=== PATIENT | female | born 1980 | race Caucasian/White ===

== ENCOUNTER 2017-11-05 21:01 | Emergency (ER) | payer OTHER, MEDICAID, SELFPAY ==
[2017-11-05 21:03] VITALS: BP 129/89; PULSE 103; RESP 17; TEMP 37.1; O2SAT 100; BMI 17.9
--- NOTE | 2017-11-05 21:05 | RAD_ITS ---
STUDY: X-RAY - RIGHT HAND REASON FOR EXAM: Female, 36 years old. Pain in fourth finger. TECHNIQUE: 3 view(s) of the hand. COMPARISON: None. FINDINGS: There is no evidence of fracture or dislocation. There are no significant degenerative changes. There are no radiodense foreign bodies. RAD/Hand Min 3 Views IMPRESSION: No fracture or dislocation. Electronically Signed: Jama Swan, at 21:33 EDT Tel , Service support ,
--- NOTE | 2017-11-05 22:16 | ED.VISSUMM ---
- ER Visit Summary Date of Service: 11/05/17 Chief Complaint: [Injury to right hand] History of Present Illness: The patient is a 36 F [presents to the emergency department with complaint of injury to her right hand. Patient states that she was punching a heavy bag with gloves on. Patient is right-hand dominant. Patient use ice to the area but noticed some discoloration and is concerned about fracturing her hand.] Physical Examination: [Right hand-patient has some faint ecchymosis and bruising over the dorsum of the fourth MCP joint. Patient has pain with range of motion of the fourth MCP joint but no obvious deformity noted. Patient neurovascularly intact distally.] Test Results: [X-ray of the right hand obtained was read by radiology is normal I also evaluated the x-rays do not see any obvious fractures.] Emergency Department Course and Treatment: [Patient will be given an Jung wrap.] Treatment Plan: Patient requested 800 mg ibuprofen as she tries to avoid narcotics given the patient is in pain management for chronic neck pain.] Disposition: [Discharged to home in stable condition. Patient advised to follow-up with her primary care physician in 5-7 days.] Impression: [Contusion right hand] This note was generated with [employer] dictation software. It may contain incorrect words, spelling, and punctuation that were not noted in review of the chart prior to signing ED Disposition - Plan for ED Patient: Chief Complaint: Upper Extremity Injury Referrals: Abby Sears DO [Primary Care Provider] -
--- NOTE | 2017-11-05 22:18 | ED.DEP ---
ED Disposition - Plan for ED Patient: Chief Complaint: Upper Extremity Injury Instructions: ED Contusion Hand Prescriptions: Ibuprofen [Motrin] 800 mg PO TID PRN PRN #20 tab PRN Reason: Pain Referrals: Abby Sears DO [Primary Care Provider] - 5-7 Days
[2017-11-05] MEDS: Ibuprofen 400 MG Tablet 800 MG PO (22:24)
[2017-11-05 22:29] VITALS: BP 120/78; PULSE 98; RESP 16; O2SAT 98
== END 2017-11-05 22:29 | disposition home or self-care (01) ==
PROVIDERS: Emergency Provider Emergency Medicine; Family Provider Family Medicine; PCP Family Medicine
DX: S60.221A Contusion of right hand, initial encounter (principal); W22.8XXA Striking against or struck by other objects, initial encounter; Y93.9 Activity, unspecified; Y92.89 Other specified places as the place of occurrence of the external cause; Y99.9 Unspecified external cause status; Z72.0 Tobacco use
CPT/HCPCS: 73130; 99283

== ENCOUNTER 2017-11-18 20:32 | Emergency (ER) | payer OTHER, MEDICAID, SELFPAY ==
[2017-11-18 20:33] VITALS: BP 134/88; PULSE 96; RESP 18; TEMP 36.6; O2SAT 98; BMI 17.6
--- NOTE | 2017-11-18 20:45 | ED.DCSUM_ITS ---
- ER Visit Summary Date of Service: 11/18/17 Chief Complaint: Headache History of Present Illness: The patient is a 36 F presenting with migraine headache. She states this started this afternoon. It started after she was working in the yard. She states that she feels her migraine may be triggered by dehydration. She was not drinking water, she was drinking Mountain Dew. She tried Imitrex at home with no relief. This is similar to her previous migraines. She has photophobia and phonophobia. Denies fever or other complaints. Physical Examination: Vitals are stable. Patient is afebrile. Alert no acute distress. HEENT exam is unremarkable. Neck is supple. No meningismus Lungs are clear and equal bilaterally. Heart is regular rate and rhythm. Abdomen is soft nontender nondistended. Extremities are unremarkable. Skin is warm and dry. No focal neurologic deficit. Remainder of exam is unremarkable. Emergency Department Course and Treatment: Patient was given Compazine, Benadryl , IV fluids with improvement. On repeat evaluation, she is resting comfortably. She is advised to follow-up with her primary care physician. Advised return to ED if worsening complaints. Disposition: Discharge home Impression: Headache This note was generated with [employer] dictation software. It may contain incorrect words, spelling, and punctuation that were not noted in review of the chart prior to signing ED Disposition - Plan for ED Patient: Chief Complaint: Headache Referrals: Abby Sears DO [Primary Care Provider] -
[2017-11-18] MEDS: DiphenhydrAMINE 50 MG/ML Syringe 25 MG IV (20:51)
[2017-11-18] MEDS: proCHLORPERazine 10 MG/2 ML Vial IV (20:51)
[2017-11-18] MEDS: 0.9% Normal Saline 1,000 ML 999 ML IV ×2 (20:51)
--- NOTE | 2017-11-18 22:03 | ED.DEP ---
ED Disposition - Plan for ED Patient: Chief Complaint: Headache Instructions: ED Headache Migraine Referrals: Abby Sears DO [Primary Care Provider] -
[2017-11-18 22:10] VITALS: BP 114/67; PULSE 80; RESP 20; O2SAT 96
== END 2017-11-18 22:12 | disposition home or self-care (01) ==
LOC: ED 21:00
PROVIDERS: Emergency Provider Emergency Medicine; Family Provider Family Medicine; PCP Family Medicine
DX: R51 Headache (principal); H53.149 Visual discomfort, unspecified; J45.909 Unspecified asthma, uncomplicated; Z72.0 Tobacco use
CPT/HCPCS: 96361; 96374; 96375; 99284; J7030; A4216

== ENCOUNTER 2017-12-17 18:41 | Emergency (ER) | payer OTHER, MEDICAID, SELFPAY ==
[2017-12-17 18:43] VITALS: BP 127/92; PULSE 92; RESP 20; TEMP 36.7; O2SAT 99; BMI 18.2
[2017-12-17] MEDS: Dicyclomine 20 MG/2 ML Vial IM (19:20)
[2017-12-17] MEDS: 0.9% Normal Saline 1,000 ML 1000 ML IV (19:20)
[2017-12-17] MEDS: Ondansetron 4 MG/2 ML Vial IV (19:20)
[2017-12-17 19:24] LABS: Color, Urine Yellow (Yellow); Glucose, Dipstick Normal (Normal); Ketone-Dipstick 5 mg/dl (Negative); Leukocyte Esterase-Dipstick 25 /ul (Negative); Nitrite-Dipstick Negative (Negative); Occult Blood-Urine 150 /ul (Negative); Protein-Dipstick 15 mg/dl (Negative); Urine Bilirubin Dipstick 1 mg/dL (Negative); Urine Clarity Sl. Cloudy (Clear); Urine Urobilinogen 1 mg/dl (Normal)
[2017-12-17 19:30] LABS: Absolute Lymphocyte Count 2.06 X10^3/ul (0.83-4.51); Basophil# 0.02 X10^3/uL; Basophil% 0.2 % (0-1); Eosinophil# 0.06 X10^3/uL; Eosinophils% 0.7 % (0-5); Hematocrit 44.3 % (37-47); Hemoglobin 15.1 g/dl (12.0-15.0); Lymphocyte # 2.06 X10^3/ul (4.0); Lymphocyte % 23.8 % (19-41); Mean Corp Hgb Conc 34.1 g/gl (32-36); Mean Corpuscular Hgb 31.8 pg (27.0-32.0); Mean Corpuscular Volume 93.3 fL (81-99); Mean Platelet Vol. 9.2 fl (6.2-12.0); Monocyte# 0.53 X10^3/uL; Monocyte% 6.1 % (0-10); Neutrophil # 5.98 X10^3/uL (2.7-7.7); Neutrophil % 69.1 % (47-70); Platelet Count 302 K/mm3 (150-450); RBC Distribution Width CV 12.9 % (11.6-14.6); Red Blood Count 4.75 M/mm3 (4.2-5.4); White Blood Count 8.7 K/mm3 (4.4-11.0)
[2017-12-17 19:33] LABS: Bacteria RARE /hpf (None Seen); Mucous, Urine 1+ /hpf (<or=2+); Squamous Epithelial Cells - UA 0-5 SEEN /hpf (5-10); White Blood Cells 0-5 SEEN /hpf (0-5)
[2017-12-17 19:35] LABS: Calcium Oxalate Crystals Ur 1+ /hpf (<or=2+); Red Blood Cells-Urine 0-5 SEEN /hpf (0-5)
[2017-12-17 19:37] LABS: POSITIVE COUNT NO; POSITIVE DIFFERENTIAL NO; POSITIVE MORPHOLOGY NO
[2017-12-17 19:40] LABS: ALB/GLOB Ratio 1.2 RATIO (0.9-2.4); AST(SGOT) 11 U/L (15-37); Alanine Aminotransfer ALT/SGPT 15 U/L (13-56); Albumin, Serum 4.4 g/dL (3.2-5.0); Alkaline Phosphatase 75 U/L (45-117); Anion Gap 7 (5-15); BUN 9 mg/dL (7-18); BUN/Creat Ratio 10.8 RATIO (10-20); Calcium,Total 9.1 mg/dL (8.5-10.1); Chloride 106 mmol/L (98-107); Creatinine, Serum 0.83 mg/dL (0.55-1.02); EST Glomerular Filtration Rate 83 mL/min (>60); Est Glom Filt Rate - Afr Amer 100 mL/min (>60); Estimated Creatinine Clearance 73.52 ml/min; Globulin 3.6 g/dL (2.2-4.2); Glucose 111 mg/dL (74-106); Lipase 76 U/L (73-393); Potassium 3.6 mmol/L (3.5-5.1); Sodium Level 138 mmol/L (136-145)
[2017-12-17 20:54] VITALS: BP 132/78; PULSE 84; RESP 17; O2SAT 96
--- NOTE | 2017-12-17 20:58 | ED.DCSUM_ITS ---
- ER Visit Summary Date of Service: 12/17/17 Chief Complaint: [Vomiting] History of Present Illness: The patient is a 37 F [presents the emergency department complaint of vomiting ?4 days. Patient states that she has been vomiting at least 20 times a day. Patient states she can keep anything down. Patient's had hot flashes and chills and temperature up to 100.2. Patient describes some diffuse abdominal discomfort. Patient states that she had a test done yesterday because she has injections in her neck and they always do a test before they do her injections. Patient denies any sick contacts. Patient denies urinary symptoms. Physical Examination: HEENT-PERRLA, EOMI. Cranial nerves II through XII grossly intact. TMs clear. Mucous membranes moist. No adenopathy. Cardiovascular-regular rate and rhythm without murmur or ectopy Lungs-clear to auscultation, chest wall stable without crepitus or subcu emphysema Abdomen-normoactive bowel sounds, soft. Patient has some diffuse tenderness to the midepigastric region. There is no rebound, rigidity, or perineal signs. Patient has a negative Elliott sign. Patient has no tenderness over McBurney's. Extremities-intact ?4, normal range of motion, normal pulses, atraumatic[] Test Results: [CBC with differential obtained showed a white blood cell count of 8.7, chemistries were normal, LFTs were normal lipase was normal at 76. Urinalysis was unremarkable.] Emergency Department Course and Treatment: [Patient received Zofran and a liter normal same fluid bolus as well as Bentyl. Patient was also given a GI cocktail. Patient was feeling improved. At this point I do not feel any imaging is indicated. Patient did have a CAT scan of her abdomen and pelvis about 7 months ago that was unremarkable.] Treatment Plan: [Discharged home with prescription for Zofran and Bentyl] Disposition: [Discharge Impression: [Abdominal pain Vomiting] This note was generated with [employer] dictation software. It may contain incorrect words, spelling, and punctuation that were not noted in review of the chart prior to signing ED Disposition - Plan for ED Patient: Chief Complaint: Nausea/Vomiting Referrals: Abby Sears DO [Primary Care Provider] -
--- NOTE | 2017-12-17 20:58 | ED.DEP ---
ED Disposition - Plan for ED Patient: Chief Complaint: Nausea/Vomiting Instructions: ED Abdominal Pain Unkn Cause, ED Nausea Vomiting Prescriptions: Ondansetron [Zofran Odt] 4 mg PO Q8H PRN PRN #10 tab PRN Reason: Nausea Dicyclomine HCl [Bentyl] 20 mg PO TIDAC #20 cap Referrals: Abby Sears DO [Primary Care Provider] - 3-5 Days
== END 2017-12-17 21:01 | disposition home or self-care (01) ==
PROVIDERS: Emergency Provider Emergency Medicine; Family Provider Family Medicine; PCP Family Medicine
DX: R10.13 Epigastric pain (principal); K52.9 Noninfective gastroenteritis and colitis, unspecified; R11.10 Vomiting, unspecified; Z72.0 Tobacco use
CPT/HCPCS: 80053; 81001; 83690; 85025; 96361; 96372; 96374; 99284; J7030; J2405

== ENCOUNTER 2017-12-19 19:49 | Emergency (ER) | payer OTHER, MEDICAID, SELFPAY ==
[2017-12-19 19:51] VITALS: BP 108/77; PULSE 88; RESP 16; TEMP 36.7; O2SAT 100; BMI 18.9
--- NOTE | 2017-12-19 20:54 | CT_ITS ---
STUDY: CT ABDOMEN AND PELVIS WITH CONTRAST REASON FOR EXAM: Female, 37 years old. Nausea and vomiting for 2 days RADIATION DOSAGE (If Supplied By Facility): CTDIvol = ( 11.26 ) mGy, DLP = ( 288.91 ) mGycm TECHNIQUE: Transaxial images were obtained from the dome of the diaphragm to the symphysis pubis with oral contrast. 100 ml of Isovue 300 contrast was administered. Sagittal and coronal images were reconstructed. Individualized dose optimization techniques were used for this CT. COMPARISON: CT abdomen and pelvis 06/29/2017 FINDINGS: Body wall soft tissues: No acute process. Osseous structures: No acute process. Inferior chest: No acute process. Hepatobiliary: Normal. Pancreas: No acute process. Spleen: Normal. Adrenal glands: Normal. Urogenital: Normal kidneys, symmetric nephrograms. Normal collecting systems, ureters, urinary bladder. Normal anteverted uterus. No adnexal mass or suspicious cyst and no cul-de-sac free fluid. Prominent uterine and adnexal veins discussed below. Pelvic floor and sidewalls and retroperitoneum: No mass or adenopathy. Vasculature: Unremarkable aorta, major aortic branch vessels, portal venous and mesenteric venous arborization, iliac veins and IVC. Acute takeoff of the superior mesenteric artery from the ureter. 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 This is a normal variant venous pathway rarely presenting with symptoms of pelvic venous congestion, flank pain, or painless hematuria. There are also features of SMA syndrome, prominent compression of the 3rd portion of the duodenum between the aorta and the SMA, contributing to mild ectasia of the 2nd portion of the duodenum and potentially contributing to symptoms of partial gastric outlet obstruction or delay in gastric emptying. This requires clinical correlation. Stomach: There is circumferential abnormal thickening of the wall the gastric pylorus edematous features. Wall thickness up to 8.5 mm. Thickening over a length of approximately 4.3 cm. Pyloric hypertrophy may be a reflection of SMA syndrome. Small bowel and mesentery: The jejunum and ileum are normal. Large bowel: Normal appendix. There is circumferential thickening of the wall of the cecum and ascending colon, and transverse colon normalizing through the splenic flexure. The distal large bowel is unremarkable. There is evidence of pneumatosis within the wall of the hepatic flexure and transverse colon. There is no evidence of gas within the mesenteric veins and there is no portal venous gas. Free fluid or free air: None. CT/Abdomen/Pelvis WITH Contrast IMPRESSION: 1. Mild circumferential thickening of wall the ascending colon and transverse colon associated with mild pneumatosis within the wall without mesenteric or portal venous pneumatosis. Most consistent with acute colitis. 2. There are features of SMA syndrome which may be contributing to hypertrophic pylorus. Correlate clinically for symptoms of delayed gastric emptying. 3. 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 Electronically Signed: Chris Anthony, at 23:52 EDT Tel , Service support ,
[2017-12-19] MEDS: 0.9% Normal Saline 1,000 ML 1000 ML IV (20:59)
[2017-12-19] MEDS: Morphine 4 MG/ML Syringe IV (20:59)
[2017-12-19] MEDS: Ondansetron 4 MG/2 ML Vial IV (20:59)
[2017-12-19 21:15] LABS: Absolute Lymphocyte Count 2.54 X10^3/ul (0.83-4.51); Absolute Neutrophil Count 5.6 X10^3/uL (2.0-7.7); Basophil# 0.03 X10^3/uL; Basophil% 0.3 % (0-1); Eosinophil# 0.11 X10^3/uL; Eosinophils% 1.3 % (0-5); Hematocrit 41.3 % (37-47); Hemoglobin 13.9 g/dl (12.0-15.0); Lymphocyte # 2.54 X10^3/ul (4.0); Lymphocyte % 29.2 % (19-41); Mean Corp Hgb Conc 33.7 g/gl (32-36); Mean Corpuscular Hgb 31.4 pg (27.0-32.0); Mean Corpuscular Volume 93.4 fL (81-99); Mean Platelet Vol. 9.3 fl (6.2-12.0); Monocyte# 0.46 X10^3/uL; Monocyte% 5.3 % (0-10); Neutrophil # 5.56 X10^3/uL (2.7-7.7); Neutrophil % 63.9 % (47-70); POSITIVE COUNT NO; POSITIVE DIFFERENTIAL NO; POSITIVE MORPHOLOGY NO; Platelet Count 286 K/mm3 (150-450); RBC Distribution Width CV 12.5 % (11.6-14.6); RBC Distribution Width SD 42.7 fl (35.1-43.9); Red Blood Count 4.42 M/mm3 (4.2-5.4); White Blood Count 8.7 K/mm3 (4.4-11.0)
[2017-12-19 21:27] LABS: Color, Urine Yellow (Yellow); Glucose, Dipstick Normal (Normal); Ketone-Dipstick 50 mg/dl (Negative); Leukocyte Esterase-Dipstick 100 /ul (Negative); Nitrite-Dipstick Positive (Negative); Occult Blood-Urine 150 /ul (Negative); Protein-Dipstick 100 mg/dl (Negative); Urine Clarity Sl. Cloudy (Clear); Urine Urobilinogen 4 mg/dl (Normal); Urine pH 6.5 (5.0 - 8.0)
[2017-12-19 21:29] LABS: Urine Bilirubin Dipstick 3 mg/dL (Negative)
[2017-12-19 21:30] LABS: ALB/GLOB Ratio 1.2 RATIO (0.9-2.4); AST(SGOT) 10 U/L (15-37); Alanine Aminotransfer ALT/SGPT 15 U/L (13-56); Albumin, Serum 4.3 g/dL (3.2-5.0); Alkaline Phosphatase 71 U/L (45-117); Anion Gap 9 (5-15); BUN 8 mg/dL (7-18); BUN/Creat Ratio 11.5 RATIO (10-20); Calcium,Total 8.9 mg/dL (8.5-10.1); Chloride 102 mmol/L (98-107); EST Glomerular Filtration Rate 101 mL/min (>60); Est Glom Filt Rate - Afr Amer 123 mL/min (>60); Estimated Creatinine Clearance 87.87 ml/min; Globulin 3.5 g/dL (2.2-4.2); Glucose 102 mg/dL (74-106); Lipase 555 U/L (73-393); Potassium 3.4 mmol/L (3.5-5.1); Protein, Total 7.8 g/dL (6.4-8.2); Sodium Level 139 mmol/L (136-145)
[2017-12-19 21:33] LABS: Bacteria 3+ /hpf (None Seen); Mucous, Urine 2+ /hpf (<or=2+); Red Blood Cells-Urine 5-10 SEEN /hpf (0-5); Squamous Epithelial Cells - UA 5-10 SEEN /hpf (5-10); White Blood Cells 5-10 SEEN /hpf (0-5)
[2017-12-19 21:34] LABS: Calcium Oxalate Crystals Ur RARE /hpf (<or=2+)
[2017-12-19 21:35] LABS: Pregnancy, Serum, hCG Quali. NEGATIVE Negative (0-9 Nonpreg)
--- NOTE | 2017-12-19 22:47 | RAD_ITS ---
STUDY: X-RAY CHEST REASON FOR EXAM: Female, 37 years old. Cough TECHNIQUE: Frontal and lateral views of the chest were obtained. COMPARISON: July 22, 2015 FINDINGS: The lungs are adequately aerated. There are no focal airspace opacities. There is no demonstrated pleural abnormality. Nipple shadows are present bilaterally. The cardiac silhouette is normal in size. The mediastinum and hilar regions are unremarkable. Normal visualized pulmonary arteries. Normal visualized aortic arch and descending thoracic aorta. The thoracic spine is unremarkable. The visualized ribs, clavicles, and shoulders are unremarkable. There is no demonstrated abnormality of the visualized upper abdomen. RAD/Chest PA and Lateral IMPRESSION: There is no evidence of focal consolidation or pleural effusion. Electronically Signed: Francy Lr MD at 0:14 EDT Tel Direct: [phone], Service support ,
[2017-12-19 23:18] VITALS: BP 118/80; PULSE 58; RESP 16; O2SAT 99
--- NOTE | 2017-12-20 00:16 | ED.DCSUM_ITS ---
- ER Visit Summary Date of Service: 12/20/17 Chief Complaint: Abdominal pain, nausea and vomiting History of Present Illness: The patient is a 37 F who presents with abdominal pain nausea and vomiting. She reports intractable nausea and vomiting for the past 5 days. She was recently seen in the ER for similar symptoms. She had normal labs at that time. She was discharged. She does have Zofran at home. She states that despite this she continues to vomit. She thought that maybe some of this may have been due to constipation so she did take a laxative and has had some loose stools since yesterday. She reports temperature of 100.2. She also reports burning epigastric abdominal pain which radiates up through the chest. She states she has had some cough and feel short of breath but believes this all may be related to her persistent vomiting. Physical Examination: Afebrile vitals are within normal limits Moist mucous membranes Heart regular rate and rhythm Lungs are clear Abdomen soft nondistended she has mild diffuse abdominal tenderness no guarding no rebound Alert Test Results: Laboratory studies are notable for lipase of 555. Urinalysis shows 100 leukocyte esterase, positive nitrates, 5-10 WBCs and 3+ bacteria however is contaminated with 5-10 epithelial cells. is negative. Chest x-ray shows no acute process on my review. CT of the abdomen and pelvis shows mild circumferential thickening of the wall of the ascending and transverse colon with mild pneumatosis consistent with colitis. The patient also has features of SMA syndrome and nutcracker syndrome. Emergency Department Course and Treatment: Patient was initially treated with IV fluids morphine and Zofran. She requested a GI cocktail. She took this with relief of symptoms although continue to complain of burning epigastric abdominal pain. She was given Protonix with further improvement although still does have some pain on reevaluation. She was given Rocephin although she is contaminated there are nitrites 3+ bacteria so we will treat for UTI and also obtain urine culture. Given the patient's persistent vomiting with features of SMA syndrome I do feel she will need further workup which would be more appropriate at a tertiary care facility with additional consult was available including gastroenterology. 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 It may contain incorrect words, spelling, and punctuation that were not noted in review of the chart prior to signing ED Disposition - Plan for ED Patient: Chief Complaint: Nausea/Vomiting Referrals: Abby Sears DO [Primary Care Provider] -
[2017-12-20] MEDS: Ceftriaxone 1 GM/50 ML BAG IV (00:38)
[2017-12-20 01:33] VITALS: BP 132/76; PULSE 79; RESP 18; O2SAT 100
[2017-12-20 02:31] VITALS: BP 132/76; PULSE 79; RESP 18; O2SAT 98
== END 2017-12-20 01:48 | disposition short-term general hospital (02) ==
PROVIDERS: Emergency Provider Emergency Medicine; Family Provider Family Medicine; PCP Family Medicine
DX: R11.10 Vomiting, unspecified (principal); R74.8 Abnormal levels of other serum enzymes; I77.1 Stricture of artery; N39.0 Urinary tract infection, site not specified; K63.89 Other specified diseases of intestine; J45.909 Unspecified asthma, uncomplicated; F41.9 Anxiety disorder, unspecified; Z79.899 Other long term (current) drug therapy; Z72.0 Tobacco use
CPT/HCPCS: 71046; 74177; 80053; 81001; 83690; 84703; 85025; 87086; 96361; 96365; 96367; 96374; 96375; 99284; J7030; J7050; Q9967; A4216; J2405

== ENCOUNTER → 2018-01-22 13:45 | Outpatient (CLI) | payer OTHER, MEDICAID, SELFPAY ==
--- NOTE | 2018-01-22 14:15 | RAD_ITS ---
STUDY: X-RAY - ABDOMEN/PELVIS REASON FOR EXAM: Female, 37 years old. Abdominal pain x3 days, history of colitis and ovarian cysts. TECHNIQUE: Two AP supine views of the abdomen and pelvis. COMPARISON: None. FINDINGS: The lung bases are not in the field of view of the study. There is an unremarkable bowel gas pattern. There is no demonstrated free abdominal air. The visualized liver, spleen and kidneys are grossly normal in size and morphology. There is a small calcification in the lower right pelvis most likely representing a phlebolith. Normal visualized osseous structures. RAD/Abdomen Single View IMPRESSION: Small calcification of the lower right pelvis most likely representing a phlebolith. There is no evidence of ileus, obstruction, or free intraperitoneal air. Electronically Signed: Efren Ames MD at 23:53 EDT , Service support ,
[2018-01-22 14:40] LABS: Absolute Lymphocyte Count 2.21 X10^3/ul (0.83-4.51); Absolute Neutrophil Count 2.9 X10^3/uL (2.0-7.7); Basophil# 0.03 X10^3/uL; Basophil% 0.5 % (0-1); Eosinophils% 1.8 % (0-5); Hematocrit 42.4 % (37-47); Hemoglobin 14.4 g/dl (12.0-15.0); Lymphocyte # 2.21 X10^3/ul (4.0); Lymphocyte % 38.8 % (19-41); Mean Corpuscular Hgb 32.3 pg (27.0-32.0); Mean Corpuscular Volume 95.1 fL (81-99); Monocyte# 0.46 X10^3/uL; Monocyte% 8.1 % (0-10); Neutrophil % 50.8 % (47-70); Platelet Count 230 K/mm3 (150-450); RBC Distribution Width CV 11.8 % (11.6-14.6); RBC Distribution Width SD 40.4 fl (35.1-43.9); Red Blood Count 4.46 M/mm3 (4.2-5.4); White Blood Count 5.7 K/mm3 (4.4-11.0)
[2018-01-22 14:49] LABS: POSITIVE COUNT NO; POSITIVE DIFFERENTIAL NO; POSITIVE MORPHOLOGY NO
[2018-01-22 14:54] LABS: Erythrocyte Sedimentation Rate 4 mm/hr (0-20)
[2018-01-22 15:08] LABS: ALB/GLOB Ratio 1.1 RATIO (0.9-2.4); AST(SGOT) 10 U/L (15-37); Alanine Aminotransfer ALT/SGPT 15 U/L (13-56); Albumin, Serum 3.9 g/dL (3.2-5.0); Alkaline Phosphatase 58 U/L (45-117); Anion Gap 6 (5-15); BUN 6 mg/dL (7-18); BUN/Creat Ratio 9.3 RATIO (10-20); CRP < 2.90 mg/L (0.0-3.0); Calcium,Total 8.4 mg/dL (8.5-10.1); Chloride 107 mmol/L (98-107); Creatinine, Serum 0.64 mg/dL (0.55-1.02); EST Glomerular Filtration Rate 111 mL/min (>60); Est Glom Filt Rate - Afr Amer 134 mL/min (>60); Globulin 3.4 g/dL (2.2-4.2); Glucose 76 mg/dL (74-106); Potassium 3.5 mmol/L (3.5-5.1); Protein, Total 7.3 g/dL (6.4-8.2); Sodium Level 142 mmol/L (136-145)
[2018-01-25 16:10] LABS: Endomysial Antibody IgA Negative (Negative)
[2018-01-26 08:37] LABS: Immunoglobulin A 292 mg/dL (87-352); t-Transglutaminase IgA <2 U/mL (0-3)
== END ==
PROVIDERS: Family Provider Family Medicine; PCP Family Medicine; Visit Provider Family Medicine
DX: K52.9 Noninfective gastroenteritis and colitis, unspecified (principal); R10.9 Unspecified abdominal pain; R10.32 Left lower quadrant pain
CPT/HCPCS: 36415; 74018; 80053; 82784; 83516; 85025; 85652; 86140; 86255

== ENCOUNTER 2018-03-04 09:20 | Day surgery (SDC) | payer OTHER, MEDICAID, SELFPAY ==
[2018-03-04] VITALS (7 sets, daily range): BP systolic 97–131; BP diastolic 73–102; PULSE 58–108; RESP 12–16; TEMP 36.4–37; O2SAT 98–100; BMI 17.9
[2018-03-04 09:56] LABS: Hemoglobin 14.9 g/dl (12.0-15.0); Mean Corp Hgb Conc 34.7 g/gl (32-36); Mean Corpuscular Hgb 32.2 pg (27.0-32.0); Mean Corpuscular Volume 92.9 fL (81-99); Mean Platelet Vol. 9.7 fl (6.2-12.0); Platelet Count 275 K/mm3 (150-450); RBC Distribution Width CV 11.6 % (11.6-14.6); RBC Distribution Width SD 39.2 fl (35.1-43.9); Red Blood Count 4.63 M/mm3 (4.2-5.4); White Blood Count 6.4 K/mm3 (4.4-11.0)
[2018-03-04 09:58] LABS: Scan Indicated on CBC? Y/N NO
[2018-03-04 09:59] LABS: Internal QC Validated? YES +Cl - CLEAR BKGD; Pregnancy, Urine Negative Negative
--- NOTE | 2018-03-04 10:55 | FALS_PTH ---
PATIENT: EJ MONTEZ [place] [facility] [id number] AGE/SX: 37/F ROOM: RE03/04/[address]: Dr. Adriane Roman, MDDOB: 1980 BED: DIS: 03/04/2018 SPEC #: [id number] RECD: 03/04/18 14:51 STATUS: KEELEY TRAVIS #: [id number] CONOR: 03/04/18 10:[address]: Ardiane Roman DEPT: SURGICAL PATHOLOGY RECD BY: Gabby Fay ENTERED: 03/05/18 09:02 SP TYPE: FALL TUBES OTHR DR: Dr. Abby Sears, DO Tissues: Fallopian tube Procedures: Surgery Specimen Level II HEADER OPERATION: Laparoscopic left salpingectomy PRE-OP DIAGNOSIS: Desired sterilization TISSUE SUBMITTED: Left fallopian tube MICROSCOPIC DIAGNOSIS Left fallopian tube, salpingectomy: Fallopian tube including fimbrial end, no pathologic diagnosis. Paratubal cyst. SJ:javi 03/08/18 MICROSCOPIC DESCRIPTION Slides are reviewed. GROSS DESCRIPTION Received in fixative is one container labeled with the patient's name and designated left fallopian tube. The specimen consists of a fallopian tube received in two fragments measuring in aggregate 5 cm in length and 0.6 cm in average diameter. No mass lesions are identified. Present free in the container is a smooth, glistening cystic structure measuring 1 cm in greatest dimension. The cyst contains a small amount of clear fluid. The cyst is inked in black ink and submitted along with the fallopian tube in one cassette. The specimen is serially sectioned and totally submitted in one cassette. / AM:javi 03/05/18 TC:5 CPT: 73939
--- NOTE | 2018-03-04 11:39 | PCM.DC.TUB ---
Discharge Diet: No Restrictions, - - Increase fluid intake for 48 hours. Discharge Activity: Return to Normal Activity, May Drive - when you are no longer taking narcotic pain medications., May Shower, May Take a Tub Bath - in 7 days., - - Ambulate often the next week after surgery. May resume sexual activity in: 2 weeks Additional Activity Instructions:: Nothing in the vagina for the next 5 days. Call your doctor if your incision/area has: Continuous Slow Oozing, Sudden Increased Bleeding, Increased Pain/ Swelling, Increased Redness, Foul Smelling Discharge, Swelling at the incision site Call your doctor if you observe: Fever of 101 or Higher Cleanse incision/area with: - - you have skin glue on incision sites- may let soap and water run over them and dab dry. Allergies/Adverse Reactions: Allergies lanolin Allergy (Verified 02/25/18 09:04) Hives naproxen [From Naprosyn] Allergy (Verified 02/25/18 09:04) Hives tramadol Allergy (Verified 02/25/18 09:04) Other blisters to mouth gabapentin Adverse Reaction (Verified 02/25/18 09:05) Other BEE STINGS Adverse Reaction (Uncoded 02/25/18 09:04) Swelling LIQUID SMOKE/BBQ SAUCE Adverse Reaction (Uncoded 02/25/18 09:04) Nausea Medications to take at Discharge Albuterol Inhaler [Ventolin Hfa] 2 puff INHALATION Q4H PRN PRN 10/07/16 Potassium Chloride [Klor-Con] 20 meq PO BID 03/27/17 Clonazepam [Klonopin] 0.5 mg PO BID PRN PRN 11/05/17 Dextroamphetamine/Amphetamine [Adderall 15 mg Tablet] 15 mg PO DAILY 11/05/17 Ibuprofen [Motrin] 800 mg PO TID PRN PRN #20 tab 11/05/17 Sumatriptan [Imitrex] 6 mg SC .X1 PRN PRN 11/18/17 Dicyclomine HCl [Bentyl] 20 mg PO TIDAC #20 cap 12/17/17 Ondansetron [Zofran Odt] 4 mg PO Q8H PRN PRN #10 tab 12/17/17 Acetaminophen [Tylenol] 500 - 1,000 mg PO Q6H PRN PRN 02/25/18 Ascorbic Acid [Vitamin C] 500 mg PO DAILY 02/25/18 Cholecalciferol (Vitamin D3) [Vitamin D3] 400 unit PO DAILY 02/25/18 Cyanocobalamin (Vitamin B-12) [Vitamin B-12] 1,000 mcg PO DAILY 02/25/18 Dextroamphetamine/Amphetamine [Adderall Xr 15 mg Capsule] 15 mg PO DAILY 02/25/18 Diphenoxylate/Atrop [Lomotil] 1 tablet PO TID PRN PRN 02/25/18 Ginseng 500 mg PO DAILY 02/25/18 Ibuprofen 400 mg PO PRN PRN 02/25/18 Loratadine 20 mg PO DAILY 02/25/18 Omeprazole 40 mg PO DAILY 02/25/18 Primary Care Physician: Abby Sears DO [Primary Care Provider] - Test Results: Test results from this visit will be discussed in further detail at your follow-up appointment, if applicable.
[2018-03-04] MEDS: Bupivacaine 0.25% 30 ML Vial (12:10)
--- NOTE | 2018-03-04 12:15 | PCM.OP.BLANK ---
Operative Report Date of Procedure: 03/04/18 Surgeon: Dr. Adriane Roman Telesales Advisor: none Preoperative diagnosis: Sterilization request Procedure performed: Laparoscopic bilateral salpingectomy Postoperative diagnosis: Sterilization request complications: None Estimated blood loss: 5 cc Drains: none Specimens collected: left fallopian tube Findings: Normal ovaries, right tube surgically absent. small left paratubal cyst anesthesia: General Operative note: After informed consent was obtained patient was taken to the operating room she was placed in supine position she was given anesthesia. She was then placed in the [facility] stirru and she was prepped and draped in normal sterile fashion. Bladder was drained prior to the start of procedure approximately 150 cc of clear yellow urine was expelled. At this time attention was turned to the vaginal portion where weighted speculum placed at posterior fornix vagina single-tooth tenaculum was used to gently grasp the internal the cervix. uterus was gently sounded to approximately 7cm. Uterine manipulator was placed without difficulty. Legs then placed in parallel with the abdomen the tenaculum and the weighted speculum were removed. 2 towel clamps were placed superior to umbilicus. After Marcaine was injected superior to umbilicus a small incision was made and a 5 mm trocar was placed under direct visualization. CO2 gas was used to insufflate the intra-abdominal cavity. Upon inspection right tube surgically absent, left tube with small paratubal cyst, both ovaries normal and large pelvic vessels appreciated. At this time then the RLQ and LLQ ports were placed again Marcaine was injected small incision was made a knife and the 5 mm trocar was placed. At this time then left tube was traced back to the fimbriated ends. Ligasure was used to coagulate and ligate along mesosalpynx until tube removed completely. Paratubal cyst ruptured clear fluid at time of removal. Good hemostasis was appreciated. At this time procedure was deemed complete successful. The gas was desufflated on from the intra-abdominal cavity. The trochars were removed. Skin was closed using 4-0 Monocryl in a subcutaneous fashion. Dermabond glue was placed. Instrument lap and needle counts were correct ?2. The uterine manipulator was removed. Vaginal sweep was performed it was negative. There were no complications anticipated normal postoperative course for this patient.
[2018-03-04] MEDS: HYDROcodone Bitartrate/Apap 5/325 Tablet PO (13:58)
== END 2018-03-04 14:18 | disposition home or self-care (01) ==
LOC: SDC 09:21 → AC 09:23
PROVIDERS: Family Provider Family Medicine; PCP Family Medicine; Visit Provider Obstetrics & Gynecology
PROC: (CPT 58661; principal; 2018-03-04 10:40)
DX: Z30.2 Encounter for sterilization (principal); N83.8 Other noninflammatory disorders of ovary, fallopian tube and broad ligament; F17.200 Nicotine dependence, unspecified, uncomplicated; J45.909 Unspecified asthma, uncomplicated; G43.909 Migraine, unspecified, not intractable, without status migrainosus; F98.8 Other specified behavioral and emotional disorders with onset usually occurring in childhood and adolescence
CPT/HCPCS: 58661; 36415; 81025; 85027; 88302; 93005; 99283; J7120; J2405

== ENCOUNTER 2018-03-04 21:03 | Emergency (ER) | payer OTHER, MEDICAID, SELFPAY ==
[2018-03-04 21:05] VITALS: BP 108/69; PULSE 66; RESP 18; TEMP 36.8; O2SAT 100; BMI 18.3
--- NOTE | 2018-03-04 21:34 | ED.VISSUMM ---
- ER Visit Summary Date of Service: 03/04/18 Chief Complaint: [Abdominal pain] History of Present Illness: The patient is a 37 F [presents the emergency department complaint of abdominal pain that started about 3 hours ago. Patient states that she had a tubal ligation earlier this morning that was done by Dr. Mathews. Patient states that initially she felt okay but then started having increased discomfort. She denies urinary symptoms. She denies fever. She denies feeling lightheaded or dizzy. Patient apparently was sent home with ibuprofen for her pain which is not helping.] Physical Examination: [HEENT-PERRLA, EOMI. Cranial nerves II through XII grossly intact. TMs clear. Mucous membranes moist. No adenopathy. Cardiovascular-regular rate and rhythm without murmur or ectopy Lungs-clear to auscultation, chest wall stable without crepitus or subcu emphysema Abdomen-normoactive bowel sounds, soft. Patient has some mild lower abdomen discomfort on palpation. There is no rebound, rigidity, or perineal signs. The incision sites for the ports look normal without drainage and no evidence of infection. Patient has no rebound, rigidity, or perineal signs. Extremities-intact ?4, normal range of motion, normal pulses, atraumatic] Test Results: [None indicated] Emergency Department Course and Treatment: [I discussed case with Dr. Lisa Macedo who was covering for Dr. Mathews. At this point I do not feel any type of imaging is indicated. Patient also in agreement she states that she just wanted better pain control so she could sleep tonight. Patient was given a dose of morphine 4 mg IM as well as 4 mill grams Zofran.] Treatment Plan: [Patient will be given a prescription for [place] for pain] Disposition: [Discharged home in stable condition] Impression: [Abdominal pain status post tubal ligation] This note was generated with [employer] dictation software. It may contain incorrect words, spelling, and punctuation that were not noted in review of the chart prior to signing ED Disposition - Plan for ED Patient: Chief Complaint: General Illness Referrals: Abby Sears DO [Primary Care Provider] -
--- NOTE | 2018-03-04 21:36 | ED.DEP ---
ED Disposition - Plan for ED Patient: Chief Complaint: General Illness Instructions: ED Post Op Pain Prescriptions: Hydrocodone/Acetaminophen [[place] 5-325 Tablet] 1 - 2 ea PO 4X/DAY PRN PRN 3 Days #12 tab PRN Reason: Pain Referrals: Abby Sears DO [Primary Care Provider] - Adriane Roman MD [STAFF PHYSICIAN] - 1 Day for another exam
[2018-03-04] MEDS: Morphine 4 MG/ML Syringe IM (21:45)
[2018-03-04] MEDS: Ondansetron 4 MG/2 ML Vial IM (21:45)
[2018-03-04] MEDS: HYDROcodone Bitartrate/Apap 5/325 Tablet PO (22:18)
[2018-03-04 22:20] VITALS: BP 111/68; PULSE 58; RESP 16; O2SAT 98
== END 2018-03-04 22:21 | disposition home or self-care (01) ==
LOC: ED 21:44
PROVIDERS: Emergency Provider Emergency Medicine; Family Provider Family Medicine; PCP Family Medicine
DX: R10.9 Unspecified abdominal pain (principal); Z98.51 Tubal ligation status; Z72.0 Tobacco use
CPT/HCPCS: J2405

== ENCOUNTER 2018-06-09 16:05 | Emergency (ER) | payer OTHER, MEDICAID, SELFPAY ==
[2018-06-09 16:06] VITALS: BP 122/84; PULSE 83; RESP 16; TEMP 36.4; O2SAT 100; BMI 17.9
--- NOTE | 2018-06-09 16:22 | RAD_ITS ---
STUDY: X-RAY - RIGHT HAND REASON FOR EXAM: Female, 37 years old. Hit a wall, pain across metacarpals into the wrist. TECHNIQUE: 3 view(s) of the hand. COMPARISON: None. FINDINGS: Normal radiocarpal articulation. Normal distal radioulnar joint. Normal visualized carpal bones. Normal carpal articulations Normal carpometacarpal articulation of the thumb. Normal second through fifth carpometacarpal joints. Normal metacarpi. Normal metacarpophalangeal joint of the thumb. Normal interphalangeal joint of the thumb. Normal proximal and distal phalanges of the thumb. Normal metacarpophalangeal joints of the second through fifth fingers. Normal proximal and distal interphalangeal joints of the second through fifth fingers. Normal phalanges of the second through fifth fingers. The soft tissue structures are unremarkable. No demonstrated acute fracture. RAD/Hand Min 3 Views IMPRESSION: Normal x-ray examination of the right hand. Electronically Signed: Matt Laughlin MD at 16:52 EST , Service support ,
--- NOTE | 2018-06-09 16:29 | ED.VISSUMM ---
- ER Visit Summary Date of Service: 06/09/18 Chief Complaint: Right hand trauma History of Present Illness: The patient is a 37 F [id number] who punched a wall 2 hours ago at home when she was angry with a family member. She denies any other injuries. She has pain over the fourth and fifth metacarpals and tingling in her fingertips but no other symptoms. Physical Examination: Mild tenderness on palpation midshaft fourth and fifth metacarpals. Skin is intact. No objective sensory changes distally. Normal cap refill distally. Skin normal color and temperature. Distal neurovascular examination is normal. No wrist tenderness. No scaphoid tenderness. Test Results: Right hand plain films interpreted independently by me is negative for acute fracture. Formal radiology interpretation is still pending. She already has a brace in an Jung bandage that she applied at home. She will continue to wear this and follow-up with orthopedics if not improving. Emergency Department Course and Treatment: Treatment Plan: Follow-up with orthopedics if not improving Disposition: Home stable Impression: Initial encounter acute right hand contusion This note was generated with [employer] dictation software. It may contain incorrect words, spelling, and punctuation that were not noted in review of the chart prior to signing ED Disposition - Plan for ED Patient: Chief Complaint: Upper Extremity Injury Instructions: ED Contusion Upper Ext Referrals: Fredy Mendoza MD [STAFF PHYSICIAN] -
--- NOTE | 2018-06-09 16:33 | ED.DCSUM_ITS ---
- ER Visit Summary Date of Service: 06/09/18 Chief Complaint: Right hand trauma History of Present Illness: The patient is a 37 F [id number] who punched a wall 2 hours ago at home when she was angry with a family member. She denies any other injuries. She has pain over the fourth and fifth metacarpals and tingling in her fingertips but no other symptoms. Physical Examination: Mild tenderness on palpation midshaft fourth and fifth metacarpals. Skin is intact. No objective sensory changes distally. Normal cap refill distally. Skin normal color and temperature. Distal neurovascular examination is normal. No wrist tenderness. No scaphoid tenderness. Test Results: Right hand plain films interpreted independently by me is negative for acute fracture. Formal radiology interpretation is still pending. She already has a brace in an Jung bandage that she applied at home. She will continue to wear this and follow-up with orthopedics if not improving. Emergency Department Course and Treatment: Treatment Plan: Follow-up with orthopedics if not improving Disposition: Home stable Impression: Initial encounter acute right hand contusion This note was generated with [employer] dictation software. It may contain incorrect words, spelling, and punctuation that were not noted in review of the chart prior to signing ED Disposition - Plan for ED Patient: Chief Complaint: Upper Extremity Injury Instructions: ED Contusion Upper Ext Referrals: Fredy Mendoza MD [STAFF PHYSICIAN] -
== END 2018-06-09 16:54 | disposition home or self-care (01) ==
LOC: ED 16:38
PROVIDERS: Emergency Provider Emergency Medicine; Family Provider Family Medicine; PCP Family Medicine
DX: S60.221A Contusion of right hand, initial encounter (principal); W22.01XA Walked into wall, initial encounter
CPT/HCPCS: 73130; 99283

== ENCOUNTER 2018-07-01 16:36 | Emergency (ER) | payer OTHER, MEDICAID, SELFPAY ==
[2018-07-01 16:37] VITALS: BP 120/76; PULSE 77; RESP 16; TEMP 36.6; O2SAT 100; BMI 17.1
--- NOTE | 2018-07-01 16:51 | ED.VISSUMM ---
- ER Visit Summary Date of Service: 07/01/18 Chief Complaint: [Cough and congestion] History of Present Illness: The patient is a 37 F [presents to the emergency department with complaint of not feeling well for the last 4-5 days. Patient states that she initially started with abdominal pain and cramping that lasted a few days and then resolved. Yesterday patient started with diarrhea. Patient states that she also has a cough and nasal congestion. She denies any fever. Cough is mostly nonproductive. She denies any sick contacts. Patient does complain of a mild sore throat and some achy ears. Patient states that she missed her appointment with her primary care physician today because her ride canceled on her. Patient did not go to urgent care because she felt like she needed a GI cocktail for the burning in her upper abdomen which she believes is heartburn which she deals with on a frequent basis and she takes omeprazole for. Patient denies any abdominal pain currently. Patient has taken Imodium at home which seems to control her diarrhea.] Physical Examination: [HEENT-PERRLA, EOMI. Cranial nerves II through XII grossly intact. TMs clear. Mucous membranes moist. No adenopathy. Cardiovascular-regular rate and rhythm without murmur or ectopy Lungs-clear to auscultation, chest wall stable without crepitus or subcu emphysema Abdomen-normoactive bowel sounds, soft, nontender, no rebound or rigidity, no peritoneal signs. Extremities-intact ?4, normal range of motion, normal pulses, atraumatic] Test Results: [None indicated] Emergency Department Course and Treatment: [Patient was given a GI cocktail as well as 1 dose of Zofran.] Treatment Plan: [I suspect patient likely has a viral syndrome and will treat symptomatically with a prescription for Zofran as well as prescription for Tessalon Perles. Patient has a nebulizer at home and she can use that as needed for wheezing. Patient advised to return if increasing shortness of breath or condition should worsen anyway. Patient to follow-up with primary care physician within next 3-5 days.] Disposition: [Discharged home in stable condition] Impression: [Viral syndrome] This note was generated with [employer] software. It may contain incorrect words, spelling, and punctuation that were not noted in review of the chart prior to signing ED Disposition - Plan for ED Patient: Chief Complaint: General Illness Referrals: Abby Sears DO [Primary Care Provider] -
--- NOTE | 2018-07-01 16:53 | ED.DEP ---
ED Disposition - Plan for ED Patient: Chief Complaint: General Illness Instructions: ED Viral Syndrome Prescriptions: Ondansetron [Zofran Odt] 4 mg PO Q8H PRN PRN #10 tab PRN Reason: Nausea Benzonatate [Tessalon Perle] 200 mg PO TID PRN PRN #20 cap PRN Reason: Cough Referrals: Abby Sears DO [Primary Care Provider] - 3-5 Days
[2018-07-01] MEDS: Ondansetron ODT 4 MG Tablet PO (16:55)
[2018-07-01] MEDS: Mag Hydrox/Al Hydrox/Simeth 30 ML UDC PO (16:55)
--- OUTSIDE RECORDS SUMMARY | 2018-08-17 14:25 | XMS RPT_ITS ---
:1980 Author Organization OHIP Support Name Relationship Address Phone DORMANBATOOL CHENYEIMIE Unavailable [address] + [place] [address] UE Unavailable Unavailable Unavailable DORMAN, JERIMIE Unavailable [address] + [place] [address] UE Unavailable Unavailable Unavailable DORMAN, JERIMIE Unavailable [address] + [place] [address] UE Unavailable Unavailable Unavailable DORMAN, JERIMIE Unavailable [address] + [place] [address] UE Unavailable Unavailable Unavailable DORMAN, JERIMIE Unavailable [address] + [place] [address] UE Unavailable Unavailable Unavailable DORMAN, JERIMIE Unavailable [address] + [place] [address] UE Unavailable Unavailable Unavailable DORMAN, JERIMIE Unavailable [address] + [place] [address] UE Unavailable Unavailable Unavailable DORMAN, JERIMIE Unavailable [address] + [place] [address] UE Unavailable Unavailable Unavailable DORMAN, JERIMIE Unavailable [address] + [place] [address] UE Unavailable Unavailable Unavailable DORMAN, JERIMIE Unavailable [address] + [place] [address] UE Unavailable Unavailable Unavailable DORMAN, JERIMIE Unavailable [address] + [place] [address] UE Unavailable Unavailable Unavailable Care Team Providers Name Role Phone Abby Sears Primary Care Unavailable Ungur, Remus Attending Unavailable Malys, Abby Primary Care Unavailable Hawa Lacy Attending Unavailable Malys, Abby Primary Care Unavailable Ungur, Remus Attending Unavailable Malys, Abby Primary Care Unavailable Sanya Javier Attending Unavailable KennAlexandre Attending Unavailable Malys, Abby Primary Care Unavailable Ungur, Remus Attending Unavailable Malys, Abby Attending Unavailable Malys, Abby Primary Care Unavailable Neyhirent-Villatoro, Adriane Attending Unavailable Neyhart-Villatoro, Adriane Referring Unavailable Malys, Abby Primary Care Unavailable Kenn, Alexandre Attending Unavailable Kenn, Alexandre Referring Unavailable Malys, Abby Primary Care Unavailable Malys, Abby Primary Care Unavailable Ungur, Remus Attending Unavailable Malys, Abby Primary Care Unavailable Georges Shine Attending Unavailable OLIVER MATIAS (CNM) Attending Unavailable OLIVER MATIAS (CNM) Attending Unavailable NEYHIRENT VILLATORO, ADRIANE Attending Unavailable NEEDILMA VILLATORO, ADRIANE Attending Unavailable NEALLENT IRVING, ADRIANE Attending Unavailable OLIVER MATIAS (CNM) Referring Unavailable JEREMIAH ALEMAN Admitting Unavailable SESAR, GOPAL NABI Consulting Unavailable GLORIA ALCAZAR Attending Unavailable Olya ALEMAN Admitting Unavailable IMCA Primary Care Unavailable GLORIA CHICAS Attending Unavailable SESAR, GOPAL N Consulting Unavailable PROBLEMS PROBLEMS DATE TYPE CONDITION / CODE ATTENDING STATUS SOURCE 03/04/2018 Unknown G89.18 - Other acute Ungur, Remus Active [place] [facility]cedural [facility] / G89.18(ICD-10) Hospital Repository 01/22/2018 Unknown R10.32 - Left lower Kenn, Alexandre Active [place] quadrant pain / Community R10.32(ICD-10) Hospital Repository 01/22/2018 Unknown K52.9 - Noninfective Kenn, Alexandre Active [place] gastroenteritis and Community colitis, unspecified Hospital / K52.9(ICD-10) Repository 01/22/2018 Unknown K58.9 - Irritable Kenn, Alexandre Active [place] bowel syndrome Community without diarrhea / Hospital K58.9(ICD-10) Repository 01/12/2018 Unknown A09 - Infectious Kenn, Alexandre Active [place] gastro[facility] and [facility] colitis, unspecified Hospital / A09(ICD-10) Repository 12/21/2017 Active Noninfective JUAN FRANCISCO-QUICHO, Active [place] [facility] Other colitis, unspecified [place] / K52.9(ICD-10) Repository 12/20/2017 Active Epigastric pain / JUAN FRANCISCO-QUICHO, Active [place] R10.13(ICD-10) [facility] Other [place] Repository 12/21/2017 Admitting Unknown / JUAN FRANCISCO [facility] Active [facility] diagnosis UNK(Unknown) [facility] Repository 12/02/2017 Active Unknown / POLLY OLIVER Active [place] UNK(Unknown) (CNM) Clinic Main [place] Repository PROCEDURES PROCEDURES No Procedure Records FoundRESULTS RESULTS DISCHARGE INSTRUCTION Observed: 07/01/2018 Status: F Source: [place] 4:54 PM [facility] REPOSITORY [facility] Medical Records Department [address] [place] [address] Discharge Instruction 07/01/181652 MR#: [id number] Acct: [id number] Name: FRANCY DORMAN Rep #: [id number] : 1980 37 From: Lorie Howell DO PCP: Abby Sears DO Status: PRE ER ED Disposition - Plan for ED Patient: Chief Complaint: General Illness Instructions: ED Viral Syndrome Prescriptions: Ondansetron [Zofran Odt] 4 mg PO Q8H PRN PRN #10 tab PRN Reason: Nausea Benzonatate [Tessalon Perle] 200 mg PO TID PRN PRN #20 cap PRN Reason: Cough Referrals: Abby Sears DO [Primary Care Provider] - 3-5 Days What to do if you have Problems For any increased pain, shortness of breath, bleeding, nausea or vomiting, chest pain, or any unexpected problems, contact your Primary Care Provider. Call [facility] ([phone]) or report to the closest Emergency Room. Call 911 if necessary. 07/01/18 0452 <Electronically signed by Lorie Howell DO> Date Lorie Howell DO Cosigner Signature (If Indicated): Date CC: Abby Sears DO EMERGENCY DEPARTMENT Observed: 07/01/2018 Status: F Source: [place] SUMMARY 4:53 PM [facility] REPOSITORY [facility] Medical Records Department [address] [place] [address] Emergency Department Summary 07/01/18 1651 MR#: [id number] Acct: [id number] Name: FRANCY DORMAN Rep #: [id number] : 1980 37 From: Lorie Howell DO PCP: Abby Sears DO Status: PRE ER - ER Visit Summary Date of Service: 07/01/18 Chief Complaint: [Cough and congestion] History of Present Illness: The patient is a 37 F [presents to the emergency department with complaint of not feeling well for the last 4-5 days. Patient states that she initially started with abdominal pain and cramping that lasted a few days and then resolved. Yesterday patient started with diarrhea. Patient states that she also has a cough and nasal congestion. She denies any fever. Cough is mostly nonproductive. She denies any sick contacts. Patient does complain of a mild sore throat and some achy ears. Patient states that she missed her appointment with her primary care physician today because her ride canceled on her. Patient did not go to urgent care because she felt like she needed a GI cocktail for the burning in her upper abdomen which she believes is heartburn which she deals with on a frequent basis and she takes omeprazole for. Patient denies any abdominal pain currently. Patient has taken Imodium at home which seems to control her diarrhea.] Physical Examination: [HEENT-PERRLA, EOMI. Cranial nerves II through XII grossly intact. TMs clear. Mucous membranes moist. No adenopathy. Cardiovascular-regular rate and rhythm without murmur or ectopy Lungs-clear to auscultation, chest wall stable without crepitus or subcu emphysema Abdomen-normoactive bowel sounds, soft, nontender, no rebound or rigidity, no peritoneal signs. Extremities-intact 4, normal range of motion, normal pulses, atraumatic] Test Results: [None indicated] Emergency Department Course and Treatment: [Patient was given a GI cocktail as well as 1 dose of Zofran.] Treatment Plan: [I suspect patient likely has a viral syndrome and will treat symptomatically with a prescription for Zofran as well as prescription for Tessalon Perles. Patient has a nebulizer at home and she can use that as needed for wheezing. Patient advised to return if increasing shortness of breath or condition should worsen anyway. Patient to follow-up with primary care physician within next 3-5 days.] Disposition: [Discharged home in stable condition] Impression: [Viral syndrome] This note was generated with [employer] dictation software. It may contain incorrect words, spelling, and punctuation that were not noted in review of the chart prior to signing ED Disposition - Plan for ED Patient: Chief Complaint: General Illness Referrals: Abby Sears, [Primary Care Provider] - What to do if you have Problems For any increased pain, shortness of breath, bleeding, nausea or vomiting, chest pain, or any unexpected problems, contact your Primary Care Provider. Call [facility] ([phone]) or report to the closest Emergency Room. Call 911 if necessary. 07/01/18 1653 <Electronically signed by Lorie Howell DO> Date Lorie Howell DO Cosigner Signature (If Indicated): Date CC: Abby Sears DO PROGRESS Observed: 06/23/2018 Status: COMPLETED Source: [place] 2:02 PM [facility] REPOSITORY O ID: [id number] Author: Adriane Villatoro Service: (none) Author Type: Physician Type: Progress Notes Filed: 06/23/2018 2:19 PM Note Text: Francy Dorman is a 37 year old female who presents for Nexplanon removal for abnormal bleeding. UNIVERSAL PROTOCOL / SAFETY CHECKLIST Procedure to be performed: Nexplanon removal Sign in Communication: Completed Time Out: Team Confirms the Correct Patient, Correct Procedure, Correct Site and Site Marking, Correct Position (if applicable), Prep and Dry Time (if applicable). Time: 2:10 Affirmation of Time Out: YES Sign Out Discussion: Completed Aide Diane Ma TECHNIQUE: Patient placed in supine position with left arm bent at the elbow and placed over the head. Skin cleansed with betadine. 2mL of 1% lidocaine with epi injected subQ along insertion site. Scalpel used to made a 5mm stab incision superficially at distal end of Nexplanon. Device removed under sterile technique with a small hemostat. Sterile pressure dressing applied. AANDP: 37 year old female here for implanon removal Nexplanon removed intact without difficulty. The patient was instructed to remove the dressing after 24 hours. Contraceptive plans - had salpingectomy Adriane Roman MD CNOV Observed: 06/23/2018 Status: COMPLETED Source: [place] 2:00 PM [facility] REPOSITORY Office Visit (WOOB) FRANCY DORMAN ([id number]) 1980 F Date Time Provider Department 06/23/18 2:00 PM ADRIANE LORENZANA WONAZ During your visit today, we recorded the following information about you: Blood pressure Weight 110/64 46.7 kg Adriane Roman MD 06/23/2018 2:19 PM Signed Francy Dorman is a 37 year old female who presents for Nexplanon removal for abnormal bleeding. UNIVERSAL PROTOCOL / SAFETY CHECKLIST Procedure to be performed: Nexplanon removal Sign in Communication: Completed Time Out: Team Confirms the Correct Patient, Correct Procedure, Correct Site and Site Marking, Correct Position (if applicable), Prep and Dry Time (if applicable). Time: 2:10 Affirmation of Time Out: YES Sign Out Discussion: Completed Aide Diane Ma TECHNIQUE: Patient placed in supine position with left arm bent at the elbow and placed over the head. Skin cleansed with betadine. 2mL of 1% lidocaine with epi injected subQ along insertion site. Scalpel used to made a 5mm stab incision superficially at distal end of Nexplanon. Device removed under sterile technique with a small hemostat. Sterile pressure dressing applied. AANDP: 37 year old female here for implanon removal Nexplanon removed intact without difficulty. The patient was instructed to remove the dressing after 24 hours. Contraceptive plans - had salpingectomy Adriane Roman MD Referring Provider: OLIVER MATIAS ([facility]) [[id number]] Allergies As of Date: 06/23/2018 Noted Allergy Reaction BEE STING 09/17/2010 7 - Swelling CATS 09/17/2010 7 - Swelling FOOD EXTRACTS 09/17/2010 8 - GI Upset Comments: ALLERGIC TO LIQUID SMOKE LANOLIN 09/17/2010 4 - Hives NAPROXEN 12/28/2014 2 - Rash PINE TREES (TREES) 11/24/2017 14 - Other: See Comments Comments: sinus congestion TRAMADOL 09/28/2012 4 - Hives Date Reviewed: 06/23/2018 Reviewed by: Aide Diane Ma - Fully Assessed Reason for Visit: nexplanon removal [Other] Primary Visit Diagnosis:Nexplanon removal [Z30.46] Prescriptions as of 06/23/2018 Sig: SIMETHICONE 80 MG CHEWABLE TA* Take 1 tablet by mouth every * IBUPROFEN 600 MG TABLET Take 1 tablet by mouth every * ONDANSETRON HCL 4 MG TABLET Take 4 mg by mouth. LORAZEPAM 0.5 MG TABLET 3 TIMES DAILY NEEDED PRN F* IBUPROFEN 800 MG TABLET Take 800 mg by mouth three ti* DIAZEPAM 2 MG TABLET Take 2 mg by mouth three time* DEXTROAMPHETAMINE-AMPHETAMINE* daily as needed CYCLOBENZAPRINE 10 MG TABLET take 1 tablet by mouth once d* CLONAZEPAM 0.5 MG TABLET Bid for anxiety ADDERALL XR 10 MG CAPSULE,EXT* 15 mg as needed. TOPIRAMATE 100 MG TABLET Take 100 mg by mouth twice da* PRILOSEC ORAL Take 1 capsule by mouth once * DICYCLOMINE 10 MG CAPSULE Take 10 mg by mouth as needed* CHANTIX ORAL Take 1 tablet by mouth once d* POTASSIUM CHLORIDE ER 20 MEQ * Take 20 mEq by mouth twice da* ALBUTEROL SULFATE HFA 90 MCG/* Inhale 2 Puffs as instructed * GINSENG ORAL Take by mouth. VITAMIN C ORAL Take by mouth. MULTI-RAHEEM ORAL Take by mouth. VITAMIN B COMP WITH VIT C NO.* Take 1 tablet by mouth once d* Problem List As Of Date 06/23/2018 Noted Resolved 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 Mild dysplasia of cervix (ALEXEY I) [N87.0] INVALID FOR* First trimester bleeding [O20.9] INVALID FOR*05/27/2013 More... Nausea and vomiting in [O21.9] INVALID FOR*05/27/2013 More... History of loss in prior , c*INVALID FOR*11/08/2014 More... Prior complicated by IUGR, antepartum*INVALID FOR*05/27/2013 More... Hx of preeclampsia, prior , currently *INVALID FOR*05/27/2013 More... History of hemorrhage, currently pre*INVALID FOR*05/27/2013 More... History of gestational diabetes in prior pregna*INVALID FOR*05/27/2013 More... History of asthma [Z87.09] INVALID FOR*11/08/2014 More... Smoking trying to quit [Z72.0] INVALID FOR*11/08/2014 More... Vasovagal syncope [R55] INVALID FOR*11/08/2014 More... Family history of mental retardation [Z81.0] INVALID FOR*11/08/2014 More... Patient requested diagnostic testing [Z01.89] INVALID FOR*11/08/2014 More... Neck pain [M54.2] INVALID FOR* Colitis [K52.9] INVALID FOR*12/21/2017 UTI (urinary tract infection) [N39.0] INVALID FOR*12/21/2017 Hypokalemia [E87.6] INVALID FOR* Encounter Status:Closed by ADRIANE VILLATORO MD on 06/23/18 EMERGENCY DEPARTMENT Observed: 06/09/2018 Status: F Source: [place] SUMMARY 4:36 PM [facility] REPOSITORY [facility] Medical Records Department [address] [place] [address] Emergency Department Summary 06/09/18 1629 MR#: [id number] Acct: [id number] Name: FRANCY DORMAN Rep #: [id number] : 1980 37 From: Rafal Shine MD PCP: Abby Sears DO Status: PRE ER - ER Visit Summary Date of Service: 06/09/18 Chief Complaint: Right hand trauma History of Present Illness: The patient is a 37 F qwhsu-meum-axgrzlsv who punched a wall 2 hours ago at home when she was angry with a family member. She denies any other injuries. She has pain over the fourth and fifth metacarpals and tingling in her fingertips but no other symptoms. Physical Examination: Mild tenderness on palpation midshaft fourth and fifth metacarpals. Skin is intact. No objective sensory changes distally. Normal cap refill distally. Skin normal color and temperature. Distal neurovascular examination is normal. No wrist tenderness. No scaphoid tenderness. Test Results: Right hand plain films interpreted independently by me is negative for acute fracture. Formal radiology interpretation is still pending. She already has a brace in an Jung bandage that she applied at home. She will continue to wear this and follow-up with orthopedics if not improving. Emergency Department Course and Treatment: Treatment Plan: Follow-up with orthopedics if not improving Disposition: Home stable Impression: Initial encounter acute right hand contusion This note was generated with [employer] dictation software. It may contain incorrect words, spelling, and punctuation that were not noted in review of the chart prior to signing ED Disposition - Plan for ED Patient: Chief Complaint: Upper Extremity Injury Instructions: ED Contusion Upper Ext Referrals: Fredy Will MD [STAFF PHYSICIAN] - What to do if you have Problems For any increased pain, shortness of breath, bleeding, nausea or vomiting, chest pain, or any unexpected problems, contact your Primary Care Provider. Call [facility] [facility] ([phone]) or report to the closest Emergency Room. Call 911 if necessary. 06/09/18 1636 <Electronically signed by Rafal Shine MD> Date Rafal Shine MD Cosigner Signature (If Indicated): Date CC: Abby Sears DO HAND MIN 3 VIEWS Observed: 06/09/2018 Status: F Source: [place] 4:14 PM [facility] REPOSITORY [facility] Imaging Services [address] [place] [address] Hand Min 3 Views MR#: [id number] Acct: [id number] Name: FRANCY DORMAN Preethi Rep #: [id number] : 1980 F 37 From: Faisal Laughlin MD PCP: Abby Sears DO Status: REG ER Study: Hand Min 3 Views Date of Exam: 06/09/18 Exam# [id number] Ordering Dr: Rafal Shine MD STUDY: X-RAY - RIGHT HAND REASON FOR EXAM: Female, 37 years old. Hit a wall, pain across metacarpals into the wrist. TECHNIQUE: 3 view(s) of the hand. COMPARISON: None. FINDINGS: Normal radiocarpal articulation. Normal distal radioulnar joint. Normal visualized carpal bones. Normal carpal articulations Normal carpometacarpal articulation of the thumb. Normal second through fifth carpometacarpal joints. Normal metacarpi. Normal metacarpophalangeal joint of the thumb. Normal interphalangeal joint of the thumb. Normal proximal and distal phalanges of the thumb. Normal metacarpophalangeal joints of the second through fifth fingers. Normal proximal and distal interphalangeal joints of the second through fifth fingers. Normal phalanges of the second through fifth fingers. The soft tissue structures are unremarkable. No demonstrated acute fracture. RAD/Hand Min 3 Views IMPRESSION: Normal x-ray examination of the right hand. Electronically Signed: Matt Laughlin MD at 16:52 EST , Service support , CC: Georges Shine MD; Abby Sears DO Calciner Feeder: Signed CNOV Observed: 03/18/2018 Status: COMPLETED Source: [place] 2:10 PM [facility] REPOSITORY Office Visit (WOOB) FRANCY DORMAN ([id number]) 1980 F Date Time Provider Department 03/18/18 2:10 PM ADRIANE LORENZANA WONAZ During your visit today, we recorded the following information about you: Blood pressure Weight 108/60 49.9 kg Adriane Roman MD 03/18/2018 2:39 PM Signed SUBJECTIVE: 37 year old female presents for 2 week post-op exam. Doing well. OBJECTIVE: Incision: Healed Abdomen: Soft, Non-tender and No palpable masses PLAN: RTO for annual exams and PRN I have reviewed and updated past medical and surgical history, medications and allergies. Adriane Roman MD Referring Provider: SELF [[id number]] Allergies As of Date: 03/18/2018 Noted Allergy Reaction BEE STING 09/17/2010 7 - Swelling CATS 09/17/2010 7 - Swelling FOOD EXTRACTS 09/17/2010 8 - GI Upset Comments: ALLERGIC TO LIQUID SMOKE LANOLIN 09/17/2010 4 - Hives NAPROXEN 12/28/2014 2 - Rash PINE TREES (TREES) 11/24/2017 14 - Other: See Comments Comments: sinus congestion TRAMADOL 09/28/2012 4 - Hives Date Reviewed: 03/18/2018 Reviewed by: Aide Diane Ma - Fully Assessed Reason for Visit: Post-Op Visit [1236] Primary Visit Diagnosis:History of bilateral salpingectomy [Z90.79] Other Visit Diagnosis:Post-operative state [Z98.890] Prescriptions as of 03/18/2018 Sig: IBUPROFEN 600 MG TABLET Take 1 tablet by mouth every * IBUPROFEN 800 MG TABLET Take 800 mg by mouth three ti* DEXTROAMPHETAMINE-AMPHETAMINE* daily as needed CLONAZEPAM 0.5 MG TABLET Bid for anxiety ADDERALL XR 10 MG CAPSULE,EXT* 15 mg as needed. PRILOSEC ORAL Take 1 capsule by mouth once * POTASSIUM CHLORIDE ER 20 MEQ * Take 20 mEq by mouth twice da* ALBUTEROL SULFATE HFA 90 MCG/* Inhale 2 Puffs as instructed * SIMETHICONE 80 MG CHEWABLE TA* Take 1 tablet by mouth every * ONDANSETRON HCL 4 MG TABLET Take 4 mg by mouth. LORAZEPAM 0.5 MG TABLET 3 TIMES DAILY NEEDED PRN F* DIAZEPAM 2 MG TABLET Take 2 mg by mouth three time* CYCLOBENZAPRINE 10 MG TABLET take 1 tablet by mouth once d* TOPIRAMATE 100 MG TABLET Take 100 mg by mouth twice da* DICYCLOMINE 10 MG CAPSULE Take 10 mg by mouth as needed* CHANTIX ORAL Take 1 tablet by mouth once d* GINSENG ORAL Take by mouth. VITAMIN C ORAL Take by mouth. MULTI-RAHEEM ORAL Take by mouth. VITAMIN B COMP WITH VIT C NO.* Take 1 tablet by mouth once d* Problem List As Of Date 03/18/2018 Noted Resolved 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 Mild dysplasia of cervix (ALEXEY I) [N87.0] INVALID FOR* First trimester bleeding [O20.9] INVALID FOR*05/27/2013 More... Nausea and vomiting in [O21.9] INVALID FOR*05/27/2013 More... History of loss in prior , c*INVALID FOR*11/08/2014 More... Prior complicated by IUGR, antepartum*INVALID FOR*05/27/2013 More... Hx of preeclampsia, prior , currently *INVALID FOR*05/27/2013 More... History of hemorrhage, currently pre*INVALID FOR*05/27/2013 More... History of gestational diabetes in prior pregna*INVALID FOR*05/27/2013 More... History of asthma [Z87.09] INVALID FOR*11/08/2014 More... Smoking trying to quit [Z72.0] INVALID FOR*11/08/2014 More... Vasovagal syncope [R55] INVALID FOR*11/08/2014 More... Family history of mental retardation [Z81.0] INVALID FOR*11/08/2014 More... Patient requested diagnostic testing [Z01.89] INVALID FOR*11/08/2014 More... Neck pain [M54.2] INVALID FOR* Colitis [K52.9] INVALID FOR*12/21/2017 UTI (urinary tract infection) [N39.0] INVALID FOR*12/21/2017 Hypokalemia [E87.6] INVALID FOR* Encounter Status:Closed by ADRIANE VILLATORO MD on 03/18/18 PROGRESS Observed: 03/18/2018 Status: COMPLETED Source: [place] 2:01 PM [facility] REPOSITORY O ID: [id number] Author: Adriane Villatoro Service: (none) Author Type: Physician Type: Progress Notes Filed: 03/18/2018 2:39 PM Note Text: SUBJECTIVE: 37 year old female presents for 2 week post-op exam. Doing well. OBJECTIVE: Incision: Healed Abdomen: Soft, Non-tender and No palpable masses PLAN: RTO for annual exams and PRN I have reviewed and updated past medical and surgical history, medications and allergies. Adriane Roman MD 12 LEAD ELECTROCARDIOGRAM Observed: 03/11/2018 Status: F Source: [place] 1:54 PM [facility] REPOSITORY [facility] Cardiovascular Services [address] [place] [address] 12 Lead EKG 03/04/18 0951 MR#: [id number] Acct: [id number] Name: FRANCY DORMAN Rep #: [id number] : 1980 37 From: José Miguel Garza MD Attending Dr: Adriane Roman MD [facility] Ordering Dr: Adriane Roman MD Date: 03/04/18 Location: [facility] Sex: F C Admitted: Test Reason : PREOP Blood Pressure : / mmHG Vent. Rate : 098 BPM Atrial Rate : 098 BPM P-R Int : 124 ms QRS Dur : 088 ms QT Int : 358 ms P-R-T Axes : 072 078 033 degrees QTc Int : 457 ms Normal sinus rhythm Normal ECG Confirmed by KAYLA ORO, JOSÉ MIGUEL ([id number]), publications editor CORRY WILL ([id number]) on 03/11/2018 1:54:05 PM Referred By: Adriane Roman Confirmed By:JOSÉ MIGUEL GARZA MD 03/11/18 1354 Date José Miguel Garza MD CC: Adriane Roman MD; Abby Sears DO Signed DISCHARGE INSTRUCTION Observed: 03/04/2018 Status: F Source: [place] 9:38 PM [facility] REPOSITORY [facility] Medical Records Department [address] [facility] [place] [address] Discharge Instruction 03/04/18 2136 MR#: [id number] Acct: [id number] Name: FRANCY DORMAN Rep #: [id number] : 1980 37 From: Lorie Howell DO PCP: Abby Sears DO Status: PRE ER ED Disposition - Plan for ED Patient: Chief Complaint: General Illness Instructions: ED Post Op Pain Prescriptions: Hydrocodone/Acetaminophen [Fletcher 5-325 Tablet] 1 - 2 ea PO 4X/DAY PRN PRN 3 Days #12 tab PRN Reason: Pain Referrals: Abby Sears DO [Primary Care Provider] - Adriane Roman MD [STAFF PHYSICIAN] - 1 Day for another exam What to do if you have Problems For any increased pain, shortness of breath, bleeding, nausea or vomiting, chest pain, or any unexpected problems, contact your Primary Care Provider. Call [facility] ([phone]) or report to the closest Emergency Room. Call 911 if necessary. 03/04/182137 <Electronically signed by Lorie Howell DO> Date Lorie Howell DO Cosigner Signature (If Indicated): Date CC: Abby Sears DO EMERGENCY DEPARTMENT Observed: 03/04/2018 Status: F Source: [place] SUMMARY 9:36 PM [facility] REPOSITORY [facility] Medical Records Department [address] [place] [address] Emergency Department Summary 03/04/182133 MR#: [id number] Acct: [id number] Name: FRANCY DORMAN Rep #: [id number] : 1980 37 From: Lorie Howell DO PCP: Abby Sears DO Status: PRE ER - ER Visit Summary Date of Service: 03/04/18 Chief Complaint: [Abdominal pain] History of Present Illness: The patient is a 37 F [presents the emergency department complaint of abdominal pain that started about 3 hours ago. Patient states that she had a tubal ligation earlier this morning that was done by Dr. Villatoro. Patient states that initially she felt okay but then started having increased discomfort. She denies urinary symptoms. She denies fever. She denies feeling lightheaded or dizzy. Patient apparently was sent home with ibuprofen for her pain which is not helping.] Physical Examination: [HEENT-PERRLA, EOMI. Cranial nerves II through XII grossly intact. TMs clear. Mucous membranes moist. No adenopathy. Cardiovascular-regular rate and rhythm without murmur or ectopy Lungs-clear to auscultation, chest wall stable without crepitus or subcu emphysema Abdomen-normoactive bowel sounds, soft. Patient has some mild lower abdomen discomfort on palpation. There is no rebound, rigidity, or perineal signs. The incision sites for the ports look normal without drainage and no evidence of infection. Patient has no rebound, rigidity, or perineal signs. Extremities-intact 4, normal range of motion, normal pulses, atraumatic] Test Results: [None indicated] Emergency Department Course and Treatment: [I discussed case with Dr. Lisa Macedo who was covering for Dr. Villatoro. At this point I do not feel any type of imaging is indicated. Patient also in agreement she states that she just wanted better pain control so she could sleep tonight. Patient was given a dose of morphine 4 mg IM as well as 4 mill grams Zofran.] Treatment Plan: [Patient will be given a prescription for Fletcher for pain] Disposition: [Discharged home in stable condition] Impression: [Abdominal pain status post tubal ligation] This note was generated with [employer] dictation software. It may contain incorrect words, spelling, and punctuation that were not noted in review of the chart prior to signing ED Disposition - Plan for ED Patient: Chief Complaint: General Illness Referrals: Abby Sears, [Primary Care Provider] - What to do if you have Problems For any increased pain, shortness of breath, bleeding, nausea or vomiting, chest pain, or any unexpected problems, contact your Primary Care Provider. Call [facility] ([phone]) or report to the closest Emergency Room. Call 911 if necessary. 03/04/18 5780 <Electronically signed by Lorie Howell DO> Date Lorie Howell DO Cosigner Signature (If Indicated): Date CC: Abby Sears DO OPERATIVE REPORT Observed: 03/04/2018 Status: F Source: [place] 12:19 PM [facility] REPOSITORY [facility] Medical Records Department [address] [place] [address] Operative Report 03/04/18 1215 MR#: [id number] Acct: [id number] Name: FRANCY DORMAN Rep #: [id number] : 1980 37 From: Adriane Villatoro MD PCP: Abby Sears DO Status: REG [facility] Y Location: [place] [address] Operative Report Date of Procedure: 03/04/18 Surgeon: Dr. Adriane Roman Vulcanizer Operator: none Preoperative diagnosis: Sterilization request Procedure performed: Laparoscopic bilateral salpingectomy Postoperative diagnosis: Sterilization request complications: None Estimated blood loss: 5 cc Drains: none Specimens collected: left fallopian tube Findings: Normal ovaries, right tube surgically absent. small left paratubal cyst anesthesia: General Operative note: After informed consent was obtained patient was taken to the operating room she was placed in supine position she was given anesthesia. She was then [facility] and she was prepped and draped in normal sterile fashion. Bladder was drained prior to the start of procedure approximately 150 cc of clear yellow urine was expelled. At this time attention was turned to the vaginal portion where weighted speculum placed at posterior fornix vagina single-tooth tenaculum was used to gently grasp the internal the cervix. uterus was gently sounded to approximately 7cm. Uterine manipulator was placed without difficulty. Legs then placed in parallel with the abdomen the tenaculum and the weighted speculum were removed. 2 towel clamps were placed superior to umbilicus. After Marcaine was injected superior to umbilicus a small incision was made and a 5 mm trocar was placed under direct visualization. CO2 gas was used to insufflate the intra-abdominal cavity. Upon inspection right tube surgically absent, left tube with small paratubal cyst, both ovaries normal and large pelvic vessels appreciated. At this time then the RLQ and LLQ ports were placed again Marcaine was injected small incision was made a knife and the 5 mm trocar was placed. At this time then left tube was traced back to the fimbriated ends. Ligasure was used to coagulate and ligate along mesosalpynx until tube removed completely. Paratubal cyst ruptured clear fluid at time of removal. Good hemostasis was appreciated. At this time procedure was deemed complete successful. The gas was desufflated on from the intra-abdominal cavity. The trochars were removed. Skin was closed using 4-0 Monocryl in a subcutaneous fashion. Dermabond glue was placed. Instrument lap and needle counts were correct 2. The uterine manipulator was removed. Vaginal sweep was performed it was negative. There were no complications anticipated normal postoperative course for this patient. 03/04/18 1219 <Electronically signed by Adriane Villatoro MD> Date Adriane Roman MD CC: Adriane Roman MD; Abby Sears DO Signed DISCHARGE INSTRUCTION Observed: 03/04/2018 Status: F Source: [place] 11:40 AM [facility] REPOSITORY [facility] Medical Records Department [address] [place] [address] Instructions for Home/Discharge Instructions 03/04/18 1139 MR#: [id number] Acct: [id number] Name: FRANCY DORMAN Rep #: [id number] : 1980 37 From: Adriane Villatoro MD PCP: Abby Sears DO Status: REG INC Discharge Diet: No Restrictions, - - Increase fluid intake for 48 hours. Discharge Activity: Return to Normal Activity, May Drive - when you are no longer taking narcotic pain medications., May Shower, May Take a Tub Bath - in 7 days., - - Ambulate often the next week after surgery. May resume sexual activity in: 2 weeks Additional Activity Instructions:: Nothing in the vagina for the next 5 days. Call your doctor if your incision/area has: Continuous Slow Oozing, Sudden Increased Bleeding, Increased Pain/ Swelling, Increased Redness, Foul Smelling Discharge, Swelling at the incision site Call your doctor if you observe: Fever of 101 or Higher Cleanse incision/area with: - - you have skin glue on incision sites- may let soap and water run over them and dab dry. Allergies/Adverse Reactions: Allergies lanolin Allergy (Verified 02/25/18 09:04) Hives naproxen [From Naprosyn] Allergy (Verified 02/25/18 09:04) Hives tramadol Allergy (Verified 02/25/18 09:04) Other blisters to mouth gabapentin Adverse Reaction (Verified 02/25/18 09:05) Other BEE STINGS Adverse Reaction (Uncoded 02/25/18 09:04) Swelling LIQUID SMOKE/BBQ SAUCE Adverse Reaction (Uncoded 02/25/18 09:04) Nausea Medications to take at Discharge Albuterol Inhaler [Ventolin Hfa] 2 puff INHALATION Q4H PRN PRN 10/07/16 Potassium Chloride [Klor-Con] 20 meq PO BID 03/27/17 Clonazepam [Klonopin] 0.5 mg PO BID PRN PRN 11/05/17 Dextroamphetamine/Amphetamine [Adderall 15 mg Tablet] 15 mg PO DAILY 11/05/17 Ibuprofen [Motrin] 800 mg PO TID PRN PRN #20 tab 11/05/17 Sumatriptan [Imitrex] 6 mg SC .X1 PRN PRN 11/18/17 Dicyclomine HCl [Bentyl] 20 mg PO TIDAC #20 cap 12/17/17 Ondansetron [Zofran Odt] 4 mg PO Q8H PRN PRN #10 tab 12/17/17 Acetaminophen [Tylenol] 500 - 1,000 mg PO Q6H PRN PRN 02/25/18 Ascorbic Acid [Vitamin C] 500 mg PO DAILY 02/25/18 Cholecalciferol (Vitamin D3) [Vitamin D3] 400 unit PO DAILY 02/25/18 Cyanocobalamin (Vitamin B-12) [Vitamin B-12] 1,000 mcg PO DAILY 02/25/18 Dextroamphetamine/Amphetamine [Adderall Xr 15 mg Capsule] 15 mg PO DAILY 02/25/18 Diphenoxylate/Atrop [Lomotil] 1 tablet PO TID PRN PRN 02/25/18 Ginseng 500 mg PO DAILY 02/25/18 Ibuprofen 400 mg PO PRN PRN 02/25/18 Loratadine 20 mg PO DAILY 02/25/18 Omeprazole 40 mg PO DAILY 02/25/18 Primary Care Physician: Abby Sears DO [Primary Care Provider] - Test Results: Test results from this visit will be discussed in further detail at your follow-up appointment, if applicable. 03/04/18 1140 <Electronically signed by Adriane Villatoro MD> Date Adriane Roman MD CC: Abby Sears DO FALLOPIAN TUBES/STERILIZATION Observed: 03/04/2018 Status: F Source: [place] 10:55 AM [facility] REPOSITORY Patient: FRANCY DORMAN : 1980 (37/F) Acct Num: [id number] Phys: Abel ORO,Adriane Unit Num: [id number] Loc: [facility] Specimen: [id number] Received: 03/04/18 - 1451 Spec Type: FALL TUBES TISSUES TISSUES: Fallopian tube GROSS DESCRIPTION Received in fixative is one container labeled with the patient's name and designated left fallopian tube. The specimen consists of a fallopian tube received in two fragments measuring in aggregate 5 cm in length and 0.6 cm in average diameter. No mass lesions are identified. Present free in the container is a smooth, glistening cystic structure measuring 1 cm in greatest dimension. The cyst contains a small amount of clear fluid. The cyst is inked in black ink and submitted along with the fallopian tube in one cassette. The specimen is serially sectioned and totally submitted in one cassette. / AM:javi 03/05/18 TC:5 CPT: 81831 HEADER OPERATION: Laparoscopic left salpingectomy PRE-OP DIAGNOSIS: Desired sterilization TISSUE SUBMITTED: Left fallopian tube MICROSCOPIC DESCRIPTION Slides are reviewed. MICROSCOPIC DIAGNOSIS Left fallopian tube, salpingectomy: Fallopian tube including fimbrial end, no pathologic diagnosis. Paratubal cyst. SJ:javi 03/08/18 Signed Adonis Christy 03/08/18 <signature on file> Performed By: #### PFALS #### [facility] [address] [place], [place], [address] CBC-COMPLETE BLOOD CNT Collected: 03/04/2018 Status: F Source: [place] NO DIFF 9:37 AM [facility] REPOSITORY TYPE CODE TESTS RESULT OUT OF RANGE REFERENCE UNITS LAB L100.1000 4.4-11.0 K/mm3 Normal WBC 6.4 LAB L100.1200 4.2-5.4 M/mm3 Normal RBC 4.63 LAB L100.1300 12.0-15.0 g/dl Normal HGB 14.9 LAB L100.1400 37-47 % Normal HCT 43.0 LAB L100.1500 81-99 fL Normal MCV 92.9 LAB L100.1600 27.0-32.0 pg High MCH 32.2 LAB L100.1700 32-36 g/gl Normal MCHC 34.7 LAB L100.1810 11.6-14.6 % Normal RDW CV 11.6 LAB L100.1820 35.1-43.9 fl Normal RDW SD 39.2 LAB L100.1900 150-450 K/mm3 Normal PLT 275 LAB L100.2000 6.2-12.0 fl Normal MPV 9.7 Performed By: #### L100.0500 #### [facility] [address] [place], [place], [address] ,URINE Collected: 03/04/2018 Status: F Source: [place] 9:30 AM [facility] REPOSITORY TYPE CODE TESTS RESULT OUT OF REFERENCE UNITS RANGE LAB L400.8000 Negative Normal HCGUQUAL Negative Result Comment: Very dilute urine specimens, as indicated by a low specific gravity, may not contain livestock sales representative levels of hCG. If is still suspected, a first morning urine specimen should be collected 48 hours later and tested. Performed By: #### L400.7600 #### [facility] [address] [place], [place], [address] HISTORY PHYSICAL Observed: 02/17/2018 Status: COMPLETED Source: [place] 4:37 PM [facility] [place] REPOSITORY HNO ID: [id number] Author: Adriane Villatoro Service: (none) Author Type: Physician Type: HANDP Filed: 02/17/2018 4:39 PM Note Text: Pre-Op History and Physical HPI: The patient is a 37 year old female presenting for pre-operative visit. She is scheduled for laparoscopic left salpingectomy, for desires sterilization on 03/04/18. Procedure discussed along with risks, benefits and complications. Other alternatives discussed for management. Consent form signed? Yes. PAST MEDICAL HISTORY Diagnosis Date - Abnormal Pap smear 2003 mild dysplasia - ADD (attention deficit disorder with hyperactivity) - ADD (attention deficit disorder) - Anemia WITH - Anxiety - Asthma - Chlamydia 2011 - Complication of anesthesia NAUSEA WITH ANESTHESIA - Depression DEPRESSION AND ANXIETY - Diabetes, gestational - History of pre-eclampsia in prior , currently - Migraine, unspecified, with intractable migraine, so stated, without mention of status migrainosus Migraine - Mild dysplasia of cervix (ALEXEY I) 11/27/2011 - depression - hemorrhage - Ulcer STOMACH ULCERS - Vasovagal syncope PAST SURGICAL HISTORY Procedure Laterality Date - COLPOSCOPY W BX CERVIX - TREAT ECTOPIC PREG,RMV TUBE/OVARY 11/08/14 right salpingecctomy for ectopic Current Outpatient Prescriptions: LORazepam (ATIVAN) 0.5 mg tab 3 TIMES DAILY NEEDED PRN For Anxiety Disp: Rfl: ibuprofen (MOTRIN) 800 mg tablet Take 800 mg by mouth three times daily as needed. Disp: Rfl: 0 Amphetamine-Dextroamphetamine 15 mg tablet daily as needed Disp: Rfl: clonazePAM (KLONOPIN) 0.5 mg tablet Bid for anxiety Disp: Rfl: ADDERALL XR 10 mg 24 hr capsule 15 mg as needed. Disp: Rfl: 0 OMEPRAZOLE (PRILOSEC ORAL) Take 1 capsule by mouth once daily. Disp: Rfl: potassium chloride ER (K-DUR, KLOR-CON) 20 mEq tablet Take 20 mEq by mouth twice daily. Disp: Rfl: albuterol HFA (PROAIR HFA) 90 mcg/actuation inhaler Inhale 2 Puffs as instructed every 4 hours as needed. Disp: 1 Inhaler Rfl: 0 GINSENG ORAL Take by mouth. Disp: Rfl: ASCORBIC ACID (VITAMIN C ORAL) Take by mouth. Disp: Rfl: VITAMIN B COMP AND VIT C NO.6 (VITAMIN B COMP WITH VIT C NO.6 ORAL) Take 1 tablet by mouth once daily. Disp: Rfl: simethicone, chewable (MYLICON) 80 mg chewable tablet Take 1 tablet by mouth every 6 hours as needed. Disp: 30 tablet Rfl: 0 ibuprofen (MOTRIN) 600 mg tablet Take 1 tablet by mouth every 6 hours as needed for Pain. FOR PAIN. Disp: 30 tablet Rfl: 0 ondansetron (ZOFRAN) 4 mg tablet Take 4 mg by mouth. Disp: Rfl: diazePAM (VALIUM) 2 mg tablet Take 2 mg by mouth three times daily. Disp: Rfl: 0 cyclobenzaprine (FLEXERIL) 10 mg tablet take 1 tablet by mouth once daily at bedtime if needed for SPASMS Disp: Rfl: 0 topiramate (TOPAMAX) 100 mg tablet Take 100 mg by mouth twice daily. Disp: Rfl: dicyclomine (BENTYL) 10 mg capsule Take 10 mg by mouth as needed. Disp: Rfl: VARENICLINE TARTRATE (CHANTIX ORAL) Take 1 tablet by mouth once daily. Disp: Rfl: MULTIVITAMIN/IRON/FOLIC ACID (MULTI-RAHEEM ORAL) Take by mouth. Disp: Rfl: No current facility-administered medications for this visit. ALLERGIES: Bee Sting; Cats; Food Extracts; Lanolin; Naproxen; [place] Trees [Trees]; Tramadol PERSONAL HISTORY: Social History Marital status: Spouse name: Urvashi Years of education: 9 Number of children: 2 Occupational History Occupation Employer Comment homemaker Social History Main Topics Smoking status: Current Every Day Smoker Packs/day: 1.00 Years: 20.00 Types: Cigarettes Smokeless tobacco: Never Used Alcohol use: Yes Comment: occasional Drug use: No Sexual activity: Yes Partners with: Male control/protection: None FAMILY HISTORY: FAMILY HISTORY Problem Relation Age of Onset - Alcohol/Drug Mother - Asthma Mother - Alcohol/Drug Father - Emphysema Father - No Known Problems Sister - No Known Problems Sister - No Known Problems Brother - Asthma Maternal Grandfather - Cancer Maternal Grandfather - Cancer Paternal Grandmother Lung Cancer - Asthma Paternal Grandmother - Emphysema Paternal Grandfather - Heart Paternal Uncle - Alcohol/Drug Paternal Uncle REVIEW OF SYMPTOMS: negative except as noted above PHYSICAL EXAMINATION: VITALS: Blood pressure 92/64, pulse 90, resp. rate 20, height 5' 4.17 (1.63 m), weight 113 lb (51.3 kg). GENERAL: The patient is well nourished, well hydrated in no acute distress. , The patient is oriented to time, place, and person. NECK: Supple. No lynphadenopathy, normal thyroid, no thyromegaly. Neuro: alert and oriented IMPRESSION: 37yo desires permanent sterilization PLAN: Laparoscopic left salpingectomy- right previously removed for ectopic Motrin (pt reports she can take this medication without allergic reaction) for pain and mylicon for post op gas pain. Reviewed will not give narcotic medication for post op pain Pt has been counseled on risks/benefits and alternatives of surgery including but not limited to anesthesia, bleeding, infection, injury to pelvic structures including bowel, bladder, ureters and vessels. Pt wishes to proceed with surgery at this time. I have reviewed and updated past medical and surgical history, medications and allergies Adriane Villatoro MD CNOV Observed: 02/17/2018 Status: COMPLETED Source: [place] 3:40 PM [facility] REPOSITORY Office Visit (WOOB) FRANCY DORMAN ([id number]) 1980 F Date Time Provider Department 02/17/18 3:40 PM ADRIANE LORENZANA WONAZ During your visit today, we recorded the following information about you: Pulse Respiration Blood pressure Weight 90/minute 20/minute 92/64 51.3 kg Height 1.63 m Adriane Roman MD 02/17/2018 4:39 PM Signed Pre-Op History and Physical HPI: The patient is a 37 year old female presenting for pre- operative visit. She is scheduled for laparoscopic left salpingectomy, for desires sterilization on 03/04/18. Procedure discussed along with risks, benefits and complications. Other alternatives discussed for management. Consent form signed? Yes. PAST MEDICAL HISTORY Diagnosis Date - Abnormal Pap smear 2003 mild dysplasia - ADD (attention deficit disorder with hyperactivity) - ADD (attention deficit disorder) - Anemia WITH - Anxiety - Asthma - Chlamydia 2011 - Complication of anesthesia NAUSEA WITH ANESTHESIA - Depression DEPRESSION AND ANXIETY - Diabetes, gestational - History of pre-eclampsia in prior , currently - Migraine, unspecified, with intractable migraine, so stated, without mention of status migrainosus Migraine - Mild dysplasia of cervix (ALEXEY I) 11/27/2011 - depression - hemorrhage - Ulcer STOMACH ULCERS - Vasovagal syncope PAST SURGICAL HISTORY Procedure Laterality Date - COLPOSCOPY W BX CERVIX - TREAT ECTOPIC PREG,RMV TUBE/OVARY 11/08/14 right salpingecctomy for ectopic Current Outpatient Prescriptions: LORazepam (ATIVAN) 0.5 mg tab 3 TIMES DAILY NEEDED PRN For Anxiety Disp: Rfl: ibuprofen (MOTRIN) 800 mg tablet Take 800 mg by mouth three times daily as needed. Disp: Rfl: 0 Amphetamine-Dextroamphetamine 15 mg tablet daily as needed Disp: Rfl: clonazePAM (KLONOPIN) 0.5 mg tablet Bid for anxiety Disp: Rfl: ADDERALL XR 10 mg 24 hr capsule 15 mg as needed. Disp: Rfl: 0 OMEPRAZOLE (PRILOSEC ORAL) Take 1 capsule by mouth once daily. Disp: Rfl: potassium chloride ER (K-DUR, KLOR-CON) 20 mEq tablet Take 20 mEq by mouth twice daily. Disp: Rfl: albuterol HFA (PROAIR HFA) 90 mcg/actuation inhaler Inhale 2 Puffs as instructed every 4 hours as needed. Disp: 1 Inhaler Rfl: 0 GINSENG ORAL Take by mouth. Disp: Rfl: ASCORBIC ACID (VITAMIN C ORAL) Take by mouth. Disp: Rfl: VITAMIN B COMP AND VIT C NO.6 (VITAMIN B COMP WITH VIT C NO.6 ORAL) Take 1 tablet by mouth once daily. Disp: Rfl: simethicone, chewable (MYLICON) 80 mg chewable tablet Take 1 tablet by mouth every 6 hours as needed. Disp: 30 tablet Rfl: 0 ibuprofen (MOTRIN) 600 mg tablet Take 1 tablet by mouth every 6 hours as needed for Pain. FOR PAIN. Disp: 30 tablet Rfl: 0 ondansetron (ZOFRAN) 4 mg tablet Take 4 mg by mouth. Disp: Rfl: diazePAM (VALIUM) 2 mg tablet Take 2 mg by mouth three times daily. Disp: Rfl: 0 cyclobenzaprine (FLEXERIL) 10 mg tablet take 1 tablet by mouth once daily at bedtime if needed for SPASMS Disp: Rfl: 0 topiramate (TOPAMAX) 100 mg tablet Take 100 mg by mouth twice daily. Disp: Rfl: dicyclomine (BENTYL) 10 mg capsule Take 10 mg by mouth as needed. Disp: Rfl: VARENICLINE TARTRATE (CHANTIX ORAL) Take 1 tablet by mouth once daily. Disp: Rfl: MULTIVITAMIN/IRON/FOLIC ACID (MULTI-RAHEEM ORAL) Take by mouth. Disp: Rfl: No current facility-administered medications for this visit. ALLERGIES: Bee Sting; Cats; Food Extracts; Lanolin; Naproxen; [place] Trees [Trees]; Tramadol PERSONAL HISTORY: Social History Marital status: Spouse name: Urvashi Years of education: 9 Number of children: 2 Occupational History Occupation Employer Comment homemaker Social History Main Topics Smoking status: Current Every Day Smoker Packs/day: 1.00 Years: 20.00 Types: Cigarettes Smokeless tobacco: Never Used Alcohol use: Yes Comment: occasional Drug use: No Sexual activity: Yes Partners with: Male control/protection: None FAMILY HISTORY: FAMILY HISTORY Problem Relation Age of Onset - Alcohol/Drug Mother - Asthma Mother - Alcohol/Drug Father - Emphysema Father - No Known Problems Sister - No Known Problems Sister - No Known Problems Brother - Asthma Maternal Grandfather - Cancer Maternal Grandfather - Cancer Paternal Grandmother Lung Cancer - Asthma Paternal Grandmother - Emphysema Paternal Grandfather - Heart Paternal Uncle - Alcohol/Drug Paternal Uncle REVIEW OF SYMPTOMS: negative except as noted above PHYSICAL EXAMINATION: VITALS: Blood pressure 92/64, pulse 90, resp. rate 20, height 5' 4.17 (1.63 m), weight 113 lb (51.3 kg). GENERAL: The patient is well nourished, well hydrated in no acute distress. , The patient is oriented to time, place, and person. NECK: Supple. No lynphadenopathy, normal thyroid, no thyromegaly. Neuro: alert and oriented IMPRESSION: 37yo desires permanent sterilization PLAN: Laparoscopic left salpingectomy- right previously removed for ectopic Motrin (pt reports she can take this medication without allergic reaction) for pain and mylicon for post op gas pain. Reviewed will not give narcotic medication for post op pain Pt has been counseled on risks/benefits and alternatives of surgery including but not limited to anesthesia, bleeding, infection, injury to pelvic structures including bowel, bladder, ureters and vessels. Pt wishes to proceed with surgery at this time. I have reviewed and updated past medical and surgical history, medications and allergies Adriane Villatoro MD Referring Provider: SELF [200] Allergies As of Date: 02/17/2018 Noted Allergy Reaction BEE STING 09/17/2010 7 - Swelling CATS 09/17/2010 7 - Swelling FOOD EXTRACTS 09/17/2010 8 - GI Upset Comments: ALLERGIC TO LIQUID SMOKE LANOLIN 09/17/2010 4 - Hives NAPROXEN 12/28/2014 2 - Rash PINE TREES (TREES) 11/24/2017 14 - Other: See Comments Comments: sinus congestion TRAMADOL 09/28/2012 4 - Hives Date Reviewed: 02/17/2018 Reviewed by: Sumi Paige Ma - Fully Assessed Reason for Visit: Pre-Op Exam [87] Primary Visit Diagnosis:Pre-op exam [Z01.818] Other Visit Diagnosis:Post-op pain [G89.18] Order(s):simethicone, chewable (MYLICON) 80 mg chewable tabletTake 1 tablet by mouth every 6 hours as needed.Disp: 30 tabletRfl: 0 ibuprofen (MOTRIN) 600 mg tabletTake 1 tablet by mouth every 6 hours as needed for Pain. FOR PAIN.Disp: 30 tabletRfl: 0 Prescriptions as of 02/17/2018 Sig: LORAZEPAM 0.5 MG TABLET 3 TIMES DAILY NEEDED PRN F* IBUPROFEN 800 MG TABLET Take 800 mg by mouth three ti* DEXTROAMPHETAMINE-AMPHETAMINE* daily as needed CLONAZEPAM 0.5 MG TABLET Bid for anxiety ADDERALL XR 10 MG CAPSULE,EXT* 15 mg as needed. PRILOSEC ORAL Take 1 capsule by mouth once * POTASSIUM CHLORIDE ER 20 MEQ * Take 20 mEq by mouth twice da* ALBUTEROL SULFATE HFA 90 MCG/* Inhale 2 Puffs as instructed * GINSENG ORAL Take by mouth. VITAMIN C ORAL Take by mouth. VITAMIN B COMP WITH VIT C NO.* Take 1 tablet by mouth once d* SIMETHICONE 80 MG CHEWABLE TA* Take 1 tablet by mouth every * IBUPROFEN 600 MG TABLET Take 1 tablet by mouth every * ONDANSETRON HCL 4 MG TABLET Take 4 mg by mouth. DIAZEPAM 2 MG TABLET Take 2 mg by mouth three time* CYCLOBENZAPRINE 10 MG TABLET take 1 tablet by mouth once d* TOPIRAMATE 100 MG TABLET Take 100 mg by mouth twice da* DICYCLOMINE 10 MG CAPSULE Take 10 mg by mouth as needed* CHANTIX ORAL Take 1 tablet by mouth once d* MULTI-RAHEEM ORAL Take by mouth. Problem List As Of Date 02/17/2018 Noted Resolved 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 Mild dysplasia of cervix (ALEXEY I) [N87.0] INVALID FOR* First trimester bleeding [O20.9] INVALID FOR*05/27/2013 More... Nausea and vomiting in [O21.9] INVALID FOR*05/27/2013 More... History of loss in prior , c*INVALID FOR*11/08/2014 More... Prior complicated by IUGR, antepartum*INVALID FOR*05/27/2013 More... Hx of preeclampsia, prior , currently *INVALID FOR*05/27/2013 More... History of hemorrhage, currently pre*INVALID FOR*05/27/2013 More... History of gestational diabetes in prior pregna*INVALID FOR*05/27/2013 More... History of asthma [Z87.09] INVALID FOR*11/08/2014 More... Smoking trying to quit [Z72.0] INVALID FOR*11/08/2014 More... Vasovagal syncope [R55] INVALID FOR*11/08/2014 More... Family history of mental retardation [Z81.0] INVALID FOR*11/08/2014 More... Patient requested diagnostic testing [Z01.89] INVALID FOR*11/08/2014 More... Neck pain [M54.2] INVALID FOR* Colitis [K52.9] INVALID FOR*12/21/2017 UTI (urinary tract infection) [N39.0] INVALID FOR*12/21/2017 Hypokalemia [E87.6] INVALID FOR* Prescriptions ordered this encounter Disp Refills Start End SIMETHICONE 80 MG CHEWABLE TABLET 30 t* 0 02/17/2018 Route: ORAL Sig: Take 1 tablet by mouth every 6 hours as needed. IBUPROFEN 600 MG TABLET 30 t* 0 02/17/2018 Route: ORAL Sig: Take 1 tablet by mouth every 6 hours as needed for Pain. FOR PAIN. Medications Discontinued During This Encounter meloxicam (MOBIC) 15 mg tablet 02/17/2018 Class: Historical Med Route: ORAL Sig: Take 15 mg by mouth once daily. Disc: Reason for discontinue is not on file. oxyCODONE-acetaminophen (PERCOCET) 5* 11/18/2017 02/17/2018 Class: Historical Med Sig: AT BEDTIME Disc: Reason for discontinue is not on file. oxyCODONE-acetaminophen (PERCOCET) 5* 02/17/2018 Class: Historical Med Route: ORAL Sig: Take 1 tablet by mouth as needed. Disc: Reason for discontinue is not on file. Encounter Status:Closed by ADRIANE VILLATORO MD on 02/17/18 CNCO Observed: 02/04/2018 Status: COMPLETED Source: [place] 12:00 AM [facility] REPOSITORY Letter Text Adriane Villatoro MD [facility] [address] [place], [place] [address] 02/04/2018 Francy Dorman [address] [place] [address] [facility]#: [id number] Dear Francy, This letter is to confirm with you the dates and times of your upcoming surgery. You should have received a telephone call notifying you of this information. Surgery 03/04/18 at [facility]. Pre-operative appointment at Dr. Adriane Villatoro's office is scheduled on 02/16/18 @ 1:50 p.m. [facility] will contact you by phone for pre-admission testing on 02/25/18 @ 9:00 a.m. 2 week post-operative appointment at Dr. Adriane Villatoro's office is scheduled on 03/17/18 @ 1:50 p.m. In addition, we will do a precertification approximately 1 week prior to your surgery. This means we will give your insurance company the medical information they need to make a predetermination. This is not a guarantee of payment and you will need to call your insurance company to verify benefits and coverage. We will only call you if there is a problem. If you have any questions, please feel free to call us at the phone number above. We appreciate your confidence in choosing the [facility] for your medical care and we look forward to seeing you at your next appointment. Thank you, [facility] ABDOMEN SINGLE VIEW Observed: 01/22/2018 Status: F Source: [place] 2:00 PM [facility] REPOSITORY [facility] Imaging Services [address] [place] [address] Abdomen Single View MR#: [id number] Acct: [id number] Name: FRANCY DORMAN Rep #: [id number] : 1980 F 37 From: Efren Ames MD PCP: Abby Sears DO Status: REG CLI Study: Abdomen Single View Date of Exam: 01/22/18 Exam# [id number] Ordering Dr: Alexandre Hawk DO STUDY: X-RAY - ABDOMEN/PELVIS REASON FOR EXAM: Female, 37 years old. Abdominal pain x3 days, history of colitis and ovarian cysts. TECHNIQUE: Two AP supine views of the abdomen and pelvis. COMPARISON: None. FINDINGS: The lung bases are not in the field of view of the study. There is an unremarkable bowel gas pattern. There is no demonstrated free abdominal air. The visualized liver, spleen and kidneys are grossly normal in size and morphology. There is a small calcification in the lower right pelvis most likely representing a phlebolith. Normal visualized osseous structures. RAD/Abdomen Single View IMPRESSION: Small calcification of the lower right pelvis most likely representing a phlebolith. There is no evidence of ileus, obstruction, or free intraperitoneal air. Electronically Signed: Efren Ames MD at 23:53 EDT , Service support , CC: Abby Sears DO; Alexandre Hawk DO Calciner Feeder: Signed CBC W/DIFF, AUTOMATED Collected: 01/22/2018 Status: F Source: [place] 1:49 PM [facility] REPOSITORY TYPE CODE TESTS RESULT OUT OF RANGE REFERENCE UNITS LAB L100.1000 4.4-11.0 K/mm3 Normal WBC 5.7 LAB L100.1200 4.2-5.4 M/mm3 Normal RBC 4.46 LAB L100.1300 12.0-15.0 g/dl Normal HGB 14.4 LAB L100.1400 37-47 % Normal HCT 42.4 LAB L100.1500 81-99 fL Normal MCV 95.1 LAB L100.1600 27.0-32.0 pg High MCH 32.3 LAB L100.1700 32-36 g/gl Normal MCHC 34.0 LAB L100.1810 11.6-14.6 % Normal RDW CV 11.8 LAB L100.1820 35.1-43.9 fl Normal RDW SD 40.4 LAB L100.1900 150-450 K/mm3 Normal PLT 230 LAB L100.2000 6.2-12.0 fl Normal MPV 10.0 LAB L100.2100 47-70 % Normal NEUT% 50.8 LAB L100.2200 19-41 % Normal LY% 38.8 LAB L100.2300 0-10 % Normal MONO% 8.1 LAB L100.2400 0-5 % Normal EO% 1.8 LAB L100.2500 0-1 % Normal BASO% 0.5 LAB L100.2550 0.0-0.9 % Normal IM GRAN % 0.000 Result Comment: IG% - Immature Granulocytes (promyelocytes, myelocytes and metamyelocytes) > 1% indicates that a LEFT SHIFT is Present. LAB L100.2620 2.0-7.7 X10 3/uL Normal Absolute Neut 2.9 LAB L100.2720 0.83-4.51 X10 3/ul Normal Absolute Lymph 2.21 Performed By: #### L100.0100, L101.9900 #### [facility] Laboratory [address] [place], [address] ERYTHROCYTE SED RATE Collected: 01/22/2018 Status: F Source: [place] 1:49 PM [facility] REPOSITORY TYPE CODE TESTS RESULT OUT OF RANGE REFERENCE UNITS LAB L102.0000 0-20 mm/hr Normal SED RATE 4 Performed By: #### L100.0100, L101.9900 #### [facility] Laboratory [address] [place], [address] COMPREHENSIVE METABOLIC Collected: 01/22/2018 Status: F Source: [place]IL 1:49 PM [facility] REPOSITORY TYPE CODE TESTS RESULT OUT OF RANGE REFERENCE UNITS LAB L501.0100 74-106 mg/dL Normal GLU 76 Result Comment: Please note revised GLUCOSE reference range effective 2017. LAB L501.1000 7-18 mg/dL Low BUN 6 LAB L501.1100 0.55-1.02 mg/dL Normal CREAT,SERUM 0.64 Result Comment: The validity of the calculated GFR AND GFRAA in patients over 70 years has not been determined. Clinical correlation is essential. LAB L501.1110 >60 mL/min Normal EST GFR 111 Result Comment: Non- GFR Calc LAB L501.1115 >60 mL/min Normal EST GFR - AA 134 Result Comment: GFR Calc LAB L501.1300 10-20 RATIO Low BUN/CRE 9.3 LAB L501.1500 6.4-8.2 g/dL Normal T PROT 7.3 LAB L501.1800 3.2-5.0 g/dL Normal ALB 3.9 LAB L501.1950 2.2-4.2 g/dL Normal GLOB 3.4 LAB L501.2000 0.9-2.4 RATIO Normal A/G 1.1 LAB L501.2200 8.5-10.1 mg/dL Low CA 8.4 LAB L501.4100 15-37 U/L Low AST 10 LAB L501.4305 45-117 U/L Normal ALK P 58 LAB L501.4405 13-56 U/L Normal ALT 15 LAB L501.4600 0.20-1.00 mg/dL Normal T BILI 0.50 LAB L501.5300 136-145 mmol/L Normal NA 142 LAB L501.5600 3.5-5.1 mmol/L Normal K 3.5 LAB L501.5900 98-107 mmol/L Normal CL 107 LAB L501.6100 21.0-32.0 mmol/L Normal CO2 29.0 LAB L501.6200 5-15 Normal GAP 6 Performed By: #### L500.4050, L501.6710 #### [facility] Laboratory [address] [facility] [place], [place], [address] CRP Collected: 01/22/2018 Status: F Source: [place] 1:49 PM [facility] REPOSITORY TYPE CODE TESTS RESULT OUT OF RANGE REFERENCE UNITS LAB L501.6710 0.0-3.0 mg/L Normal < 2.90 C-REACTIVE PROT Result Comment: C-Reactive Protein (CRP) provides useful information for the diagnosis, therapy and monitoring of inflammatory processes and associated diseases. For the evaluation of Relative Risk for Cardiovascular Disease, a High Sensitivity CRP (HSCRP) should be ordered. Performed By: #### L500.4050, L501.6710 #### [facility] Laboratory [address] [place], [place], [address] CELIAC DISEASE Collected: 01/22/2018 Status: F Source: [place] PROFILE 1:49 PM [facility] REPOSITORY TYPE CODE TESTS RESULT OUT OF RANGE REFERENCE UNITS LAB L3200.1400 87-352 mg/dL Normal IMMUNO A 292 Result Comment: Performed at: [facility] [id number] Sanding Machine Tender: Sheldon Whiting PhD, Phone: [phone] LAB L3799.6113 0-3 U/mL Normal tTG IGA <2 Result Comment: Negative 0 - 3 Weak Positive 4 - 10 Positive >10 Tissue Transglutaminase (tTG) has been identified as the endomysial antigen. Studies have demonstr- ated that endomysial IgA antibodies have over 99% specificity for gluten sensitive enteropathy. LAB L3410.2882 Negative Normal ENDOMYSIAL IGA Negative Performed By: #### L3410.2400 #### [facility] (refer to report for specific site) refer to report for address and phone number CNDS Observed: 12/21/2017 Status: COMPLETED Source: [place] 11:43 AM CLINIC OTHER CAMPUS REPOSITORY HNO ID: [id number] Author: Gloria Ortega Service: Hospital Medicine Author Type: Physician Type: Discharge Summaries Filed: 12/21/2017 11:47 AM Note Text: DISCHARGE SUMMARY PATIENT NAME: Franyc Dorman Admission Information Admission Information ADMIT DATE: 12/20/2017 DISCHARGE DATE: 12/21/17 MY DOCTORS AND MEDICAL TEAM: My Main Hospital Doctor: Gloria Ortega Primary Care Provider: Abby Sears DO My Medical Team Members: Treatment Team: Attending Provider: Gloria Ortega Primary Service: Niko Orozco Consulting: Gopal Rush MY CONDITION AT DISCHARGE: Stable REASON I WAS IN THE HOSPITAL: Colitis and UTI SUMMARY OF WHAT HAPPENED WHILE I WAS IN THE HOSPITAL: Pt is a 37 yo CF who came with abdominal pain and nausea and vomiting. She was found to have colitis and a UTI. Her WBC improved and she was able to tolerate a regular diet. SHe was seen by GI and had a barium swallow done, which was normal. OTHER PROBLEMS/DIAGNOSIS: Active Problems: Hypokalemia Resolved Problems: Colitis UTI (urinary tract infection) OPERATIONS PERFORMED WHILE IN THE HOSPITAL: None IMPORTANT TEST/PROCEDURES: No procedures performed TEST RESULTS NOT AVAILABLE AT THIS TIME: No pending results Discharge Disposition Discharge Disposition: Home With Self Care Additional Provider to Provider Information: FOLLOW-UP APPOINTMENTS ALREADY SCHEDULED WITH A [facility] PROVIDER: Future Appointments Date Time Provider Department Center 01/25/2018 1:20 PM Adriane Villatoro [facility] 02/19/2018 10:10 AM [facility]: Current Discharge Medication List START taking these medications metroNIDAZOLE (FLAGYL) 500 mg Take 500 mg by mouth three times daily. Qty: 18 tablet Refills: 0 ciprofloxacin HCl (CIPRO) 500 mg Take 500 mg by mouth twice daily. Qty: 28 tablet Refills: 0 CONTINUE these medications which have NOT CHANGED ondansetron (ZOFRAN) 4 mg Take 4 mg by mouth. clonazePAM (KLONOPIN) 0.5 mg tablet Bid for anxiety dicyclomine (BENTYL) 10 mg Take 10 mg by mouth as needed. !! oxyCODONE-acetaminophen (PERCOCET) 1 tablet Take 1 tablet by mouth as needed. albuterol HFA (PROVENTIL HFA, VENTOLIN HFA) 2 Puffs Inhale 2 Puffs as instructed every 4 hours as needed. Qty: 1 Inhaler Refills: 0 Associated Diagnoses:Viral URI with cough !! oxyCODONE-acetaminophen (PERCOCET) 5-325 mg tablet AT BEDTIME LORazepam (ATIVAN) 0.5 mg tab 3 TIMES DAILY NEEDED PRN For Anxiety ibuprofen (MOTRIN) 800 mg Take 800 mg by mouth three times daily as needed. Refills: 0 diazePAM (VALIUM) 2 mg Take 2 mg by mouth three times daily. Refills: 0 Amphetamine-Dextroamphetamine 15 mg tablet daily as needed cyclobenzaprine (FLEXERIL) 10 mg tablet take 1 tablet by mouth once daily at bedtime if needed for SPASMS Refills: 0 ADDERALL XR 15 mg 15 mg as needed. Earliest Fill Date: 08/17/17 Refills: 0 topiramate (TOPAMAX) 100 mg Take 100 mg by mouth twice daily. meloxicam (MOBIC) 15 mg Take 15 mg by mouth once daily. OMEPRAZOLE (PRILOSEC ORAL) 1 capsule Take 1 capsule by mouth once daily. VARENICLINE TARTRATE (CHANTIX ORAL) 1 tablet Take 1 tablet by mouth once daily. potassium chloride ER (K-DUR, KLOR-CON) 20 mEq Take 20 mEq by mouth twice daily. GINSENG ORAL Take by mouth. ASCORBIC ACID (VITAMIN C ORAL) Take by mouth. MULTIVITAMIN/IRON/FOLIC ACID (MULTI-RAHEEM ORAL) Take by mouth. VITAMIN B COMP AND VIT C NO.6 (VITAMIN B COMP WITH VIT C NO.6 ORAL) 1 tablet Take 1 tablet by mouth once daily. !! - Potential duplicate medications found. Please discuss with provider. STOP taking these medications predniSONE (DELTASONE) 20 mg Comments: Reason for Stopping: Discharge Physical Exam: VITAL SIGNS: BP 121/70 Pulse (!) 52 Temp 37.1 ?C (98.8 ?F) (Oral) Resp 18 Ht 162.6 cm (5' 4) Wt 50.6 kg (111 lb 8 oz) SpO2 97% BMI 19.14 kg/m? GENERAL: Alert, no distress, cooperative LUNGS: Lungs clear to auscultation, Good diaphragmatic excursion CARDIAC: Normal S1 and S2; no rubs, murmurs, or gallops NEURO: Gait normal. Reflexes normal and symmetric. Sensation grossly intact, Cranial nerves II-XII intact PULSES: 2+ radial, 2+ carotid TIME OF CARE: Discharge Management: I personally spent greater than 30 minutes involved in the discharge management of this patient. SIGNATURE: Gloria Alcazar MD PAGER/CONTACT #: DATE: December 21, 2017 TIME: 11:43 AM PROGRESS Observed: 12/21/2017 Status: COMPLETED Source: [place] 10:37 AM CLINIC OTHER CAMPUS REPOSITORY HNO ID: [id number] Author: Chacho Grady Service: Gastroenterology Author Type: Physician Type: Progress Notes Filed: 12/21/2017 10:40 AM Note Text: CONSULT: GASTROENTEROLOGY SERVICE SERVICE DATE: 04/25/2017 SERVICE TIME: 10:37 AM SUBJECTIVE Chief complaint: 1.abdominal pain 2. Nausea, vomiting 3. TUOLUMNE: Abdominal pain is better. Had breakfast; no nausea or emesis Current Facility-Administered Medications: ondansetron (PF) 4 mg injection (ZOFRAN) 4 mg INTRAVENOUS q 6 H PRN Jeremiah Mapara 4 mg at 12/20/17 2202 morphine 2 mg injection 2 mg INTRAVENOUS q 4 H PRN Jeremiah Mapara 2 mg at 12/20/17 2149 clonazePAM 0.5 mg tab(s) (KlonoPIN) 0.5 mg ORAL BID Amanda Tetyuk 0.5 mg at 12/21/17 1016 albuterol HFA 90 mcg/actuation 2 Puff (PROVENTIL HFA, VENTOLIN HFA) 2 Puff INHALATION q 4 H PRN Amanda Tetyuk ondansetron 4 mg tab(s) (ZOFRAN) 4 mg ORAL q 6 H PRN Amanda Tetyuk Or ondansetron (PF) 4 mg injection (ZOFRAN) 4 mg INTRAVENOUS q 6 H PRN Amanda Tetyuk 4 mg at 12/21/17 0750 acetaminophen 650 mg tab(s) (TYLENOL) 650 mg ORAL q 6 H PRN Amanda Tetyuk heparin 5,000 Units injection 5,000 Units SUBCUTANEOUS q 12 H Amanda Tetyuk 5,000 Units at 12/21/17 1015 NaCl 0.9% iv infusion 75 mL/hr INTRAVENOUS CONTINUOUS Amanda Tetyuk Last Rate: 75 mL/hr at 12/21/17 0434 75 mL/hr at 12/21/17 0434 ciprofloxacin 400 mg in D5W 200 mL (CIPRO) 400 mg INTRAVENOUS q 12 H Amanda Tetyuk Last Rate: 200 mL/hr at 12/21/17 1015 400 mg at 12/21/17 1015 metroNIDAZOLE 500 mg PREMIX piggyback (FLAGYL) 500 mg INTRAVENOUS q 8 H Amanda Tetyuk Last Rate: 200 mL/hr at 12/21/17 0600 500 mg at 12/21/17 0600 morphine 2 mg injection 2 mg INTRAVENOUS q 4 H PRN Amanda Tetyuk 2 mg at 12/21/17 0750 pantoprazole 40 mg injection (PROTONIX) 40 mg INTRAVENOUS DAILY (6 AM) Lester Jordan MD 40 mg at 12/21/17 0614 ALLERGIES Allergen Reactions - Bee Sting Swelling - Cats Swelling - Food Extracts GI Upset ALLERGIC TO LIQUID SMOKE - Lanolin Hives - Naproxen Rash - [place] Trees [Trees] Other: See Comments sinus congestion - Tramadol Hives Fully Assessed 12/21/17 COMPLETE REVIEW OF SYSTEMS: PAIN ASSESSMENT: Negative for pain GENERAL: No weight loss, malaise or fevers HEAD AND NECK: No headache, swollen glands PULMONARY: No cough, wheezing, dyspnea on exertion, or shortness of breath CARDIOVASCULAR: No chest pain, palpitations ABDOMINAL: Per HPI NEUROLOGIC: No dizziness, lightheadedness, or weakness OPHTHALMOLOGIC: No visual abnormalities MUSCULOSKELETAL: No pain, weakness, or leg swelling SKIN: No rash OBJECTIVE PHYSICAL EXAM: 12/20/17 0700 12/20/17 1900 12/21/17 0300 12/21/17 0700 BP: 103/70 106/62 119/69 121/70 Pulse: (!) 54 67 (!) 55 (!) 52 Resp: Temp: 36.6 ?C (97.9 ?F) 37.1 ?C (98.8 ?F) 36.8 ?C (98.2 ?F) 37.1 ?C (98.8 ?F) TempSrc: Oral Temporal Artery Oral Oral SpO2: 100% 100% 100% 97% Weight: Height: Estimated body mass index is 19.14 kg/m? as calculated from the following: Height as of this encounter: 162.6 cm (5' 4). Weight as of this encounter: 50.6 kg (111 lb 8 oz). GENERAL: Alert, no distress, cooperative HEENT: PERRLA, normocephalic, no thyromegaly, no lymphadenopathy, trachea centrally located CHEST: Clear to auscultation and percussion bilaterally CVS: RRR, no murmur/gallop ABDOMEN: Soft, no definite tenderness, no mass, normal BS DATA: Diagnostic tests reviewed for today's visit: CBC: Recent Labs 12/21/17 0445 WBC 5.53 RBC 3.66* HB 11.8 HCT 34.9 PLT 231 MCV 95.4* MCH 32.2 MPV 10.0 RDW 12.5 Coags: No results for input(s): INR, APTT in the last 24 hours. Invalid input(s): PT BMP: Recent Labs 12/21/17 0445 NA 143 K 3.5 CHLOR 110* CO2 27 BUN 4* CREAT 0.60 GLUC 101* CMP: Recent Labs 12/21/17 0445 NA 143 K 3.5 CHLOR 110* CO2 27 BUN 4* CREAT 0.60 GLUC 101* CA 8.4* ANION 10 Liver Function, Amylase, Lipase: No results for input(s): TPROT, ALB, ALT, AST, ALKPHOS, TBILI, AMYLASE, LIPASE, LACTATE in the last 24 hours. IMPRESSION 1. Nonspecific abdominal pain; improved 2. Normal UGI 3. RECOMMENDATION/PLAN 1. Regular diet 2. Okay for discharge 3. Follow up office 6-8 weeks Gi signing off SIGNATURE: Chacho Grady MD PATIENT NAME: Francy Dorman DATE: 12/21/17 TIME: 10:37 AM MOBILE: [phone] HEMOGRAM Collected: 12/21/2017 Status: F Source: [facility] 4:45 AM HEALTH SYSTEM REPOSITORY TYPE CODE TESTS RESULT OUT OF REFERENCE UNITS RANGE LAB WBC(LOINC) 3.98-10.04 thou/cmm WBC 5.53 LAB RBC(LOINC) 3.93-5.22 mil/cmm Low RBC 3.66 LAB HGB(LOINC) 11.2-15.7 g/dL Hgb 11.8 LAB HCT(LOINC) 34.1-44.9 % Hct 34.9 LAB MCV(LOINC) 79.4-94.8 fl High MCV 95.4 LAB MCH(LOINC) 25.6-32.2 pg MCH 32.2 LAB MCHC(LOINC) 31.6-34.8 % MCHC 33.8 LAB RDW(LOINC) 11.7-14.4 % RDW 12.5 LAB RDWSD(LOINC 36.4-46.3 fl ) RDW SD 43.9 LAB PLT(LOINC) 182-369 thou/cmm Platelet 231 LAB MPV(LOINC) 9.4-12.3 fl MPV 10.0 Performed By: #### CBC1 #### [facility] [address] [place] [address] BASIC PANEL Collected: 12/21/2017 Status: F Source: [facility] 4:45 AM HEALTH SYSTEM REPOSITORY TYPE CODE TESTS RESULT OUT OF REFERENCE UNITS RANGE LAB NA(LOINC) 136-145 mEq/L Sodium Blood 143 LAB K(LOINC) 3.5-5.1 mEq/L Potassium Blood 3.5 LAB CL(LOINC) 98-107 mEq/L Chloride High Blood 110 LAB CO2(LOINC) 21-32 mEq/L CO2 Blood 27 LAB GLU(LOINC) 70-99 mg/dL Glucose High Blood 101 LAB BUN(LOINC) 7-18 mg/dL Low BUN Blood 4 LAB CREA(LOINC 0.51-0.95 mg/dL ) Creatinine Blood 0.60 LAB CA(LOINC) 8.5-10.1 mg/dL Low Calcium Blood 8.4 LAB ANGAP(LOIN 8-16 C) Anion Gap 10 Performed By: #### P8 #### [place] [address] MDRD GFR Collected: 12/21/2017 Status: F Source: [facility] 4:45 AM HEALTH SYSTEM REPOSITORY TYPE CODE TESTS RESULT OUT OF RANGE REFERENCE UNITS LAB GFRFN(LOINC >60mL/min/1.73m ) 2 eGFR >60 Result Comment: If the patient is , multiply the result by 1.210. Performed By: #### GFR #### [place] [address] CNCO Observed: 12/21/2017 Status: COMPLETED Source: [place] 12:00 AM CLINIC MAIN CAMPUS REPOSITORY Letter Text Adriane Villatoro, MD [facility] [address] [place], [place] [address] 12/21/2017 Francy Preethi Dorman [facility] [address] [address] [facility]#: [id number] Dear Francy, This letter is to confirm with you the dates and times of your upcoming surgery. You should have received a telephone call notifying you of this information. Surgery is scheduled at [facility] on 02/04/18. You will receive a call from the hospital the day prior to your surgery with your arrival time. Pre-operative appointment at Dr. Adriane Villatoro's office is scheduled on 01/25/18 at 1:20 p.m. [facility] will contact you by phone on 01/28/18 @ 2:00 p.m. for pre-admission testing. Your surgery follow-up appointment is scheduled at Dr. Adriane Villatoro's office on 02/19/18 @ 10:10 a.m. In addition, we will do a precertification approximately 1 week prior to your surgery. This means we will give your insurance company the medical information they need to make a predetermination. This is not a guarantee of payment and you will need to call your insurance company to verify benefits and coverage. We will only call you if there is a problem. If you have any questions, please feel free to call us at the phone number above. We appreciate your confidence in choosing the [facility] for your medical care and we look forward to seeing you at your next appointment. Thank you, [facility] UGI W/O KUB INCL Observed: 12/20/2017 Status: F Source: [facility] 2:47 PM HEALTH SYSTEM REPOSITORY Performed at [facility] APPROVED BY: Howard Gonzalez MD EXAMINATION: UPPER GI SERIES EXAM DATE: 12/20/2017 14:22 HISTORY: Mid abdominal pain, nausea and vomiting. Outside CT scan suggesting SMA syndrome. TECHNIQUE: A single phase upper GI series was performed. Multiple spot images of the esophagus and upper abdomen were obtained during the ingestion of 10 ounces EZ opaque barium contrast. Total fluoroscopy time 4.3 minutes. COMPARISON: None available. FINDINGS: After the oral ingestion of barium, there is no obstruction to the flow of barium from the esophagus into the stomach. The mucosal pattern of the visualized esophagus is unremarkable, without esophageal mass, stricture, or ulcer. No hiatal hernia is identified. No gastroesophageal reflux is identified. No gastric or proximal duodenal ulcer, mass, or stricture is seen. The duodenal sweep is unremarkable. Contrast easily passes through the duodenum. The stomach and duodenum are nondistended. The lig ament of Treitz is in a normal position. IMPRESSION: Unremarkable upper GI series. No findings to suggest duodenal obstruction/SMA syndrome. CONSULT Observed: 12/20/2017 Status: COMPLETED Source: [place] 8:23 AM CLINIC OTHER CAMPUS REPOSITORY [facility] ID: [id number] Author: Lester Jordan MD Service: Gastroenterology Author Type: Physician Type: Consults Filed: 12/20/2017 9:48 AM Note Text: CONSULT: GASTROENTEROLOGY SERVICE SERVICE DATE: 12/20/17 SERVICE TIME: 8:23 AM REASON FOR CONSULT: SMA syndrome/colitis REQUESTING PHYSICIAN: Zeyad Oro Lakia is a 37 yo F who presented to [place] [facility] c/o epigastric abd pain and n/v. Her symptoms started about a week ago and progressively worsened especially the n/v almost became intractable. Pt denies f/c, cp, sob, d/c. 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 Urinalysis positive for UTI. PAST MEDICAL HISTORY Diagnosis Date - Abnormal Pap smear 2003 mild dysplasia - ADD (attention deficit disorder with hyperactivity) - ADD (attention deficit disorder) - Anemia WITH - Anxiety - Asthma - Chlamydia 2011 - Complication of anesthesia NAUSEA WITH ANESTHESIA - Depression DEPRESSION AND ANXIETY - Diabetes, gestational - History of pre-eclampsia in prior , currently - Migraine, unspecified, with intractable migraine, so stated, without mention of status migrainosus Migraine - Mild dysplasia of cervix (ALEXEY I) 11/27/2011 - depression - hemorrhage - Ulcer STOMACH ULCERS - Vasovagal syncope PAST SURGICAL HISTORY Procedure Laterality Date - COLPOSCOPY W BX CERVIX - TREAT ECTOPIC PREG,RMV TUBE/OVARY 11/08/14 right salpingecctomy for ectopic FAMILY HISTORY Problem Relation Age of Onset - Alcohol/Drug Mother - Asthma Mother - Alcohol/Drug Father - Emphysema Father - No Known Problems Sister - No Known Problems Sister - No Known Problems Brother - Asthma Maternal Grandfather - Cancer Maternal Grandfather - Cancer Paternal Grandmother Lung Cancer - Asthma Paternal Grandmother - Emphysema Paternal Grandfather - Heart Paternal Uncle - Alcohol/Drug Paternal Uncle Current Facility-Administered Medications: ondansetron (PF) 4 mg injection (ZOFRAN) 4 mg INTRAVENOUS q 6 H PRN Jeremiah Mapara 4 mg at 12/20/17 0415 morphine 2 mg injection 2 mg INTRAVENOUS q 4 H PRN Jeremiah Mapara 2 mg at 12/20/17 0414 clonazePAM 0.5 mg tab(s) (KlonoPIN) 0.5 mg ORAL BID Amanda Tetyuk 0.5 mg at 12/20/17 0813 albuterol HFA 90 mcg/actuation 2 Puff (PROVENTIL HFA, VENTOLIN HFA) 2 Puff INHALATION q 4 H PRN Amanda Tetyuk ondansetron 4 mg tab(s) (ZOFRAN) 4 mg ORAL q 6 H PRN Amanda Tetyuk Or ondansetron (PF) 4 mg injection (ZOFRAN) 4 mg INTRAVENOUS q 6 H PRN Amanda Tetyuk acetaminophen 650 mg tab(s) (TYLENOL) 650 mg ORAL q 6 H PRN Amanda Tetyuk heparin 5,000 Units injection 5,000 Units SUBCUTANEOUS q 12 H Amanda Tetyuk 5,000 Units at 12/20/17 0818 NaCl 0.9% iv infusion 75 mL/hr INTRAVENOUS CONTINUOUS Amanda Tetyuk Last Rate: 75 mL/hr at 12/20/17 0610 75 mL/hr at 12/20/17 0610 ciprofloxacin 400 mg in D5W 200 mL (CIPRO) 400 mg INTRAVENOUS q 12 H Amanda Tetyuk Last Rate: 200 mL/hr at 12/20/17 0740 400 mg at 12/20/17 0740 metroNIDAZOLE 500 mg PREMIX piggyback (FLAGYL) 500 mg INTRAVENOUS q 8 H Amanda Tetyuk 500 mg at 12/20/17 0610 morphine 2 mg injection 2 mg INTRAVENOUS q 4 H PRN Amanda Tetyuk ALLERGIES Allergen Reactions - Bee Sting Swelling - Cats Swelling - Food Extracts GI Upset ALLERGIC TO LIQUID SMOKE - Lanolin Hives - Naproxen Rash - [place] Trees [Trees] Other: See Comments sinus congestion - Tramadol Hives Fully Assessed 12/20/17 COMPLETE REVIEW OF SYSTEMS: PAIN ASSESSMENT: Negative for pain GENERAL: No weight loss, malaise or fevers HEAD AND NECK: No headache, swollen glands PULMONARY: No cough, wheezing, dyspnea on exertion, or shortness of breath CARDIOVASCULAR: No chest pain, palpitations ABDOMINAL: Per HPI NEUROLOGIC: No dizziness, lightheadedness, or weakness OPHTHALMOLOGIC: No visual abnormalities MUSCULOSKELETAL: No pain, weakness, or leg swelling SKIN: No rash OBJECTIVE PHYSICAL EXAM: 12/20/17 0300 12/20/17 0316 BP: 121/71 Pulse: 60 Resp: 18 Temp: 36.8 ?C (98.2 ?F) SpO2: 99% Weight: 50.6 kg (111 lb 8 oz) Height: 162.6 cm (5' 4) GENERAL: Alert, no distress, cooperative HEENT: PERRLA, normocephalic, no thyromegaly, no lymphadenopathy, trachea centrally located CHEST: Clear to auscultation and percussion bilaterally CVS: RRR, no murmur/gallop ABD: soft, TTP periumbilical, ND, BS+ NEURO: Cranial nerves grossly intact, no lateralizing neurologic signs MSK: No wasting, no weakness EXT: No edema, no deformity SKIN: No jaundice, no rash DATA: Diagnostic tests reviewed for today's visit: Most recent labs and imaging results. CBC, Coags, BMP, Mg, Phos Recent Labs 12/20/17 0538 WBC 8.49 HB 12.7 HCT 37.6 PLT 273 NA 139 K 3.5 CHLOR 105 CO2 26 BUN 5* CREAT 0.58 GLUC 94 CA 8.7 Liver Function, Amylase, AND Lipase No results found for: INR IMPRESSION/RECOMMENDATION 1. UTI - per primary service 2. 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 - supportive therapies per primary service - empiric abx - stool work up if diarrhea occurs - SMA is difficult diagnosis to make. Her CT scan is suggestive. Will order barium UGI series with run off - may need to get vascular surgery involved SIGNATURE: Lester Jordan MD PATIENT NAME: Francy Dorman DATE: 12/20/17 TIME: 8:23 AM HEMOGRAM/DIFF Collected: 12/20/2017 Status: F Source: [facility] 5:38 AM HEALTH SYSTEM REPOSITORY TYPE CODE TESTS RESULT OUT OF REFERENCE UNITS RANGE LAB WBC(LOINC) 3.98-10.04 thou/cmm WBC 8.49 LAB RBC(LOINC) 3.93-5.22 mil/cmm RBC 4.02 LAB HGB(LOINC) 11.2-15.7 g/dL Hgb 12.7 LAB HCT(LOINC) 34.1-44.9 % Hct 37.6 LAB MCV(LOINC) 79.4-94.8 fl MCV 93.5 LAB MCH(LOINC) 25.6-32.2 pg MCH 31.6 LAB MCHC(LOINC 31.6-34.8 % ) MCHC 33.8 LAB RDW(LOINC) 11.7-14.4 % RDW 12.5 LAB RDWSD(LOIN 36.4-46.3 fl C) RDW SD 42.9 LAB PLT(LOINC) 182-369 thou/cmm Platelet 273 LAB MPV(LOINC) 9.4-12.3 fl MPV 10.2 LAB SEG(LOINC) % Seg Neutrophil 58.9 LAB IGRE(LOINC % ) Immature Grans 0.40 LAB LYMPH(LOIN % C) Lymphocyte 30.5 LAB MNO(LOINC) % Monocyte 8.6 LAB EOSIN(LOIN % C) Eosinophil 1.1 LAB BASO(LOINC % ) Basophil 0.5 LAB SEGN(LOINC 1.56-6.13 thou/cmm ) Abs. Neut (ANC) 5.00 LAB IGAB(LOINC 0.00-0.05 thou/cmm ) Abs Immature Grans 0.03 LAB LYMN(LOINC 1.18-3.74 thou/cmm ) Abs. Lymph 2.59 LAB MONON(LOIN 0.27-0.70 thou/cmm C) Abs. High [place] 0.73 LAB EOSN(LOINC 0.00-0.31 thou/cmm ) Abs. Eosin 0.09 LAB BASON(LOIN 0.01-0.08 thou/cmm C) Abs. Baso 0.04 Performed By: #### [id number] #### [place] [address] BASIC PANEL Collected: 12/20/2017 Status: F Source: [facility] 5:38 AM HEALTH SYSTEM REPOSITORY TYPE CODE TESTS RESULT OUT OF REFERENCE UNITS RANGE LAB NA(LOINC) 136-145 mEq/L Sodium Blood 139 LAB K(LOINC) 3.5-5.1 mEq/L Potassium Blood 3.5 Result Comment: SPECIMEN SLIGHTLY HEMOLYZED LAB CL(LOINC) 98-107 mEq/L Chloride Blood 105 LAB CO2(LOINC) 21-32 mEq/L CO2 Blood 26 LAB GLU(LOINC) 70-99 mg/dL Glucose Blood 94 LAB BUN(LOINC) 7-18 mg/dL BUN Blood Low 5 LAB CREA(LOINC) 0.51-0.95 mg/dL Creatinine Blood 0.58 LAB CA(LOINC) 8.5-10.1 mg/dL Calcium Blood 8.7 LAB ANGAP(LOINC) 8-16 Anion Gap 12 Performed By: #### P8 #### [place] [address] MDRD GFR Collected: 12/20/2017 Status: F Source: [facility] 5:38 AM HEALTH SYSTEM REPOSITORY TYPE CODE TESTS RESULT OUT OF RANGE REFERENCE UNITS LAB GFRFN(LOINC >60mL/min/1.73m ) 2 eGFR >60 Result Comment: If the patient is , multiply the result by 1.210. Performed By: #### GFR #### [place] [address] HISTORY PHYSICAL Observed: 12/20/2017 Status: COMPLETED Source: [facility] 5:15 AM CLINIC OTHER CAMPUS REPOSITORY HNO ID: [id number] Author: Amanda Jeffers Service: Hospital Medicine Author Type: Physician Type: HANDP Filed: 12/20/2017 5:23 AM Note Text: DEPARTMENT OF HOSPITAL MEDICINE HISTORY AND PHYSICAL EXAM SERVICE DATE: 12/20/2017 SERVICE TIME: 5:15 AM Primary Care Physician: Abby Sears, DO NIGHT AND WEEKEND COVERAGE: After 7pm, please call cross cover pager #[phone] Subjective CHIEF COMPLAINT: Nausea/vomiting/abdominal pain. HPI: This is a 37 year old female who was sent from [facility] with above complaints. Patient had intractable nausea and vomiting for one week, some abdominal pain. No diarrhea, fever or chills. 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 Urinalysis positive for UTI, potassium 3.4, wbc 8.7, hgb 13.9, cr 0.7 PAST MEDICAL HISTORY Diagnosis Date - Abnormal Pap smear 2003 mild dysplasia - ADD (attention deficit disorder with hyperactivity) - ADD (attention deficit disorder) - Anemia WITH - Anxiety - Asthma - Chlamydia 2011 - Complication of anesthesia NAUSEA WITH ANESTHESIA - Depression DEPRESSION AND ANXIETY - Diabetes, gestational - History of pre-eclampsia in prior , currently - Migraine, unspecified, with intractable migraine, so stated, without mention of status migrainosus Migraine - Mild dysplasia of cervix (ALEXEY I) 11/27/2011 - depression - hemorrhage - Ulcer STOMACH ULCERS - Vasovagal syncope PAST SURGICAL HISTORY Procedure Laterality Date - COLPOSCOPY W BX CERVIX - TREAT ECTOPIC PREG,RMV TUBE/OVARY 11/08/14 right salpingecctomy for ectopic FAMILY HISTORY Problem Relation Age of Onset - Alcohol/Drug Mother - Asthma Mother - Alcohol/Drug Father - Emphysema Father - No Known Problems Sister - No Known Problems Sister - No Known Problems Brother - Asthma Maternal Grandfather - Cancer Maternal Grandfather - Cancer Paternal Grandmother Lung Cancer - Asthma Paternal Grandmother - Emphysema Paternal Grandfather - Heart Paternal Uncle - Alcohol/Drug Paternal Uncle Social History Substance Use Topics - Smoking status: Current Every Day Smoker Packs/day: 1.00 Years: 20.00 Types: Cigarettes - Smokeless tobacco: Never Used - Alcohol use Yes Comment: occasional MEDICATIONS: Reviewed ALLERGIES Allergen Reactions - Bee Sting Swelling - Cats Swelling - Food Extracts GI Upset ALLERGIC TO LIQUID SMOKE - Lanolin Hives - Naproxen Rash - [place] Trees [Trees] Other: See Comments sinus congestion - Tramadol Hives REVIEW OF SYSTEM: GENERAL: No weight loss, malaise or fevers HEENT: Negative for frequent or significant headaches, No changes in hearing or vision, no nose bleeds or other nasal problems NECK: Negative for lumps, goiter, pain and significant neck swelling RESPIRATORY: Negative for cough, hemoptysis, wheezing, COPD, dyspnea or shortness of breath CARDIOVASCULAR: Negative for chest pain, leg swelling, hypertension, CHF or palpitations GI: +nausea, +vomiting, no diarrhea : No history of dysuria, frequency or incontinence MUSCULOSKELETAL: Negative for joint pain or swelling, back pain or muscle pain SKIN: Negative for lesions, rash, and itching PSYCH: Negative for sleep disturbance, mood disorder and recent psychosocial stressors HEMATOLOGY/LYMPHOLOGY: Negative for prolonged bleeding, bruising easily or swollen nodes ENDOCRINE: Negative for cold or heat intolerance, polyuria, polydipsia and goiter NEURO: No history of headaches, syncope, paralysis, seizures or tremors Objective PHYSICAL EXAM: BP 121/71 Pulse 60 Temp 98.2 Resp 18 Ht 5' 4 (1.63m) Wt 111 lb 8 oz (50.6kg) SpO2 99% BMI 19.13 kg/(m2). GENERAL: Alert, no distress, cooperative SKIN: Skin color, texture, turgor normal. No rashes or lesions. HEENT: normocephalic, atraumatic, EOMI, OZZY, sclerae anicteric NECK: No jugulovenous distention, No carotid bruits, Supple, no thyromegaly or lymphadenopathy. Trachea midline. LUNGS: Lungs clear to auscultation b/l, no wheezes, rhonchi or crackles. Good respiratory effort. CARDIAC: Normal S1 and S2; no rubs, murmurs, or gallops ABDOMEN: Abdomen soft, non-tender, BS normal, No masses or organomegaly EXTREMITIES: Extremities normal, no deformities, edema, clubbing or skin discoloration. Good capillary refill., No ulcers DATA: Diagnostic tests reviewed for today's visit: Most recent labs and imaging results. Assessment/Plan Active Problems: Colitis POA: Yes Assessment AND Plan: with possible SMA syndrome on CT and suspected delayed gastric emptying -clear liquid diet, IVF, antiemetics -consult GI -empiric a/b for colitis UTI (urinary tract infection) POA: Yes Assessment AND Plan: -UCx -continue a/b Hypokalemia POA: Yes Assessment AND Plan: -replace and monitor VTE Prophylaxis: Heparin 5000 units Sub Q BID Disposition: Home Plan of care discussed with: Patient SIGNATURE: Amanda Jeffers MD PATIENT NAME: Francy Dorman DATE: December 20, 2017 TIME: 5:15 AM PAGER/CONTACT #: NURSING PROG Observed: 12/20/2017 Status: COMPLETED Source: [facility] 3:39 AM CLINIC OTHER CAMPUS REPOSITORY HNO ID: [id number] Author: Maude (Rn) BENITO Simon Service: Nursing Author Type: Registered Nurse Type: Nursing Progress Note Filed: 12/20/2017 3:40 AM Note Text: [id number] Sound paged for admitting orders. Observed: 12/20/2017 Status: F Source: [facility] CULTURE, URINE 1:15 AM [facility] REPOSITORY Order Date: 12/20/17 RESULT(S) PREVIOUSLY REPORTED ON MANUAL REQUISITION DURING DOWNTIME. Urine Culture Culture exhibits no growth. Performed By: #### M100.0650 #### [facility] [address] [place], [address] EMERGENCY DEPARTMENT Observed: 12/20/2017 Status: F Source: [facility] SUMMARY 12:46 AM [facility] REPOSITORY [facility] Medical Records Department [address] [place] [address] Emergency Department Summary 12/20/17 0013 MR#: [id number] Acct: [id number] Name: FRANCY DORMAN Rep #: [id number] : 1980 37 From: Sanya Javier MD PCP: Abby Sears DO Status: REG ER - ER Visit Summary Date of Service: 12/20/17 Chief Complaint: Abdominal pain, nausea and vomiting History of Present Illness: The patient is a 37 F who presents with abdominal pain nausea and vomiting. She reports intractable nausea and vomiting for the past 5 days. She was recently seen in the ER for similar symptoms. She had normal labs at that time. She was discharged. She does have Zofran at home. She states that despite this she continues to vomit. She thought that maybe some of this may have been due to constipation so she did take a laxative and has had some loose stools since yesterday. She reports temperature of 100.2. She also reports burning epigastric abdominal pain which radiates up through the chest. She states she has had some cough and feel short of breath but believes this all may be related to her persistent vomiting. Physical Examination: Afebrile vitals are within normal limits Moist mucous membranes Heart regular rate and rhythm Lungs are clear Abdomen soft nondistended she has mild diffuse abdominal tenderness no guarding no rebound Alert Test Results: Laboratory studies are notable for lipase of 555. Urinalysis shows 100 leukocyte esterase, positive nitrates, 5-10 WBCs and 3+ bacteria however is contaminated with 5-10 epithelial cells. is negative. Chest x-ray shows no acute process on my review. CT of the abdomen and pelvis shows mild circumferential thickening of the wall of the ascending and transverse colon with mild pneumatosis consistent with colitis. The patient also has features of SMA syndrome and nutcracker syndrome. Emergency Department Course and Treatment: Patient was initially treated with IV fluids morphine and Zofran. She requested a GI cocktail. She took this with relief of symptoms although continue to complain of burning epigastric abdominal pain. She was given Protonix with further improvement although still does have some pain on reevaluation. She was given Rocephin although she is contaminated there are nitrites 3+ bacteria so we will treat for UTI and also obtain urine culture. Given the patient's persistent vomiting with features of SMA syndrome I do feel she will need further workup which would be more appropriate at a tertiary care facility with additional consult was available including gastroenterology. Treatment Plan: [] Disposition: Transfer Impression: Vomiting Elevated lipase Possible SMA syndrome Nutcracker syndrome UTI This note was generated with [employer] dictation software. It may contain incorrect words, spelling, and punctuation that were not noted in review of the chart prior to signing ED Disposition - Plan for ED Patient: Chief Complaint: Nausea/Vomiting Referrals: Abby Sears, DO [Primary Care Provider] - What to do if you have Problems For any increased pain, shortness of breath, bleeding, nausea or vomiting, chest pain, or any unexpected problems, contact your Primary Care Provider. Call [facility] ([phone]) or report to the closest Emergency Room. Call 911 if necessary. 12/20/17 0046 <Electronically signed by Sanya Javier MD> Date Sanya Javier MD Cosigner Signature (If Indicated): Date CC: Abby Sears DO CBC W/DIFF, AUTOMATED Collected: 12/19/2017 Status: F Source: [facility] 9:00 PM [facility] REPOSITORY TYPE CODE TESTS RESULT OUT OF RANGE REFERENCE UNITS LAB L100.1000 4.4-11.0 K/mm3 Normal WBC 8.7 LAB L100.1200 4.2-5.4 M/mm3 Normal RBC 4.42 LAB L100.1300 12.0-15.0 g/dl Normal HGB 13.9 LAB L100.1400 37-47 % Normal HCT 41.3 LAB L100.1500 81-99 fL Normal MCV 93.4 LAB L100.1600 27.0-32.0 pg Normal MCH 31.4 LAB L100.1700 32-36 g/gl Normal MCHC 33.7 LAB L100.1810 11.6-14.6 % Normal RDW CV 12.5 LAB L100.1820 35.1-43.9 fl Normal RDW SD 42.7 LAB L100.1900 150-450 K/mm3 Normal PLT 286 LAB L100.2000 6.2-12.0 fl Normal MPV 9.3 LAB L100.2100 47-70 % Normal NEUT% 63.9 LAB L100.2200 19-41 % Normal LY% 29.2 LAB L100.2300 0-10 % Normal MONO% 5.3 LAB L100.2400 0-5 % Normal EO% 1.3 LAB L100.2500 0-1 % Normal BASO% 0.3 LAB L100.2550 0.0-0.9 % Normal IM GRAN % 0.000 Result Comment: IG% - Immature Granulocytes (promyelocytes, myelocytes and metamyelocytes) > 1% indicates that a LEFT SHIFT is Present. LAB L100.2620 2.0-7.7 X10 3/uL Normal Absolute Neut 5.6 LAB L100.2720 0.83-4.51 X10 3/ul Normal Absolute Lymph 2.54 Performed By: #### L100.0100 #### [facility] [address] [place], [address] URINALYSIS, COMPLETE Collected: 12/19/2017 Status: F Source: [facility] 9:00 PM [facility] REPOSITORY Order Comment: Order Date: 12/19/17 How was Urine Obtained? CLEAN CATCH TYPE CODE TESTS RESULT OUT OF RANGE REFERENCE UNITS LAB L400.3000 Yellow COLOR Normal Yellow LAB L400.3050 Clear Normal CLARITY Sl. Cloudy LAB L400.3200 Normal mg/dl Normal GLUCOSE, UR Normal LAB L400.3300 Negative mg/dL High BILIRUBIN URINE 3 Result Comment: COLOR OF URINE MAY AFFECT DIPSTICK RESULTS. LAB L400.3400 Negative mg/dl High KETONE UR 50 LAB L400.3465 1.002-1.030 Normal SP.GR. DIPSTX 1.020 LAB L400.3550 5.0 - 8.0 pH Normal UR 6.5 LAB L400.3600 Negative mg/dl High PROT DIPSTX 100 LAB L400.3700 Normal mg/dl High UROBILI 4 LAB L400.3750 Negative High NITRITE UR Positive LAB L400.3780 Negative /ul High OCCULT 150 BLOOD-UR LAB L400.3800 Negative /ul High LEUK ESTERASE 100 LAB L400.4050 0-5 /hpf Normal WBC 5-10 SEEN LAB L400.4100 0-5 /hpf Normal RBC-UA 5-10 SEEN LAB L400.4150 5-10 /hpf Normal SQUAM EPI 5-10 SEEN LAB L400.4300 None Seen /hpf Normal BACTERIA 3+ LAB L400.4350 <or=2+ /hpf Normal MUCUS, URINE 2+ LAB L400.4700 <or=2+ /hpf CA Normal OX CRYSTAL RARE Performed By: #### L400.0001 #### [facility] [address] [place], [address] COMPREHENSIVE METABOLIC Collected: 12/19/2017 Status: F Source: [facility] 9:00 PM [facility] REPOSITORY TYPE CODE TESTS RESULT OUT OF RANGE REFERENCE UNITS LAB L501.0100 74-106 mg/dL Normal GLU 102 Result Comment: Fasting Glucose result from 100 to 125 mg/dL suggests IMPAIRED HOMEOSTASIS per A.D.A. criteria. Please note revised GLUCOSE reference range effective 2017. LAB L501.1000 7-18 mg/dL Normal BUN 8 LAB L501.1100 0.55-1.02 mg/dL Normal CREAT,SERUM 0.70 Result Comment: The validity of the calculated GFR AND GFRAA in patients over 70 years has not been determined. Clinical correlation is essential. LAB L501.1110 >60 mL/min Normal EST GFR 101 Result Comment: Non- GFR Calc LAB L501.1115 >60 mL/min Normal EST GFR - AA 123 Result Comment: GFR Calc LAB L501.1255 ml/min Normal Estimated CRCL 87.87 LAB L501.1300 10-20 RATIO Normal BUN/CRE 11.5 LAB L501.1500 6.4-8. g/dL Normal 2 T PROT 7.8 LAB L501.1800 3.2-5. g/dL Normal 0 ALB 4.3 LAB L501.1950 2.2-4. g/dL Normal 2 GLOB 3.5 LAB L501.2000 0.9-2. RATIO Normal 4 A/G 1.2 LAB L501.2200 8.5-10 mg/dL Normal .1 CA 8.9 LAB L501.4100 15-37 U/L Low AST 10 LAB L501.4305 45-117 U/L Normal ALK P 71 LAB L501.4405 13-56 U/L Normal ALT 15 LAB L501.4600 0.20-1 mg/dL Normal .00 T BILI 0.30 LAB L501.5300 136-14 mmol/L Normal 5 NA 139 LAB L501.5600 3.5-5. mmol/L Low 1 K 3.4 LAB L501.5900 98-107 mmol/L Normal CL 102 LAB L501.6100 21.0-3 mmol/L Normal 2.0 CO2 28.0 LAB L501.6200 5-15 Normal GAP 9 Performed By: #### L500.4050, L501.2450 #### [facility] [address] [place], [place], [id number] LIPASE Collected: 12/19/2017 Status: F Source: [facility] 9:00 PM [facility] REPOSITORY TYPE CODE TESTS RESULT OUT OF REFERENCE UNITS RANGE LAB L501.2450 73-393 U/L High LIPASE 555 Performed By: #### L500.4050, L501.2450 #### [facility] [address] [place], [address] ,SERUM,HCG QUALI. Collected: Status: F Source: [facility] 12/19/2017 9:00 PM [facility] REPOSITORY TYPE CODE TESTS RESULT OUT OF REFERENCE UNITS RANGE LAB L700.7000 0-9 Nonpreg Negative Normal HCGSQUAL NEGATIVE LAB L700.6700 =>Qualitative mIU/mL Normal HCG Qual < 1 triggr Performed By: #### L700.6800 #### [facility] [address] [place], [address] ABDOMEN/PELVIS WITH Observed: 12/19/2017 Status: F Source: [facility] CONTRAST 8:55 PM [facility] REPOSITORY [facility] Imaging Services [address] [place] [address] Abdomen/Pelvis WITH Contrast MR#: [id number] Acct: [id number] Name: FRANCY DORMAN Rep #: [id number] : 1980 F 37 From: Chris Anthony MD PCP: Abby Sears DO Status: REG ER Study: Abdomen/Pelvis WITH Contrast Date of Exam: 12/19/17 Exam# [id number] Ordering Dr: Sanya Javier MD STUDY: CT ABDOMEN AND PELVIS WITH CONTRAST REASON FOR EXAM: Female, 37 years old. Nausea and vomiting for 2 days RADIATION DOSAGE (If Supplied By Facility): CTDIvol = ( 11.26 ) mGy, DLP = ( 288.91 ) mGycm TECHNIQUE: Transaxial images were obtained from the dome of the diaphragm to the symphysis pubis with oral contrast. 100 ml of Isovue 300 contrast was administered. Sagittal and coronal images were reconstructed. Individualized dose optimization techniques were used for this CT. COMPARISON: CT abdomen and pelvis 06/29/2017 FINDINGS: Body wall soft tissues: No acute process. Osseous structures: No acute process. Inferior chest: No acute process. Hepatobiliary: Normal. Pancreas: No acute process. Spleen: Normal. Adrenal glands: Normal. Urogenital: Normal kidneys, symmetric nephrograms. Normal collecting systems, ureters, urinary bladder. Normal anteverted uterus. No adnexal mass or suspicious cyst and no cul-de-sac free fluid. Prominent uterine and adnexal veins discussed below. Pelvic floor and sidewalls and retroperitoneum: No mass or adenopathy. Vasculature: Unremarkable aorta, major aortic branch vessels, portal venous and mesenteric venous arborization, iliac veins and IVC. Acute takeoff of the superior mesenteric artery from the ureter. 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 This is a normal variant venous pathway rarely presenting with symptoms of pelvic venous congestion, flank pain, or painless hematuria. There are also features of SMA syndrome, prominent compression of the 3rd portion of the duodenum between the aorta and the SMA, contributing to mild ectasia of the 2nd portion of the duodenum and potentially contributing to symptoms of partial gastric outlet obstruction or delay in gastric emptying. This requires clinical correlation. Stomach: There is circumferential abnormal thickening of the wall the gastric pylorus edematous features. Wall thickness up to 8.5 mm. Thickening over a length of approximately 4.3 cm. Pyloric hypertrophy may be a reflection of SMA syndrome. Small bowel and mesentery: The jejunum and ileum are normal. Large bowel: Normal appendix. There is circumferential thickening of the wall of the cecum and ascending colon, and transverse colon normalizing through the splenic flexure. The distal large bowel is unremarkable. There is evidence of pneumatosis within the wall of the hepatic flexure and transverse colon. There is no evidence of gas within the mesenteric veins and there is no portal venous gas. Free fluid or free air: None. CT/Abdomen/Pelvis WITH Contrast IMPRESSION: 1. Mild circumferential thickening of wall the ascending colon and transverse colon associated with mild pneumatosis within the wall without mesenteric or portal venous pneumatosis. Most consistent with acute colitis. 2. There are features of SMA syndrome which may be contributing to hypertrophic pylorus. Correlate clinically for symptoms of delayed gastric emptying. 3. 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 Electronically Signed: Chris Anthony, at 23:52 EDT Tel , Service support , CC: Sanya Javier MD; Abby Sears DO Calciner Feeder: Signed CHEST PA AND LATERAL Observed: 12/19/2017 Status: F Source: [place] 8:55 PM [facility] REPOSITORY [facility] Imaging Services [address] [place] [address] Chest PA and Lateral MR#: [id number] Acct: [id number] Name: FRANCY DORMAN Rep #: [id number] : 1980 F 37 From: Francy Lr MD PCP: Abby Sears DO Status: REG ER Study: Chest PA and Lateral Date of Exam: 12/19/17 Exam# [id number] Ordering Dr: Sanya Javier MD STUDY: X-RAY CHEST REASON FOR EXAM: Female, 37 years old. Cough TECHNIQUE: Frontal and lateral views of the chest were obtained. COMPARISON: July 22, 2015 FINDINGS: The lungs are adequately aerated. There are no focal airspace opacities. There is no demonstrated pleural abnormality. Nipple shadows are present bilaterally. The cardiac silhouette is normal in size. The mediastinum and hilar regions are unremarkable. Normal visualized pulmonary arteries. Normal visualized aortic arch and descending thoracic aorta. The thoracic spine is unremarkable. The visualized ribs, clavicles, and shoulders are unremarkable. There is no demonstrated abnormality of the visualized upper abdomen. RAD/Chest PA and Lateral IMPRESSION: There is no evidence of focal consolidation or pleural effusion. Electronically Signed: Francy Lr MD at 0:14 EDT Tel Direct: [phone], Service support , CC: Sanya Javier MD; Abby Sears DO Calciner Feeder: Signed DISCHARGE INSTRUCTION Observed: 12/17/2017 Status: F Source: [place] 8:59 PM [facility] REPOSITORY [facility] Medical Records Department [address] [place] [address] Discharge Instruction 12/17/172057 MR#: [id number] Acct: [id number] Name: FRANCY DORMAN Rep #: [id number] : 1980 37 From: Lorie Howell DO PCP: Abby Sears DO Status: REG ER ED Disposition - Plan for ED Patient: Chief Complaint: Nausea/Vomiting Instructions: ED Abdominal Pain Unkn Cause, ED Nausea Vomiting Prescriptions: Ondansetron [Zofran Odt] 4 mg PO Q8H PRN PRN #10 tab PRN Reason: Nausea Dicyclomine HCl [Bentyl] 20 mg PO TIDAC #20 cap Referrals: Abby Sears DO [Primary Care Provider] - 3-5 Days What to do if you have Problems For any increased pain, shortness of breath, bleeding, nausea or vomiting, chest pain, or any unexpected problems, contact your Primary Care Provider. Call [facility] ([phone]) or report to the closest Emergency Room. Call 911 if necessary. 12/17/172058 <Electronically signed by Lorie Howell DO> Date Lorie Howell DO Cosigner Signature (If Indicated): Date CC: Abby Sears DO EMERGENCY DEPARTMENT Observed: 12/17/2017 Status: F Source: [place] SUMMARY 8:58 PM [facility] REPOSITORY [facility] Medical Records Department [address] [place] [address] Emergency Department Summary 12/17/172054 MR#: [id number] Acct: [id number] Name: FRANCY DORMAN Rep #: [id number] : 1980 37 From: Lorie Howell DO PCP: Abby Sears DO Status: REG ER - ER Visit Summary Date of Service: 12/17/17 Chief Complaint: [Vomiting] History of Present Illness: The patient is a 37 F [presents the emergency department complaint of vomiting 4 days. Patient states that she has been vomiting at least 20 times a day. Patient states she can keep anything down. Patient's had hot flashes and chills and temperature up to 100.2. Patient describes some diffuse abdominal discomfort. Patient states that she had a test done yesterday because she has injections in her neck and they always do a test before they do her injections. Patient denies any sick contacts. Patient denies urinary symptoms. Physical Examination: HEENT-PERRLA, EOMI. Cranial nerves II through XII grossly intact. TMs clear. Mucous membranes moist. No adenopathy. Cardiovascular-regular rate and rhythm without murmur or ectopy Lungs-clear to auscultation, chest wall stable without crepitus or subcu emphysema Abdomen-normoactive bowel sounds, soft. Patient has some diffuse tenderness to the midepigastric region. There is no rebound, rigidity, or perineal signs. Patient has a negative Elliott sign. Patient has no tenderness over McBurney's. Extremities-intact 4, normal range of motion, normal pulses, atraumatic[] Test Results: [CBC with differential obtained showed a white blood cell count of 8.7, chemistries were normal, LFTs were normal lipase was normal at 76. Urinalysis was unremarkable.] Emergency Department Course and Treatment: [Patient received Zofran and a liter normal same fluid bolus as well as Bentyl. Patient was also given a GI cocktail. Patient was feeling improved. At this point I do not feel any imaging is indicated. Patient did have a CAT scan of her abdomen and pelvis about 7 months ago that was unremarkable.] Treatment Plan: [Discharged home with prescription for Zofran and Bentyl] Disposition: [Discharge Impression: [Abdominal pain Vomiting] This note was generated with [employer] dictation software. It may contain incorrect words, spelling, and punctuation that were not noted in review of the chart prior to signing ED Disposition - Plan for ED Patient: Chief Complaint: Nausea/Vomiting Referrals: Malys,Abby, DO [Primary Care Provider] - What to do if you have Problems For any increased pain, shortness of breath, bleeding, nausea or vomiting, chest pain, or any unexpected problems, contact your Primary Care Provider. Call [facility] ([phone]) or report to the closest Emergency Room. Call 911 if necessary. 12/17/172057 <Electronically signed by Lorie Howell DO> Date Rosalinda Dante DO Cosigner Signature (If Indicated): Date CC: Abby Sears DO URINALYSIS, COMPLETE Collected: 12/17/2017 Status: F Source: [place] 7:15 PM [facility] REPOSITORY Order Comment: How was Urine Obtained? CLEAN CATCH TYPE CODE TESTS RESULT OUT OF RANGE REFERENCE UNITS LAB L400.3000 Yellow COLOR Normal Yellow LAB L400.3050 Clear Normal CLARITY Sl. Cloudy LAB L400.3200 Normal mg/dl Normal GLUCOSE, UR Normal LAB L400.3300 Negative mg/dL High BILIRUBIN URINE 1 Result Comment: COLOR OF URINE MAY AFFECT DIPSTICK RESULTS. LAB L400.3400 Negative mg/dl High KETONE UR 5 LAB L400.3465 1.002-1.030 Normal SP.GR. DIPSTX 1.020 LAB L400.3550 5.0 - 8.0 pH Normal UR 6.0 LAB L400.3600 Negative mg/dl High PROT DIPSTX 15 LAB L400.3700 Normal mg/dl High UROBILI 1 LAB L400.3750 Negative Normal NITRITE UR Negative LAB L400.3780 Negative /ul High OCCULT 150 BLOOD-UR LAB L400.3800 Negative /ul High LEUK ESTERASE 25 LAB L400.4050 0-5 /hpf Normal WBC 0-5 SEEN LAB L400.4100 0-5 /hpf Normal RBC-UA 0-5 SEEN LAB L400.4150 5-10 /hpf Normal SQUAM EPI 0-5 SEEN LAB L400.4300 None Seen /hpf Normal BACTERIA RARE LAB L400.4350 <or=2+ /hpf Normal MUCUS, URINE 1+ LAB L400.4700 <or=2+ /hpf CA Normal OX CRYSTAL 1+ Performed By: #### L400.0001 #### [facility] Laboratory [address] [place], [address] CBC W/DIFF, AUTOMATED Collected: 12/17/2017 Status: F Source: [place] 7:15 PM [facility] REPOSITORY TYPE CODE TESTS RESULT OUT OF RANGE REFERENCE UNITS LAB L100.1000 4.4-11.0 K/mm3 Normal WBC 8.7 LAB L100.1200 4.2-5.4 M/mm3 Normal RBC 4.75 LAB L100.1300 12.0-15.0 g/dl High HGB 15.1 LAB L100.1400 37-47 % Normal HCT 44.3 LAB L100.1500 81-99 fL Normal MCV 93.3 LAB L100.1600 27.0-32.0 pg Normal MCH 31.8 LAB L100.1700 32-36 g/gl Normal MCHC 34.1 LAB L100.1810 11.6-14.6 % Normal RDW CV 12.9 LAB L100.1820 35.1-43.9 fl High RDW SD 44.0 LAB L100.1900 150-450 K/mm3 Normal PLT 302 LAB L100.2000 6.2-12.0 fl Normal MPV 9.2 LAB L100.2100 47-70 % Normal NEUT% 69.1 LAB L100.2200 19-41 % Normal LY% 23.8 LAB L100.2300 0-10 % Normal MONO% 6.1 LAB L100.2400 0-5 % Normal EO% 0.7 LAB L100.2500 0-1 % Normal BASO% 0.2 LAB L100.2550 0.0-0.9 % Normal IM GRAN % 0.100 Result Comment: IG% - Immature Granulocytes (promyelocytes, myelocytes and metamyelocytes) > 1% indicates that a LEFT SHIFT is Present. LAB L100.2620 2.0-7.7 X10 3/uL Normal Absolute Neut 6.0 LAB L100.2720 0.83-4.51 X10 3/ul Normal Absolute Lymph 2.06 Performed By: #### L100.0100 #### [facility] [address] [place], [address] COMPREHENSIVE METABOLIC Collected: 12/17/2017 Status: F Source: [place] 7:15 PM [facility] REPOSITORY TYPE CODE TESTS RESULT OUT OF RANGE REFERENCE UNITS LAB L501.0100 74-106 mg/dL High GLU 111 Result Comment: Fasting Glucose result from 100 to 125 mg/dL suggests IMPAIRED HOMEOSTASIS per A.D.A. criteria. Please note revised GLUCOSE reference range effective 2017. LAB L501.1000 7-18 mg/dL Normal BUN 9 LAB L501.1100 0.55-1.02 mg/dL Normal CREAT,SERUM 0.83 Result Comment: The validity of the calculated GFR AND GFRAA in patients over 70 years has not been determined. Clinical correlation is essential. LAB L501.1110 >60 mL/min Normal EST GFR 83 Result Comment: Non- GFR Calc LAB L501.1115 >60 mL/min Normal EST GFR - AA 100 Result Comment: GFR Calc LAB L501.1255 ml/min Normal Estimated CRCL 73.52 LAB L501.1300 10-20 RATIO Normal BUN/CRE 10.8 LAB L501.1500 6.4-8. g/dL Normal 2 T PROT 8.0 LAB L501.1800 3.2-5. g/dL Normal 0 ALB 4.4 LAB L501.1950 2.2-4. g/dL Normal 2 GLOB 3.6 LAB L501.2000 0.9-2. RATIO Normal 4 A/G 1.2 LAB L501.2200 8.5-10 mg/dL Normal .1 CA 9.1 LAB L501.4100 15-37 U/L Low AST 11 LAB L501.4305 45-117 U/L Normal ALK P 75 LAB L501.4405 13-56 U/L Normal ALT 15 LAB L501.4600 0.20-1 mg/dL Normal .00 T BILI 0.60 LAB L501.5300 136-14 mmol/L Normal 5 NA 138 LAB L501.5600 3.5-5. mmol/L Normal 1 K 3.6 LAB L501.5900 98-107 mmol/L Normal CL 106 LAB L501.6100 21.0-3 mmol/L Normal 2.0 CO2 25.0 LAB L501.6200 5-15 Normal GAP 7 Performed By: #### L500.4050, L501.2450 #### [facility] [address] [place], [address] LIPASE Collected: 12/17/2017 Status: F Source: [place] 7:15 PM [facility] REPOSITORY TYPE CODE TESTS RESULT OUT OF RANGE REFERENCE UNITS LAB L501.2450 73-393 U/L Normal LIPASE 76 Performed By: #### L500.4050, L501.2450 #### [facility] Laboratory [address] [place], [address] CNOV Observed: 12/02/2017 Status: COMPLETED Source: [place] 2:00 PM [facility] REPOSITORY Office Visit (WOOB) FRANCY DORAMN ([id number]) 1980 F Date Time Provider Department 12/02/17 2:00 PM OLIVER MATIAS (DINESH) WONAZ During your visit today, we recorded the following information about you: Blood pressure Weight 102/68 50.3 kg Oliver Matias APRN.CNM 12/02/2017 4:02 PM Signed Francy Dorman is a 36 year old female who presents for problem visit reporting pain at site of Nexplanon for 1 week(s). HPI: Patient had Nexplanon removal and reinsertion last week. Procedure occurred without any difficulty. Today patient reports burning pain in the area where the Nexplanon device is sitting. Patient notes most intense burning sensation is at the site of incision. Patient and her are worried that she may have an infection from the Nexplanon. Patient denies any redness, warmth or tenderness to palpation of Nexplanon. Patient denies any purulent discharge or bleeding from site of insertion. Patient reports a hx of neck issues - notes a large gap between C3 and C4 vertebrae that she receives steroid shots for. Patient reports she was unable to give herself her most recent injections d/t the burning pain in her arm. Patient notes full ROM, denies muscle wasting or changes to muscle strength. Separately, patient desires discussion today again about scheduling tubal ligation surgery. Patient has talked with her and consents to patient having tubal ligation. Patient already has had partial Rt. Salpingectomy for an ectopic in 2014. Patient desires Lt. Salpingectomy as soon as possible. Title 19 paperwork to be filled out and signed today. PAST MEDICAL HISTORY Diagnosis Date - Abnormal Pap smear 2003 mild dysplasia - ADD (attention deficit disorder with hyperactivity) - ADD (attention deficit disorder) - Anemia WITH - Anxiety - Asthma - Chlamydia 2011 - Complication of anesthesia NAUSEA WITH ANESTHESIA - Depression DEPRESSION AND ANXIETY - Diabetes, gestational - History of pre-eclampsia in prior , currently - Migraine, unspecified, with intractable migraine, so stated, without mention of status migrainosus Migraine - Mild dysplasia of cervix (ALEXEY I) 11/27/2011 - depression - hemorrhage - Ulcer STOMACH ULCERS - Vasovagal syncope PAST SURGICAL HISTORY Procedure Laterality Date - COLPOSCOPY W BX CERVIX - TREAT ECTOPIC PREG,RMV TUBE/OVARY 11/08/14 right salpingecctomy for ectopic FAMILY HISTORY Problem Relation Age of Onset - Alcohol/Drug Mother - Asthma Mother - Alcohol/Drug Father - Emphysema Father - No Known Problems Sister - No Known Problems Sister - No Known Problems Brother - Asthma Maternal Grandfather - Cancer Maternal Grandfather - Cancer Paternal Grandmother Lung Cancer - Asthma Paternal Grandmother - Emphysema Paternal Grandfather - Heart Paternal Uncle - Alcohol/Drug Paternal Uncle Social History Marital status: Spouse name: Urvashi Years of education: 9 Number of children: 2 Occupational History Occupation Employer Comment homemaker Social History Main Topics Smoking status: Current Every Day Smoker Packs/day: 1.00 Years: 20.00 Types: Cigarettes Smokeless tobacco: Never Used Alcohol use: Yes Comment: occasional Drug use: No Sexual activity: Yes Partners with: Male control/protection: None Current Outpatient Prescriptions: oxyCODONE-acetaminophen (PERCOCET) 5-325 mg tablet AT BEDTIME LORazepam (ATIVAN) 0.5 mg tab 3 TIMES DAILY NEEDED PRN For Anxiety ibuprofen (MOTRIN) 800 mg tablet Take 800 mg by mouth three times daily as needed. diazePAM (VALIUM) 2 mg tablet Take 2 mg by mouth three times daily. Amphetamine-Dextroamphetamine 15 mg tablet DAILY cyclobenzaprine (FLEXERIL) 10 mg tablet take 1 tablet by mouth once daily at bedtime if needed for SPASMS clonazePAM (KLONOPIN) 0.5 mg tablet EVERY 8 HOURS NEEDED PRN For Anxiety ADDERALL XR 10 mg 24 hr capsule topiramate (TOPAMAX) 100 mg tablet Take 100 mg by mouth twice daily. meloxicam (MOBIC) 15 mg tablet Take 15 mg by mouth once daily. OMEPRAZOLE (PRILOSEC ORAL) Take 1 capsule by mouth once daily. dicyclomine (BENTYL) 10 mg capsule Take 10 mg by mouth once daily. VARENICLINE TARTRATE (CHANTIX ORAL) Take 1 tablet by mouth once daily. potassium chloride ER (K-DUR, KLOR-CON) 20 mEq tablet Take 20 mEq by mouth twice daily. oxyCODONE-acetaminophen (PERCOCET) 5-325 mg tablet Take 1 tablet by mouth as needed. albuterol HFA (PROAIR HFA) 90 mcg/actuation inhaler Inhale 2 Puffs as instructed every 4 hours as needed. predniSONE (DELTASONE) 20 mg tablet Take 1 tablet by mouth once daily. Take daily with food. GINSENG ORAL Take by mouth. ASCORBIC ACID (VITAMIN C ORAL) Take by mouth. MULTIVITAMIN/IRON/FOLIC ACID (MULTI-RAHEEM ORAL) Take by mouth. VITAMIN B COMP AND VIT C NO.6 (VITAMIN B COMP WITH VIT C NO.6 ORAL) Take 1 tablet by mouth once daily. No current facility-administered medications for this visit. Allergies As of Date: 12/02/2017 Allergen Noted Reaction BEE STING 09/17/2010 Swelling CATS 09/17/2010 Swelling FOOD EXTRACTS 09/17/2010 GI Upset LANOLIN 09/17/2010 Hives NAPROXEN 12/28/2014 Rash PINE TREES [TREES] 11/24/2017 Other: See Comments TRAMADOL 09/28/2012 Hives Fully Assessed 05/10/2017 REVIEW OF SYSTEMS Abdomen: No bloating, early satiety, indigestion, or increased flatulence. No abdominal pain, nausea, vomiting, diarrhea, or constipation. Bladder: No dysuria, gross hematuria, urinary frequency, urinary urgency, or incontinence. Breast: No breast lumps, nipple d/c, overlying skin changes, redness or skin retraction. Expanded ROS: PAIN ASSESSMENT: CURRENTLY HAVING PAIN; AGGRAVATING FACTORS: no change in pain symptoms with position or activity ALLEVIATING FACTORS: application of cold HISTORY OF CHRONIC PAIN OR CURRENTLY BEING TREATED FOR A CHRONIC PAIN CONDITION: Yes, CONDITION: Neck Pain, gap in C3 and C4 vertebrae TREATMENT INCLUDES(D) CONTROLLED SUBSTANCES/SCHEDULED MEDICATIONS: Yes, Drug; Flexeril, Oxycodone, Ibuprofen, Dose; see MAR Schedule; see MAR Duration; see MAR PAIN PANEL/TOXICOLOGY AVAILABLE: No OARRS: Yes, reviewed, no discrepancies GENERAL: No weight loss, malaise or fevers MUSCULOSKELETAL: Negative for joint pain or swelling and back pain SKIN: Negative for lesions, rash, and itching Allergies and current medication updated:Yes EXAM: BP 102/68 Wt 111 lb (50.3kg) LMP 11/19/2017 GENERAL: pleasant, female in no apparent distress HEENT: Normocephalic, atraumatic, mucus membranes moist and no lesions NECK: Supple, full range of motion, no adenopathy and thyroid normal DERMATOLOGY: Normal, without lesions, non-icteric and non-hirsute BREAST: deferred CHEST: Normal inspiratory effort ABDOMEN: soft, non-tender and no masses PELVIC: deferred BIMANUAL: deferred NEURO: alert and oriented x3,exam grossly non-focal EXTREMITIES: Normal, Lt. bicipital groove and inside upper arm without erythema, tenderness. No exudate or redness around insertion point. Pain likely nerve pain. ASSESSMENT AND PLAN: Encounter Diagnosis ICD-10-CM 1. Encounter for surveillance of Nexplanon subdermal contraceptive Z30.46 1) No signs of infection noted externally on skin - patient requests short course of antibiotic to make sure no internal infection of capsule is noted. 2) Rx Keflex 500mg PO q 6 hours x 3 days - encourage increasing PO water hydration and decreasing processed sugars in diet while on antibiotic. 3) Patient interested in tubal ligation - Title 19 paperwork signed 4) RTC PRN for pre-op visit with physician provider - will consider Nexplanon removal once/if patient goes through with tubal ligation. Oliver Polly, 2 YEAR [employer]DS [employer] Matias APRN.CNM 12/02/2017 2:38 PM Signed NEXPLANON PATIENT EDUCATION You may remove dressing in 24 hours. Expect some bruising around insertion site. You may take over the counter pain medication (i.e. Tylenol, motrin, advil, etc) if you have discomfort. Call your provider with excessive bruising or pain. Continue to use condoms for STD prevention. You should use backup contraception for 7 days to prevent . Referring Provider: SELF [200] Allergies As of Date: 12/02/2017 Noted Allergy Reaction BEE STING 09/17/2010 7 - Swelling CATS 09/17/2010 7 - Swelling FOOD EXTRACTS 09/17/2010 8 - GI Upset Comments: ALLERGIC TO LIQUID SMOKE LANOLIN 09/17/2010 4 - Hives NAPROXEN 12/28/2014 2 - Rash PINE TREES (TREES) 11/24/2017 14 - Other: See Comments Comments: sinus congestion TRAMADOL 09/28/2012 4 - Hives Date Reviewed: 12/02/2017 Reviewed by: Oliver Matias - Fully Assessed Primary Visit Diagnosis:Encounter for surveillance of Nexplanon subdermal contraceptive [Z30.46] Order(s):cephALEXin (KEFLEX) 500 mg capsuleTake 1 capsule by mouth four times daily for 3 days.Disp: 12 capsuleRfl: 0 Prescriptions as of 12/02/2017 Sig: CEPHALEXIN 500 MG CAPSULE Take 1 capsule by mouth four * OXYCODONE-ACETAMINOPHEN 5 MG-* AT BEDTIME LORAZEPAM 0.5 MG TABLET 3 TIMES DAILY NEEDED PRN F* IBUPROFEN 800 MG TABLET Take 800 mg by mouth three ti* DIAZEPAM 2 MG TABLET Take 2 mg by mouth three time* DEXTROAMPHETAMINE-AMPHETAMINE* DAILY CYCLOBENZAPRINE 10 MG TABLET take 1 tablet by mouth once d* CLONAZEPAM 0.5 MG TABLET EVERY 8 HOURS NEEDED PRN F* ADDERALL XR 10 MG CAPSULE,EXT* TOPIRAMATE 100 MG TABLET Take 100 mg by mouth twice da* MELOXICAM 15 MG TABLET Take 15 mg by mouth once denita* PRILOSEC ORAL Take 1 capsule by mouth once * DICYCLOMINE 10 MG CAPSULE Take 10 mg by mouth once denita* CHANTIX ORAL Take 1 tablet by mouth once d* POTASSIUM CHLORIDE ER 20 MEQ * Take 20 mEq by mouth twice da* OXYCODONE-ACETAMINOPHEN 5 MG-* Take 1 tablet by mouth as nee* ALBUTEROL SULFATE HFA 90 MCG/* Inhale 2 Puffs as instructed * PREDNISONE 20 MG TABLET Take 1 tablet by mouth once d* GINSENG ORAL Take by mouth. VITAMIN C ORAL Take by mouth. MULTI-RAHEEM ORAL Take by mouth. VITAMIN B COMP WITH VIT C NO.* Take 1 tablet by mouth once d* Problem List As Of Date 12/02/2017 Noted Resolved 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 Mild dysplasia of cervix (ALEXEY I) [N87.0] INVALID FOR* First trimester bleeding [O20.9] INVALID FOR*05/27/2013 More... Nausea and vomiting in [O21.9] INVALID FOR*05/27/2013 More... History of loss in prior , c*INVALID FOR*11/08/2014 More... Prior complicated by IUGR, antepartum*INVALID FOR*05/27/2013 More... Hx of preeclampsia, prior , currently *INVALID FOR*05/27/2013 More... History of hemorrhage, currently pre*INVALID FOR*05/27/2013 More... History of gestational diabetes in prior pregna*INVALID FOR*05/27/2013 More... History of asthma [Z87.09] INVALID FOR*11/08/2014 More... Smoking trying to quit [Z72.0] INVALID FOR*11/08/2014 More... Vasovagal syncope [R55] INVALID FOR*11/08/2014 More... Family history of mental retardation [Z81.0] INVALID FOR*11/08/2014 More... Patient requested diagnostic testing [Z01.89] INVALID FOR*11/08/2014 More... Neck pain [M54.2] INVALID FOR* Other instructions from your clinician: NEXPLANON PATIENT EDUCATION You may remove dressing in 24 hours. Expect some bruising around insertion site. You may take over the counter pain medication (i.e. Tylenol, motrin, advil, etc) if you have discomfort. Call your provider with excessive bruising or pain. Continue to use condoms for STD prevention. You should use backup contraception for 7 days to prevent . Prescriptions ordered this encounter Disp Refills Start End CEPHALEXIN 500 MG CAPSULE 12 c* 0 12/02/2017 12/05/2017 Route: ORAL Sig: Take 1 capsule by mouth four times daily for 3 days. Disposition: Return if symptoms worsen or fail to improve. Follow-up and Disposition History Recorded Encounter Status:Closed by OLIVER MATIAS CNM on 12/02/17 PROGRESS Observed: 12/02/2017 Status: COMPLETED Source: [place] 1:55 PM [facility] REPOSITORY O ID: [id number] Author: Oliver Casillas) Polly Service: (none) Author Type: Product Development Specialist Type: Progress Notes Filed: 12/02/2017 4:02 PM Note Text: Francy Dorman is a 36 year old female who presents for problem visit reporting pain at site of Nexplanon for 1 week(s). HPI: Patient had Nexplanon removal and reinsertion last week. Procedure occurred without any difficulty. Today patient reports burning pain in the area where the Nexplanon device is sitting. Patient notes most intense burning sensation is at the site of incision. Patient and her are worried that she may have an infection from the Nexplanon. Patient denies any redness, warmth or tenderness to palpation of Nexplanon. Patient denies any purulent discharge or bleeding from site of insertion. Patient reports a hx of neck issues - notes a large gap between C3 and C4 vertebrae that she receives steroid shots for. Patient reports she was unable to give herself her most recent injections d/t the burning pain in her arm. Patient notes full ROM, denies muscle wasting or changes to muscle strength. Separately, patient desires discussion today again about scheduling tubal ligation surgery. Patient has talked with her and consents to patient having tubal ligation. Patient already has had partial Rt. Salpingectomy for an ectopic in 2014. Patient desires Lt. Salpingectomy as soon as possible. Title 19 paperwork to be filled out and signed today. PAST MEDICAL HISTORY Diagnosis Date - Abnormal Pap smear 2003 mild dysplasia - ADD (attention deficit disorder with hyperactivity) - ADD (attention deficit disorder) - Anemia WITH - Anxiety - Asthma - Chlamydia 2011 - Complication of anesthesia NAUSEA WITH ANESTHESIA - Depression DEPRESSION AND ANXIETY - Diabetes, gestational - History of pre-eclampsia in prior , currently - Migraine, unspecified, with intractable migraine, so stated, without mention of status migrainosus Migraine - Mild dysplasia of cervix (ALEXEY I) 11/27/2011 - depression - hemorrhage - Ulcer STOMACH ULCERS - Vasovagal syncope PAST SURGICAL HISTORY Procedure Laterality Date - COLPOSCOPY W BX CERVIX - TREAT ECTOPIC PREG,RMV TUBE/OVARY 11/08/14 right salpingecctomy for ectopic FAMILY HISTORY Problem Relation Age of Onset - Alcohol/Drug Mother - Asthma Mother - Alcohol/Drug Father - Emphysema Father - No Known Problems Sister - No Known Problems Sister - No Known Problems Brother - Asthma Maternal Grandfather - Cancer Maternal Grandfather - Cancer Paternal Grandmother Lung Cancer - Asthma Paternal Grandmother - Emphysema Paternal Grandfather - Heart Paternal Uncle - Alcohol/Drug Paternal Uncle Social History Marital status: Spouse name: Urvashi Years of education: 9 Number of children: 2 Occupational History Occupation Employer Comment homemaker Social History Main Topics Smoking status: Current Every Day Smoker Packs/day: 1.00 Years: 20.00 Types: Cigarettes Smokeless tobacco: Never Used Alcohol use: Yes Comment: occasional Drug use: No Sexual activity: Yes Partners with: Male control/protection: None Current Outpatient Prescriptions: oxyCODONE-acetaminophen (PERCOCET) 5-325 mg tablet AT BEDTIME LORazepam (ATIVAN) 0.5 mg tab 3 TIMES DAILY NEEDED PRN For Anxiety ibuprofen (MOTRIN) 800 mg tablet Take 800 mg by mouth three times daily as needed. diazePAM (VALIUM) 2 mg tablet Take 2 mg by mouth three times daily. Amphetamine-Dextroamphetamine 15 mg tablet DAILY cyclobenzaprine (FLEXERIL) 10 mg tablet take 1 tablet by mouth once daily at bedtime if needed for SPASMS clonazePAM (KLONOPIN) 0.5 mg tablet EVERY 8 HOURS NEEDED PRN For Anxiety ADDERALL XR 10 mg 24 hr capsule topiramate (TOPAMAX) 100 mg tablet Take 100 mg by mouth twice daily. meloxicam (MOBIC) 15 mg tablet Take 15 mg by mouth once daily. OMEPRAZOLE (PRILOSEC ORAL) Take 1 capsule by mouth once daily. dicyclomine (BENTYL) 10 mg capsule Take 10 mg by mouth once daily. VARENICLINE TARTRATE (CHANTIX ORAL) Take 1 tablet by mouth once daily. potassium chloride ER (K-DUR, KLOR-CON) 20 mEq tablet Take 20 mEq by mouth twice daily. oxyCODONE-acetaminophen (PERCOCET) 5-325 mg tablet Take 1 tablet by mouth as needed. albuterol HFA (PROAIR HFA) 90 mcg/actuation inhaler Inhale 2 Puffs as instructed every 4 hours as needed. predniSONE (DELTASONE) 20 mg tablet Take 1 tablet by mouth once daily. Take daily with food. GINSENG ORAL Take by mouth. ASCORBIC ACID (VITAMIN C ORAL) Take by mouth. MULTIVITAMIN/IRON/FOLIC ACID (MULTI-RAHEEM ORAL) Take by mouth. VITAMIN B COMP AND VIT C NO.6 (VITAMIN B COMP WITH VIT C NO.6 ORAL) Take 1 tablet by mouth once daily. No current facility-administered medications for this visit. Allergies As of Date: 12/02/2017 Allergen Noted Reaction BEE STING 09/17/2010 Swelling CATS 09/17/2010 Swelling FOOD EXTRACTS 09/17/2010 GI Upset LANOLIN 09/17/2010 Hives NAPROXEN 12/28/2014 Rash PINE TREES [TREES] 11/24/2017 Other: See Comments TRAMADOL 09/28/2012 Hives Fully Assessed 05/10/2017 REVIEW OF SYSTEMS Abdomen: No bloating, early satiety, indigestion, or increased flatulence. No abdominal pain, nausea, vomiting, diarrhea, or constipation. Bladder: No dysuria, gross hematuria, urinary frequency, urinary urgency, or incontinence. Breast: No breast lumps, nipple d/c, overlying skin changes, redness or skin retraction. Expanded ROS: PAIN ASSESSMENT: CURRENTLY HAVING PAIN; AGGRAVATING FACTORS: no change in pain symptoms with position or activity ALLEVIATING FACTORS: application of cold HISTORY OF CHRONIC PAIN OR CURRENTLY BEING TREATED FOR A CHRONIC PAIN CONDITION: Yes, CONDITION: Neck Pain, gap in C3 and C4 vertebrae TREATMENT INCLUDES(D) CONTROLLED SUBSTANCES/SCHEDULED MEDICATIONS: Yes, Drug; Flexeril, Oxycodone, Ibuprofen, Dose; see MAR Schedule; see MAR Duration; see MAR PAIN PANEL/TOXICOLOGY AVAILABLE: No OARRS: Yes, reviewed, no discrepancies GENERAL: No weight loss, malaise or fevers MUSCULOSKELETAL: Negative for joint pain or swelling and back pain SKIN: Negative for lesions, rash, and itching Allergies and current medication updated:Yes EXAM: BP 102/68 Wt 111 lb (50.3kg) LMP 11/19/2017 GENERAL: pleasant, female in no apparent distress HEENT: Normocephalic, atraumatic, mucus membranes moist and no lesions NECK: Supple, full range of motion, no adenopathy and thyroid normal DERMATOLOGY: Normal, without lesions, non-icteric and non-hirsute BREAST: deferred CHEST: Normal inspiratory effort ABDOMEN: soft, non-tender and no masses PELVIC: deferred BIMANUAL: deferred NEURO: alert and oriented x3,exam grossly non-focal EXTREMITIES: Normal, Lt. bicipital groove and inside upper arm without erythema, tenderness. No exudate or redness around insertion point. Pain likely nerve pain. ASSESSMENT AND PLAN: Encounter Diagnosis ICD-10-CM 1. Encounter for surveillance of Nexplanon subdermal contraceptive Z30.46 1) No signs of infection noted externally on skin - patient requests short course of antibiotic to make sure no internal infection of capsule is noted. 2) Rx Keflex 500mg PO q 6 hours x 3 days - encourage increasing PO water hydration and decreasing processed sugars in diet while on antibiotic. 3) Patient interested in tubal ligation - Title 19 paperwork signed 4) RTC PRN for pre-op visit with physician provider - will consider Nexplanon removal once/if patient goes through with tubal ligation. Oliver Matias APRN.CNM PROGRESS Observed: 11/24/2017 Status: COMPLETED Source: [place] 12:15 PM [facility] REPOSITORY O ID: [id number] Author: Oliver Matias (Ariela) Service: (none) Author Type: Product Development Specialist Type: Progress Notes Filed: 11/24/2017 12:34 PM Note Text: Francy Dorman is a 36 year old female who presents for Nexplanon insertion. Patient's last menstrual period was 11/19/2017 (exact date). VITALS: BP 140/70 Wt 110 lb 6.4 oz (50.1kg) LMP 11/19/2017 test: Patient declined test Regional Office Coordinator offered: Patient accepts, visit chaperoned by Chelsea Vázquez RN. Nexplanon lot #: [id number] Exp date: 05/2020 UNIVERSAL PROTOCOL / SAFETY CHECKLIST Francy Dorman is a 36 year old female who presents for Nexplanon removal for scheduled 3 year removal. UNIVERSAL PROTOCOL / SAFETY CHECKLIST Procedure to be performed: Nexplanon Insertion and Removal Sign in Communication: Completed Time Out: Team Confirms the Correct Patient, Correct Procedure, Correct Site and Site Marking, Correct Position (if applicable), Prep and Dry Time (if applicable). Time: 11:52 Affirmation of Time Out: YES Sign Out Discussion: Completed Chelsea Vázquez RN TECHNIQUE: Patient placed in supine position with left arm bent at the elbow and placed over the head. Skin cleansed with betadine. 3mL of 1% lidocaine injected subQ along insertion site. Scalpel used to made a 5mm stab incision superficially at distal end of Nexplanon. Device removed under sterile technique with a small hemostat. New Nexplanon device inserted using sterile technique through existing incision. Steristrips applied and then sterile pressure dressing applied. AANDP: 36 year old female here for implanon removal and reinsertion Nexplanon removed intact without difficulty. New Nexplanon inserted in existing incision without difficulty. The patient was instructed to remove the dressing after 24 hours. Contraceptive plans - Nexplanon for up to 3 years, patient also interested in talking with physician staff re: having Tubal Ligation in future. Patient to schedule pre-op visit with MD provider. Oliver Matias APRN.CNM PROGRESS Observed: 11/24/2017 Status: COMPLETED Source: [place] 11:37 AM [facility] REPOSITORY [facility] ID: [id number] Author: Oliver Matias (Ariela) Service: (none) Author Type: Product Development Specialist Type: Progress Notes Filed: 11/24/2017 12:34 PM Note Text: Francy Dorman is a 36 year old female who presents for Nexplanon removal for scheduled 3 year removal. UNIVERSAL PROTOCOL / SAFETY CHECKLIST Procedure to be performed: Nexplanon Insertion and Removal Sign in Communication: Completed Time Out: Team Confirms the Correct Patient, Correct Procedure, Correct Site and Site Marking, Correct Position (if applicable), Prep and Dry Time (if applicable). Time: 11:52 Affirmation of Time Out: YES Sign Out Discussion: Completed Chelsea Vázquez RN TECHNIQUE: Patient placed in supine position with left arm bent at the elbow and placed over the head. Skin cleansed with betadine. 3mL of 1% lidocaine injected subQ along insertion site. Scalpel used to made a 5mm stab incision superficially at distal end of Nexplanon. Device removed under sterile technique with a small hemostat. New Nexplanon device inserted using sterile technique through existing incision. Steristrips applied and then sterile pressure dressing applied. AANDP: 36 year old female here for implanon removal and reinsertion Nexplanon removed intact without difficulty. New Nexplanon inserted in existing incision without difficulty. The patient was instructed to remove the dressing after 24 hours. Contraceptive plans - Nexplanon for up to 3 years, patient also interested in talking with physician staff re: having Tubal Ligation in future. Patient to schedule pre-op visit with MD provider. Oliver Matias APRN.ARIELA MONTIELOV Observed: 11/24/2017 Status: COMPLETED Source: [place] 11:15 AM [facility] REPOSITORY Office Visit (WOOB) FRANCY DORMAN ([id number]) 1980 F Date Time Provider Department 11/24/17 11:15 AM OLIVER MATIAS (ARIELA) [facility] During your visit today, we recorded the following information about you: Blood pressure Weight Last Period 140/70 50.1 kg 11/19/17 Oliver Matias (Ariela) 11/24/2017 12:34 PM Signed Francy Dallasler is a 36 year old female who presents for Nexplanon removal for scheduled 3 year removal. UNIVERSAL PROTOCOL / SAFETY CHECKLIST Procedure to be performed: Nexplanon Insertion and Removal Sign in Communication: Completed Time Out: Team Confirms the Correct Patient, Correct Procedure, Correct Site and Site Marking, Correct Position (if applicable), Prep and Dry Time (if applicable). Time: 11:52 Affirmation of Time Out: YES Sign Out Discussion: Completed Chelsea Vázquez RN TECHNIQUE: Patient placed in supine position with left arm bent at the elbow and placed over the head. Skin cleansed with betadine. 3mL of 1% lidocaine injected subQ along insertion site. Scalpel used to made a 5mm stab incision superficially at distal end of Nexplanon. Device removed under sterile technique with a small hemostat. New Nexplanon device inserted using sterile technique through existing incision. Steristrips applied and then sterile pressure dressing applied. AANDP: 36 year old female here for implanon removal and reinsertion Nexplanon removed intact without difficulty. New Nexplanon inserted in existing incision without difficulty. The patient was instructed to remove the dressing after 24 hours. Contraceptive plans - Nexplanon for up to 3 years, patient also interested in talking with physician staff re: having Tubal Ligation in future. Patient to schedule pre-op visit with MD provider. Oliver Matias APRN.[facility] Oliver Matias ([facility]) 11/24/2017 12:34 PM Signed Francy Dorman is a 36 year old female who presents for Nexplanon insertion. Patient's last menstrual period was 11/19/2017 (exact date). VITALS: BP 140/70 Wt 110 lb 6.4 oz (50.1kg) LMP 11/19/2017 test: Patient declined test Regional Office Coordinator offered: Patient accepts, visit chaperoned by Chelsea Vázquez RN. Nexplanon lot #: [id number] Exp date: 05/2020 UNIVERSAL PROTOCOL / SAFETY CHECKLIST Francy Dorman is a 36 year old female who presents for Nexplanon removal for scheduled 3 year removal. UNIVERSAL PROTOCOL / SAFETY CHECKLIST Procedure to be performed: Nexplanon Insertion and Removal Sign in Communication: Completed Time Out: Team Confirms the Correct Patient, Correct Procedure, Correct Site and Site Marking, Correct Position (if applicable), Prep and Dry Time (if applicable). Time: 11:52 Affirmation of Time Out: YES Sign Out Discussion: Completed Chelsea Vázquez RN TECHNIQUE: Patient placed in supine position with left arm bent at the elbow and placed over the head. Skin cleansed with betadine. 3mL of 1% lidocaine injected subQ along insertion site. Scalpel used to made a 5mm stab incision superficially at distal end of Nexplanon. Device removed under sterile technique with a small hemostat. New Nexplanon device inserted using sterile technique through existing incision. Steristrips applied and then sterile pressure dressing applied. AANDP: 36 year old female here for implanon removal and reinsertion Nexplanon removed intact without difficulty. New Nexplanon inserted in existing incision without difficulty. The patient was instructed to remove the dressing after 24 hours. Contraceptive plans - Nexplanon for up to 3 years, patient also interested in talking with physician staff re: having Tubal Ligation in future. Patient to schedule pre-op visit with MD provider. Oliver Matias APRN.Chelsea Morrow RN 11/24/2017 12:15 PM Signed NEXPLANON PATIENT EDUCATION You may remove dressing in 24 hours. Expect some bruising around insertion site. You may take over the counter pain medication (i.e. Tylenol, motrin, advil, etc) if you have discomfort. Call your provider with excessive bruising or pain. Continue to use condoms for STD prevention. You should use backup contraception for 7 days to prevent . Referring Provider: SELF [[id number]] Allergies As of Date: 11/24/2017 Noted Allergy Reaction BEE STING 09/17/2010 7 - Swelling CATS 09/17/2010 7 - Swelling FOOD EXTRACTS 09/17/2010 8 - GI Upset Comments: ALLERGIC TO LIQUID SMOKE LANOLIN 09/17/2010 4 - Hives NAPROXEN 12/28/2014 2 - Rash PINE TREES (TREES) 11/24/2017 14 - Other: See Comments Comments: sinus congestion TRAMADOL 09/28/2012 4 - Hives Date Reviewed: 05/10/2017 Reviewed by: Chante Montemayor LPN - Fully Assessed Reason for Visit: nexplanon removal [Other] Primary Visit Diagnosis:Insertion of implantable subdermal contraceptive [Z30.017] Other Visit Diagnosis:Neck pain [M54.2] Order(s):NEXPLANON INSERTION [0135468] Order #: [id number] [] etonogestrel subdermal implant 68 mg (NEXPLANON)Disp: Rfl: Prescriptions as of 11/24/2017 Sig: OXYCODONE-ACETAMINOPHEN 5 MG-* AT BEDTIME LORAZEPAM 0.5 MG TABLET 3 TIMES DAILY NEEDED PRN F* DEXTROAMPHETAMINE-AMPHETAMINE* DAILY CLONAZEPAM 0.5 MG TABLET EVERY 8 HOURS NEEDED PRN F* POTASSIUM CHLORIDE ER 20 MEQ * Take 20 mEq by mouth twice da* OXYCODONE-ACETAMINOPHEN 5 MG-* Take 1 tablet by mouth as nee* ALBUTEROL SULFATE HFA 90 MCG/* Inhale 2 Puffs as instructed * VITAMIN C ORAL Take by mouth. MULTI-RAHEEM ORAL Take by mouth. VITAMIN B COMP WITH VIT C NO.* Take 1 tablet by mouth once d* IBUPROFEN 800 MG TABLET Take 800 mg by mouth three ti* DIAZEPAM 2 MG TABLET Take 2 mg by mouth three time* CYCLOBENZAPRINE 10 MG TABLET take 1 tablet by mouth once d* ADDERALL XR 10 MG CAPSULE,EXT* TOPIRAMATE 100 MG TABLET Take 100 mg by mouth twice da* MELOXICAM 15 MG TABLET Take 15 mg by mouth once denita* PRILOSEC ORAL Take 1 capsule by mouth once * DICYCLOMINE 10 MG CAPSULE Take 10 mg by mouth once denita* CHANTIX ORAL Take 1 tablet by mouth once d* PREDNISONE 20 MG TABLET Take 1 tablet by mouth once d* GINSENG ORAL Take by mouth. Medication notes this encounter VITAMIN C ORAL >> Chelsea Vázquez RN 11/24/2017 11:31 AM >> CHELSEA VÁZQUEZ RN ThuNovember 24, 2017 11:31 AM MULTI-RAHEEM ORAL >> Chelsea Vázquez RN 11/24/2017 11:32 AM >> CHELSEA VÁZQUEZ RN ThuNovember 24, 2017 11:32 AM VITAMIN B COMP WITH VIT C NO.6 ORAL >> Chelsea Vázquez RN 11/24/2017 11:33 AM >> CHELSEA VÁZQUEZ RN ThuNovember 24, 2017 11:33 AM DICYCLOMINE 10 MG CAPSULE >> Chelsea Vázquez RN 11/24/2017 11:32 AM >> CHELSEA VÁZQUEZ RN ThuNovember 24, 2017 11:32 AM Pt no longer taking >> Chelsea Vázquez RN 11/24/2017 11:32 AM >> CHELSEA VÁZQUEZ RN ThuNovember 24, 2017 11:32 AM GINSENG ORAL >> Chelsea Vázquez RN 11/24/2017 11:32 AM >> CHELSEA VÁZQUEZ RN ThuNovember 24, 2017 11:32 AM Problem List As Of Date 11/24/2017 Noted Resolved 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 Mild dysplasia of cervix (ALEXEY I) [N87.0] INVALID FOR* First trimester bleeding [O20.9] INVALID FOR*05/27/2013 More... Nausea and vomiting in [O21.9] INVALID FOR*05/27/2013 More... History of loss in prior , c*INVALID FOR*11/08/2014 More... Prior complicated by IUGR, antepartum*INVALID FOR*05/27/2013 More... Hx of preeclampsia, prior , currently *INVALID FOR*05/27/2013 More... History of hemorrhage, currently pre*INVALID FOR*05/27/2013 More... History of gestational diabetes in prior pregna*INVALID FOR*05/27/2013 More... History of asthma [Z87.09] INVALID FOR*11/08/2014 More... Smoking trying to quit [Z72.0] INVALID FOR*11/08/2014 More... Vasovagal syncope [R55] INVALID FOR*11/08/2014 More... Family history of mental retardation [Z81.0] INVALID FOR*11/08/2014 More... Patient requested diagnostic testing [Z01.89] INVALID FOR*11/08/2014 More... Neck pain [M54.2] INVALID FOR* Other instructions from your clinician: NEXPLANON PATIENT EDUCATION You may remove dressing in 24 hours. Expect some bruising around insertion site. You may take over the counter pain medication (i.e. Tylenol, motrin, advil, etc) if you have discomfort. Call your provider with excessive bruising or pain. Continue to use condoms for STD prevention. You should use backup contraception for 7 days to prevent . Prescriptions ordered this encounter Disp Refills Start End ETONOGESTREL 68 MG SUBDERMAL IMPLANT 11/24/2017 11/24/2017 Route: SDRM Disposition: Return if symptoms worsen or fail to improve. Follow-up and Disposition History Recorded Encounter Status:Closed by OLIVER MATIAS CNM on 11/24/17 EMERGENCY DEPARTMENT Observed: 11/18/2017 Status: F Source: [place] SUMMARY 10:03 PM [facility] REPOSITORY [facility] Medical Records Department [address] [place] [address] Emergency Department Summary 11/18/172042 MR#: [id number] Acct: [id number] Name: FRANCY DORMAN Rep #: [id number] : 1980 36 From: Hawa Lacy MD PCP: Abby Sears DO Status: REG ER - ER Visit Summary Date of Service: 11/18/17 Chief Complaint: Headache History of Present Illness: The patient is a 36 F presenting with migraine headache. She states this started this afternoon. It started after she was working in the yard. She states that she feels her migraine may be triggered by dehydration. She was not drinking water, she was drinking Mountain Dew. She tried Imitrex at home with no relief. This is similar to her previous migraines. She has photophobia and phonophobia. Denies fever or other complaints. Physical Examination: Vitals are stable. Patient is afebrile. Alert no acute distress. HEENT exam is unremarkable. Neck is supple. No meningismus Lungs are clear and equal bilaterally. Heart is regular rate and rhythm. Abdomen is soft nontender nondistended. Extremities are unremarkable. Skin is warm and dry. No focal neurologic deficit. Remainder of exam is unremarkable. Emergency Department Course and Treatment: Patient was given Compazine, Benadryl, IV fluids with improvement. On repeat evaluation, she is resting comfortably. She is advised to follow-up with her primary care physician. Advised return to ED if worsening complaints. Disposition: Discharge home Impression: Headache This note was generated with [employer] dictation software. It may contain incorrect words, spelling, and punctuation that were not noted in review of the chart prior to signing ED Disposition - Plan for ED Patient: Chief Complaint: Headache Referrals: Abby Sears DO [Primary Care Provider] - What to do if you have Problems For any increased pain, shortness of breath, bleeding, nausea or vomiting, chest pain, or any unexpected problems, contact your Primary Care Provider. Call [facility] ([phone]) or report to the closest Emergency Room. Call 911 if necessary. 11/18/172202 <Electronically signed by Hawa Lacy MD> Date Hawa Lacy MD Cosigner Signature (If Indicated): Date CC: Abby Sears DO DISCHARGE INSTRUCTION Observed: 11/18/2017 Status: F Source: [place] 10:03 PM [facility] REPOSITORY [facility] Medical Records Department [address] [place] [address] Discharge Instruction 11/18/172202 MR#: [id number] Acct: [id number] Name: FRANCY DORMAN Rep #: [id number] : 1980 36 From: Hawa Lacy MD PCP: Abby Sears DO Status: REG ER ED Disposition - Plan for ED Patient: Chief Complaint: Headache Instructions: ED Headache Migraine Referrals: Abby Sears DO [Primary Care Provider] - What to do if you have Problems For any increased pain, shortness of breath, bleeding, nausea or vomiting, chest pain, or any unexpected problems, contact your Primary Care Provider. Call [facility] ([phone]) or report to the closest Emergency Room. Call 911 if necessary. 11/18/172202 <Electronically signed by Hawa Lacy MD> Date Hawa Lacy MD Cosigner Signature (If Indicated): Date CC: Abby Sears DO DISCHARGE INSTRUCTION Observed: 11/05/2017 Status: F Source: [place] 10:19 PM [facility] REPOSITORY [facility] Medical Records Department [address] [place] [address] Discharge Instruction 11/05/172217 MR#: [id number] Acct: [id number] Name: FRANCY DORMAN Rep #: [id number] : 1980 36 From: Lorie Howell DO PCP: Abby Sears DO Status: PRE ER ED Disposition - Plan for ED Patient: Chief Complaint: Upper Extremity Injury Instructions: ED Contusion Hand Prescriptions: Ibuprofen [Motrin] 800 mg PO TID PRN PRN #20 tab PRN Reason: Pain Referrals: Abby Sears DO [Primary Care Provider] - 5-7 Days What to do if you have Problems For any increased pain, shortness of breath, bleeding, nausea or vomiting, chest pain, or any unexpected problems, contact your Primary Care Provider. Call [facility] ([phone]) or report to the closest Emergency Room. Call 911 if necessary. 11/05/172218 <Electronically signed by Lorie Howell DO> Date Lorie Howell DO Cosigner Signature (If Indicated): Date CC: Abby Sears DO EMERGENCY DEPARTMENT Observed: 11/05/2017 Status: F Source: [place] SUMMARY 10:18 PM [facility] REPOSITORY [facility] Medical Records Department [address] [place] [address] Emergency Department Summary 11/05/172215 MR#: [id number] Acct: [id number] Name: FRANCY DORMAN Rep #: [id number] : 1980 36 From: Lorie Howell DO PCP: Abby Sears DO Status: PRE ER - ER Visit Summary Date of Service: 11/05/17 Chief Complaint: [Injury to right hand] History of Present Illness: The patient is a 36 F [presents to the emergency department with complaint of injury to her right hand. Patient states that she was punching a heavy bag with gloves on. Patient is right-hand dominant. Patient use ice to the area but noticed some discoloration and is concerned about fracturing her hand.] Physical Examination: [Right hand-patient has some faint ecchymosis and bruising over the dorsum of the fourth MCP joint. Patient has pain with range of motion of the fourth MCP joint but no obvious deformity noted. Patient neurovascularly intact distally.] Test Results: [X-ray of the right hand obtained was read by radiology is normal I also evaluated the x-rays do not see any obvious fractures.] Emergency Department Course and Treatment: [Patient will be given an Jung wrap.] Treatment Plan: Patient requested 800 mg ibuprofen as she tries to avoid narcotics given the patient is in pain management for chronic neck pain.] Disposition: [Discharged to home in stable condition. Patient advised to follow-up with her primary care physician in 5-7 days.] Impression: [Contusion right hand] This note was generated with BioScrip dictation software. It may contain incorrect words, spelling, and punctuation that were not noted in review of the chart prior to signing ED Disposition - Plan for ED Patient: Chief Complaint: Upper Extremity Injury Referrals: Abby Sears, [Primary Care Provider] - What to do if you have Problems For any increased pain, shortness of breath, bleeding, nausea or vomiting, chest pain, or any unexpected problems, contact your Primary Care Provider. Call [facility] ([phone]) or report to the closest Emergency Room. Call 911 if necessary. 11/05/17 7549 <Electronically signed by Lorie Howell DO> Date Lorie Howell DO Cosigner Signature (If Indicated): Date CC: Abby Sears DO HAND MIN 3 VIEWS Observed: 11/05/2017 Status: F Source: [facility] 9:05 [facility] Imaging Services [address] [place] [address] Hand Min 3 Views MR#: [id number] Acct: [id number] Name: FRANCY DORMAN Rep #: [id number] : 1980 F 36 From: Jama Swan MD PCP: Abby Sears DO Status: PRE ER Study: Hand Min 3 Views Date of Exam: 11/05/17 Exam# [id number] Ordering Dr: Provider, Ed P. STUDY: X-RAY - RIGHT HAND REASON FOR EXAM: Female, 36 years old. Pain in fourth finger. TECHNIQUE: 3 view(s) of the hand. COMPARISON: None. FINDINGS: There is no evidence of fracture or dislocation. There are no significant degenerative changes. There are no radiodense foreign bodies. RAD/Hand Min 3 Views IMPRESSION: No fracture or dislocation. Electronically Signed: Jama Swan, at 21:33 EDT Tel , Service support , CC: ED PHYSICIAN PROVIDER; Abby Sears DO Calciner Feeder: Signed ALLERGIES ALLERGIES DATE TYPE / CODE NAME / CODE REACTION SEVERITY SOURCE 07/01/2018 Drug lanolin/M15886 Hives Unknown [place] Allergy/716203041(S 1899(RXNORM) [facility]) Hospital Repository 07/01/2018 Drug naproxen/F0060 Hives Unknown [place] Allergy/186313588(S 74965(RXNORM) [facility]) Hospital Repository 07/01/2018 Drug tramadol/F0060 Other Unknown [place] Allergy/952404750(S 97772(RXNORM) [facility]) Hospital Repository 07/01/2018 Miscellaneous BEE STINGS Swelling Unknown [place] Allergy/249855378([facility]) Hospital Repository 07/01/2018 Miscellaneous LIQUID Nausea Unknown [place] Allergy/519375373(S SMOKE/BBQ [facility] NOM[facility]) [facility] Rep[facility] 07/01/2018 Drug gabapentin/F00 Other Unknown [place] Allergy/118161099(S 8005474(RXNORM [facility] NOM[facility]) ) Hospital Repository 11/24/2017 Environ/632888852(S TREES OTHER: SEE C [place] NOMED CT) [facility] [place] Repository 12/28/2014 DRUG NAPROXEN RASH [place] INGREDI/452207944(S Clinic Main NOMED [facility]) [place] Repository 09/28/2012 DRUG TRAMADOL HIVES [place] INGREDI/516794912(S [facility] Main NOMED CT) [place] Repository 09/17/2010 Environ/323407297(S BEE STING SWELLING [place] NOMED CT) Clinic Main [place] Repository 09/17/2010 Animal/588452272(SN CATS SWELLING [place] OMED CT) Clinic Main [place] Repository 09/17/2010 DRUG FOOD EXTRACTS GI UPSET [place] INGREDI/920198678(S Clinic Main NOMED [facility]) [place] Repository 09/17/2010 DRUG LANOLIN HIVES [place] INGREDI/138451720(S Clinic Main NOMED [facility]) [place] Repository NG/657276176(SNOMED BEE STING [facility]) [facility] Repository NG/649276380(SNOMED CATS [facility]) Health System Repository NG/733739409(SNOMED FOOD EXTRACTS [facility]) Health System Repository NG/994256595(SNOMED LANOLIN [facility]) Health System Repository NG/489151249(SNOMED NAPROXEN [facility]) Health System Repository NG/870492247(SNOMED TREES [facility]) Health System Repository NG/495003274(SNOMED TRAMADOL [facility]) Health System Repository ENCOUNTERS ENCOUNTERS ADMIT/DISCHARGE ACCOUNT NUMBER ADMITTING ENCOUNTER LOCATION SOURCE CLASS 07/01/2018/07/01/20 [id number] Emergency [address] ding:ED Repository 06/23/2018/06/24/20 [id number] Ambulatory [address] Main [place] Repository 06/09/2018/06/09/20 [id number] Emergency [address] ding:ED Repository 03/18/2018/03/18/20 [id number] Ambulatory [address] Repository 03/04/2018/03/04/20 [id number] Emergency [address] ding:ED Repository 03/04/2018/03/04/20 [id number] Ambulatory [address] ding:SDC Repository 02/17/2018/02/19/20 [id number] Ambulatory [address] Repository 01/22/2018 [id number] Ambulatory [facility] ding:LAB Repository 01/14/2018 [id number] Ambulatory [facility] ding:LAB.FUT Repository URE 01/12/2018 [id number] Ambulatory [facility] ding:LAB.FUT Repository URE 12/20/2017/12/22/19 [id number] LOVE, Inpatient [address] Repository 12/20/2017/12/22/19 [id number] Olya ALEMAN Inpatient [address] MEDICAL Repository CENTERBuildi nRoom: 7105Bed: 12/19/2017/12/21/19 [id number] Emergency [address] ding:ED Repository 12/17/2017/12/18/19 [id number] Emergency [address] ding:ED Repository 12/02/2017/12/05/19 [id number] Ambulatory [address] Repository 11/24/2017/11/28/19 [id number] Ambulatory [address] Repository 11/18/2017/11/19/19 [id number] Emergency [address] ding:ED Repository 11/05/2017/11/06/19 [id number] Emergency [address] ding:ED Repository PAYERS PAYERS ENCOUNTER GUARANTOR PAYER SUBSCRIBER SOURCE 07/01/2018 URVASHI Espinoza Primary URVASHI [id number] [place] Insurance:Radha SMITH[facility] [place] Number: [id number] [id number]: (330) [id number] Repository [phone] (HP) Date:7361-47-69TB [address]LSWKIWS[address]RAFAEL[address] MARRERO [address]AX: 07/01/2018 Secondary Francy L [place] Insurance:BUCKEYE ButshanelDOB: [facility] [id number] Hospital PLANPolicy Number: Repository [id number] Date:8776-64-89DO [address] [place] [address]QJ: 07/01/2018 Tertiary NOT GIVENUNK [place] Insurance:SELF PAY [facility] Number: Effective Repository Date:2018-07-01 06/09/2018 JERIMIE W Primary JERIMIE W [place] [id number] [place] Insurance:CIGNAPolicy BUTLERDOB: [place], [place] Number: [id number] Hospital [address]Ftl: (330) [id number] Repository [phone] () Date:7266-99-45RY [address]YDAXFWNRCVE, [place] [address]EC: 06/09/2018 Secondary Francy L [place] Insurance:BUCKEYE ButlerDOB: [facility] [id number] Number: Repository [id number] Date:1259-78-33XT [address] [place] [address] 47[address]DC: 06/09/2018 Tertiary NOT GIVENUNK [place] Insurance:SELF PAY [facility] Number: Effective Repository Date:2018-06-09 03/04/2018 JERIMIE W Primary BERNIEIE W [place] [id number] [place] Insurance:CIGNAPolicy BUTLERDOB: [place], [place] Number: [id number] Hospital [address]Yto: (330) [id number] Repository [phone] (HP) Date:1277-44-23RF [address]OHISRMPSPCV, [place] [address]VT: 03/04/2018 Secondary Francy L [place] Insurance:BUCKEYE ButlerDOB: [facility] [id number] Hospital PLANPolicy Number: Repository [id number] Date:4186-39-03ZN BOX [facility] Hospital[facility] RODRIGUEZ [address]YC: 03/04/2018 Tertiary NOT GIVENUNK [place] Insurance:SELF PAY [facility] Number: Effective Repository Date:2018-03-04 03/04/2018 JERIMIE W Primary JERIMIE W [place] [id number] [place] Insurance:CIGNAPolicy BUTLERDOB: [facility] [place] Number: [id number] Hospital [address]Dom: (330) [id number] Repository [phone] () Date:1733-30-12TY [address]EJECNOANVTB, [place] [address]TB: 03/04/2018 Secondary Francy L [place] Insurance:BUCKEYE ButlerDOB: [facility] [id number] Hospital PLANPolicy Number: Repository [id number] Date:5541-90-73QH [address] [place] [address] [place] [address]NS: 03/04/2018 Tertiary NOT GIVENUNK [place] Insurance:SELF PAY [facility] Number: Effective Repository Date:2017-12-07 01/22/2018 JERIMIE W Primary JERIMIE W [place] [id number] [place] Insurance:CIGNAPolicy BUTLERDOB: [facility] [place] Number: [id number] Hospital [address]Naq: (330) [id number] Repository [phone] () Date:6241-46-96WB [address]LXEHNHTWYHK, [place] [address]QR: 01/22/2018 Secondary Francy L [place] Insurance:BUCKEYE ButlerDOB: [facility] [id number] Hospital PLANPolicy Number: Repository [id number] Date:6449-65-14SD [address] [place], [place] [address] [address]EM: 01/22/2018 Tertiary NOT GIVENUNK [place] Insurance:SELF PAY [facility] Number: Effective Repository Date:2018-01-22 01/14/2018 JERZENONIE W Primary JERIMIE W [place] [id number] [place] Insurance:CIGNAPolicy BUTLERDOB: [facility] Number: [id number] Hospital [address]Zws: (330 [id number] Repository [phone] () Date:1529-00-98CF [address]ZBVEWZLRVNN [place] [address]RA: 01/14/2018 Secondary Francy L [place] Insurance:BUCKEYE ButlerDOB: [facility] [id number] Center[facility] Number: Repository [id number] Date:6371-10-11HP [address] [place] [address]101[address]WZ: 01/14/2018 Tertiary NOT GIVENUNK [place] Insurance:SELF PAY [facility] Number: Effective Repository Date:2018-01-14 01/12/2018 BERNIEIE W Primary BERNIEIE W [place] [id number] [place] Insurance:CIGNAPolicy BUTLERDOB: [facility] [place] Number: [id number] Hospital [address]Fev: (330 [id number] Repository [phone] () Date:9513-50-97HV [address]ARMDDERJCJP, [place] [address]DT: 01/12/2018 Secondary Francy L [place] Insurance:BUCKEYE ButlerDOB: [facility] [id number] Hospital PLANPolicy Number: Repository [id number] Date:8398-79-83OX [address] [place] [address] 164[address]YR: 01/12/2018 Tertiary NOT GIVENUNK [place] Insurance:SELF PAY [facility] Number: Effective Repository Date:2018-01-12 12/20/2017 FRANCY L Primary JERIMIE W [facility] BUTLERDOB: Insurance:CIGNA BUTLERDOB: [facility] System OAPPolicy Number: [id number] Repository [place] [id number] [place], [place] Date: [address]Cah: (HP) 12/20/2017 Secondary FRANCY L [facility] Insurance:BUCKEYE P BUTLERDOB: [facility] MEDICAIDPolicy [id number] Repository Number: [id number] Date: 12/19/2017 JERZENONIE W Primary JERIMIE W [place] [id number] [place] Insurance:CIGNAPolicy BUTLERDOB: [facility] Number: [id number] Hospital [address]Spf: (389) [id number] Repository [phone] (HP) Date:1868-74-17XV [address]KHYKZLACLVC, [place] [address]FB: 12/19/2017 Secondary Francy L [place] Insurance:BUCKSHELDONE ButlerDOB: [facility] [id number] [facility] PLANPolicy Number: Repository [id number] Date:7612-08-40SA [address] [place], [place] [address]DHEERAJ [address]QE: 12/19/2017 Tertiary NOT GIVENUNK [place] Insurance:SELF PAY [facility] Number: Effective Repository Date:2017-12-19 12/17/2017 JERIMIE W Primary JERIMIE W [place] [id number] [place] Insurance:CIGNAPolicy BUTLERDOB: [facility] [place] Number: [id number] Hospital [address]Cny: 330 [id number] Repository [phone] (HP) Date:3802-70-93QN [address]APEXSMJKFDO, [place] [address]FH: 12/17/2017 Secondary Francy L [place] Insurance:BUCKEYE ButshanelDOB: [facility] [id number] Hospital PLANPolicy Number: Repository [id number] Date:4586-16-41KW [address] [place] [address] [place] [address]FV: 12/17/2017 Tertiary NOT GIVENUNK [place] Insurance:SELF PAY [facility] Number: Effective Repository Date:2017-12-17 11/18/2017 JERIMIE W Primary JERIMIE W [place] [id number] [place] Insurance:CIGNAPolicy BUTLERDOB: [facility] Number: [id number] Hospital [address]Ofv: (330 [id number] Repository [phone] () Date:1861-93-65EK [address]XYYAJFVHXDM, [place] [address]SY: 11/18/2017 Secondary Francy L [place] Insurance:BUCKEYE ButlerDOB: [facility] [id number] Hospital PLANPolicy Number: Repository [id number] Date:8145-65-60EC [address] [place] [address] 119[address]IW: 11/18/2017 Tertiary NOT GIVENUNK [place] Insurance:SELF PAY [facility] Number: Effective Repository Date:2017-11-18 11/05/2017 JERZENONIE W Primary BERNIEIE W [place] [id number] [place] Insurance:CIGNAPolicy BUTLERDOB: [facility] Number: [id number] Hospital [address]Nde: (330 [id number] Repository [phone] () Date:6435-63-57MF [address]XHLPIRKEXXA, [place] [address]AQ: 11/05/2017 Secondary Francy L [place] Insurance:BUCKEYE ButshanelDOB: [facility] [id number] Hospital PLANPolicy Number: Repository [id number] Date:2837-04-65YF [address] [place] [address]YE: 11/05/2017 Tertiary NOT GIVENUNK [place] Insurance:SELF PAY [facility] Number: Effective Repository Date:2017-11-05
== END 2018-07-01 17:03 | disposition home or self-care (01) ==
PROVIDERS: Emergency Provider Emergency Medicine; Family Provider Family Medicine; PCP Family Medicine
DX: B34.9 Viral infection, unspecified (principal); R19.7 Diarrhea, unspecified; Z72.0 Tobacco use
CPT/HCPCS: 99283

== ENCOUNTER 2018-08-26 14:03 | Emergency (ER) | payer OTHER, MEDICAID, SELFPAY ==
[2018-08-26 14:03] VITALS: BP 121/74; PULSE 115; RESP 16; TEMP 36.6; O2SAT 98; BMI 17.9
--- NOTE | 2018-08-26 15:35 | ED.VISSUMM ---
- ER Visit Summary Date of Service: 08/26/18 Chief Complaint: Neck pain History of Present Illness: The patient is a 37 F worsening neck pain for the last 2 days after moving things around in the garage. History of chronic neck pain, no surgical interventions. She sees pain management with spinal injections. Last time was 8 months ago. Has been using Tylenol. She is on clonazepam for anxiety for which she has been using twice a day. Transiently does help. No radicular symptoms. No arm weakness or paresthesias. Denies any falls or injuries. No history of osteopenia or osteoporosis. Physical Examination: General: Alert and oriented ?3, no acute distress HEENT: Normocephalic, atraumatic. Moist mucosa membranes Neck: supple, C3-C4 paraspinal tenderness rotated right side bent right, extended. Cardiovascular: Regular rate 96 and rhythm, no murmurs Respiratory: Normal breath sounds, symmetric, no distress Abdomen: Soft, nontender, nondistended Extremities: Nontender, no edema, pulses intact ?4 Neuro: no focal neurological deficits. Upper extremity strength symmetric and intact bilaterally. Test Results: [] Emergency Department Course and Treatment: Patient vitals stable heart rate normal on my exam. Her exam concerns for cementless dysfunction cervical spine. No osteopenia or osteoporosis history. She reports has seen chiropractor in the past. Discussed bedside offered osteopathic manipulation for which she verbally agreed. She is placed supine on the bed, gentle HVLA cervical spine performed at C3-C4 immediate relief of symptoms. Improved movement on exam. She continue her Tylenol and use her clonazepam as needed. She will drink fluids. Patient states she would often looking for manipulation versus medications and injections. Discussed with patient see her PCP for referral to the osteopathic physician for possible treatment outpatient. She understands and agrees with plan. Treatment Plan: [] Disposition: Discharge Impression: Somatic dysfunction cervical spine status post high velocity low amplitude treatment This note was generated with Travador dictation software. It may contain incorrect words, spelling, and punctuation that were not noted in review of the chart prior to signing ED Disposition - Plan for ED Patient: Disposition: Home or Assisted Living Diagnosis: Somatic dysfunction of spine, cervical Instructions: ED Sprain Strain Neck Referrals: Abby Sears DO [Primary Care Provider] - Additional Instructions: s/p HVLA of cervical spine with improvement. Discussed with your PCP for possible referral to osteopathic physician that would perform treatment.
--- NOTE | 2018-08-26 15:39 | ED.DCSUM_ITS ---
- ER Visit Summary Date of Service: 08/26/18 Chief Complaint: Neck pain History of Present Illness: The patient is a 37 F worsening neck pain for the last 2 days after moving things around in the garage. History of chronic neck pain, no surgical interventions. She sees pain management with spinal injectio alonso. Last time was 8 months ago. Has been using Tylenol. She is on clonazepam for anxiety for which she has been using twice a day. Transiently does help. No radicular symptoms. No arm weakness or paresthesias. Denies any falls or injuries. No history of osteopenia or osteoporosis. Physical Examination: General: Alert and oriented ?3, no acute distress HEENT: Normocephalic, atraumatic. Moist mucosa membranes Neck: supple, C3-C4 paraspinal tenderness rotated right side bent right, extended. Cardiovascular: Regular rate 96 and rhythm, no murmurs Respiratory: Normal breath sounds, symmetric, no distress Abdomen: Soft, nontender, nondistended Extremities: Nontender, no edema, pulses intact ?4 Neuro: no focal neurological deficits. Upper extremity strength symmetric and intact bilaterally. Test Results: [] Emergency Department Course and Treatment: Patient vitals stable heart rate normal on my exam. Her exam concerns for cementless dysfunction cervical spine. No osteopenia or osteoporosis history. She reports has seen chiropractor in the past. Discussed bedside offered osteopathic manipulation for which she verbally agreed. She is placed supine on the bed, gentle HVLA cervical spine performed at C3-C4 immediate relief of symptoms. Improved movement on exam. She continue her Tylenol and use her clonazepam as needed. She will drink fluids. Patient states she would often looking for manipulation versus medications and injections. Discussed with patient see her PCP for referral to the osteopathic physician for possible treatment outpatient. She understands and agrees with plan. Treatment Plan: [] Disposition: Discharge Impression: Somatic dysfunction cervical spine status post high velocity low amplitude treatment This note was generated with TouchFrame dictation software. It may contain incorrect words, spelling, and punctuation that were not noted in review of the chart prior to signing ED Disposition - Plan for ED Patient: Disposition: Home or Assisted Living Diagnosis: Somatic dysfunction of spine, cervical Instructions: ED Sprain Strain Neck Referrals: Abby Sears DO [Primary Care Provider] - Additional Instructions: s/p HVLA of cervical spine with improvement. Discussed with your PCP for possible referral to osteopathic physician that would perform treatment.
[2018-08-26 15:57] VITALS: BP 123/91; PULSE 87; RESP 16; O2SAT 98
== END 2018-08-26 16:00 | disposition home or self-care (01) ==
PROVIDERS: Emergency Provider Emergency Medicine; Family Provider Family Medicine; PCP Family Medicine
DX: M99.01 Segmental and somatic dysfunction of cervical region (principal); Z72.0 Tobacco use
CPT/HCPCS: 99282

== ENCOUNTER 2018-10-05 19:46 | Emergency (ER) | payer OTHER, SELFPAY ==
[2018-10-05 19:46] VITALS: BP 109/82; PULSE 101; RESP 16; TEMP 37.1; O2SAT 99; BMI 18.3
[2018-10-05 20:22] VITALS: O2SAT 98
--- NOTE | 2018-10-05 21:30 | RAD_ITS ---
STUDY: X-RAY CHEST REASON FOR EXAM: Female, 37 years old. Cough TECHNIQUE: Frontal and lateral views of the chest COMPARISON: 12/19/2017 FINDINGS: The lungs are clear. There are no pleural effusions. There is no pneumothorax. The heart is normal in size. The visualized osseous structures are within normal limits. RAD/Chest PA and Lateral IMPRESSION: No acute thoracic pathology. Electronically Signed: Jama Swan, at 22:18 EDT Tel , Service support ,
--- NOTE | 2018-10-05 22:37 | ED.VISSUMM ---
- ER Visit Summary Date of Service: 10/05/18 Chief Complaint: Cough, congestion, nausea, vomiting, diarrhea History of Present Illness: The patient is a 37 F who has been fighting neurovirus for the past 2 weeks. She states the diarrhea is starting to slow. She continues to have some nausea with rare vomiting. She then got URI symptoms this past weekend. She can planes of cough with occasional wheezing and a sore throat. Past history is significant for IBS, asthma, ADHD, migraines, depression. She does have an albuterol nebulizer that she can use as needed. Physical Examination: Vital signs are unremarkable. She is afebrile. Patient sitting upright in bed. She appears ill but not toxic. Head neck examination was TMs to be clear bilaterally. She has some posterior pharyngeal drainage. Uvula is midline. Heart is regular rate and rhythm. Lungs sounds reveal mild wheeze at the left base that clears with cough. Abdomen is soft with no focal tenderness. Hypoactive bowel sounds noted throughout. Test Results: Two-view chest x-ray shows no acute pathology. Emergency Department Course and Treatment: Patient was given an albuterol MDI here. Test results were discussed with her. I feel her symptoms are viral in nature and can need to continue to run their course. I do not feel antibiotics would be beneficial. Treatment Plan: [] Disposition: Discharge Impression: 1. Viral URI 2. Norovirus This note was generated with Posh Eyes dictation software. It may contain incorrect words, spelling, and punctuation that were not noted in review of the chart prior to signing ED Disposition - Plan for ED Patient: Disposition: Home or Assisted Living Instructions: ED URI Viral W Wheezing Referrals: Abby Sears DO [Primary Care Provider] - 1 Week if not improving
[2018-10-05 22:42] VITALS: PULSE 77; RESP 16; O2SAT 98
== END 2018-10-05 22:43 | disposition home or self-care (01) ==
PROVIDERS: Emergency Provider Emergency Medicine; Family Provider Family Medicine; PCP Family Medicine
DX: J06.9 Acute upper respiratory infection, unspecified (principal); A08.19 Acute gastroenteropathy due to other small round viruses; J45.909 Unspecified asthma, uncomplicated; F90.9 Attention-deficit hyperactivity disorder, unspecified type; Z72.0 Tobacco use
CPT/HCPCS: 71046; 99282

== ENCOUNTER 2018-10-14 10:53 | Emergency (ER) | payer OTHER, SELFPAY ==
[2018-10-14 10:54] VITALS: BP 133/94; PULSE 80; RESP 16; TEMP 36.6; O2SAT 100; BMI 18.3
[2018-10-14] MEDS: 0.9% Normal Saline 1,000 ML 1000 ML IV (11:34)
[2018-10-14 11:43] LABS: Absolute Lymphocyte Count 2.52 X10^3/ul (0.83-4.51); Absolute Neutrophil Count 3.1 X10^3/uL (2.0-7.7); Basophil# 0.04 X10^3/uL; Basophil% 0.6 % (0-1); Eosinophil# 0.15 X10^3/uL; Eosinophils% 2.4 % (0-5); Hematocrit 41.1 % (37-47); Hemoglobin 13.8 g/dl (12.0-15.0); Lymphocyte # 2.52 X10^3/ul (4.0); Lymphocyte % 40.6 % (19-41); Mean Corp Hgb Conc 33.6 g/gl (32-36); Mean Corpuscular Hgb 31.4 pg (27.0-32.0); Mean Corpuscular Volume 93.6 fL (81-99); Mean Platelet Vol. 9.4 fl (6.2-12.0); Monocyte# 0.37 X10^3/uL; Neutrophil # 3.13 X10^3/uL (2.7-7.7); Neutrophil % 50.4 % (47-70); POSITIVE COUNT NO; POSITIVE DIFFERENTIAL NO; POSITIVE MORPHOLOGY NO; Platelet Count 271 K/mm3 (150-450); RBC Distribution Width CV 12.1 % (11.6-14.6); RBC Distribution Width SD 41.1 fl (35.1-43.9); Red Blood Count 4.39 M/mm3 (4.2-5.4); White Blood Count 6.2 K/mm3 (4.4-11.0)
--- NOTE | 2018-10-14 11:50 | CM.ED ---
Social Work Assessment Referral Date: 10/14/18 Date of Assessment: 10/14/18 Informant: DR. 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 PATIENT STATES IS DEPRESSED, SLEEP DEPRIVED, AND OVERWHELMED. PATIENT STATES UNABLE TO ASSIST HE IS WORKING TACTICAL/MOBILE WATCH OFFICER. PATIENT STATES WAS COURT ORDERED FOR COUNSELING IN THE PAST AND DID NOT FEEL LIKE IT HELPED. PATIENT REPORTS IT MADE IT WORSE. Mental Health History: PATIENT ADMITS TO HX OF ANXIETY, DEPRESSION, AND PTSD. PATIENT REPORTS DOES NOT CURRENTLY TAKE MEDICATION. Substance Abuse History: PATIENT ADMITS TO HX OF ALCOHOL AND MARIJUANA USE. Interventions: SOCIAL SERVICE ASSESSMENT INFORMATION GIVEN ON COUNSELING AGENCIES Assessment: PATIENT IS A 37 Y/O FEMALE WHO PRESENTS TO ED WITH DEPRESSION. MET WITH PATIENT AT BEDSIDE. PATIENT'S AND SON IN ROOM. INTRODUCED THIS WORKER'S ROLE AND REASON FOR REFERRAL. REQUESTED AND SON STEP OUT OF ROOM TO COMPLETE ASSESSMENT. PATIENT REPORTS IS OVERWHELMED AND EXHAUSTED. PATIENT REPORTS TOOK AN OVER THE COUNTER SLEEP AIDE AT 3AM AND ACCUSED HER OF TAKING SOMETHING ELSE. WHEN ASKED ABOUT ANY HX OF SUBSTANCE ABUSE PATIENT ADMITS TO HX OF ALCOHOL AND MARIJUANA USE AND STATES WOULD NEVER USE ANYTHING ELSE BOTH HER FATHER AND BROTHER ARE HEROIN ADDICTS. PATIENT ADMITS TO HX OF PTSD, ANXIETY AND DEPRESSION. PATIENT TEARFUL THROUGHOUT CONVERSATION. PATIENT STATES I JUST NEED SOMEONE TO HELP. DISCUSSED OPTION FOR COUNSELING. PATIENT STATES HAS BEEN TO COUNSELING IN THE PAST AND FEELS IT MADE HER DEPRESSION WORSE. PATIENT STATES, I BOTTLE THINGS UP UNTIL I CAN'T TAKE IT ANYMORE. PATIENT DENIES ANY SUICIDAL OR HOMICIDAL IDEATIONS. PATIENT STATES HAS NOT BEEN EATING OR DRINKING AND HAS BEEN RECOVERING FROM RECENT ILLNESSES. EMOTIONAL SUPPORT AND ACTIVE LISTENING PROVIDED. PATIENT GAVE PERMISSION TO SPEAK WITH . MET WITH IN HALLWAY. VOICED FRUSTRATION AND CONCERNS FOR PATIENT. FEELS PATIENT WOULD BENEFIT FROM COUNSELING, BUT DOES NOT KNOW IF PATIENT WILL FOLLOW THROUGH WITH SERVICES. BELIEVES WHOLE FAMILY WOULD BENEFIT FROM COUNSELING. THIS WORKER PROVIDED LIST OF LOCAL COUNSELING SERVICES. REPORTS IS GOING TO SPEAK WITH HIS EMPLOYER TO SEE IF HOURS CAN BE DECREASED TO ASSIST WITH ISSUES AT HOME. SUPPORT AND ENCOURAGEMENT PROVIDED TO . UPDATED NURSING AND DR. YOUNGBLOOD ON THIS WORKER'S ASSESSMENT OF PATIENT. PATIENT NOT OPEN TO THIS WORKER SCHEDULING INTAKE APPOINTMENT AT THIS TIME. PLAN: HOME WITH AND FAMILY BEFORE WITH RESOURCES PROVIDED.
[2018-10-14 11:58] LABS: AST(SGOT) 11 U/L (15-37); Alanine Aminotransfer ALT/SGPT 21 U/L (13-56); Albumin, Serum 3.8 g/dL (3.2-5.0); Alkaline Phosphatase 117 U/L (45-117); Anion Gap 4 (5-15); BUN 14 mg/dL (7-18); BUN/Creat Ratio 19.3 RATIO (10-20); Bilirubin, Direct 0.15 mg/dL (0.00-0.30); Calcium,Total 8.4 mg/dL (8.5-10.1); Chloride 108 mmol/L (98-107); Creatinine, Serum 0.72 mg/dL (0.55-1.02); EST Glomerular Filtration Rate 96 mL/min (>60); Est Glom Filt Rate - Afr Amer 117 mL/min (>60); Estimated Creatinine Clearance 85.08 ml/min; Globulin 3.1 g/dL (2.2-4.2); Glucose 119 mg/dL (74-106); Potassium 3.5 mmol/L (3.5-5.1); Protein, Total 6.9 g/dL (6.4-8.2); Sodium Level 141 mmol/L (136-145)
[2018-10-14 12:15] LABS: Pregnancy, Serum, hCG Quali. NEGATIVE Negative (0-9 Nonpreg)
[2018-10-14 13:43] VITALS: BP 113/82; PULSE 65; RESP 14; O2SAT 98
[2018-10-14 13:58] LABS: Color, Urine Yellow (Yellow); Glucose, Dipstick Normal (Normal); Ketone-Dipstick 5 mg/dl (Negative); Leukocyte Esterase-Dipstick 100 /ul (Negative); Nitrite-Dipstick Negative (Negative); Occult Blood-Urine Negative /ul (Negative); Protein-Dipstick 30 mg/dl (Negative); Urine Clarity Sl. Cloudy (Clear); Urine Urobilinogen 4 mg/dl (Normal)
[2018-10-14 14:03] LABS: Urine Bilirubin Dipstick 1 mg/dL (Negative)
[2018-10-14 14:04] LABS: White Blood Cells 10-25 SEEN /hpf (0-5)
[2018-10-14 14:05] LABS: Red Blood Cells-Urine 0-5 SEEN /hpf (0-5); Squamous Epithelial Cells - UA 10-25 SEEN /hpf (5-10)
[2018-10-14 14:07] LABS: Bacteria 1+ /hpf (None Seen); Calcium Oxalate Crystals Ur 2+ /hpf (<or=2+); Mucous, Urine 2+ /hpf (<or=2+); Transitional Epithelial - Ur 0-5 SEEN /hpf (0-5)
--- NOTE | 2018-10-14 15:24 | ED.DCSUM_ITS ---
- ER Visit Summary Date of Service: 10/14/18 Chief Complaint: Depression History of Present Illness: The patient is a 37 F brought in by her . Patient reportedly was falling asleep while trying to eat breakfast this morning and her had to leave work to come take care of the children. Patient reports recent illness with Aleida virus and a viral URI. She has had difficulty sleeping at night. She took 2 doses of cough syrup, some cold medicine, and 2 doses of sleep aids between 9 PM and 3 AM this morning. She states she is under increased stress at home and she gets no help from family members. She states her comes home and he also at her for not taking care of the home. She states she is depressed and exhausted. She denies suicidal homicidal ideation. Physical Examination: Vital signs are unremarkable. Patient sitting upright in bed. She is intermittently tearful. Head neck examination unremarkable. Heart is regular rate and rhythm. Lung sounds are clear. Abdomen is soft nontender. Patient is alert and oriented. She has a depressed affect. She is intermittently tearful. She denies suicidal or homicidal thoughts. Test Results: CBC and chemistry studies unremarkable. LFTs normal. Urinalysis shows 10-25 white cells with 10-25 epithelials. test negative. Emergency Department Course and Treatment: Patient is given IV fluids here. workers' compensation hearings officer spoke with patient and . Resources have been provided for counseling. At this time patient be discharged with family. Treatment Plan: [] Disposition: Discharge Impression: Depression This note was generated with [employer] dictation software. It may contain incorrect words, spelling, and punctuation that were not noted in review of the chart prior to signing ED Disposition - Plan for ED Patient: Disposition: Home or Assisted Living Instructions: ED Depression Referrals: Abby Sears DO [Primary Care Provider] - 1 Week
[2018-10-14 15:47] VITALS: PULSE 81; RESP 16; O2SAT 98
== END 2018-10-14 15:50 | disposition home or self-care (01) ==
PROVIDERS: Emergency Provider Emergency Medicine; Family Provider Family Medicine; PCP Family Medicine
DX: F32.9 Major depressive disorder, single episode, unspecified (principal); F41.9 Anxiety disorder, unspecified; R11.0 Nausea; R19.7 Diarrhea, unspecified; J45.909 Unspecified asthma, uncomplicated; F90.9 Attention-deficit hyperactivity disorder, unspecified type; Z72.0 Tobacco use
CPT/HCPCS: 80048; 80076; 81001; 84703; 85025; 96360; 96361; 99283; J7030; A4216

== ENCOUNTER 2018-10-28 18:07 | Emergency (ER) | payer OTHER, SELFPAY ==
[2018-10-28 18:08] VITALS: BP 141/93; PULSE 109; RESP 16; TEMP 36.1; O2SAT 100; BMI 19.0
--- NOTE | 2018-10-28 18:21 | ED.DCSUM_ITS ---
- ER Visit Summary Date of Service: 10/28/18 Chief Complaint: Toothache History of Present Illness: The patient is a 37 F who has tooth pain. She has had pain for a while but got worse yesterday. She has a history of a rotted tooth. She is tried Tylenol and ibuprofen without relief. She does have a dent ist in [place] that she is going to call next week. Physical Examination: Vital signs reviewed. Mouth exam reveals diffuse dental decay. She has tenderness to tooth #2. No gingival abscesses noted. Test Results: None performed Emergency Department Course and Treatment: Patient will be treated with penicillin and Lodine. She will follow-up with her dentist Treatment Plan: [] Disposition: Discharge Impression: Odontalgia This note was generated with [employer] dictation software. It may contain incorrect words, spelling, and punctuation that were not noted in review of the chart prior to signing ED Disposition - Plan for ED Patient: Referrals: Abby Sears DO [Primary Care Provider] -
--- NOTE | 2018-10-28 18:21 | ED.DEP ---
ED Disposition - Plan for ED Patient: Disposition: Home or Assisted Living Instructions: ED Tooth Pain Prescriptions: Penicillin V Potassium 500 mg PO BID #20 tab Etodolac [Lodine] 300 mg PO TIDCM #20 cap Referrals: Abby Sears DO [Primary Care Provider] -
[2018-10-28] MEDS: Etodolac 300 MG Capsule PO (18:46)
[2018-10-28] MEDS: Penicillin Vk 250 MG Tablet 500 MG PO (18:46)
== END 2018-10-28 18:54 | disposition home or self-care (01) ==
LOC: ED 18:24
PROVIDERS: Emergency Provider Emergency Medicine; Family Provider Family Medicine; PCP Family Medicine
DX: K08.89 Other specified disorders of teeth and supporting structures (principal); J45.909 Unspecified asthma, uncomplicated; Z72.0 Tobacco use
CPT/HCPCS: 99283

== ENCOUNTER 2019-02-08 16:02 | Emergency (ER) | payer OTHER, SELFPAY ==
[2019-02-08 16:03] VITALS: BP 101/83; PULSE 80; RESP 14; TEMP 36.5; O2SAT 100; BMI 17.9
[2019-02-08] MEDS: Ketorolac 60 MG/2 ML Vial IM (16:23)
[2019-02-08] MEDS: Orphenadrine 60 MG/2 ML Ampul IM (16:24)
[2019-02-08] MEDS: Morphine 4 MG/ML Syringe SC (17:45)
--- NOTE | 2019-02-08 18:43 | ED.DCSUM_ITS ---
- ER Visit Summary Date of Service: 02/08/19 Chief Complaint: Back pain History of Present Illness: The patient is a 38 F with mid to low back pain since yesterday. She was moving pavers over the weekend. Pain is worse with moving. It is severe at times. No associated symptoms like GI, , or PUBLICATIONS DISTRIBUTION CLERK symptoms. No chest pain or shortness of breath. No history of heart or lung disease. No history of blood clots or aortic disease. Physical Examination: Afebrile and vital signs unremarkable. Patient alert and oriented. No acute distress. Heart and lung exams unremarkable. Abdomen soft and nontender. She has diffuse tenderness to palpation over her lower T-spine and complete lumbar spine. Leg exam is unremarkable. Good strength and sensation. Neurovascularly intact. Test Results: None indicated Emergency Department Course and Treatment: Patient has myofascial back pain. Nothing to suggest GI, , PUBLICATIONS DISTRIBUTION CLERK, vascular, cardiac, respiratory, or orthopedic source. No testing is indicated. She was treated with Toradol and Norflex. She had no improvement. She received a dose of subcutaneous morphine. She had mild improvement. Patient will be discharged on a course of Motrin, Flexeril, and Alpine. Follow- up with primary care. Treatment Plan: As above Disposition: Discharge Impression: 1. Lumbar back pain This note was generated with [employer] dictation software. It may contain incorrect words, spelling, and punctuation that were not noted in review of the chart prior to signing ED Disposition - Plan for ED Patient: Referrals: Abby Sears DO [Primary Care Provider] -
--- NOTE | 2019-02-08 18:45 | DCINST.ED_ITS ---
ED Disposition - Plan for ED Patient: Instructions: BACK AND NECK PAIN, General Prescriptions: cycloBENZAPRine HCl [Flexeril] 10 mg PO TID PRN #20 tab PRN Reason: Muscle Spasm Prescription Printed Hydrocodone Bitart/Apap 5-325 [[place] 5MG-325MG] 1 tab PO Q6H PRN PRN 3 Days #10 tab PRN Reason: Pain Prescription Printed Referrals: Abby Sears DO [Primary Care Provider] -
== END 2019-02-08 18:52 | disposition home or self-care (01) ==
LOC: ED 16:24
PROVIDERS: Emergency Provider Emergency Medicine; Family Provider Family Medicine; PCP Family Medicine
DX: M54.5 Low back pain (principal); J45.909 Unspecified asthma, uncomplicated; K21.9 Gastro-esophageal reflux disease without esophagitis; F90.9 Attention-deficit hyperactivity disorder, unspecified type; Z72.0 Tobacco use
CPT/HCPCS: 96372; 99282

== ENCOUNTER 2019-03-04 22:25 | Emergency (ER) | payer OTHER, SELFPAY ==
[2019-03-04 22:27] VITALS: BP 118/78; PULSE 108; RESP 18; TEMP 36.4; O2SAT 98; BMI 17.9
--- NOTE | 2019-03-04 23:15 | ED.VIS.GEN ---
History of Present Illness Chief Complaint: Abd Pain Narrative: Patient is a 38-year-old female who presents with abdominal pain nausea and vomiting. She has a history of irritable bowel syndrome. She also reports a prior history of colitis and diverticulitis. She complains of 1 week of diffuse nonfocal abdominal pain. This is worse with eating. She also complains of intermittent constipation and diarrhea but reports neither today. Vomiting began yesterday. She had one episode yesterday and a couple today. Emesis nonbloody nonbilious. No fevers. She has a history of tubal ligation but no other abdominal surgeries. Past Medical History - Allergies and Home Meds Allergies/Adverse Reactions: Allergies lanolin Allergy (Verified 03/04/19 22:29) Hives naproxen [From Naprosyn] Allergy (Verified 03/04/19 22:29) Hives tramadol Allergy (Verified 03/04/19 22:29) Other blisters to mouth gabapentin Adverse Reaction (Verified 03/04/19 22:29) Other BEE STINGS Adverse Reaction (Uncoded 03/04/19 22:29) Swelling LIQUID SMOKE/BBQ SAUCE Adverse Reaction (Uncoded 03/04/19 22:29) Nausea Primary Care Physician: Abby Sears DO [Primary Care Provider] - Past Medical History: - - IBS Surgical History: - - Tubal ligation Smoking Status: Current every day smoker Review of Systems All systems negative except as indicated General: Denies: Fever Cardiovascular: Denies: Chest pain Respiratory: Denies: Dyspnea Gastrointestinal: Reports: Abdominal pain, Nausea, Vomiting, Diarrhea, Constipation Physical Exam Vital Signs/Narrative: Vital Signs Temp Pulse Resp BP Pulse Ox 03/04/19 22:27 97.6 F L 108 H 18 118/78 98 Head: Normocephalic, Atraumatic Eyes: Perrl, EOMI ENT: Moist mucous membranes Cardiovascular: Regular rhythm, Tachycardia Respiratory: No distress, CTA bilaterally Abdomen: Soft, Tender - Mild diffuse nonfocal tenderness, no guarding, no rebound, nondistended, normal bowel sounds Skin: Normal color Neurological: Alert Psychological: Normal affect Diagnostic/Tx/Re-eval - Medical Decision Making CBC, CMP, lipase unremarkable. Urinalysis is contaminated. She does not have any lower urinary symptoms. We will send for culture. is negative. Patient was treated here with Phenergan and Bentyl. She was advised on supportive care. This likely related to her IBS. On reevaluation her nausea is improved although she is complaining of some burning abdominal pain. She was given a GI cocktail. She was provided with prescriptions for omeprazole and Phenergan. She was discharged to follow-up as an outpatient. She understands to return for new or worsening symptoms. ED Disposition - Plan for ED Patient: Disposition: Home or Assisted Living Diagnosis: Irritable bowel syndrome Instructions: Irritable Bowel Syndrome Prescriptions: proMETHazine tablet [Phenergan] 25 mg PO Q6H PRN PRN #10 tab PRN Reason: Nausea Prescription Printed Omeprazole [Prilosec] 20 mg PO DAILY #30 cap Prescription Printed Referrals: Abby Sears DO [Primary Care Provider] -
[2019-03-04 23:21] LABS: Mucous, Urine 0 SEEN /hpf (<or=2+); Red Blood Cells-Urine 0 SEEN /hpf (0-5)
[2019-03-04 23:23] LABS: Absolute Lymphocyte Count 2.17 X10^3/uL (0.83-4.51); Absolute Neutrophil Count 3.2 X10^3/uL (2.0-7.7); Basophil# 0.08 X10^3/uL; Basophil% 1.3 % (0-1); Eosinophil# 0.13 X10^3/uL; Eosinophils% 2.1 % (0-5); Hematocrit 37.7 % (37-47); Hemoglobin 12.7 g/dL (12.0-15.0); Lymphocyte # 2.17 X10^3/ul (4.0); Lymphocyte % 35.7 % (19-41); Mean Corp Hgb Conc 33.7 g/dL (32-36); Mean Corpuscular Hgb 32.7 pg (27.0-32.0); Mean Corpuscular Volume 97.2 fL (81-99); Mean Platelet Vol. 9.7 fl (6.2-12.0); Monocyte# 0.46 X10^3/uL; Monocyte% 7.6 % (0-10); NRBC Flagged by Analyzer 0 % (0-5); Neutrophil # 3.22 X10^3/uL (2.7-7.7); Neutrophil % 53.1 % (47-70); Platelet Count 277 K/mm3 (150-450); RBC Distribution Width CV 11.6 % (11.6-14.6); RBC Distribution Width SD 41.3 fl (35.1-43.9); Red Blood Count 3.88 M/mm3 (4.2-5.4); White Blood Count 6.1 K/mm3 (4.4-11.0)
[2019-03-04 23:23] LABS: Color, Urine Yellow (Yellow); Glucose, Dipstick Normal (Normal); Ketone-Dipstick 5 mg/dl (Negative); Leukocyte Esterase-Dipstick 500 /ul (Negative); Nitrite-Dipstick Negative (Negative); Occult Blood-Urine Negative /ul (Negative); Protein-Dipstick Negative (Negative); Urine Bilirubin Dipstick Negative (Negative); Urine Clarity Cloudy (Clear); Urine Urobilinogen Normal (Normal)
[2019-03-04 23:24] LABS: Internal QC Validated? YES +Cl - CLEAR BKGD; Pregnancy, Urine Negative Negative
[2019-03-04] MEDS: Dicyclomine 20 MG/2 ML Vial IM (23:25)
[2019-03-04] MEDS: 0.9% Normal Saline 1,000 ML 999 ML IV (23:25)
[2019-03-04] MEDS: proMETHazine 25 MG/ML Syringe 12.5 MG IV (23:25)
[2019-03-04 23:28] LABS: Squamous Epithelial Cells - UA 10-25 SEEN /hpf (5-10)
[2019-03-04 23:29] LABS: Bacteria 1+ /hpf (None Seen); White Blood Cells 10-25 SEEN /hpf (0-5)
[2019-03-04 23:33] LABS: ALB/GLOB Ratio 1.1 RATIO (0.9-2.4); AST(SGOT) 16 U/L (15-37); Alanine Aminotransfer ALT/SGPT 20 U/L (13-56); Albumin, Serum 3.4 g/dL (3.2-5.0); Alkaline Phosphatase 89 U/L (45-117); Anion Gap 5 (5-15); BUN 7 mg/dL (7-18); Calcium,Total 8.1 mg/dL (8.5-10.1); Chloride 108 mmol/L (98-107); Creatinine, Serum 0.88 mg/dL (0.55-1.02); EST Glomerular Filtration Rate 77 mL/min (>60); Est Glom Filt Rate - Afr Amer 93 mL/min (>60); Estimated Creatinine Clearance 67.69 ml/min; Globulin 3.2 g/dL (2.2-4.2); Glucose 80 mg/dL (74-106); Lipase 110 U/L (73-393); Potassium 3.6 mmol/L (3.5-5.1); Protein, Total 6.6 g/dL (6.4-8.2); Sodium Level 141 mmol/L (136-145)
[2019-03-05 00:01] VITALS: RESP 14
[2019-03-05] MEDS: Mag Hydrox/Al Hydrox/Simeth 30 ML UDC PO (00:40)
== END 2019-03-05 00:06 | disposition home or self-care (01) ==
PROVIDERS: Emergency Provider Emergency Medicine; Family Provider Family Medicine; PCP Family Medicine
DX: K58.9 Irritable bowel syndrome, unspecified (principal); F17.200 Nicotine dependence, unspecified, uncomplicated; Z88.8 Allergy status to other drugs, medicaments and biological substances; Z88.6 Allergy status to analgesic agent; Z98.51 Tubal ligation status
CPT/HCPCS: 80053; 81001; 81025; 83690; 85025; 96372; 96374; 99284; J7030

== ENCOUNTER 2019-08-15 15:26 | Emergency (ER) | payer OTHER, MEDICAID, SELFPAY ==
[2019-08-15 15:27] VITALS: BP 127/81; PULSE 95; RESP 18; TEMP 36.6; O2SAT 100; BMI 18.8
--- NOTE | 2019-08-15 15:33 | ED.RN ---
pt refused to put on gown.
--- NOTE | 2019-08-15 15:37 | ED.VISSUMM ---
- ER Visit Summary Date of Service: 08/15/19 Chief Complaint: Shoulder pain History of Present Illness: The patient is a 38 F with left shoulder pain since yesterday. She was moving furniture. No direct trauma. No other associated pain or symptoms. No chest pain or shortness of breath. No weakness or numbness. Physical Examination: Normal inspection to the left shoulder. Good range of motion. No laxity or deformity. Neurovascular intact distally. Good strength and sensation. She does have tenderness over the left trapezius and in the infrascapular region. Test Results: None indicated Emergency Department Course and Treatment: Patient has myofascial pain. She has multiple injuries and so was treated with Norflex and morphine 1 time. Advised that we cannot prescribe controlled substances for this. She will continue her home medications and Flexeril. Follow-up with primary care. Treatment Plan: As above Disposition: Discharge Impression: Left shoulder pain This note was generated with [facility] dictation software. It may contain incorrect words, spelling, and punctuation that were not noted in review of the chart prior to signing ED Disposition - Plan for ED Patient: Referrals: Abby Sears DO [Primary Care Provider] -
--- NOTE | 2019-08-15 15:39 | ED.DEP ---
ED Disposition - Plan for ED Patient: Instructions: Shoulder Sprain Prescriptions: cycloBENZAPRine HCl [Flexeril] 10 mg PO TID PRN #20 tab PRN Reason: Muscle Spasm Prescription Printed Referrals: Abby Sears DO [Primary Care Provider] -
[2019-08-15] MEDS: morphine 10 MG/ML Syringe 4 MG SC (15:46)
[2019-08-15] MEDS: Orphenadrine 60 MG/2 ML Ampul IM (15:47)
[2019-08-15 16:10] VITALS: RESP 17
== END 2019-08-15 16:12 | disposition home or self-care (01) ==
PROVIDERS: Emergency Provider Emergency Medicine; PCP Family Medicine
DX: M25.512 Pain in left shoulder (principal); Z72.0 Tobacco use
CPT/HCPCS: 96372; 99282

== ENCOUNTER 2019-11-12 10:35 | Emergency (ER) | payer OTHER, MEDICAID, SELFPAY ==
[2019-11-12 10:38] VITALS: BP 114/82; PULSE 116; RESP 17; TEMP 36.8; O2SAT 98; BMI 20.6
--- NOTE | 2019-11-12 10:42 | ED.DCSUM_ITS ---
History of Present Illness Chief Complaint: Upper Extremity Injury Informant: Patient Onset: Yesterday Quality of Pain: Dull, Aching Location: Posterior and proximal left shoulder Current Severity: Mild Maximum Severity: Severe Worsened by: Movement and palpation Relieved by: Rest makes it better Associated Symptoms: Negative for: Parasthesias, Weakness, Loss of function, Inability to ambulate, Loss of consciousness Narrative: Patient is a 38-year-old [id number] woman who presents with left shoulder pain. She was pulling shrubs and a tree yesterday. There is no history of fall or direct trauma. She localized the pain over the rotator cuff region on the left and proximal left humerus. Abduction past 90 degrees causes discomfort. She denies paresthesia, anesthesia or motor weakness. She has no other complaints. Prior similar symptoms: No Recent Illness/Hospitalization: No - Past Medical History (1) Pelvic pain Status: Chronic Past Medical History - Allergies and Home Meds Allergies/Adverse Reactions: Allergies lanolin Allergy (Verified 11/12/19 10:37) Hives naproxen [From Naprosyn] Allergy (Verified 11/12/19 10:37) Hives tramadol Allergy (Verified 11/12/19 10:37) Other blisters to mouth gabapentin Adverse Reaction (Verified 11/12/19 10:37) Other BEE STINGS Adverse Reaction (Uncoded 11/12/19 10:37) Swelling LIQUID SMOKE/BBQ SAUCE Adverse Reaction (Uncoded 11/12/19 10:37) Nausea Primary Care Physician: Abby Sears DO [Primary Care Provider] - Prior records reviewed: Yes Surgical History: noncontributory, - - Tubal ligation Lives: Spouse/ Significant Other Smoking Status: Current every day smoker Alcohol: Rare Drugs: None Review of Systems General: Denies: Chills, Malaise Cardiovascular: Denies: Chest pain, Palpitations Respiratory: Denies: Dyspnea Musculoskeletal: Reports: Back pain, Extremity Pain. Denies: Myalgias, Arthralgias, Neck pain, Swelling Skin: Denies: Rash, Wounds Neurological: Denies: Weakness, Parasthesia, Numbness Hematologic: Denies: Easy bruising, Easy bleeding Physical Exam Vital Signs/Narrative: Vital Signs Temp Pulse Resp BP Pulse Ox 11/12/19 10:38 98.2 F 116 H 17 114/82 H 98 Inital Vital Signs reviewed: Yes General: Well nourished, Well developed Head: Normocephalic, Atraumatic. Negative for: Trauma, Tenderness Eyes: Perrl, EOMI. Negative for: Pale conjunctiva, Scleral icterus ENT: No trauma Neck: Nontender, Full ROM. Negative for: Spinal Tenderness, Paraspinal Tenderness Cardiovascular: Regular rate, Regular rhythm Respiratory: No distress Extremeties: Is pain the patient over the supraspinatus muscle/tendon. There is pain to palpation over the proximal humerus. There is no pain the patient over the clavicle or AC joint. Axillary, median, radial and ulnar function intact. There is no pain the patient over the lateral medial epicondyle, olecranon process or radial head with supination pronation. There is no pain the patient with distal radius or ulna. Is no pain the patient over the carpal bones, metacarpal bones or phalanges. Patient has discomfort with abduction past 90 degrees. Negative drop test. Since there is no history of direct trauma imaging was not obtained. Patient was told she has strain of her rotator cuff. Skin: Normal color, No rash, No Trauma. Negative for: Cyanosis, Diaphoresis, Jaundice Neurological: Alert, Oriented x3, Cranial nerves II-XII grossly intact, Normal Sensation Psychological: Normal affect, Normal Mood - Glascow Coma Scale Eye Opening: Spontaneous Motor: Obeys Commands Verbal: Oriented Coma Scale Total: 15 Diagnostic/Tx/Re-eval - Medical Decision Making Patient's history and physical exam is consistent with strain. There is no concern for fracture or tear of rotator cuff based on history and physical. Imaging was not obtained. Because of her allergies she was treated with a [place] tablet and discharged with a short course of [place]. ED Disposition - Plan for ED Patient: Disposition: Home or Assisted Living Diagnosis: Muscle strain of left shoulder region Instructions: ED Shoulder Sprain Prescriptions: Hydrocodone Bitart/Apap 5-325 [[place] 5MG-325MG] 1 tablet PO Q6H PRN PRN 3 Days #10 tablet PRN Reason: Pain Transmission Status: Received by PRICILA PALOMINO-1953 [facility] Referrals: Abby Sears DO [Primary Care Provider] - 1 Week if not improving
[2019-11-12] MEDS: HYDROcodone Bitartrate/Apap 5/325 Tablet PO (10:51)
[2019-11-12 10:52] VITALS: BP 114/82; PULSE 89; RESP 18
== END 2019-11-12 10:55 | disposition home or self-care (01) ==
LOC: ED 10:53
PROVIDERS: Emergency Provider Emergency Medicine; PCP Family Medicine
DX: S46.912A Strain of unspecified muscle, fascia and tendon at shoulder and upper arm level, left arm, initial encounter (principal); X50.0XXA Overexertion from strenuous movement or load, initial encounter; Y93.H2 Activity, gardening and landscaping; Y92.096 Garden or yard of other non-institutional residence as the place of occurrence of the external cause; Y99.9 Unspecified external cause status; F17.200 Nicotine dependence, unspecified, uncomplicated; Z88.5 Allergy status to narcotic agent; Z88.6 Allergy status to analgesic agent; Z88.8 Allergy status to other drugs, medicaments and biological substances; R10.2 Pelvic and perineal pain
CPT/HCPCS: 99283

== ENCOUNTER 2020-03-02 12:51 | Emergency (ER) | payer OTHER, MEDICAID, SELFPAY ==
[2020-03-02 12:52] VITALS: BP 121/84; PULSE 73; RESP 17; TEMP 36.6; O2SAT 100; BMI 18.7
--- NOTE | 2020-03-02 13:12 | ED.DCSUM_ITS ---
History of Present Illness Chief Complaint: Back Informant: Patient Onset: Days - 2 days ago Chronic pain exacerbated by: Moving adolfo of hay Injury: Lifting Timing: Continuous Quality: Sharp Location: Thoracic, Lumbar, Buttock, Left Leg Current Severity: Moderate Maximum Severity: Severe Worsened by: improves with: Movement, Ambulation, Bending Relieved by: Nothing Associated Symptoms: Radiation to Left Leg Narrative: 39-year-old female presents to the emergency department with back pain. She works on a farm. 2 days ago moving adolfo of hay had a sudden onset of left lumbar back pain. Since that time is been constant. She states her entire back also feels sore but the worst pain is in her left lumbar. It radiates into her left buttock. No lower extremity weakness or paresthesias. No loss of bowel or bladder function. No difficulty urinating or constipation. No fevers chills vomiting diarrhea or IV drug use. No urinary symptoms. No trauma. No hematuria. No history of back surgery. Prior similar symptoms: Yes, With Prior Back Pain Recent Illness/Hospitalization: No Past Medical History - Allergies and Home Meds Allergies/Adverse Reactions: Allergies lanolin Allergy (Verified 03/02/20 12:52) Hives naproxen [From Naprosyn] Allergy (Verified 03/02/20 12:52) Hives tramadol Allergy (Verified 03/02/20 12:52) Other blisters to mouth gabapentin Adverse Reaction (Verified 03/02/20 12:52) Other BEE STINGS Adverse Reaction (Uncoded 03/02/20 12:52) Swelling LIQUID SMOKE/BBQ SAUCE Adverse Reaction (Uncoded 03/02/20 12:52) Nausea Primary Care Physician: Abby Sears DO [Primary Care Provider] - Prior records reviewed: Yes Past Medical History: None Surgical History: - - Tubal ligation Lives: With Family Smoking Status: Current every day smoker Alcohol: Occasional Drugs: None Review of Systems All systems negative except as indicated General: Denies: Chills, Fever, Sweats Eyes: Denies: Visual changes - bilaterally, Diplopia ENT: Denies: Rhinorrhea, Sore throat Cardiovascular: Denies: Chest pain, Palpitations Respiratory: Denies: Dyspnea, Cough, Dyspnea on exertion Gastrointestinal: Denies: Abdominal pain, Nausea, Vomiting, Diarrhea, Melena, Hematochezia Genitourinary: Denies: Dysuria, Hematuria, Frequency Musculoskeletal: Reports: Back pain. Denies: Swelling, Extremity Pain Skin: Denies: Rash, Wounds Neurological: Denies: Headache, Weakness, Numbness Physical Exam Vital Signs/Narrative: Vital Signs Temp Pulse Resp BP Pulse Ox 03/02/20 12:52 97.9 F 73 17 121/84 H 100 Inital Vital Signs reviewed: Yes General: Well nourished, Well developed Head: Normocephalic, Atraumatic Eyes: Perrl, EOMI ENT: Moist mucous membranes, No rhinorrhea Neck: Supple, Nontender Cardiovascular: Regular rate, Regular rhythm, No murmurs Respiratory: No distress, CTA bilaterally, Chest nontender Abdomen: Soft, Nontender, Nondistended, Normal bowel sounds Back: Normal Inspection, Paraspinal Tenderness, Negative SLR - Right, Positive SLR - Left, - - Normal inspection of the patient's neck and back. No signs of trauma no redness or swelling. Cervical, thoracic, and lumbar spine all are nontender to palpation. Strength testing of both upper and lower extremities is 5 out of 5. Normal sensation of all 4 extremities and normal palpable peripheral pulses of all 4 extremities. Gait is normal. Patellar and Achilles reflexes normal bilaterally. Negative for: Surgical Scar, Spinal tenderness, CVA tenderness, Positive SLR - Right, Negative SLR - Left Extremeties: Nontender, No edema Skin: Normal color, No rash Neuro: Alert, Oriented, Normal Strength, Normal Sensation, Normal DTR, Normal G ait, Normal Reflexes Psychological: Normal affect, Normal Mood Diagnostic/Tx/Re-eval - Medical Decision Making Patient presents with back pain. Exam consistent with a musculoskeletal back strain. She takes tizanidine chronically for chronic back pain. She was given a dose of Toradol in the emergency department. We will prescribe her Naprosyn. She will continue her tizanidine. Advised her to rest and ice and follow-up close with her primary care physician. ED Disposition - Plan for ED Patient: Disposition: Home or Assisted Living Diagnosis: Lumbar back strain Instructions: ED Back Pain Acute or Chronic, ED LUMBAR SPRAIN/STRAIN Prescriptions: Hydrocodone Bitart/Apap 5-325 [[place] 5MG-325MG] 1 tab PO Q6H PRN PRN 3 Days #10 tab PRN Reason: Pain Prescription Printed Referrals: Malys,Abby, DO [Primary Care Provider] - 3-5 Days
[2020-03-02] MEDS: Ketorolac 60 MG/2 ML Vial IM (13:22)
== END 2020-03-02 13:50 | disposition home or self-care (01) ==
LOC: ED 13:29
PROVIDERS: Emergency Provider Physician Assistant Medical; PCP Family Medicine
DX: S39.012A Strain of muscle, fascia and tendon of lower back, initial encounter (principal); X58.XXXA Exposure to other specified factors, initial encounter; F17.200 Nicotine dependence, unspecified, uncomplicated; Z88.5 Allergy status to narcotic agent; Z88.6 Allergy status to analgesic agent; Z88.8 Allergy status to other drugs, medicaments and biological substances; M54.9 Dorsalgia, unspecified; G89.29 Other chronic pain
CPT/HCPCS: 96372; 99282

== ENCOUNTER 2020-06-01 21:35 | Emergency (ER) | payer OTHER, MEDICAID, SELFPAY ==
[2020-06-01 21:35] VITALS: BP 148/83; PULSE 82; RESP 16; TEMP 35.8; O2SAT 100; BMI 19.1
--- NOTE | 2020-06-01 22:03 | ED.VIS.DENTA ---
History of Present Illness Chief Complaint: Dental Informant: Patient Onset: Days - Onset 4 days ago worse past 2 days Context: Sudden Onset Timing: Continuous Quality: Pain Location: Right lower tooth Current Severity: Mild Maximum Severity: Severe Worsened by: Hot and cold liquids Relieved by: - - Nothing Associated Symptoms: Hot, Cold, Sensitivity Narrative: Patient is a 39-year-old woman who presents because of dental pain. She localizes the pain to her first right lower molar. Pain started 4 days ago. Has gotten worse over the past 2 days. She states she has activity to hot and cold. She denies difficulty opening closing her mouth. She denies fever chills. Denies history medic fever, heart murmur, SBE or being on immunosuppressive meds. Denies change in voice, difficulty swallowing or breathing. She quit drinking in January. She has not smoked for several weeks. Patient denies antibiotic allergies. Patient lists nausea as reaction to Naprosyn and not hives as documented on the medical record. She has tolerated Aquilla in the past. Prior similar symptoms: Yes Recent Illness/Hospitalization: No - Past Medical History (1) Pain, dental Status: Acute Past Medical History - Allergies and Home Meds Allergies/Adverse Reactions: Allergies lanolin Allergy (Verified 06/01/20 21:37) Hives naproxen [From Naprosyn] Allergy (Verified 06/01/20 21:37) Hives tramadol Allergy (Verified 06/01/20 21:37) Other blisters to mouth gabapentin Adverse Reaction (Verified 06/01/20 21:37) Other BEE STINGS Adverse Reaction (Uncoded 06/01/20 21:37) Swelling LIQUID SMOKE/BBQ SAUCE Adverse Reaction (Uncoded 06/01/20 21:37) Nausea Primary Care Physician: Abby Sears DO [Primary Care Provider] - Prior records reviewed: Yes Surgical History: noncontributory, - - Tubal ligation Lives: Spouse/ Significant Other Smoking Status: Former smoker Alcohol: Sober Drugs: None Review of Systems General: Denies: Chills, Fever, Malaise, Subjective, Sweats Eyes: Denies: Visual changes - bilaterally, Blurred Vision - bilaterally ENT: Denies: Bilateral ear pain, Rhinorrhea, Sore throat Cardiovascular: Denies: Chest pain, Palpitations Respiratory: Denies: Dyspnea, Cough, Dyspnea on exertion Gastrointestinal: Denies: Nausea, Vomiting Musculoskeletal: Denies: Myalgias, Arthralgias, Neck pain, Back pain Skin: Denies: Rash Hematologic: Denies: Easy bruising, Easy bleeding Physical Exam Vital Signs/Narrative: Vital Signs Temp Pulse Resp BP Pulse Ox 06/01/20 21:35 96.5 F L 82 16 148/83 H 100 Inital Vital Signs reviewed: Yes General: Well nourished, Well developed Head: Normocephalic, Atraumatic ENT: Moist mucous membranes, Nasal congestion, No nasal trauma, No rhinorrhea, Sinus tenderness Mouth/Throat: Normal inspection lips/gums, Normal oral mucosa, Normal posterior oropharynx, No sublingual edema, Normal Stensen's duct, Dental abscess - Apical, Gingivitis, Tenderness on tooth percussion, Widespread dental decay. Negative for: No dental tenderness, No focal abscess, Apthous ulcer, Dental trauma, Focal gum swelling, Trismus Neck: Supple, No lymphadenopathy, Nontender, No JVD, Soft tissue swelling - There is soft tissue swelling body of the mandible adjacent to infected right lower molar that has a significant defect due to cavity with ex Lausier of pulp. Negative for: Anterior submandibular lymphadenopathy, Posterior submandibular lymphadenopathy, Anterior submental lymphadenopathy, Posterior submental lymphadenopathy Cardiovascular: Regular rate, Regular rhythm, No murmurs, Normal S1, Normal S2 Respiratory: No distress, CTA bilaterally, Chest nontender Skin: Normal color, No rash Neurological: Alert, Oriented x3, Cranial nerves II-XII grossly intact, Normal Strength, Normal Sensation Psychological: Depressed Diagnostic/Tx/Re-eval - Medical Decision Making The periapical abscess. There is no evidence of fistula formation. There is no fluctuance that is amenable to drainage. There is no trismus. There is no evidence of Ludewig's angina. Patient was treated with penicillin, NSAID and opiate analgesia. She states she has a dentist. She will contact the dentist on Thursday. She was informed since she has pain to hot liquids she has a reverse pulpitis and treatment is either root canal or extraction. ED Disposition - Plan for ED Patient: Disposition: Home or Assisted Living Diagnosis: Periapical abscess without sinus tract, Symptomatic irreversible pulpitis, Dental caries extending into dentin Instructions: Dental Abscess Prescriptions: Ibuprofen [Ibu] 800 mg PO TID #20 tab Prescription Printed Hydrocodone Bitart/Apap 5-325 [[place] 5MG-325MG] 1 tab PO Q6H PRN PRN 3 Days #10 tab PRN Reason: Pain Prescription Printed Penicillin V Potassium 500 mg PO 4X/DAY #40 tab Prescription Printed Referrals: Abby Sears DO [Primary Care Provider] - Dentist,Your [STAFF PHYSICIAN] - 5-7 Days
[2020-06-01] MEDS: Ibuprofen 400 MG Tablet 800 MG PO (22:12)
[2020-06-01] MEDS: Penicillin Vk 250 MG Tablet 500 MG PO (22:12)
[2020-06-01] MEDS: HYDROcodone Bitartrate/Apap 5/325 Tablet PO (22:12)
--- NOTE | 2020-06-01 22:18 | ED.RN ---
pt states she is naproxen gives her hives, but she has been taking Ibuprofen all day. Ibuprofen she is not allergic to.
[2020-06-01 22:33] VITALS: RESP 16
== END 2020-06-01 22:34 | disposition home or self-care (01) ==
PROVIDERS: Emergency Provider Emergency Medicine; PCP Family Medicine
DX: K04.7 Periapical abscess without sinus (principal); K04.02 Irreversible pulpitis; K02.9 Dental caries, unspecified; Z87.891 Personal history of nicotine dependence; Z88.5 Allergy status to narcotic agent; Z88.6 Allergy status to analgesic agent; Z88.8 Allergy status to other drugs, medicaments and biological substances; F32.9 Major depressive disorder, single episode, unspecified
CPT/HCPCS: 99283

== ENCOUNTER 2020-09-18 08:26 | Emergency (ER) | payer OTHER, MEDICAID, SELFPAY ==
[2020-09-18 08:26] VITALS: BP 123/79; PULSE 89; RESP 16; TEMP 35.9; O2SAT 100; BMI 19.3
--- NOTE | 2020-09-18 08:35 | ED.DCSUM_ITS ---
History of Present Illness Chief Complaint: Dental Informant: Patient Onset: Yesterday Context: Sudden Onset Timing: Continuous Quality: Pain Location: Right lower second bicuspid, tooth #29 Current Severity: Moderate Maximum Severity: Severe Worsened by: Nothing specific Relieved by: - - Nothing Associated Symptoms: - - Patient denies fever or chills. She denies difficulty opening closing her mouth completely. She denies change in voice. She denies difficulty swallowing. Narrative: She is a 39-year-old woman who was seen the end of last year for dental pain. She was scheduled for root canal. She states she missed the appointment because she had to work. She denies fever, chills night sweats. She denies rheumatic fever, heart murmur, SBE or being immune suppressed. She denies difficulty opening closing her mouth. She denies dysphonia or dysphagia. She states the pain is right lower back tooth. She denies any other symptoms. Prior similar symptoms: Yes Recent Illness/Hospitalization: No - Past Medical History (1) Dental infection Status: Acute Past Medical History - Allergies and Home Meds Allergies/Adverse Reactions: Allergies lanolin Allergy (Verified 09/18/20 08:28) Hives naproxen [From Naprosyn] Allergy (Verified 09/18/20 08:28) Hives tramadol Allergy (Verified 09/18/20 08:28) Other blisters to mouth gabapentin Adverse Reaction (Verified 09/18/20 08:28) Other BEE STINGS Adverse Reaction (Uncoded 09/18/20 08:28) Swelling LIQUID SMOKE/BBQ SAUCE Adverse Reaction (Uncoded 09/18/20 08:28) Nausea Primary Care Physician: Abby Sears DO [Primary Care Provider] - Prior records reviewed: Yes Surgical History: noncontributory, - - Tubal ligation Lives: With Family Smoking Status: Former smoker Alcohol: Rare Drugs: None Review of Systems General: Denies: Chills, Fever, Malaise, Subjective, Sweats ENT: Reports: - - And read HPI. Denies: Bilateral ear pain, Rhinorrhea, Sore throat Cardiovascular: Denies: Chest pain, Palpitations Respiratory: Denies: Dyspnea, Cough, Dyspnea on exertion Gastrointestinal: Denies: Nausea, Vomiting Musculoskeletal: Denies: Myalgias, Arthralgias, Neck pain, Back pain Skin: Denies: Rash Neurological: Denies: Headache Physical Exam Vital Signs/Narrative: Vital Signs Temp Pulse Resp BP Pulse Ox 09/18/20 08:26 96.6 F L 89 16 123/79 H 100 Inital Vital Signs reviewed: Yes General: Well nourished, Well developed Head: Normocephalic, Atraumatic ENT: Moist mucous membranes, Nasal congestion, No nasal trauma, No rhinorrhea. Negative for: Sinus tenderness Mouth/Throat: Normal oral mucosa, Normal posterior oropharynx, No sublingual edema, Normal Stensen's duct, Dental abscess, Focal dental decay, Gingivitis, Tenderness on tooth percussion. Negative for: Normal inspection lips/gums, No dental tenderness, No focal abscess, Apthous ulcer, Dental trauma, Dental avulsion, Dentral fracture, Filling loss, Trismus, Widespread dental decay Neck: Supple, No lymphadenopathy, Nontender, No JVD, - - Is midline. There is no inspiratory or expiratory stridor.. Negative for: Anterior submandibular lymphadenopathy, Posterior submandibular lymphadenopathy, Anterior submental lymphadenopathy, Posterior submental lymphadenopathy, Soft tissue swelling, Submandibular soft tissue swelling, Submental soft tissue swelling, Parotid tenderness Cardiovascular: Regular rate, Regular rhythm, No murmurs, Normal S1, Normal S2 Respiratory: No distress, CTA bilaterally, Chest nontender Skin: Normal color, No rash Neurological: Alert, Oriented x3, Cranial nerves II-XII grossly intact, Normal Strength, Normal Sensation Psychological: Normal affect Diagnostic/Tx/Re-eval - Medical Decision Making Patient has evidence of dental cavity with subsequent periapical abscess. There is no evidence of facial cellulitis. There is no evidence of Ludewig's angina. Patient was treated with clindamycin and opiate analgesia. She was instructed to take 4 ibuprofen every 8 hours as well. She was informed to contact dentist for definitive care. ED Disposition - Plan for ED Patient: Disposition: Home or Assisted Living Diagnosis: Periapical abscess without sinus tract Instructions: Dental Abscess, ED Dental Cavity Prescriptions: Clindamycin HCl [Cleocin] 300 mg PO Q6H #28 cap Transmission Status: Pending to PRICIL[facility] THOMAS RD Hydrocodone Bitart/Apap 5-325 [[place] 5MG-325MG] 1 tablet PO Q6H PRN PRN 3 Days #10 tablet PRN Reason: Pain Transmission Status: Received by PRICILA THOMAS RD Referrals: Abby Sears, [Primary Care Provider] - Dentist,Your [STAFF PHYSICIAN] - 5-7 Days
[2020-09-18] MEDS: Clindamycin HCl 150 MG Capsule 300 MG PO (08:44)
[2020-09-18] MEDS: HYDROcodone Bitartrate/Apap 5/325 Tablet PO (08:44)
== END 2020-09-18 08:50 | disposition home or self-care (01) ==
PROVIDERS: Emergency Provider Emergency Medicine; PCP Family Medicine
DX: K04.7 Periapical abscess without sinus (principal); Z87.891 Personal history of nicotine dependence; Z88.5 Allergy status to narcotic agent; Z88.6 Allergy status to analgesic agent; Z88.8 Allergy status to other drugs, medicaments and biological substances
CPT/HCPCS: 99283

== ENCOUNTER 2020-10-26 14:58 | Emergency (ER) | payer OTHER, MEDICAID, SELFPAY ==
[2020-10-26 14:59] VITALS: BP 142/76; PULSE 84; RESP 16; TEMP 36.3; O2SAT 100; BMI 19.6
--- NOTE | 2020-10-26 15:28 | CT_ITS ---
INDICATION: abd pain, h/o colitis EXAMINATION: CT Abdomen And Pelvis W/ Contrast Injection TECHNIQUE: Helically acquired images were obtained of the abdomen and pelvis after IV contrast. A radiation dose optimization technique was used for this scan. IV Contrast dosage and agent: 100 cc [id number] Oral contrast: None. COMPARISON: 12/19/2017. FINDINGS: Visualized lung bases: Unremarkable Liver: Unremarkable Gallbladder: Contracted Spleen: Unremarkable Pancreas: Unremarkable Adrenal Glands: Unremarkable Kidneys: Unremarkable Vasculature: There is evidence of nutcracker syndrome including reduced aortic-SMA angle, left renal vein stenosis and early enhancement of the left gonadal vein during portal venous phase. GI Tract: Unremarkable Lymphadenopathy: None Peritoneum: No ascites. 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 This patient may also have a degree of chronic SMA syndrome (this can occur simultaneously with nutcracker syndrome), however, there does not appear to be an acute exacerbation at this time. Electronically Signed: Georges Cherry MD at 16:50 EDT Tel , Service support ,
[2020-10-26 15:37] VITALS: BP 115/77; PULSE 56; RESP 17; O2SAT 98
[2020-10-26 15:47] LABS: Bacteria 0 SEEN /hpf (None Seen); Mucous, Urine 0 SEEN /hpf (<or=2+); Red Blood Cells-Urine 0 SEEN /hpf (0-5)
[2020-10-26] MEDS: Ondansetron 4 MG/2 ML Vial IV (15:49)
[2020-10-26] MEDS: 0.9% Normal Saline 1,000 ML 1000 ML IV (15:49)
[2020-10-26] MEDS: Morphine 4 MG/ML Syringe IV (15:49)
[2020-10-26 15:53] LABS: Glucose, Dipstick Normal (Normal); Ketone-Dipstick Negative (Negative); Leukocyte Esterase-Dipstick Negative /ul (Negative); Nitrite-Dipstick Negative (Negative); Occult Blood-Urine Negative /ul (Negative); Protein-Dipstick Negative (Negative); Specific Gravity, Urine 1.005 (1.002-1.030); Urine Bilirubin Dipstick Negative (Negative); Urine Clarity Clear (Clear); Urine Urobilinogen Normal (Normal)
[2020-10-26 15:57] LABS: Absolute Lymphocyte Count 2.17 X10^3/uL (0.83-4.51); Absolute Neutrophil Count 4.7 X10^3/uL (2.0-7.7); Basophil# 0.06 X10^3/uL; Basophil% 0.8 % (0-1); Eosinophil# 0.16 X10^3/uL; Eosinophils% 2.1 % (0-5); Hematocrit 39.4 % (37-47); Hemoglobin 13.2 g/dL (12.0-15.0); Lymphocyte # 2.17 X10^3/ul (4.0); Mean Corp Hgb Conc 33.5 g/dL (32-36); Mean Corpuscular Hgb 31.6 pg (27.0-32.0); Mean Corpuscular Volume 94.3 fL (81-99); Mean Platelet Vol. 9.6 fl (6.2-12.0); Monocyte# 0.42 X10^3/uL; Monocyte% 5.6 % (0-10); NRBC Flagged by Analyzer 0 % (0-5); Neutrophil # 4.66 X10^3/uL (2.7-7.7); Neutrophil % 62.4 % (47-70); Platelet Count 266 K/mm3 (150-450); RBC Distribution Width CV 11.7 % (11.6-14.6); RBC Distribution Width SD 39.8 fl (35.1-43.9); Red Blood Count 4.18 M/mm3 (4.2-5.4); White Blood Count 7.5 K/mm3 (4.4-11.0)
[2020-10-26 16:04] LABS: Color, Urine SEE COMMENT BELOW (Yellow)
[2020-10-26 16:06] LABS: Squamous Epithelial Cells - UA 0-5 SEEN /hpf (5-10)
[2020-10-26 16:07] LABS: White Blood Cells 0-5 SEEN /hpf (0-5)
[2020-10-26 16:08] LABS: Internal QC Validated? YES +Cl - CLEAR BKGD; Pregnancy, Urine Negative Negative
[2020-10-26 16:09] LABS: ALB/GLOB Ratio 1.2 RATIO (0.9-2.4); AST(SGOT) 25 U/L (15-37); Alanine Aminotransfer ALT/SGPT 35 U/L (13-56); Albumin, Serum 3.7 g/dL (3.2-5.0); Alkaline Phosphatase 81 U/L (45-117); Anion Gap 0 (5-15); BUN 7 mg/dL (7-18); BUN/Creat Ratio 9.8 RATIO (10-20); Calcium,Total 8.7 mg/dL (8.5-10.1); Chloride 106 mmol/L (98-107); Creatinine, Serum 0.71 mg/dL (0.55-1.02); EST Glomerular Filtration Rate 97 mL/min (>60); Est Glom Filt Rate - Afr Amer 117 mL/min (>60); Estimated Creatinine Clearance 90.91 ml/min; Globulin 3.2 g/dL (2.2-4.2); Glucose 87 mg/dL (74-106); Lipase 98 U/L (73-393); Potassium 3.4 mmol/L (3.5-5.1); Protein, Total 6.9 g/dL (6.4-8.2); Sodium Level 137 mmol/L (136-145)
--- NOTE | 2020-10-26 17:31 | ED.DCSUM_ITS ---
- ER Visit Summary Date of Service: 10/26/20 Chief Complaint: Colitis flare History of Present Illness: The patient is a 39 F who reports a history of colitis, but she is unsure what type of colitis she has. She thinks she had a history of diverticulitis with a bowel obstruction that was treated at [facility]. Patient is having nausea, vomiting, diarrhea as well. Physical Examination: Afebrile and vital signs unremarkable. Patient appears uncomfortable. Heart regular. Lungs clear. Abdomen is soft and nontender. Bilateral mild CVA tenderness. Skin appears normal without jaundice. Test Results: CBC, BMP, hepatic panel, lipase, urine, test all unremarkable. CT showed evidence of nutcracker syndrome, SMA syndrome without acute exacerbation. Emergency Department Course and Treatment: Patient was treated with fluids, morphine, Zofran while awaiting results. Results as above. I do not believe her CT findings are causing her symptoms or causing any acute issues. These are incidental findings. Results were discussed with the patient. She will follow- up as an outpatient. Return for any new or worsening issues. She was given a prescription for dicyclomine and Zofran as needed. Treatment Plan: As above Disposition: Discharge Impression: Nausea, vomiting, diarrhea This note was generated with markedup dictation software. It may contain incorrect words, spelling, and punctuation that were not noted in review of the chart prior to signing ED Disposition - Plan for ED Patient: Referrals: Abby Sears DO [Primary Care Provider] -
--- NOTE | 2020-10-26 17:33 | ED.DEP ---
ED Disposition - Plan for ED Patient: Instructions: ED Abdominal Pain Unkn Cause Fem Prescriptions: Dicyclomine HCl [Bentyl] 20 mg PO TIDAC #20 capsule Prescription Printed Ondansetron [Zofran Odt] 4 mg PO Q8H PRN PRN #10 tablet PRN Reason: Nausea Prescription Printed Referrals: Abby Sears DO [Primary Care Provider] -
[2020-10-26 18:14] VITALS: BP 102/52; PULSE 67; RESP 15; O2SAT 99
== END 2020-10-26 18:14 | disposition home or self-care (01) ==
LOC: ED 15:48
PROVIDERS: Emergency Provider Emergency Medicine; PCP Family Medicine
DX: R11.2 Nausea with vomiting, unspecified (principal); R19.7 Diarrhea, unspecified; R10.9 Unspecified abdominal pain; M54.9 Dorsalgia, unspecified
CPT/HCPCS: 74177; 80053; 81001; 81025; 83690; 85025; 96361; 96374; 96375; 99283; J7030; Q9967; A4216; J2405

== ENCOUNTER 2020-11-07 23:17 | Emergency (ER) | payer OTHER, MEDICAID, SELFPAY ==
[2020-11-07 23:18] VITALS: BP 118/80; PULSE 73; RESP 16; TEMP 36.6; O2SAT 100; BMI 19.1
[2020-11-07] MEDS: Penicillin Vk 250 MG Tablet 500 MG PO (23:47)
[2020-11-07] MEDS: Ketorolac 15 MG/ML Vial IM (23:47)
--- NOTE | 2020-11-07 23:51 | ED.VIS.GEN ---
History of Present Illness Chief Complaint: Dental Informant: Patient Narrative: 39-year-old female presents with concern for right lower dental pain. States it began today. States that it is sharp in nature. Worse with eating. Denies any fever, chills, headache, vision change, neck pain. Past Medical History - Allergies and Home Meds Allergies/Adverse Reactions: Allergies lanolin Allergy (Verified 11/07/20 23:21) Hives naproxen [From Naprosyn] Allergy (Verified 11/07/20 23:21) Hives tramadol Allergy (Verified 11/07/20 23:21) Other blisters to mouth gabapentin Adverse Reaction (Verified 11/07/20 23:21) Other BEE STINGS Adverse Reaction (Uncoded 11/07/20 23:21) Swelling LIQUID SMOKE/BBQ SAUCE Adverse Reaction (Uncoded 11/07/20 23:21) Nausea Primary Care Physician: Abby Sears DO [Primary Care Provider] - Prior records reviewed: Yes Past Medical History: None Surgical History: noncontributory, - - Tubal ligation Lives: Spouse/ Significant Other Smoking Status: Former smoker Alcohol: None Drugs: None Review of Systems General: Denies: Chills, Fever, Sweats Eyes: Denies: Visual changes - bilaterally, Diplopia ENT: Reports: - - Dental pain. Denies: Rhinorrhea, Sore throat Cardiovascular: Denies: Chest pain, Palpitations Respiratory: Denies: Dyspnea, Cough, Dyspnea on exertion Gastrointestinal: Denies: Abdominal pain, Nausea, Vomiting, Diarrhea, Melena, Hematochezia Genitourinary: Denies: Dysuria, Hematuria, Frequency Musculoskeletal: Denies: Back pain, Extremity Pain Skin: Denies: Rash, Wounds Neurological: Denies: Headache, Weakness, Numbness Physical Exam Vital Signs/Narrative: Vital Signs Temp Pulse Resp BP Pulse Ox 11/07/20 23:18 97.9 F 73 16 118/80 100 Inital Vital Signs reviewed: Yes General: Well nourished, Well developed, No Acute Distress Head: Normocephalic, Atraumatic Eyes: Perrl, EOMI ENT: Moist mucous membranes, No rhinorrhea, - - Poor dentition throughout. Right lower premolar with deterioating base. No periapical abscess. Neck: Supple, Nontender Cardiovascular: Regular rate, Regular rhythm, No murmurs Respiratory: No distress, CTA bilaterally, Chest nontender Abdomen: Soft, Nontender, Nondistended, Normal bowel sounds Back: Nontender, Normal Inspection Extremities: Nontender, No edema Skin: Normal color, No rash Neurological: Alert, Oriented x3, Cranial nerves II-XII grossly intact, Normal Strength, Normal Sensation Psychological: Normal affect, Normal Mood Diagnostic/Tx/Re-eval - Medical Decision Making Appears well and nontoxic. Vital signs within normal limits. No periapical abscess. Patient will be given penicillin VK and Toradol. Will be given Motrin for home which she has been tolerating earlier today. Stable at time of discharge and asked to follow-up with dental. ED Disposition - Plan for ED Patient: Disposition: Home or Assisted Living Instructions: ED Dental Pain Prescriptions: Ibuprofen [Motrin] 600 mg PO TID PRN PRN #20 tablet PRN Reason: Pain 1-10 Or Fever Prescription Printed Penicillin V Potassium 500 mg PO 4X/DAY #40 tablet Prescription Printed Referrals: Dentist,Your [STAFF PHYSICIAN] - 2 Days
[2020-11-08 00:22] VITALS: RESP 14
== END 2020-11-08 00:22 | disposition home or self-care (01) ==
PROVIDERS: Emergency Provider Emergency Medicine; PCP Family Medicine
DX: K08.89 Other specified disorders of teeth and supporting structures (principal); Z87.891 Personal history of nicotine dependence; Z88.5 Allergy status to narcotic agent; Z88.6 Allergy status to analgesic agent; Z88.8 Allergy status to other drugs, medicaments and biological substances
CPT/HCPCS: 96372; 99282

== ENCOUNTER 2021-01-24 19:07 | Emergency (ER) | payer OTHER, MEDICAID, SELFPAY ==
[2021-01-24 19:08] VITALS: BP 119/84; PULSE 75; RESP 18; TEMP 36.6; O2SAT 100; BMI 18.6
--- NOTE | 2021-01-24 19:17 | EDS_ITS ---
HPI History of Present Illness Chief Complaint: Lower Extremity Injury Detail of Chief Complaint: Right great toe pain Informant: patient Onset/Context/Timing Current Severity: Severe Narrative Narrative: Patient presents to the emergency department complaint of pain in her right great toe that she has had for over a month off and on. Pain became more severe while at work today. She denies any trauma to her toe. Her thinks that she has gout. She is not been diagnosed with gout before. She denies any fevers or recent illness. Patient does use ibuprofen but not get much pain relief. Patient has history of asthma as well as history of IBS and colitis. PFSH PFSH Home Medications clonazepam 0.5 mg PO BID PRN PRN 11/05/17 [History Last Taken Unknown] omeprazole 20 mg PO DAILY #30 cap 03/04/19 [Rx Last Taken Unknown] Tizanidine HCl 1 tab PO TID 03/02/20 [History Last Taken Unknown] Dextroamphetamine/Amphetamine [Dextroamp-Amphet Er 20 Mg Cap] 20 mg PO DAILY 06/01/20 [History Last Taken Unknown] dextroamphetamine-amphetamine 15 mg PO LUNCH 06/01/20 [History Last Taken Unknown] dicyclomine 20 mg PO TIDAC #20 capsule 10/26/20 [Rx Last Taken Unknown] ondansetron 4 mg PO Q8H PRN PRN #10 tablet 10/26/20 [Rx Last Taken Unknown] ibuprofen 600 mg PO TID PRN PRN #20 tablet 11/07/20 [Rx Last Taken Unknown] penicillin V potassium 500 mg PO 4X/DAY #40 tablet 11/07/20 [Rx Last Taken Unknown] hydrocodone-acetaminophen 1 tab PO Q4H PRN PRN 2 Days #10 tablet 01/24/21 [Rx Last Taken Unknown] prednisone 20 mg PO BID #10 tab 01/24/21 [Rx Last Taken Unknown] Allergy/AdvReac Type Severity Reaction Status Date / Time lanolin Allergy Hives Verified 01/24/21 19:09 naproxen [From Naprosyn] Allergy Hives Verified 01/24/21 19:09 tramadol Allergy Other Verified 01/24/21 19:09 gabapentin AdvReac Other Verified 01/24/21 19:09 BEE STINGS AdvReac Swelling Uncoded 01/24/21 19:09 LIQUID SMOKE/BBQ SAUCE AdvReac Nausea Uncoded 01/24/21 19:09 Social History Smoking Status: Former smoker ROS ROS ED Constitutional Constitutional ED: Reports systems reviewed and no addt'l complaints, except as documented; Denies body ache(s), change in weight or chills Eyes Eyes: Denies acute decrease in peripheral vision, change in vision, double vision or loss of vision ENT ENT ED: Reports none; Denies ear pain, lip swelling, loss taste/smell, neck pain, otalgia or sore throat Cardiovascular Cardiovascular: Reports none; Denies abdominal pain, chest pain with activity, leg edema, lightheadedness, palpitations, rapid heart rate or syncope Respiratory/Chest Respiratory/Chest: Reports none; Denies change in mental status, dry cough, dyspnea, hemoptysis, shortness of breath at rest or shortness of breath with exertion Gastrointestinal Gastrointestinal: Reports none; Denies abdominal pain, change in stool character, diarrhea, hematemesis, hematochezia, melena, rectal bleeding or vomiting Genitourinary Genitourinary ED: Reports none; Denies abdominal discomfort, anuria, dysuria, genital pain or polyuria Musculoskeletal Musculoskeletal: Reports none and other Details: Right great toe pain ; Denies arthralgias, back pain, difficulty walking, extremity pain, muscle weakness or myalgias Integumentary Reports none; Denies abscess or rash Neurologic Neurologic: Reports none; Denies abnormal gait, confusion, focal weakness, frequent falls, headache(s), loss of vision, numbness, paresthesias, radicular pain, vertigo or weakness Psychiatric Psychiatric: Reports systems reviewed and no addt'l complaints, except as d ocumented and none; Denies behavioral changes, confusion, difficulty concentrating, hallucinations, suicidal ideation, tactile hallucinations or visual hallucinations Endocrine Endocrinology: Denies none, cold intolerance, excessive sweating, fatigue or heat intolerance Hematologic/Lymphatic Hematologic/Lymphatic: Reports none; Denies anemia, easy bleeding or easy bruising Allergic/Immunologic Allergic/Immunologic ED: Denies as per HPI, none, lip swelling, mouth swelling, throat swelling, tongue swelling or hives EXAM Physical Exam Const Vital Signs: 01/24/21 19:08 Temperature 97.9 F Temperature Source Temporal Pulse Rate 75 Respiratory Rate 18 Blood Pressure 119/84 H Blood Pressure Mean 95 Pulse Ox 100 Oxygen Delivery Method Room Air Positive well nourished and well developed General Appearance ED: well developed and NAD HEENT Reports TM's clear and moist mucous membranes normocephalic and atraumatic; Negative for trauma or tenderness Tympanic Membrane ED: Yes TM's clear Eyes PERRL and EOMs intact bilaterally General Eye ED: Negative for pale conjunctiva or scleral icterus Neck no lymphadenopathy, supple and no JVD General: Negative for tenderness Chest Wall inspection of chest normal and palpation of chest normal Chest: Negative for tenderness Resp normal respiratory effort and clear to auscultation bilaterally Effort and Inspection: Negative for respiratory distress or pain with movement Auscultation: Negative for rhonchi, wheezes or diminished lung sounds Cardio regular rate, regular rhythm, S1 normal heart sound, S2 normal heart sound and no murmurs Peripheral Pulses: pulses 2+ throughout GI normal to inspection, nondistended, normoactive bowel sounds, soft to palpation, non-tender, non-distended and no masses Back/Spine no CVA tenderness and no thoracic nor lumbar tenderness Extremity Extremity Narrative: Evaluation of the right foot reveals tenderness palpation o suzanne the first MTP joint with some minimal faint erythema noted. There is no erythema or cellulitis noted. Neurovascular intact distally. General Extremety ED: Negative for edema General Extremity: Negative for edema Neuro oriented x3, CN's II-XII intact bilaterally, no sensory deficits noted and gait normal Sensorium / Orientation: awake, alert, oriented to person, oriented to place and oriented to time Motor Exam: strength 5/5 throughout and strength abnormal Psych mental status grossly normal Skin no rashes or lesions noted and no wounds MDM MDM MDM Narrative Medical decision making narrative: Given no history of trauma I do not feel any x-rays are indicated at this time. Patient will be started on prednisone and given a few [place] for pain. She will be referred to podiatry for follow-up. Discharge Plan Triage Chief Complaint: Lower Extremity Injury ED Provider: Lorie Howell Dx/Rx/DC Orders Clinical Impression: Acute foot pain Instructions: ED Gout Prescriptions: New hydrocodone-acetaminophen [hydrocodone-acetaminophen] 1 TABLET tablet 1 tab PO Q4H PRN PRN (Reason: Pain) 2 Days Qty: 10 RF: 0 prednisone 20 mg tablet 20 mg PO BID Qty: 10 RF: 0 No Action clonazepam 0.5 MG tablet 0.5 mg PO BID PRN PRN (Reason: Anxiety) RF: 0 omeprazole 20 MG capsule 20 mg PO DAILY Qty: 30 RF: 0 Tizanidine HCl 4 MG 1 tab PO TID RF: 0 dextroamphetamine-amphetamine 15 MG tablet 15 mg PO LUNCH RF: 0 Dextroamphetamine/Amphetamine [Dextroamp-Amphet Er 20 Mg Cap] 20 MG Cap.Er.24h 20 mg PO DAILY RF: 0 ondansetron 4 MG tablet 4 mg PO Q8H PRN PRN (Reason: Nausea) Qty: 10 RF: 0 dicyclomine 10 MG capsule 20 mg PO TIDAC Qty: 20 RF: 0 ibuprofen 800 MG tablet 600 mg PO TID PRN PRN (Reason: Pain 1-10 Or Fever) Qty: 20 RF: 0 penicillin V potassium 500 MG tablet 500 mg PO 4X/DAY Qty: 40 RF: 0 Primary Care Provider: Abby Sears Referrals: Pelon Simpson DPM [STAFF PHYSICIAN] - 3-5 Days Abby Sears DO [Primary Care Provider] - Disposition Disposition: Home, Self Care
[2021-01-24] MEDS: predniSONE 20 MG Tablet 40 MG PO (19:26)
== END 2021-01-24 19:30 | disposition home or self-care (01) ==
LOC: ED 19:25
PROVIDERS: Emergency Provider Emergency Medicine; PCP Family Medicine
DX: M79.674 Pain in right toe(s) (principal)
CPT/HCPCS: 99283

== ENCOUNTER 2021-06-29 19:27 | Emergency (ER) | payer OTHER, SELFPAY ==
[2021-06-29 19:27] VITALS: BP 127/89; PULSE 79; RESP 16; TEMP 36.6; O2SAT 100; BMI 18.4
--- NOTE | 2021-06-29 19:58 | EDS_ITS ---
HPI History of Present Illness Chief Complaint: Other, Pain/Inj Detail of Chief Complaint: Neck pain Informant: patient Onset/Context/Timing Onset: Yesterday Context: Gradual Onset Current Severity: Moderate Maximum Severity: Moderate Narrative Narrative: Patient presents with increased neck and bilateral shoulder pain. She was working a different job with repetitive motion and lifting her arms. She has chronic problems with her neck. She feels that this pain is flared but she also has significant spasm of the muscles across her shoulders. She states today she had some intermittent numbness and tingling in her arms. There is no fall or direct injury. [facility] Medical History (Updated 06/29/21 @ 20:[address] Francy Tyson MD) Chronic neck pain Medical History no medical history no medical history Home Medications clonazepam 0.5 mg PO BID PRN PRN 11/05/17 [History Last Taken Unknown] Tizanidine HCl 1 tab PO TID 03/02/20 [History Last Taken Unknown] Dextroamphetamine/Amphetamine [Dextroamp-Amphet Er 20 Mg Cap] 20 mg PO DAILY 06/01/20 [History Last Taken Unknown] dextroamphetamine-amphetamine [Adderall] 15 mg PO LUNCH 06/01/20 [History Last Taken Unknown] dicyclomine 20 mg PO TIDAC #20 capsule 10/26/20 [Rx Last Taken Unknown] ibuprofen 600 mg PO TID PRN PRN #20 tablet 11/07/20 [Rx Last Taken Unknown] albuterol mcg INHALATION 06/29/21 [History Last Taken Unknown] cyclobenzaprine 10 mg PO BID PRN #10 tab 06/29/21 [Rx Last Taken Unknown] lidocaine [Lidoderm] 1 patch TOPICAL DAILY #6 ea 06/29/21 [Rx Last Taken Unknown] prednisone 40 mg PO DAILY 4 Days #8 tab 06/29/21 [Rx Last Taken Unknown] Allergy/AdvReac Type Severity Reaction Status Date / Time lanolin Allergy Hives Verified 06/29/21 19:29 naproxen [From Naprosyn] Allergy Hives Verified 06/29/21 19:29 tramadol Allergy Other Verified 06/29/21 19:29 gabapentin AdvReac Other Verified 06/29/21 19:29 BEE STINGS AdvReac Swelling Uncoded 06/29/21 19:29 LIQUID SMOKE/BBQ SAUCE AdvReac Nausea Uncoded 06/29/21 19:29 Social History Smoking Status: Current every day smoker tobacco type: cigarettes ROS ROS ED Constitutional Constitutional ED: Denies chills or fever(s) Eyes Eyes: Denies change in vision ENT ENT ED: Denies sore throat Cardiovascular Cardiovascular: Denies chest pain Respiratory/Chest Respiratory/Chest: Denies cough or dyspnea Gastrointestinal Gastrointestinal: Denies abdominal pain, nausea or vomiting Musculoskeletal Musculoskeletal: Reports back pain and neck pain Integumentary Denies rash Neurologic Neurologic: Reports paresthesias; Denies headache(s) or weakness Allergic/Immunologic Allergic/Immunologic ED: Denies urticaria EXAM Physical Exam Const Vital Signs: 06/29/21 19:27 06/29/21 19:35 Temperature 97.8 F Temperature Source Temporal Pulse Rate 79 Respiratory Rate 16 Respiratory Effort Normal Blood Pressure 127/89 H Blood Pressure Mean 101 Pulse Ox 100 Oxygen Delivery Method Room Air Positive well nourished and well developed General Appearance ED: well developed HEENT Reports moist mucous membranes Eyes PERRL and EOMs intact bilaterally Neck supple Neck Narrative: Bilateral cervical paraspinal tenderness. Tenderness with palpable spasm over the left trapezius muscle. Chest Wall inspection of chest normal and palpation of chest normal Resp normal respiratory effort and clear to auscultation bilaterally Cardio regular rate and regular rhythm Extremity normal to inspection Neuro oriented x3 Sensorium / Orientation: alert Skin no rashes or lesions noted MDM MDM MDM Narrative Medical decision making narrative: Patient's medications are reviewed with her. She will be switched from tizanidine to Flexeril. She will be given steroids as well as Lidoderm patch topically. With no direct trauma or injury do not believe imaging is necessary. Discharge Plan Triage Chief Complaint: Other, Pain/Inj ED Provider: Francy Tyson Dx/Rx/DC Orders Clinical Impression: Muscle spasms of neck Instructions: ED Neck Spasm, No Trauma Prescriptions: New cyclobenzaprine 10 mg tablet 10 mg PO BID PRN (Reason: muscle spasm) Qty: 10 RF: 0 prednisone 20 mg tablet 40 mg PO DAILY 4 Days Qty: 8 RF: 0 lidocaine [Lidoderm] 5 % adhesive patch,medicated 1 patch topical DAILY Qty: 6 RF: 0 No Action clonazepam 0.5 MG tablet 0.5 mg PO BID PRN PRN (Reason: Anxiety) RF: 0 Tizanidine HCl 4 MG 1 tab PO TID RF: 0 dextroamphetamine-amphetamine [Adderall] 15 MG tablet 15 mg PO LUNCH RF: 0 Dextroamphetamine/Amphetamine [Dextroamp-Amphet Er 20 Mg Cap] 20 MG Cap.Er.24h 20 mg PO DAILY RF: 0 dicyclomine 10 MG capsule 20 mg PO TIDAC Qty: 20 RF: 0 ibuprofen 800 MG tablet 600 mg PO TID PRN PRN (Reason: Pain 1-10 Or Fever) Qty: 20 RF: 0 albuterol 90 mcg/actuation Aerosol INHALATION RF: 0 Primary Care Provider: Abby Sears Referrals: Abby Sears DO [Primary Care Provider] - 1 Week if not improving Disposition Disposition: Home, Self Care
[2021-06-29] MEDS: cycloBENZAPRine HCl 10 MG Tablet PO (20:10)
[2021-06-29] MEDS: predniSONE 20 MG Tablet 40 MG PO (20:10)
[2021-06-29] MEDS: Lidocaine 5% Patch 1 PATCH TOPICAL (20:11)
== END 2021-06-29 20:13 | disposition home or self-care (01) ==
PROVIDERS: Emergency Provider Emergency Medicine; PCP Family Medicine
DX: M62.838 Other muscle spasm (principal); F17.210 Nicotine dependence, cigarettes, uncomplicated; G89.29 Other chronic pain; Z79.1 Long term (current) use of non-steroidal anti-inflammatories (NSAID); Z79.52 Long term (current) use of systemic steroids; Z79.899 Other long term (current) drug therapy
CPT/HCPCS: 99284

== ENCOUNTER 2021-09-25 16:36 | Emergency (ER) | payer OTHER, MEDICAID, SELFPAY ==
[2021-09-25 16:37] VITALS: BP 112/79; PULSE 93; RESP 16; TEMP 36.7; O2SAT 100; BMI 18.3
--- NOTE | 2021-09-25 17:39 | EX.ED.DYSGE1 ---
HPI History of Present Illness Chief Complaint: Abd Pain Narrative Narrative: Patient reports she has chronic abdominal pain related to irritable bowel syndrome she really takes Bentyl twice daily she has lost contact with her primary care physician has no access to Bentyl and came to the emergency department for the refill, she is eating chocolate she has no other complaints this is a chronic and that she has had longstanding extensive prior patient work-up [facility] Medical History (Updated 09/25/21 @ 17:[address] Claire Carroll MD) Chronic neck pain History of colitis Vasovagal syncope Home Medications clonazepam 0.5 mg PO BID PRN PRN 11/05/17 [History Last Taken Unknown] Tizanidine HCl 1 tab PO TID 03/02/20 [History Last Taken Unknown] Dextroamphetamine/Amphetamine [Dextroamp-Amphet Er 20 Mg Cap] 20 mg PO DAILY 06/01/20 [History Last Taken Unknown] dextroamphetamine-amphetamine [Adderall] 15 mg PO LUNCH 06/01/20 [History Last Taken Unknown] dicyclomine 20 mg PO TIDAC #20 capsule 10/26/20 [Rx Last Taken Unknown] ibuprofen 600 mg PO TID PRN PRN #20 tablet 11/07/20 [Rx Last Taken Unknown] albuterol mcg INHALATION 06/29/21 [History Last Taken Unknown] cyclobenzaprine 10 mg PO BID PRN #10 tab 06/29/21 [Rx Last Taken Unknown] lidocaine [Lidoderm] 1 patch TOPICAL DAILY #6 ea 06/29/21 [Rx Last Taken Unknown] prednisone 40 mg PO DAILY 4 Days #8 tab 06/29/21 [Rx Last Taken Unknown] dicyclomine 20 mg PO TIDAC #20 capsule 09/25/21 [Rx Last Taken Unknown] Allergy/AdvReac Type Severity Reaction Status Date / Time lanolin Allergy Hives Verified 09/25/21 16:36 naproxen [From Naprosyn] Allergy Hives Verified 09/25/21 16:36 tramadol Allergy Other Verified 09/25/21 16:36 gabapentin AdvReac Other Verified 09/25/21 16:36 BEE STINGS AdvReac Swelling Uncoded 09/25/21 16:36 LIQUID SMOKE/BBQ SAUCE AdvReac Nausea Uncoded 09/25/21 16:36 Social History Smoking Status: Current every day smoker tobacco type: cigarettes ROS ROS ED Gastrointestinal Gastrointestinal: Reports abdominal pain EXAM Physical Exam Narrative Exam Narrative: She is resting company vital signs are normal eating chocolate head neck chest unremarkable abdomen soft nontender no guarding organomegaly Const Vital Signs: 09/25/21 16:37 Temperature 98.1 F Temperature Source Temporal Pulse Rate 93 Respiratory Rate 16 Blood Pressure 112/79 Blood Pressure Mean 90 Pulse Ox 100 Oxygen Delivery Method Room Air MDM MDM MDM Narrative Medical decision making narrative: Long conversation with the patient she basically simply wants the Bentyl refilled we will go ahead and do that her follow-up with her outpatient providers of her choice. Final impression acute recurrent abdominal pain requesting Bentyl refill Discharge Plan Triage Chief Complaint: Abd Pain ED Provider: Claire Carroll Dx/Rx/DC Orders Clinical Impression: Abdominal pain Instructions: Abdominal Pain Prescriptions: New dicyclomine 10 MG capsule 20 mg PO TIDAC Qty: 20 RF: 0 No Action clonazepam 0.5 MG tablet 0.5 mg PO BID PRN PRN (Reason: Anxiety) RF: 0 Tizanidine HCl 4 MG 1 tab PO TID RF: 0 dextroamphetamine-amphetamine [Adderall] 15 MG tablet 15 mg PO LUNCH RF: 0 Dextroamphetamine/Amphetamine [Dextroamp-Amphet Er 20 Mg Cap] 20 MG Cap.Er.24h 20 mg PO DAILY RF: 0 dicyclomine 10 MG capsule 20 mg PO TIDAC Qty: 20 RF: 0 ibuprofen 800 MG tablet 600 mg PO TID PRN PRN (Reason: Pain 1-10 Or Fever) Qty: 20 RF: 0 albuterol 90 mcg/actuation Aerosol INHALATION RF: 0 cyclobenzaprine 10 mg tablet 10 mg PO BID PRN (Reason: muscle spasm) Qty: 10 RF: 0 prednisone 20 mg tablet 40 mg PO DAILY 4 Days Qty: 8 RF: 0 lidocaine [Lidoderm] 5 % adhesive patch,medicated 1 patch topical DAILY Qty: 6 RF: 0 Primary Care Provider: Abby Sears Referrals: Abby Sears DO [Primary Care Provider] - Tatiana Mobley [NON-STAFF] - Disposition Disposition: Home, Self Care
== END 2021-09-25 18:12 | disposition home or self-care (01) ==
LOC: ED 18:07
PROVIDERS: Emergency Provider Emergency Medicine; PCP Family Medicine; Visit Provider Emergency Medicine
DX: R10.9 Unspecified abdominal pain (principal); F17.210 Nicotine dependence, cigarettes, uncomplicated; G89.29 Other chronic pain
CPT/HCPCS: 99282

== ENCOUNTER 2021-10-14 21:29 | Emergency (ER) | payer OTHER, SELFPAY ==
[2021-10-14 21:29] VITALS: BP 136/93; PULSE 91; RESP 17; TEMP 35.8; O2SAT 100; BMI 18.6
--- NOTE | 2021-10-14 22:04 | EX.ED.UPPERE ---
HPI History of Present Illness Chief Complaint: Upper Extremity Injury Detail of Chief Complaint: Right elbow pain Informant: patient Onset/Context/Timing Onset: Weeks (3 weeks) Context: Gradual Onset Timing: Waxes and wanes Quality of Pain: Aching and Throbbing Current Severity: Moderate Maximum Severity: Moderate Narrative Narrative: Patient presents with 3-week history of right elbow pain. She does not have a specific injury but states that she is rather clumsy and will often hit her arms off of doorways and machinery. She reports pain for the past 3 weeks and assume that she just pulled a muscle. It does not seem to be improving. She has been continuing to work but states that she is currently between assignments and wanted a professional opinion on what is wrong with her elbow because it was not healing. She is right-hand dominant. She reports some intermittent paresthesias but believes that is because of a pinched nerve in her neck as it does seem to occur bilaterally. [facility] Medical History Chronic neck pain History of colitis Vasovagal syncope Home Medications clonazepam 0.5 mg PO BID PRN PRN 11/05/17 [History Last Taken Unknown] Tizanidine HCl 1 tab PO TID 03/02/20 [History Last Taken Unknown] Dextroamphetamine/Amphetamine [Dextroamp-Amphet Er 20 Mg Cap] 20 mg PO DAILY 06/01/20 [History Last Taken Unknown] dextroamphetamine-amphetamine [Adderall] 15 mg PO LUNCH 06/01/20 [History Last Taken Unknown] dicyclomine 20 mg PO TIDAC #20 capsule 10/26/20 [Rx Last Taken Unknown] ibuprofen 600 mg PO TID PRN PRN #20 tablet 11/07/20 [Rx Last Taken Unknown] albuterol mcg INHALATION 06/29/21 [History Last Taken Unknown] cyclobenzaprine 10 mg PO BID PRN #10 tab 06/29/21 [Rx Last Taken Unknown] lidocaine [Lidoderm] 1 patch TOPICAL DAILY #6 ea 06/29/21 [Rx Last Taken Unknown] prednisone 40 mg PO DAILY 4 Days #8 tab 06/29/21 [Rx Last Taken Unknown] dicyclomine 20 mg PO TIDAC #20 capsule 09/25/21 [Rx Last Taken Unknown] prednisone 10 mg PO DAILY #5 tab 10/14/21 [Rx Last Taken Unknown] Allergy/AdvReac Type Severity Reaction Status Date / Time lanolin Allergy Hives Verified 10/14/21 21:32 naproxen [From Naprosyn] Allergy Hives Verified 10/14/21 21:32 tramadol Allergy Other Verified 10/14/21 21:32 gabapentin AdvReac Other Verified 10/14/21 21:32 BEE STINGS AdvReac Swelling Uncoded 10/14/21 21:32 LIQUID SMOKE/BBQ SAUCE AdvReac Nausea Uncoded 10/14/21 21:32 Social History Smoking Status: Current every day smoker tobacco type: cigarettes ROS ROS ED Constitutional Constitutional ED: Denies chills or fever(s) Eyes Eyes: Denies change in vision ENT ENT ED: Denies sore throat Cardiovascular Cardiovascular: Denies chest pain Respiratory/Chest Respiratory/Chest: Denies cough or dyspnea Gastrointestinal Gastrointestinal: Denies abdominal pain, nausea or vomiting Genitourinary Genitourinary ED: Denies dysuria Musculoskeletal Musculoskeletal: Reports other Details: Right elbow pain ; Denies back pain Integumentary Denies rash Neurologic Neurologic: Reports paresthesias and weakness; Denies headache(s) Allergic/Immunologic Allergic/Immunologic ED: Denies urticaria EXAM Physical Exam Const Vital Signs: 10/14/21 21:29 Temperature 96.5 F L Temperature Source Temporal Pulse Rate 91 Respiratory Rate 17 Blood Pressure 136/93 H Blood Pressure Mean 107 Pulse Ox 100 Oxygen Delivery Method Room Air Positive well nourished and well developed General Appearance ED: well developed HEENT Reports moist mucous membranes Eyes PERRL and EOMs intact bilaterally Neck supple Chest Wall inspection of chest normal and palpation of chest normal Resp normal respiratory effort and clear to auscultation bilaterally Cardio regular rate and regular rhythm GI non-tender Palpation: soft Extremity Extremity Narrative: Reproducible tenderness along the lateral epicondyles of the right elbow. No overlying edema or erythema. Good range motion at the elbow joint. Strong distal pulses with normal hand grasp and cap refill. Neuro oriented x3 Sensorium / Orientation: alert Psych mental status grossly normal Skin Lesions: no lesions Rashes: no rashes MDM MDM MDM Narrative Medical decision making narrative: Right elbow x-ray obtained. Treatment and Re-Evaluation Narrative: Elbow x-ray per mitral rotation shows no acute fracture. Patient's exam and findings are consistent with epicondylitis. Jung wrap is applied. She will be given low-dose steroids. Voltaren cream topically will be recommended. Discharge Plan Triage Chief Complaint: Upper Extremity Injury ED Provider: Francy Tyson Dx/Rx/DC Orders Clinical Impression: Epicondylitis, lateral, right Instructions: ED Tennis Elbow Prescriptions: New prednisone 10 mg tablet 10 mg PO DAILY Qty: 5 RF: 0 No Action clonazepam 0.5 MG tablet 0.5 mg PO BID PRN PRN (Reason: Anxiety) RF: 0 Tizanidine HCl 4 MG 1 tab PO TID RF: 0 dextroamphetamine-amphetamine [Adderall] 15 MG tablet 15 mg PO LUNCH RF: 0 Dextroamphetamine/Amphetamine [Dextroamp-Amphet Er 20 Mg Cap] 20 MG Cap.Er.24h 20 mg PO DAILY RF: 0 dicyclomine 10 MG capsule 20 mg PO TIDAC Qty: 20 RF: 0 ibuprofen 800 MG tablet 600 mg PO TID PRN PRN (Reason: Pain 1-10 Or Fever) Qty: 20 RF: 0 albuterol 90 mcg/actuation Aerosol INHALATION RF: 0 cyclobenzaprine 10 mg tablet 10 mg PO BID PRN (Reason: muscle spasm) Qty: 10 RF: 0 prednisone 20 mg tablet 40 mg PO DAILY 4 Days Qty: 8 RF: 0 lidocaine [Lidoderm] 5 % adhesive patch,medicated 1 patch topical DAILY Qty: 6 RF: 0 dicyclomine 10 MG capsule 20 mg PO TIDAC Qty: 20 RF: 0 Primary Care Provider: Care Physician,No Primary Referrals: Rafal De La Vega MD [STAFF PHYSICIAN] - As Needed Care Physician,No Primary [Primary Care Provider] - Activity Restrictions/Additional Instructions: You can use Voltaren cream topically on the right elbow to help with pain. This is available [id number]. Disposition Disposition: Home, Self Care
--- NOTE | 2021-10-14 22:43 | RAD_ITS ---
STUDY: X-RAY - RIGHT ELBOW REASON FOR EXAM: Female, 40 years old. pain TECHNIQUE: 3 view(s) of the elbow. COMPARISON: None. FINDINGS: Normal visualized humerus, radius and ulna. Normal radiocapitellar and ulnotrochlear articulations. The soft tissue structures are unremarkable. RAD/Elbow min 3 Views IMPRESSION: Normal x-ray examination of the elbow. Electronically Signed: Jaylon Limon DO at 23:20 EDT ,
[2021-10-14] MEDS: predniSONE 10 MG Tablet PO (23:33)
== END 2021-10-14 23:35 | disposition home or self-care (01) ==
PROVIDERS: Emergency Provider Emergency Medicine; Visit Provider Emergency Medicine
DX: M77.11 Lateral epicondylitis, right elbow (principal); F17.210 Nicotine dependence, cigarettes, uncomplicated
CPT/HCPCS: 99281; 73080; 99283

== ENCOUNTER 2022-05-09 01:17 | Emergency (ER) | payer OTHER, SELFPAY ==
[2022-05-09 01:20] VITALS: BP 122/87; PULSE 95; RESP 15; TEMP 36.4; O2SAT 99; BMI 18.3
--- NOTE | 2022-05-09 01:38 | CT_ITS ---
EXAM: CT ABDOMEN AND PELVIS WITH INTRAVENOUS CONTRAST CLINICAL INDICATION: LLQ pain TECHNIQUE: Helically acquired images were obtained of the abdomen and pelvis with intravenous contrast. CTDIvol = ( 13.09 ) mGy, DLP = ( 314.83 ) mGycm This CT exam was performed using one or more of the following dose reduction techniques: automated exposure control, adjustment of the mA and/or kV according to patient size, and/or use of iterative reconstruction technique. This report was created using [employer] report generation technology. CONTRAST: IV 100mL Isovue-[id number] COMPARISON: None. FINDINGS: LOWER THORAX: Lungs are unremarkable. No cardiomegaly. No significant pericardial effusion. ABDOMEN: LIVER: Unremarkable. Homogeneous. No focal mass. GALLBLADDER AND BILE DUCTS: Unremarkable. No calcified gallstones. No gallbladder distention or wall edema. No intra- or extrahepatic biliary ductal dilation. PANCREAS: Unremarkable. No focal cystic or solid mass. SPLEEN: Unremarkable. Normal size without focal cystic or solid mass. ADRENALS: Unremarkable. No nodules. KIDNEYS AND URETERS: Small cyst at the anterior aspect of the left interpolar region. This is most likely benign. No additional follow-up needed. Bilateral extrarenal pelvis. No other renal abnormalities. Normal renal size and position. No hydronephrosis. STOMACH AND BOWEL: Stool and gas throughout the colon can be seen with constipation. No colitis or diverticulitis or bowel obstruction. PELVIS: APPENDIX: No evidence of acute appendicitis. BLADDER: Unremarkable. REPRODUCTIVE: Unremarkable as visualized. No mass. ABDOMEN and PELVIS: INTRAPERITONEAL SPACE: No free air or free fluid. BONES/JOINTS: Bones are normal for age. No suspicious lytic or blastic abnormality. SOFT TISSUES: Unremarkable. No discrete abdominal or pelvic wall hernia. VASCULATURE: Dilated left greater the right gonadal vessels and parametrial vessels can be seen with pelvic congestion syndrome in the appropriate clinical setting. LYMPH NODES: Unremarkable. No enlarged lymph nodes. CT/Abdomen/Pelvis W IV Cont ONLY IMPRESSION: 1. Dilated left greater the right gonadal vessels and parametrial vessels can be seen with pelvic congestion syndrome in the appropriate clinical setting. 2. Stool and gas throughout the colon can be seen with constipation. No other acute disease. Electronically Signed: Roly Frankel MD at 3:14 EDT ,
[2022-05-09] MEDS: 0.9% Normal Saline 1,000 ML 999 ML IV (01:51)
[2022-05-09] MEDS: Morphine 4 MG/ML Syringe IV (01:51)
[2022-05-09] MEDS: Ondansetron 4 MG/2 ML Vial IV (01:51)
[2022-05-09 01:53] LABS: Absolute Lymphocyte Count 2.11 X10^3/uL (0.83-4.51); Absolute Neutrophil Count 4.4 X10^3/uL (2.0-7.7); Basophil# 0.06 X10^3/uL; Basophil% 0.8 % (0-1); Eosinophil# 0.22 X10^3/uL; Hematocrit 40.6 % (37-47); Hemoglobin 13.2 g/dL (12.0-15.0); Lymphocyte # 2.11 X10^3/ul (0.83-4.51); Lymphocyte % 29.1 % (19-41); Mean Corp Hgb Conc 32.5 g/dL (32-36); Mean Corpuscular Hgb 30.2 pg (27.0-32.0); Mean Corpuscular Volume 92.9 fL (81-99); Mean Platelet Vol. 9.6 fl (6.2-12.0); Monocyte# 0.44 X10^3/uL; Monocyte% 6.1 % (0-10); NRBC Flagged by Analyzer 0 % (0-5); Neutrophil % 60.7 % (47-70); Platelet Count 273 K/mm3 (150-450); RBC Distribution Width CV 11.7 % (11.6-14.6); RBC Distribution Width SD 39.9 fl (35.1-43.9); Red Blood Count 4.37 M/mm3 (4.2-5.4); White Blood Count 7.3 K/mm3 (4.4-11.0)
[2022-05-09 01:59] LABS: Color, Urine Yellow (Yellow); Glucose, Dipstick Normal (Normal); Ketone-Dipstick 5 mg/dl (Negative); Leukocyte Esterase-Dipstick 25 /ul (Negative); Nitrite-Dipstick Negative (Negative); Occult Blood-Urine 10 /ul (Negative); Protein-Dipstick 15 mg/dl (Negative); Red Blood Cells-Urine 0 SEEN /hpf (0-5); Urine Bilirubin Dipstick Negative (Negative); Urine Clarity Clear (Clear); Urine Urobilinogen 1 mg/dl (Normal)
[2022-05-09 02:05] LABS: Internal QC Validated? YES +Cl - CLEAR BKGD; Pregnancy, Serum, hCG Quali. NEGATIVE Negative
[2022-05-09 02:10] LABS: Bacteria 1+ /hpf (None Seen); Mucous, Urine 3+ /hpf (<or=2+); Squamous Epithelial Cells - UA 0-5 SEEN /hpf (5-10); White Blood Cells 0-5 SEEN /hpf (0-5)
[2022-05-09 02:13] LABS: AST(SGOT) 12 U/L (15-37); Alanine Aminotransfer ALT/SGPT 20 U/L (13-56); Albumin, Serum 3.6 g/dL (3.2-5.0); Alkaline Phosphatase 93 U/L (45-117); Anion Gap 4 (5-15); BUN 11 mg/dL (7-18); BUN/Creat Ratio 13.9 RATIO (10-20); Bilirubin, Direct 0.09 mg/dL (0.00-0.30); Calcium,Total 8.4 mg/dL (8.5-10.1); Chloride 104 mmol/L (98-107); Creatinine, Serum 0.79 mg/dL (0.55-1.02); EST Glomerular Filtration Rate 85 mL/min (>60); Est Glom Filt Rate - Afr Amer 103 mL/min (>60); Estimated Creatinine Clearance 74.57 ml/min; Globulin 3.4 g/dL (2.2-4.2); Glucose 99 mg/dL (74-106); Lipase 120 U/L (73-393); Potassium 3.3 mmol/L (3.5-5.1); Sodium Level 136 mmol/L (136-145)
--- NOTE | 2022-05-09 02:26 | EX.ED.DYSGE1 ---
HPI History of Present Illness Chief Complaint: Abd Pain Narrative Narrative: Patient is a 41-year-old female who states that she has had increasing pain to her left lower quadrant over the past 2 to 3 days. She states that tonight the pain seemed to be more severe than previous and she developed bouts of nausea associated with this. She denies any known sick contacts but with her worsening symptoms presents for evaluation. [facility] Medical History Chronic neck pain History of colitis Vasovagal syncope Home Medications clonazepam 0.5 mg tablet 0.5 mg PO BID PRN PRN Anxiety 11/05/17 [History Last Taken Unknown] Tizanidine HCl 1 tab PO TID 03/02/20 [History Last Taken Unknown] Dextroamphetamine/Amphetamine [Dextroamp-Amphet Er 20 Mg Cap] 20 mg PO DAILY 06/01/20 [History Last Taken Unknown] dextroamphetamine-amphetamine 15 mg tablet (Adderall) 15 mg PO LUNCH 06/01/20 [History Last Taken Unknown] dicyclomine 10 mg capsule 20 mg PO TIDAC #20 CAPSULES 10/26/20 [Rx Last Taken Unknown] ibuprofen 800 mg tablet 600 mg PO TID PRN PRN Pain 1-10 Or Fever #20 tabs 11/07/20 [Rx Last Taken Unknown] albuterol 90 mcg/actuation aerosol inhaler mcg inhalation 06/29/21 [History Last Taken Unknown] cyclobenzaprine 10 mg tablet 10 mg PO BID PRN muscle spasm #10 tabs 06/29/21 [Rx Last Taken Unknown] lidocaine 5 % topical patch (Lidoderm) 1 patch topical DAILY #6 ea 06/29/21 [Rx Last Taken Unknown] prednisone 20 mg tablet 40 mg PO DAILY 4 days #8 tabs 06/29/21 [Rx Last Taken Unknown] dicyclomine 10 mg capsule 20 mg PO TIDAC #20 CAPSULES 09/25/21 [Rx Last Taken Unknown] prednisone 10 mg tablet 10 mg PO DAILY #5 tabs 10/14/21 [Rx Last Taken Unknown] ondansetron 4 mg disintegrating tablet 4 mg PO TID PRN nausea and vomiting #21 tabs 05/09/22 [Rx Last Taken Unknown] oxycodone-acetaminophen 5 mg-325 mg tablet (Percocet) 1 tab PO Q6H PRN pain 3 days #12 tabs 05/09/22 [Rx Last Taken Unknown] Allergy/AdvReac Type Severity Reaction Status Date / Time lanolin Allergy Hives Verified 05/09/22 01:27 naproxen [From Naprosyn] Allergy Hives Verified 05/09/22 01:27 tramadol Allergy Other Verified 05/09/22 01:27 venom-honey bee Allergy Swelling Verified 05/09/22 01:27 gabapentin AdvReac Other Verified 05/09/22 01:27 LIQUID SMOKE/BBQ SAUCE AdvReac Nausea Uncoded 10/14/21 21:32 Social History Smoking Status: Former smoker ROS ROS ED Constitutional Constitutional ED: Denies chills or fever(s) ENT ENT ED: Denies sore throat Cardiovascular Cardiovascular: Denies chest pain Respiratory/Chest Respiratory/Chest: Denies cough or dyspnea Gastrointestinal Gastrointestinal: Reports abdominal pain and nausea; Denies diarrhea or vomiting Genitourinary Genitourinary ED: Denies dysuria or hematuria Musculoskeletal Musculoskeletal: Denies back pain or myalgias Integumentary Denies rash Neurologic Neurologic: Denies headache(s) Hematologic/Lymphatic Hematologic/Lymphatic: Denies easy bleeding or easy bruising EXAM Physical Exam Const Vital Signs: 05/09/22 01:20 05/09/22 03:37 Temperature 97.6 F L Temperature Source Oral Pulse Rate 95 Respiratory Rate 15 18 Blood Pressure 122/87 H Blood Pressure Mean 98 Pulse Ox 99 Oxygen Delivery Method Room Air Positive well nourished and well developed General Appearance ED: well developed HEENT Reports dry mucous membranes HEENT Narrative: No signs of infection in the posterior pharynx Mouth ED: Yes dry mucous membranes Mouth: dry mucous membranes Eyes PERRL and EOMs intact bilaterally Neck supple Resp normal respiratory effort and clear to auscultation bilaterally Cardio regular rate and regular rhythm Rate: other Other Details: Radial pulses are plus 2 out of 4 bilaterally are equal and symmetric GI non-distended GI Narrative: Abdomen is soft and nondistended with normal active bowel sounds. There is pain on palpation in the left lower quadrant with voluntary guarding at the site. No rigidity noted. No pulsatile mass Auscultation: normoactive bowel sounds Palpation: soft Back/Spine Back/Spine Narrative: Mild left CVA pain present Extremity normal to inspection Neuro oriented x3 and CN's II-XII intact bilaterally Sensorium / Orientation: alert Psych mental status grossly normal Skin no rashes or lesions noted MDM MDM MDM Narrative Medical decision making narrative: Patient presented to the ER with worsening pain to the left lower quadrant. She states she has a history of intestinal issues and there was concern that she may have developed acute diverticulitis but also that she has mild flank pain could have an impacted kidney stone and secondary to this concern basic labs with a CT were ordered. Labs revealed no clinically significant finding. The patient is urine has +2 bacteria but she has no urinary symptoms and therefore I do not feel there is need to treat this. The patient CT scan did not show any type of colitis/diverticulitis stone or signs of obstruction. It did question symptoms concerning for pelvic congestion syndrome greatest on the left. Patient states she is roughly 2 days out from her menstrual cycle she is not on hormones and location of her pain and timing could correlate with this. Therefore she needs to follow-up with [facility] to discuss any further treatment options such as starting hormones or even a surgical procedure. At this time however as there is no acute infection kidney damage obstruction or intestinal abscess she is safe for discharge Lab Data Attestation: I reviewed the patient's lab results. Labs: Laboratory Results - last 24 hr 05/09/22 05/09/22 05/09/22 01:26 01:26 01:26 WBC 7.3 RBC 4.37 Hgb 13.2 Hct 40.6 MCV 92.9 MCH 30.2 MCHC 32.5 RDW Std Deviation 39.9 RDW Coeff of Parag 11.7 Plt Count 273 MPV 9.6 Immature Gran % (Auto) 0.300 Neut % (Auto) 60.7 Lymph % (Auto) 29.1 [place] % (Auto) 6.1 Eos % (Auto) 3.0 Baso % (Auto) 0.8 Absolute Neuts (auto) 4.4 Absolute Lymphs (auto) 2.11 Nucleated RBC % 0 Sodium 136 Potassium 3.3 L Chloride 104 Carbon Dioxide 28.0 Anion Gap 4 L BUN 11 Creatinine 0.79 Estim Creat Clear Calc 74.57 Est GFR (MDRD) Af Amer 103 Est GFR (MDRD) Non-Af 85 BUN/Creatinine Ratio 13.9 Glucose 99 Calcium 8.4 L Total Bilirubin 0.20 Direct Bilirubin 0.09 AST 12 L ALT 20 Alkaline Phosphatase 93 Total Protein 7.0 Albumin 3.6 Globulin 3.4 Lipase 120 Serum , Qual NEGATIVE Urine Color Urine Clarity Urine pH Ur Specific [place] Urine Protein Urine Glucose (UA) Urine Ketones Urine Occult Blood Urine Nitrite Urine Bilirubin Urine Urobilinogen Ur Leukocyte Esterase Urine RBC Urine WBC Ur Squamous Epith Cells Urine Bacteria Urine Mucus 05/09/22 01:50 WBC RBC Hgb Hct MCV MCH MCHC RDW Std Deviation RDW Coeff of Parag Plt Count MPV Immature Gran % (Auto) Neut % (Auto) Lymph % (Auto) [place] % (Auto) Eos % (Auto) Baso % (Auto) Absolute Neuts (auto) Absolute Lymphs (auto) Nucleated RBC % Sodium Potassium Chloride Carbon Dioxide Anion Gap BUN Creatinine Estim Creat Clear Calc Est GFR (MDRD) Af Amer Est GFR (MDRD) Non-Af BUN/Creatinine Ratio Glucose Calcium Total Bilirubin Direct Bilirubin AST ALT Alkaline Phosphatase Total Protein Albumin Globulin Lipase Serum , Qual Urine Color Yellow Urine Clarity Clear Urine pH 6.0 Ur Specific [place] 1.020 Urine Protein 15 H Urine Glucose (UA) Normal Urine Ketones 5 H Urine Occult Blood 10 H Urine Nitrite Negative Urine Bilirubin Negative Urine Urobilinogen 1 H Ur Leukocyte Esterase 25 H Urine RBC 0 SEEN Urine WBC 0-5 SEEN Ur Squamous Epith Cells 0-5 SEEN Urine Bacteria 1+ Urine Mucus 3+ Radiography Diagnostic Testing: Clinical Impression(s) from Imaging Studies Abdomen/Pelvis CT 05/09/22 01:38 IMPRESSION: 1. Dilated left greater the right gonadal vessels and parametrial vessels can be seen with pelvic congestion syndrome in the appropriate clinical setting. 2. Stool and gas throughout the colon can be seen with constipation. No other acute disease. Electronically Signed: Roly Frankel MD at 3:14 EDT , Discharge Plan Triage Chief Complaint: Abd Pain ED Provider: Roly Eid Dx/Rx/DC Orders Clinical Impression: Pelvic congestion syndrome, Nonspecific abdominal pain, Nausea Instructions: ED Abdominal Pain Unkn Cause Fem Prescriptions: New ondansetron 4 mg tablet,disintegrating 4 mg PO TID PRN (Reason: nausea and vomiting) Qty: 21 0RF oxycodone-acetaminophen [Percocet] 5-325 mg tablet 1 tab PO Q6H PRN (Reason: pain) 3 Days Qty: 12 0RF No Action clonazepam 0.5 MG tablet 0.5 mg PO BID PRN PRN (Reason: Anxiety) Tizanidine HCl 4 MG 1 tab PO TID dextroamphetamine-amphetamine [Adderall] 15 MG tablet 15 mg PO LUNCH Dextroamphetamine/Amphetamine [Dextroamp-Amphet Er 20 Mg Cap] 20 MG Cap.Er.24h 20 mg PO DAILY dicyclomine 10 MG capsule 20 mg PO TIDAC Qty: 20 0RF ibuprofen 800 MG tablet 600 mg PO TID PRN PRN (Reason: Pain 1-10 Or Fever) Qty: 20 0RF albuterol 90 mcg/actuation Aerosol INHALATION cyclobenzaprine 10 mg tablet 10 mg PO BID PRN (Reason: muscle spasm) Qty: 10 0RF prednisone 20 mg tablet 40 mg PO DAILY 4 Days Qty: 8 0RF lidocaine [Lidoderm] 5 % adhesive patch,medicated 1 patch topical DAILY Qty: 6 0RF Rx Instructions: leave on most painful area for up to 12 hrs dicyclomine 10 MG capsule 20 mg PO TIDAC Qty: 20 0RF prednisone 10 mg tablet 10 mg PO DAILY Qty: 5 0RF Stand Alone Forms: ED Work / School Excuse Primary Care Provider: Care Physician,No Primary Referrals: Radha Natarajan MD [Med Staff - Active Staff] - Care Physician,No Primary [Primary Care Provider] - Activity Restrictions/Additional Instructions: Please follow-up with [facility]PER[facility] for further evaluation of the pelvic congestion syndrome noted on today's work-up. Please return to the ER should you have any further concerns Disposition Disposition: Home, Self Care Discharge Date/Time: 05/09/22 03:37
[2022-05-09 03:37] VITALS: RESP 18
== END 2022-05-09 03:37 | disposition home or self-care (01) ==
PROVIDERS: Emergency Provider Emergency Medicine; Visit Provider Emergency Medicine
DX: N94.89 Other specified conditions associated with female genital organs and menstrual cycle (principal); R10.9 Unspecified abdominal pain; Z87.891 Personal history of nicotine dependence; R11.0 Nausea
CPT/HCPCS: 74177; 80048; 80076; 81001; 83690; 84703; 85025; 99282; J7030; Q9967; A4216; J2405

== ENCOUNTER 2022-05-13 00:30 | Emergency (ER) | payer OTHER, MEDICAID, SELFPAY ==
[2022-05-13 00:31] VITALS: BP 108/71; PULSE 98; RESP 18; TEMP 36.4; O2SAT 100; BMI 19.5
--- NOTE | 2022-05-13 01:30 | EX.ED.DYSGE1 ---
HPI History of Present Illness Chief Complaint: General Illness Detail of Chief Complaint: Lightheadedness. Informant: patient Onset/Context/Timing Onset: Today and Yesterday Context: Gradual Onset Timing: Intermittent Current Severity: Mild Maximum Severity: Mild Narrative Narrative: 41-year-old female states she has a history of hypotension. Last couple days she has had intermittent dizziness and lightheadedness. She denies any nausea, vomiting or diarrhea. No melena. No fever or chills. No dysuria. No headache, no chest pain, nor any abdominal pain. States she has not been recently ill. Prior similar symptoms: Yes Recent Illness/Hospitalization: No [facility] Medical History Chronic neck pain History of colitis Vasovagal syncope Home Medications clonazepam 0.5 mg tablet 0.5 mg PO BID PRN PRN Anxiety 11/05/17 [History Last Taken Unknown] Tizanidine HCl 1 tab PO TID 03/02/20 [History Last Taken Unknown] Dextroamphetamine/Amphetamine [Dextroamp-Amphet Er 20 Mg Cap] 20 mg PO DAILY 06/01/20 [History Last Taken Unknown] dextroamphetamine-amphetamine 15 mg tablet (Adderall) 15 mg PO LUNCH 06/01/20 [History Last Taken Unknown] dicyclomine 10 mg capsule 20 mg PO TIDAC #20 CAPSULES 10/26/20 [Rx Last Taken Unknown] ibuprofen 800 mg tablet 600 mg PO TID PRN PRN Pain 1-10 Or Fever #20 tabs 11/07/20 [Rx Last Taken Unknown] albuterol 90 mcg/actuation aerosol inhaler mcg inhalation 06/29/21 [History Last Taken Unknown] cyclobenzaprine 10 mg tablet 10 mg PO BID PRN muscle spasm #10 tabs 06/29/21 [Rx Last Taken Unknown] lidocaine 5 % topical patch (Lidoderm) 1 patch topical DAILY #6 ea 06/29/21 [Rx Last Taken Unknown] prednisone 20 mg tablet 40 mg PO DAILY 4 days #8 tabs 06/29/21 [Rx Last Taken Unknown] dicyclomine 10 mg capsule 20 mg PO TIDAC #20 CAPSULES 09/25/21 [Rx Last Taken Unknown] prednisone 10 mg tablet 10 mg PO DAILY #5 tabs 10/14/21 [Rx Last Taken Unknown] ondansetron 4 mg disintegrating tablet 4 mg PO TID PRN nausea and vomiting #21 tabs 05/09/22 [Rx Last Taken Unknown] oxycodone-acetaminophen 5 mg-325 mg tablet (Percocet) 1 tab PO Q6H PRN pain 3 days #12 tabs 05/09/22 [Rx Last Taken Unknown] Allergy/AdvReac Type Severity Reaction Status Date / Time lanolin Allergy Hives Verified 05/13/22 00:36 naproxen [From Naprosyn] Allergy Hives Verified 05/13/22 00:36 tramadol Allergy Other Verified 05/13/22 00:36 venom-honey bee Allergy Swelling Verified 05/13/22 00:36 gabapentin AdvReac Other Verified 05/13/22 00:36 LIQUID SMOKE/BBQ SAUCE AdvReac Nausea Uncoded 05/13/22 00:36 Social History Smoking Status: Former smoker ROS ROS ED ROS Narrative Lightheadedness. Review of Systems ROS Unobtainable: Denies due to encephalopathy Constitutional Constitutional ED: Denies chills or fever(s) Eyes Eyes: Denies blurry vision ENT ENT ED: Denies ear pain Cardiovascular Cardiovascular: Denies chest pain Respiratory/Chest Respiratory/Chest: Denies cough or dyspnea Gastrointestinal Gastrointestinal: Denies abdominal pain, constipation, diarrhea, melena, nausea or vomiting Genitourinary Genitourinary ED: Denies dysuria or hematuria Musculoskeletal Musculoskeletal: Denies arthralgias Integumentary Denies abscess Neurologic Neurologic: Denies headache(s) Psychiatric Psychiatric: Denies anxiety Endocrine Endocrinology: Denies cold intolerance Hematologic/Lymphatic Hematologic/Lymphatic: Reports none Allergic/Immunologic Allergic/Immunologic ED: Denies mouth swelling, tongue swelling or urticaria EXAM Physical Exam Narrative Exam Narrative: Well-appearing 41-year-old female. No acute distress. Vital signs stable and afebrile. Pulse ox 100% on room air no signs hypoxia. H EENT exam unremarkable. Moist Riis members. Neck nontender no JVD. No lymphadenopathy. Lungs clear to auscultation bilaterally. Heart regular rate and rhythm rate about 95. No murmur. Chest wall nontender. Abdomen soft nontender. Moving all 4 extremities. 5 out of 5 safety tech strength. Dorsi plantarflexion intact. Calves are nontender without edema or cords. Neurologically she is awake and alert with no focal motor deficits. Back nontender. Skin normal. Exam benign. Const Vital Signs: 05/13/22 00:31 05/13/22 01:15 Temperature 97.5 F L Temperature Source Temporal Pulse Rate 98 Respiratory Rate 18 Respiratory Effort Normal Blood Pressure 108/71 Blood Pressure Mean 83 Pulse Ox 100 Oxygen Delivery Method Room Air Positive well nourished and well developed; Negative for obese, cachectic, contractures or unkempt General Appearance ED: well developed and NAD; Negative for unkempt, cachectic, contractures, cyanotic, diaphoretic or pallor Nutritional Appearance: Negative for cachectic or obese HEENT Reports moist mucous membranes; Denies dry mucous membranes Negative for trauma or tenderness Mouth ED: No dry mucous membranes Mouth: No dry mucous membranes Eyes PERRL and EOMs intact bilaterally General Eye ED: Negative for pale conjunctiva or scleral icterus Neck no lymphadenopathy, supple and no JVD General: Negative for tenderness Lymph Lymphatic: Negative for other Chest Wall inspection of chest normal and palpation of chest normal Resp normal respiratory effort and clear to auscultation bilaterally Effort and Inspection: Negative for retractions Auscultation: Negative for rales, rhonchi or wheezes Cardio regular rate, regular rhythm, S1 normal heart sound, S2 normal heart sound and no murmurs GI normal to inspection, nondistended, normoactive bowel sounds, non-tender, non-distended and no masses Auscultation: normoactive bowel sounds Palpation: soft; Negative for tender or guarding Back/Spine no CVA tenderness General Back: Negative for CVA tenderness Cervical Spine: Negative for cervical spine tenderness Thoracic Spine / Upper Back: Negative for thoracic spinal tenderness Lumbar Spine / Lower Back: Negative for lumbar spinal tenderness Extremity normal to inspection General Extremety ED: Negative for edema or tenderness General Extremity: Negative for edema Neuro oriented x3 and CN's II-XII intact bilaterally Sensorium / Orientation: alert; Negative for orientation impaired, lethargic or stuporous Motor Exam: strength 5/5 throughout; Negative for general weakness or strength abnormal Psych mental status grossly normal Appearance: Negative for unkempt Attitude: No agitated Mood & Affect: Negative for depressed or anxious Skin no rashes or lesions noted, no wounds and skin turgor normal General Skin Exam: elasticity normal; Negative for jaundice or pallor Lesions: No lesion noted Rashes: No rashes noted Trauma: Negative for abrasion Wounds: Negative for wounds noted MDM MDM MDM Narrative Medical decision making narrative: 41-year-old with subjective lightheadedness. Exam benign. She has had recent labs that were unremarkable within the last month. Nurses will do orthostatic vital signs if they are okay she will be discharged to home. Discharge Plan Triage Chief Complaint: General Illness ED Provider: Dalton Hummel Dx/Rx/DC Orders Clinical Impression: Episodic lightheadedness Instructions: ED Dizziness, Uncertain Cause Prescriptions: No Action clonazepam 0.5 MG tablet 0.5 mg PO BID PRN PRN (Reason: Anxiety) Tizanidine HCl 4 MG 1 tab PO TID dextroamphetamine-amphetamine [Adderall] 15 MG tablet 15 mg PO LUNCH Dextroamphetamine/Amphetamine [Dextroamp-Amphet Er 20 Mg Cap] 20 MG Cap.Er.24h 20 mg PO DAILY dicyclomine 10 MG capsule 20 mg PO TIDAC Qty: 20 0RF ibuprofen 800 MG tablet 600 mg PO TID PRN PRN (Reason: Pain 1-10 Or Fever) Qty: 20 0RF albuterol 90 mcg/actuation Aerosol INHALATION cyclobenzaprine 10 mg tablet 10 mg PO BID PRN (Reason: muscle spasm) Qty: 10 0RF prednisone 20 mg tablet 40 mg PO DAILY 4 Days Qty: 8 0RF lidocaine [Lidoderm] 5 % adhesive patch,medicated 1 patch topical DAILY Qty: 6 0RF Rx Instructions: leave on most painful area for up to 12 hrs dicyclomine 10 MG capsule 20 mg PO TIDAC Qty: 20 0RF prednisone 10 mg tablet 10 mg PO DAILY Qty: 5 0RF ondansetron 4 mg tablet,disintegrating 4 mg PO TID PRN (Reason: nausea and vomiting) Qty: 21 0RF oxycodone-acetaminophen [Percocet] 5-325 mg tablet 1 tab PO Q6H PRN (Reason: pain) 3 Days Qty: 12 0RF Primary Care Provider: Care Physician,No Primary Referrals: Care Physician,No Primary [Primary Care Provider] - Activity Restrictions/Additional Instructions: Plenty of fluids and rest. Follow-up with your doctor as needed. You may consider stopping the pain medication and just use Tylenol and Motrin for your pelvic pain. Disposition Disposition: Home, Self Care
[2022-05-13 01:31] VITALS: BP 103/79; BP 92/67; BP 97/71; PULSE 75; PULSE 82; PULSE 93
== END 2022-05-13 01:41 | disposition home or self-care (01) ==
PROVIDERS: Emergency Provider Emergency Medicine; Visit Provider Emergency Medicine
DX: R42 Dizziness and giddiness (principal); Z87.891 Personal history of nicotine dependence
CPT/HCPCS: 99283

== ENCOUNTER 2022-09-02 02:59 | Emergency (ER) | payer BC, OTHER, SELFPAY ==
[2022-09-02 03:00] VITALS: BP 127/77; PULSE 94; RESP 18; TEMP 36.1; O2SAT 100; BMI 18.3
--- NOTE | 2022-09-02 03:24 | RAD_ITS ---
INDICATION: chest pain EXAMINATION/TECHNIQUE: X-RAY - XR Chest 1 View COMPARISON: None. FINDINGS: LINES/DEVICES: None. LUNGS: No consolidation, edema or effusion. No pneumothorax. MEDIASTINUM AND CARDIOVASCULAR STRUCTURES: Cardiac silhouette not enlarged. Central airways and mediastinal contour are unremarkable. BONES AND SOFT TISSUES: Unremarkable. RAD/Chest 1 View (Portable) IMPRESSION: No radiographic evidence of acute cardiopulmonary disease. Electronically Signed: Cherise Osorio MD at 4:01 EST ,
--- NOTE | 2022-09-02 03:24 | EKG12_ITS ---
Test Reason : CP Blood Pressure : / mmHG Vent. Rate : 084 BPM Atrial Rate : 084 BPM P-R Int : 124 ms QRS Dur : 090 ms QT Int : 382 ms P-R-T Axes : 079 083 074 degrees QTc Int : 451 ms Normal sinus rhythm RSR' or QR pattern in V1 suggests right ventricular conduction delay Borderline ECG Confirmed by KAYLA ORO, KRIS ([id number]), book editor KAMRYN CRUZ ([id number]) on 09/03/2022 1:42:46 PM Referred By: TRISTAN Confirmed By:KRIS GARZA MD
[2022-09-02 03:43] LABS: Absolute Lymphocyte Count 3.09 X10^3/uL (0.83-4.51); Basophil% 1.4 % (0-1); Eosinophil# 0.53 X10^3/uL; Eosinophils% 7.3 % (0-5); Hemoglobin 13.2 g/dL (12.0-15.0); Lymphocyte # 3.09 X10^3/ul (0.83-4.51); Lymphocyte % 42.6 % (19-41); Mean Corp Hgb Conc 33.8 g/dL (32-36); Mean Corpuscular Volume 91.5 fL (81-99); Monocyte# 0.54 X10^3/uL; Monocyte% 7.4 % (0-10); NRBC Flagged by Analyzer 0 % (0-5); Neutrophil # 2.99 X10^3/uL (2.7-7.7); Neutrophil % 41.2 % (47-70); Platelet Count 261 K/mm3 (150-450); RBC Distribution Width CV 12.1 % (11.6-14.6); RBC Distribution Width SD 40.5 fl (35.1-43.9); Red Blood Count 4.26 M/mm3 (4.2-5.4); White Blood Count 7.3 K/mm3 (4.4-11.0)
[2022-09-02 03:58] LABS: AST(SGOT) 11 U/L (15-37); Alanine Aminotransfer ALT/SGPT 22 U/L (13-56); Albumin, Serum 3.4 g/dL (3.2-5.0); Alkaline Phosphatase 78 U/L (45-117); Bilirubin, Direct 0.06 mg/dL (0.00-0.30); Globulin 3.3 g/dL (2.2-4.2); Protein, Total 6.7 g/dL (6.4-8.2)
[2022-09-02 04:00] VITALS: BP 124/80; PULSE 63; RESP 14; O2SAT 100
[2022-09-02 04:03] LABS: Anion Gap 7 (5-15); BUN 11 mg/dL (7-18); BUN/Creat Ratio 12.7 RATIO (10-20); Calcium,Total 8.3 mg/dL (8.5-10.1); Chloride 105 mmol/L (98-107); Creatinine, Serum 0.87 mg/dL (0.55-1.02); EST Glomerular Filtration Rate 77 mL/min (>60); Est Glom Filt Rate - Afr Amer 93 mL/min (>60); Estimated Creatinine Clearance 67.71 ml/min; Glucose 105 mg/dL (74-106); Lipase 103 U/L (73-393); Magnesium 1.8 mg/dL (1.6-2.6); Potassium 3.3 mmol/L (3.5-5.1); Sodium Level 138 mmol/L (136-145); Troponin-I HS (w/2H Reflex) 4 pg/mL (3.0-54.0)
[2022-09-02] MEDS: 0.9% Normal Saline 1,000 ML 999 ML IV (04:16)
--- NOTE | 2022-09-02 04:22 | ED.VIS.CHEST ---
HPI History of Present Illness Chief Complaint: Chest Pain Informant: patient Narrative Narrative: Patient is a 41-year-old female with history of pelvic congestion syndrome, tobacco use and asthma presenting with chest discomfort and shortness of breath. Patient states that started with her feeling strain with her breathing and she started to feel lightheaded and has pressure in her chest. She states she has felt this way in the past and had either been asthma or her anxiety. She notes that she has been feeling exhausted lately and has had multiple stressors at home. She was at work when this started (she works at a [employer] plant) and had to leave. She states that her daughter just came home from the hospital for transverse myelitis is now in the wheelchair and before that her had heart attacks and before that her son had ADEM. Patient denies any recent travel or immobilization. Denies a history of DVT or PE. Denies any swelling of her legs. Denies any fevers. No other complaints at this time. [facility] Medical History Chronic neck pain History of colitis Vasovagal syncope Home Medications dicyclomine 10 mg capsule 20 mg PO TIDAC #20 CAPSULES 09/25/21 [Rx Last Taken Unknown] Allergy/AdvReac Type Severity Reaction Status Date / Time lanolin Allergy Hives Verified 05/13/22 00:36 naproxen [From Naprosyn] Allergy Hives Verified 05/13/22 00:36 tramadol Allergy Other Verified 05/13/22 00:36 venom-honey bee Allergy Swelling Verified 05/13/22 00:36 gabapentin AdvReac Other Verified 05/13/22 00:36 LIQUID SMOKE/BBQ SAUCE AdvReac Nausea Uncoded 05/13/22 00:36 Social History Smoking Status: Former smoker ROS ROS ED Constitutional Constitutional ED: Denies chills or fever(s) Eyes Eyes: Denies change in vision ENT ENT ED: Denies sore throat Cardiovascular Cardiovascular: Reports as per HPI and chest pain; Denies orthopnea or palpitations Respiratory/Chest Respiratory/Chest: Reports dyspnea; Denies cough, dyspnea on exertion or orthopnea Gastrointestinal Gastrointestinal: Denies abdominal pain, nausea or vomiting Musculoskeletal Musculoskeletal: Denies arthralgias or myalgias Integumentary Denies rash Neurologic Neurologic: Denies headache(s) or weakness Psychiatric Psychiatric: Reports anxiety Hematologic/Lymphatic Hematologic/Lymphatic: Denies easy bleeding or easy bruising EXAM Physical Exam Const Vital Signs: 09/02/22 03:00 09/02/22 03:42 09/02/22 04:00 Temperature 97.0 F L Temperature Source Temporal Pulse Rate 94 63 Respiratory Rate 18 14 Blood Pressure 127/77 H 124/80 H Blood Pressure Mean 93 94 Pulse Ox 100 100 Oxygen Delivery Method Room Air Room Air Room Air 09/02/22 05:00 09/02/22 06:00 Temperature Temperature Source Pulse Rate 78 61 Respiratory Rate 16 14 Blood Pressure 123/89 H 117/75 Blood Pressure Mean 100 89 Pulse Ox 100 100 Oxygen Delivery Method Room Air Room Air Positive well nourished and well developed General Appearance ED: well developed and NAD; Negative for pallor HEENT Reports dry mucous membranes normocephalic and atraumatic Mouth ED: Yes dry mucous membranes Mouth: dry mucous membranes Eyes PERRL and EOMs intact bilaterally Neck supple and no JVD Chest Wall inspection of chest normal and palpation of chest normal Resp normal respiratory effort and clear to auscultation bilaterally Auscultation: Negative for wheezes Cardio regular rate, regular rhythm and no murmurs GI normal to inspection, nondistended, normoactive bowel sounds and soft to palpation Extremity normal to inspection General Extremety ED: Negative for edema or pulses abnormal General Extremity: Negative for edema or pulses abnormal Neuro oriented x3 Sensorium / Orientation: awake Motor Exam: Negative for general weakness Psych mental status grossly normal Mood & Affect: anxious Skin no rashes or lesions noted General Skin Exam: Negative for jaundice or pallor Heart Score History: Slightly/Non-Suspicious Age: </= 45 years Risk Factors: 1 or 2 Risk Factors Troponin: </= Normal Limit Score: 1 MDM MDM MDM Narrative Medical decision making narrative: Patient is evaluated for chest pressure and discomfort. She also feels short of breath. Differential includes but is not limited to ACS, PE, asthma exacerbation, anxiety attack, pneumonia. Patient is hemodynamically stable in the ER. Her EKG is largely normal with no acute ischemic changes and no acute changes compared to prior EKG. CBC is largely normal. So is her CMP and lipase. Her high-sensitivity troponin is stable at 4 and 4. Therefore I have very low suspicion for ACS. 1 view chest x-ray interpreted by myself as well as radiology does not show any acute process. Patient is low risk for PE by PERC criteria I do not think a D-dimer CTA is indicated. Chest x-ray does not show any acute infiltrate or other acute process. While patient no longer smokes cigarettes she does continue to use a vape pen and she is counseled that she really should stop it however she states she does not use it very much. Patient sounds like she has a lot of situational stress in her life including health issues with her family members as well as stress at work. Is possible this could be contributing to her pain. As she does not have any wheezing or diminished breath sounds have a low suspicion for an asthma exacerbation. Do not think she needs a breathing treatment. At this time I do think she stable for outpatient follow-up. She is given referral for primary care doctor. Patient verbalizes good understand this plan. On repeat evaluation she is resting comfortably. Patient is discharged home in stable and improved condition Lab Data Attestation: I reviewed the patient's lab results. Labs: Laboratory Results - last 24 hr 09/02/22 09/02/22 09/02/22 03:15 03:15 03:15 WBC 7.3 RBC 4.26 Hgb 13.2 Hct 39.0 MCV 91.5 MCH 31.0 MCHC 33.8 RDW Std Deviation 40.5 RDW Coeff of Parag 12.1 Plt Count 261 MPV 10.0 Immature Gran % (Auto) 0.100 Neut % (Auto) 41.2 L Lymph % (Auto) 42.6 H [place] % (Auto) 7.4 Eos % (Auto) 7.3 H Baso % (Auto) 1.4 H Absolute Neuts (auto) 3.0 Absolute Lymphs (auto) 3.09 Nucleated RBC % 0 Sodium 138 Potassium 3.3 L Chloride 105 Carbon Dioxide 26.0 Anion Gap 7 BUN 11 Creatinine 0.87 Estim Creat Clear Calc 67.71 Est GFR (MDRD) Af Amer 93 Est GFR (MDRD) Non-Af 77 BUN/Creatinine Ratio 12.7 Glucose 105 Calcium 8.3 L Magnesium 1.8 Total Bilirubin 0.20 Direct Bilirubin 0.06 AST 11 L ALT 22 Alkaline Phosphatase 78 Troponin I High Sens 4 Total Protein 6.7 Albumin 3.4 Globulin 3.3 Lipase 103 09/02/22 04:40 WBC RBC Hgb Hct MCV MCH MCHC RDW Std Deviation RDW Coeff of Parag Plt Count MPV Immature Gran % (Auto) Neut % (Auto) Lymph % (Auto) [place] % (Auto) Eos % (Auto) Baso % (Auto) Absolute Neuts (auto) Absolute Lymphs (auto) Nucleated RBC % Sodium Potassium Chloride Carbon Dioxide Anion Gap BUN Creatinine Estim Creat Clear Calc Est GFR (MDRD) Af Amer Est GFR (MDRD) Non-Af BUN/Creatinine Ratio Glucose Calcium Magnesium Total Bilirubin Direct Bilirubin AST ALT Alkaline Phosphatase Troponin I High Sens 4 Total Protein Albumin Globulin Lipase Radiography Chest X-Ray - ED: 1 View, Read by ED Physician, Read by Radiologist and No Acute Disease Diagnostic Testing: Clinical Impression(s) from Imaging Studies Chest X-Ray 09/02/22 03:24 IMPRESSION: No radiographic evidence of acute cardiopulmonary disease. Electronically Signed: Cherise Osorio MD at 4:01 EST Reading Location ID and State: [facility] / [place] Tel , Service support , Rhythm Strip Rhythm Strip: Sinus Rhythm Rate: 84 Ectopy: None EKG Initial EKG: Attestation: I personally reviewed and interpreted this EKG as follows: Interpretation: Sinus Rhythm Comments: Normal sinus rhythm rate of 84 bpm Normal axis Normal intervals Normal ST segments RSR prime pattern in V1 consistent with a right ventricular conduction delay Prior EKG tracings: available for review Prior: Unchanged Discharge Plan Triage Chief Complaint: Chest Pain ED Provider: Becca Ambrosio Dx/Rx/DC Orders Clinical Impression: Chest pain of uncertain etiology, Tobacco use Instructions: ED Chest Pain, Uncertain Cause Prescriptions: No Action dicyclomine 10 MG capsule 20 mg PO TIDAC Qty: 20 0RF Stand Alone Forms: ED Work / School Excuse Primary Care Provider: Care Physician,No Primary Referrals: Scarlett Feliciano MD [Med Staff - Ice Cutter] - As soon as possible Care Physician,No Primary [Primary Care Provider] - Disposition Disposition: Home, Self Care
[2022-09-02 05:00] VITALS: BP 123/89; PULSE 78; RESP 16; O2SAT 100
[2022-09-02 05:32] LABS: Reflex Troponin-HS? (from REC) Y
[2022-09-02 06:00] VITALS: BP 117/75; PULSE 61; RESP 14; O2SAT 100
[2022-09-02 06:12] LABS: Troponin-I HS 4 pg/mL (3.0-54.0)
[2022-09-02 06:45] VITALS: BP 117/80; PULSE 78; RESP 17; O2SAT 100
== END 2022-09-02 06:45 | disposition home or self-care (01) ==
PROVIDERS: Emergency Provider Emergency Medicine; Visit Provider Emergency Medicine
DX: R07.9 Chest pain, unspecified (principal); R06.02 Shortness of breath; Z72.0 Tobacco use
CPT/HCPCS: 71045; 80048; 80076; 83690; 83735; 84484; 85025; 93005; 96360; 99284; J7030; A4216

== ENCOUNTER 2022-09-29 00:21 | Emergency (ER) | payer BC, OTHER, SELFPAY ==
[2022-09-29 00:22] VITALS: BP 107/84
[2022-09-29 00:23] VITALS: PULSE 71; RESP 17; TEMP 36.8; O2SAT 94; BMI 19.7
--- NOTE | 2022-09-29 00:49 | EKG12_ITS ---
Test Reason : SYNCOPE Blood Pressure : / mmHG Vent. Rate : 070 BPM Atrial Rate : 070 BPM P-R Int : 142 ms QRS Dur : 092 ms QT Int : 398 ms P-R-T Axes : 077 083 071 degrees QTc Int : 429 ms Normal sinus rhythm with sinus arrhythmia Normal ECG Confirmed by ERIKA ORO, SAUNDRA ([id number]), staff editor KAMRYN CRUZ ([id number]) on 09/29/2022 2:01:15 PM Referred By: Confirmed By:SAUNDRA JAMES MD
--- NOTE | 2022-09-29 00:50 | EDS_ITS ---
HPI History of Present Illness Chief Complaint: Syncope Informant: patient Narrative Narrative: Brought in by EMS from work for syncopal episode. Was standing on the press machine when she felt lightheaded symptoms were after awakening was nausea and sweaty. No chest pains. Similar incident 2 years ago. She states she has history of vasovagal syncope. She was standing with locked knees today. No bloody stools no urinary symptoms no vomiting diarrhea. Currently feels back to normal. Prior similar symptoms: Yes PFSH PFSH Medical History Chronic neck pain History of colitis Vasovagal syncope Home Medications NK 09/29/22 [History Last Taken Unknown] Allergy/AdvReac Type Severity Reaction Status Date / Time lanolin Allergy Hives Verified 05/13/22 00:36 naproxen [From Naprosyn] Allergy Hives Verified 05/13/22 00:36 tramadol Allergy Other Verified 05/13/22 00:36 venom-honey bee Allergy Swelling Verified 05/13/22 00:36 gabapentin AdvReac Other Verified 05/13/22 00:36 LIQUID SMOKE/BBQ SAUCE AdvReac Nausea Uncoded 05/13/22 00:36 Social History Smoking Status: Former smoker ROS ROS ED Constitutional Constitutional ED: Denies chills, fever(s) or sweats Eyes Eyes: Denies change in vision ENT ENT ED: Denies dysphagia or sore throat Cardiovascular Cardiovascular: Denies chest pain, leg edema, palpitations or racing heartbeat Respiratory/Chest Respiratory/Chest: Denies cough, dyspnea or dyspnea on exertion Gastrointestinal Gastrointestinal: Denies abdominal pain, diarrhea, nausea or vomiting Genitourinary Genitourinary ED: Denies dysuria, hematuria or urinary frequency Musculoskeletal Musculoskeletal: Denies back pain, extremity pain or neck pain Integumentary Denies rash or wounds Neurologic Neurologic: Denies headache(s), paresthesias or weakness EXAM Physical Exam Const Vital Signs: 09/29/22 00:23 09/29/22 00:22 09/29/22 00:28 Temperature 98.2 F Temperature Source Oral Pulse Rate 71 Respiratory Rate 17 Respiratory Effort Normal Non-Labored Respiratory Pattern Normal Blood Pressure 107/84 H Blood Pressure Mean 91 Pulse Ox 94 Oxygen Delivery Method Room Air 09/29/22 02:19 Temperature 99 F Temperature Source Pulse Rate 72 Respiratory Rate 20 H Respiratory Effort Respiratory Pattern Blood Pressure 96/59 L Blood Pressure Mean Pulse Ox Oxygen Delivery Method Positive well nourished and well developed General Appearance ED: well developed and NAD HEENT Reports moist mucous membranes normocephalic and atraumatic Eyes PERRL, EOMs intact bilaterally and conjunctivae normal General Eye ED: Yes normal appearance of both eyes Neck no lymphadenopathy and supple General: Negative for tenderness Chest Wall Chest: Negative for tenderness Resp normal respiratory effort and normal air movement Effort and Inspection: symmetric chest movement; Negative for respiratory distress Cardio regular rate, regular rhythm and no murmurs Peripheral Pulses: pulses 2+ throughout GI normal to inspection, nondistended, normoactive bowel sounds and non-tender Palpation: Negative for guarding or rebound tenderness present Back/Spine no CVA tenderness and no thoracic nor lumbar tenderness Extremity normal to inspection General Extremety ED: Negative for edema or tenderness General Extremity: Negative for edema Neuro oriented x3, CN's II-XII intact bilaterally and no sensory deficits noted Sensorium / Orientation: awake and alert Skin no rashes or lesions noted and no wounds MDM MDM MDM Narrative Medical decision making narrative: Interventions / MDM: Differential diagnosis: Vasovagal syncope, cardiac dysrhythmia, electrolyte abnormalities Diagnosis considered but do not suspect: N/A My EKG interpretation: Sinus rate of 70, no ST changes, isolated T wave inversion in aVL, nonspecific. QTc 429. Imaging independently reviewed and interpreted by myself: N/A External documents reviewed: N/A Test considered but not ordered:N/A ED course: Patient nontoxic vital stable no focal deficits. EKG sinus rhythm Labs hemoglobin 11.9 electrolytes are normal. R Re-evaluation: stable, ambulated with no return of symptoms. Patient states no Worker's Compensation's claim. Discharged with work note. Return precautions, all questions were answered. Disposition discussed with patient/family/significant other: Patient Case discussed with consulting clinician: N/A Lab Data Attestation: I reviewed the patient's lab results. Labs: Laboratory Results - last 24 hr 09/29/22 09/29/22 01:00 01:00 WBC 11.8 H RBC 3.85 L Hgb 11.9 L Hct 36.1 L MCV 93.8 MCH 30.9 MCHC 33.0 RDW Std Deviation 42.7 RDW Coeff of Parag 12.4 Plt Count 230 MPV 9.9 Immature Gran % (Auto) 0.500 Neut % (Auto) 73.3 H Lymph % (Auto) 15.9 L [place] % (Auto) 7.4 Eos % (Auto) 2.2 Baso % (Auto) 0.7 Absolute Neuts (auto) 8.7 H Absolute Lymphs (auto) 1.88 Nucleated RBC % 0 Sodium 144 Potassium 3.6 Chloride 110 H Carbon Dioxide 26.0 Anion Gap 8 BUN 12 Creatinine 0.81 Estim Creat Clear Calc 78.41 Est GFR (MDRD) Af Amer 100 Est GFR (MDRD) Non-Af 83 BUN/Creatinine Ratio 14.8 Glucose 124 H Calcium 7.9 L Discharge Plan Triage Chief Complaint: Syncope ED Provider: Jamie Chong Dx/Rx/DC Orders Clinical Impression: Vasovagal syncope Instructions: ED Fainting, Vagal Reaction Prescriptions: No Action NK Stand Alone Forms: ED Work / School Excuse Primary Care Provider: Care Physician,No Primary Referrals: Rafal De La Vega MD [Med Staff - Oncology Account Specialist] - 1 Week Care Physician,No Primary [Primary Care Provider] - Activity Restrictions/Additional Instructions: EKG and labs normal. Follow-up with doctor as an outpatient. Return if any worsening symptoms. Disposition Disposition: Home, Self Care Discharge Date/Time: 09/29/22 02:34
[2022-09-29 01:18] LABS: Absolute Lymphocyte Count 1.88 X10^3/uL (0.83-4.51); Absolute Neutrophil Count 8.7 X10^3/uL (2.0-7.7); Basophil# 0.08 X10^3/uL; Basophil% 0.7 % (0-1); Eosinophil# 0.26 X10^3/uL; Eosinophils% 2.2 % (0-5); Hematocrit 36.1 % (37-47); Hemoglobin 11.9 g/dL (12.0-15.0); Lymphocyte # 1.88 X10^3/ul (0.83-4.51); Lymphocyte % 15.9 % (19-41); Mean Corpuscular Hgb 30.9 pg (27.0-32.0); Mean Corpuscular Volume 93.8 fL (81-99); Mean Platelet Vol. 9.9 fl (6.2-12.0); Monocyte# 0.88 X10^3/uL; Monocyte% 7.4 % (0-10); NRBC Flagged by Analyzer 0 % (0-5); Neutrophil # 8.66 X10^3/uL (2.7-7.7); Neutrophil % 73.3 % (47-70); Platelet Count 230 K/mm3 (150-450); RBC Distribution Width CV 12.4 % (11.6-14.6); RBC Distribution Width SD 42.7 fl (35.1-43.9); Red Blood Count 3.85 M/mm3 (4.2-5.4); White Blood Count 11.8 K/mm3 (4.4-11.0)
[2022-09-29 01:33] LABS: Anion Gap 8 (5-15); BUN 12 mg/dL (7-18); BUN/Creat Ratio 14.8 RATIO (10-20); Calcium,Total 7.9 mg/dL (8.5-10.1); Chloride 110 mmol/L (98-107); Creatinine, Serum 0.81 mg/dL (0.55-1.02); EST Glomerular Filtration Rate 83 mL/min (>60); Est Glom Filt Rate - Afr Amer 100 mL/min (>60); Estimated Creatinine Clearance 78.41 ml/min; Glucose 124 mg/dL (74-106); Potassium 3.6 mmol/L (3.5-5.1); Sodium Level 144 mmol/L (136-145)
[2022-09-29 02:19] VITALS: BP 96/59; PULSE 72; RESP 20; TEMP 37.2
--- NOTE | 2022-09-29 14:11 | ED.RN ---
PATIENTS BOSS CALLED REQUESTING A RETURN TO WORK BE FAXED TO [phone] THAT DETAILS ANY WORK RESTRICTIONS AND WHEN SHE IS SAFE TO RETURN. THIS RN INFORMED HER WAS NO LONGER HERE AND WOULD NOT BE BACK TILL LATER THIS WEEK TO DO THAT PAPERWORK. THIS RN ENCOURAGED PATIENT TO FOLLOW UP WITH PRIMARY CARE DOCTOR FOR MEDICAL RELEASE TO WHICH SHE STATES SHE HAS NO IDEA WHEN SHE WILL BE ABLE TO GET IN THERE. PAPERWORK LEFT IN ED DOC OFFICE FOR
== END 2022-09-29 02:34 | disposition home or self-care (01) ==
PROVIDERS: Emergency Provider Emergency Medicine; Visit Provider Emergency Medicine
DX: R55 Syncope and collapse (principal); R11.0 Nausea; Z87.891 Personal history of nicotine dependence
CPT/HCPCS: 80048; 85025; 93005; 99285; A4216

== ENCOUNTER 2022-10-29 01:28 | Emergency (ER) | payer OTHER, MEDICAID, SELFPAY ==
[2022-10-29 01:28] VITALS: BP 114/79; PULSE 87; RESP 18; TEMP 36.4; O2SAT 100; BMI 20.4
--- NOTE | 2022-10-29 01:40 | EDS_ITS ---
HPI History of Present Illness Chief Complaint: Dental Narrative Narrative: 49-year-old female with dental decay. She states that she has multiple dental caries and 1 tooth on the right mandible is now hurting her. She initially made an appointment to see a dentist and has an appointment for next . She states it did not hurt at that time so she did not asked them to durbin the appointment but now is hurting. Denies fevers, facial swelling, difficulty swallowing or breathing. No systemic signs or symptoms. No new trauma. [facility] Medical History Chronic neck pain History of colitis Vasovagal syncope Home Medications amoxicillin 875 mg-potassium clavulanate 125 mg tablet 1 tab PO BID #20 tabs 10/29/22 [Rx Last Taken Unknown] Allergy/AdvReac Type Severity Reaction Status Date / Time lanolin Allergy Hives Verified 10/29/22 01:31 naproxen [From Naprosyn] Allergy Hives Verified 10/29/22 01:31 tramadol Allergy Other Verified 10/29/22 01:31 venom-honey bee Allergy Swelling Verified 10/29/22 01:31 gabapentin AdvReac Other Verified 10/29/22 01:31 LIQUID SMOKE/BBQ SAUCE AdvReac Nausea Uncoded 10/29/22 01:31 Social History Smoking Status: Former smoker ROS ROS ED Constitutional Constitutional ED: Denies chills, fever(s) or sweats Eyes Eyes: Denies blurry vision or change in vision ENT ENT ED: Reports other Details: Dental pain ; Denies ear pain Cardiovascular Cardiovascular: Denies chest pain, palpitations or racing heartbeat Respiratory/Chest Respiratory/Chest: Denies cough, dyspnea or sputum Gastrointestinal Gastrointestinal: Denies abdominal pain, constipation, diarrhea, nausea or vomiting Genitourinary Genitourinary ED: Denies dysuria, hematuria or urinary frequency Musculoskeletal Musculoskeletal: Denies arthralgias, myalgias or neck pain Integumentary Denies abscess, Abrasions or rash Neurologic Neurologic: Denies headache(s), paresthesias or weakness Psychiatric Psychiatric: Denies anxiety, depression, suicidal ideation or suicidal thoughts Endocrine Endocrinology: Denies polydipsia or polyuria EXAM Physical Exam Const Vital Signs: 10/29/22 01:28 Temperature 97.6 F L Temperature Source Temporal Pulse Rate 87 Respiratory Rate 18 Blood Pressure 114/79 Blood Pressure Mean 90 Pulse Ox 100 Oxygen Delivery Method Room Air Positive well nourished General Appearance ED: NAD HEENT HEENT Narrative: Patient has multiple dental caries and partially edentulous. She has no erosion at suspected tooth 29 is difficult to determine the exact tooth. She is tender here. The gums are not swollen. No abscesses noted. No sublingual edema. No submandibular fullness. Neck no lymphadenopathy Resp normal respiratory effort Cardio regular rate and regular rhythm Neuro Motor Exam: strength 5/5 throughout Psych mental status grossly normal Skin no rashes or lesions noted MDM MDM MDM Narrative Medical decision making narrative: Patient presenting with dental pain. This appears to be tooth 29. There is focal dental decay and there is only a partial tooth here. No evidence of the [place] angina. Patient was placed on Augmentin. She request nothing for pain and she was given oxycodone here. She can use [id number] medications at home. Discharged in stable condition. Impression: 1. Dental infection 2. Dental pain Discharge Plan Triage Chief Complaint: Dental ED Provider: Shaamr Blanca Dx/Rx/DC Orders Instructions: Dental Abscess, ED Dental Cavity Prescriptions: New amoxicillin-pot clavulanate 875-125 mg tablet 1 tab PO BID Qty: 20 0RF Primary Care Provider: Care Physician,No Primary Referrals: Care Physician,No Primary [Primary Care Provider] - Disposition Disposition: Home, Self Care
[2022-10-29] MEDS: Amox/Clavulanate 875 MG Tablet PO (02:04)
[2022-10-29] MEDS: oxyCODONE 5 MG Tablet PO (02:04)
== END 2022-10-29 02:11 | disposition home or self-care (01) ==
LOC: ED 02:01
PROVIDERS: Emergency Provider Student in an Organized Health Care Education/Training Program; Visit Provider Student in an Organized Health Care Education/Training Program
DX: K04.7 Periapical abscess without sinus (principal); Z87.891 Personal history of nicotine dependence; K02.9 Dental caries, unspecified
CPT/HCPCS: 99283

== ENCOUNTER 2022-11-21 12:16 | Emergency (ER) | payer OTHER, MEDICAID, SELFPAY ==
[2022-11-21 12:17] VITALS: BP 133/78; PULSE 91; RESP 18; TEMP 36.2; O2SAT 100; BMI 19.9
--- NOTE | 2022-11-21 12:47 | CT_ITS ---
STUDY: CT ABDOMEN AND PELVIS WITH CONTRAST REASON FOR EXAM: Female, 41 years old. Abdominal pain -- IV PO Contrast RADIATION DOSAGE (If Supplied By Facility): CTDIvol = ( 12.31 ) mGy, DLP = ( 402.78 ) mGycm TECHNIQUE: Transaxial images were obtained from the dome of the diaphragm to the symphysis pubis with oral contrast. Oral and amp; IV Gastrografin and amp; 100mL Isovue-300 was administered. Sagittal and coronal images were reconstructed. Individualized dose optimization techniques were used for this CT. COMPARISON: Comparison is made with prior study May 09, 2022. FINDINGS: The visualized lung bases are unremarkable. The visualized portions of the heart are within normal limits. Normal liver. The gallbladder is contracted. Normal spleen. Normal pancreas. Normal bilateral adrenal glands. Normal right kidney. There is a 1 cm cyst in the anterior midportion of the left kidney. A 1 cm cyst is also seen along the medial aspect of the left kidney. Normal visualized stomach. Normal small intestine. Normal colon. The appendix is visualized and appears normal. Normal abdominal aorta. Normal inferior vena cava. Normal retroperitoneum. Normal urinary bladder. Follicles are seen in the right ovary. Normal abdominal wall. Normal osseous structures. CT/Abdomen/Pelvis WITH Contrast IMPRESSION: Stable small left renal cyst. Follicles are seen in the right ovary. Electronically Signed: Luisito Crum MD at 14:50 EDT ,
--- NOTE | 2022-11-21 12:59 | ED.VIS.GI ---
HPI HPI - GI History of Present Illness Chief Complaint: Abd Pain Informant: patient Abdominal Pain/Flank Pain Onset: Days (4) Context: Gradual Onset Timing: Continuous Quality: Cramping and Sharp Location: RLQ and LLQ Worsened by: Movement Relieved by: Remaining Still Nausea/Vomiting/Emesis GI Symptom: Positive for Nausea and Vomiting Onset: Days (4) Quality: Positive for Nonbilious; Negative for Blood streaks, Coffee ground or Hematemesis Diarrhea/Melena/Hematochezia GI Symptom: Positive for Diarrhea; Negative for Melena or Hematochezia Onset: Days (4) Associated Symptoms Associated Symptoms: Negative for Dysuria, Frequency or Hematuria Narrative Narrative: Patient presents with abdominal pain that has been constant over the last 4 days. Patient states it is gradually getting worse. Patient describes it as sharp and cramping. Patient states it is mainly over the lower abdomen but worse on the left. Patient states it is worse with movement and better when she lays still and curls up into a ball. Patient admits to some nausea and vomiting. Patient denies any hematemesis or coffee-ground emesis. Patient does admit to some diarrhea but denies any melena or hematochezia. Patient denies any urinary complaints. Patient states her last menstrual period was approximately 1 month ago. Patient states that she has had a tubal ligation and has no chance of . [facility] Medical History (Updated 11/21/22 @ 16:[address] Dilip Gonzales DO) Chronic neck pain Ectopic , tubal Female pelvic congestion syndrome Headache, chronic migraine without aura History of colitis Vasovagal syncope Home Medications NK 11/21/22 [History Last Taken Unknown] Allergy/AdvReac Type Severity Reaction Status Date / Time lanolin Allergy Hives Verified 11/21/22 12:22 naproxen [From Naprosyn] Allergy Hives Verified 11/21/22 12:22 tramadol Allergy Other Verified 11/21/22 12:22 venom-honey bee Allergy Swelling Verified 11/21/22 12:22 Food Allergies: Uncoded AdvReac Nausea Verified 11/21/22 12:22 gabapentin AdvReac Other Verified 11/21/22 12:22 Surgical History (Updated 11/21/22 @ 13:[address] Dilip Gonzales, ) Hx of tubal ligation Social History Smoking Status: Former smoker ROS ROS ED Constitutional Constitutional ED: Reports chills; Denies fever(s) Eyes Eyes: Denies blurry vision or change in vision ENT ENT ED: Denies rhinorrhea or sore throat Cardiovascular Cardiovascular: Denies chest pain or palpitations Respiratory/Chest Respiratory/Chest: Denies cough or dyspnea Gastrointestinal Gastrointestinal: Reports abdominal pain, diarrhea, nausea and vomiting Genitourinary Genitourinary ED: Denies dysuria or hematuria Musculoskeletal Musculoskeletal: Reports back pain and neck pain Integumentary Denies abscess or rash Neurologic Neurologic: Reports headache(s); Denies weakness Allergic/Immunologic Allergic/Immunologic ED: Denies mouth swelling or urticaria EXAM Physical Exam Const Vital Signs: 11/21/22 12:17 11/21/22 14:46 Temperature 97.1 F L Temperature Source Temporal Pulse Rate 91 62 Respiratory Rate 18 16 Blood Pressure 133/78 H 117/78 Blood Pressure Mean 96 91 Pulse Ox 100 98 Oxygen Delivery Method Room Air Room Air Positive well nourished and well developed General Appearance ED: well developed and NAD HEENT Reports moist mucous membranes Neck supple and no JVD Resp normal respiratory effort and clear to auscultation bilaterally Cardio regular rate and regular rhythm GI normal to inspection, nondistended, normoactive bowel sounds Palpation: soft and tender LLQ and RLQ; Negative for guarding or rebound tenderness present Extremity normal to inspection General Extremety ED: Negative for edema or tenderness General Extremity: Negative for edema Neuro oriented x3, CN's II-XII intact bilaterally, moves all extremities and no sensory deficits noted Sensorium / Orientation: alert Motor Exam: strength 5/5 throughout Psych mental status grossly normal Skin no rashes or lesions noted MDM MDM MDM Narrative Medical decision making narrative: Differential diagnosis includes bowel obstruction, perforation, diverticulitis, urinary tract infection, pyelonephritis, ureteral calculus, ectopic , and ovarian cyst. CBC will be obtained to assess for anemia and leukocytosis. Comprehensive metabolic profile will be obtained to assess for hepatic function, renal function, and electrolyte abnormality. Lipase will be obtained to assess for pancreatitis. Serum hCG will be obtained to assess for . Urinalysis will be obtained to assess for urinary tract infection. CT scan of the abdomen pelvis will be obtained to assess for bowel obstruction, perforation, ureteral calculus, and pancreatitis. Lab Data Attestation: I reviewed the patient's lab results. Lab results narrative: CBC was reviewed and was within normal limits. Comprehensive metabolic profile was reviewed and was within normal limits. Lipase was reviewed and was normal. Serum hCG was reviewed and was negative. Urinalysis was reviewed. There is no evidence of urinary tract infection or hematuria. Labs: Laboratory Results - last 24 hr 11/21/22 11/21/22 11/21/22 13:15 13:15 13:15 WBC 7.3 RBC 4.43 Hgb 13.3 Hct 41.4 MCV 93.5 MCH 30.0 MCHC 32.1 RDW Std Deviation 40.0 RDW Coeff of Parag 11.6 Plt Count 258 MPV 9.7 Immature Gran % (Auto) 0.300 Neut % (Auto) 63.3 Lymph % (Auto) 27.7 [place] % (Auto) 6.7 Eos % (Auto) 1.2 Baso % (Auto) 0.8 Absolute Neuts (auto) 4.6 Absolute Lymphs (auto) 2.01 Nucleated RBC % 0 Sodium 139 Potassium 4.0 Chloride 106 Carbon Dioxide 28.0 Anion Gap 5 BUN 8 Creatinine 0.74 Estim Creat Clear Calc 83.94 Est GFR (MDRD) Af Amer 111 Est GFR (MDRD) Non-Af 92 BUN/Creatinine Ratio 10.8 Glucose 107 H Calcium 8.7 Total Bilirubin 0.40 AST 10 L ALT 16 Alkaline Phosphatase 68 Total Protein 6.9 Albumin 3.5 Globulin 3.4 Albumin/Globulin Ratio 1.0 Lipase 33 Serum , Qual NEGATIVE Urine Color Urine Clarity Urine pH Ur Specific [place] Urine Protein Urine Glucose (UA) Urine Ketones Urine Occult Blood Urine Nitrite Urine Bilirubin Urine Urobilinogen Ur Leukocyte Esterase Urine RBC Urine WBC Ur Squamous Epith Cells Urine Bacteria Urine Mucus 11/21/22 13:30 WBC RBC Hgb Hct MCV MCH MCHC RDW Std Deviation RDW Coeff of Parag Plt Count MPV Immature Gran % (Auto) Neut % (Auto) Lymph % (Auto) [place] % (Auto) Eos % (Auto) Baso % (Auto) Absolute Neuts (auto) Absolute Lymphs (auto) Nucleated RBC % Sodium Potassium Chloride Carbon Dioxide Anion Gap BUN Creatinine Estim Creat Clear Calc Est GFR (MDRD) Af Amer Est GFR (MDRD) Non-Af BUN/Creatinine Ratio Glucose Calcium Total Bilirubin AST ALT Alkaline Phosphatase Total Protein Albumin Globulin Albumin/Globulin Ratio Lipase Serum , Qual Urine Color Yellow Urine Clarity Clear Urine pH 6.5 Ur Specific [place] 1.010 Urine Protein Negative Urine Glucose (UA) Normal Urine Ketones Negative Urine Occult Blood Negative Urine Nitrite Negative Urine Bilirubin Negative Urine Urobilinogen Normal Ur Leukocyte Esterase Negative Urine RBC 0 SEEN Urine WBC 0-5 SEEN Ur Squamous Epith Cells 0-5 SEEN Urine Bacteria 1+ Urine Mucus 0 SEEN Radiography Diagnostic Testing: Clinical Impression(s) from Imaging Studies Abdomen/Pelvis CT 11/21/22 12:47 IMPRESSION: Stable small left renal cyst. Follicles are seen in the right ovary. Electronically Signed: Luisito Crum MD at 14:50 EDT , CT scan of the abdomen and pelvis was obtained. There is a left renal cyst. There are follicles in the right ovary. There is no evidence of perforation or obstruction. There is no evidence of diverticulitis. There is no free air or free fluid. There is no acute process noted. This was interpreted by the radiologist and was also independently reviewed by myself. Treatment and Re-Evaluation :: Patient was given IV fluids, morphine, and Zofran. Patient is feeling better on reevaluation. Patient was instructed to start with a bland diet. Patient was instructed to advance her diet as tolerated. Patient was instructed to follow-up with her primary care physician in 5 to 7 days. Patient understood and was agreeable with the plan. All questions were answered. Discharge Plan Triage Chief Complaint: Abd Pain ED Provider: Dilip Gonzales Dx/Rx/DC Orders Clinical Impression: Abdominal pain Instructions: ED Abdominal Pain Unkn Cause Fem Prescriptions: No Action NK Primary Care Provider: Care Physician,No Primary Referrals: Alexandre Hawk DO [Med Staff - [employer]] - 5-7 Days Care Physician,No Primary [Primary Care Provider] - Disposition Disposition: Home, Self Care
[2022-11-21 13:21] LABS: Absolute Lymphocyte Count 2.01 X10^3/uL (0.83-4.51); Absolute Neutrophil Count 4.6 X10^3/uL (2.0-7.7); Basophil# 0.06 X10^3/uL; Basophil% 0.8 % (0-1); Eosinophil# 0.09 X10^3/uL; Eosinophils% 1.2 % (0-5); Hematocrit 41.4 % (37-47); Hemoglobin 13.3 g/dL (12.0-15.0); Lymphocyte # 2.01 X10^3/ul (0.83-4.51); Lymphocyte % 27.7 % (19-41); Mean Corp Hgb Conc 32.1 g/dL (32-36); Mean Corpuscular Volume 93.5 fL (81-99); Mean Platelet Vol. 9.7 fl (6.2-12.0); Monocyte# 0.49 X10^3/uL; Monocyte% 6.7 % (0-10); NRBC Flagged by Analyzer 0 % (0-5); Neutrophil # 4.59 X10^3/uL (2.7-7.7); Neutrophil % 63.3 % (47-70); Platelet Count 258 K/mm3 (150-450); RBC Distribution Width CV 11.6 % (11.6-14.6); Red Blood Count 4.43 M/mm3 (4.2-5.4); White Blood Count 7.3 K/mm3 (4.4-11.0)
[2022-11-21] MEDS: 0.9% Normal Saline 1,000 ML 1000 ML IV (13:28)
[2022-11-21] MEDS: Morphine 4 MG/ML Syringe IV (13:29)
[2022-11-21] MEDS: Ondansetron 4 MG/2 ML Vial IV (13:29)
[2022-11-21 13:31] LABS: Internal QC Validated? YES +Cl - CLEAR BKGD; Pregnancy, Serum, hCG Quali. NEGATIVE Negative
[2022-11-21 13:36] LABS: Mucous, Urine 0 SEEN /hpf (<or=2+); Red Blood Cells-Urine 0 SEEN /hpf (0-5)
[2022-11-21 13:39] LABS: AST(SGOT) 10 U/L (15-37); Alanine Aminotransfer ALT/SGPT 16 U/L (13-56); Albumin, Serum 3.5 g/dL (3.2-5.0); Alkaline Phosphatase 68 U/L (45-117); Anion Gap 5 (5-15); BUN 8 mg/dL (7-18); BUN/Creat Ratio 10.8 RATIO (10-20); Calcium,Total 8.7 mg/dL (8.5-10.1); Chloride 106 mmol/L (98-107); Creatinine, Serum 0.74 mg/dL (0.55-1.02); EST Glomerular Filtration Rate 92 mL/min (>60); Est Glom Filt Rate - Afr Amer 111 mL/min (>60); Estimated Creatinine Clearance 83.94 ml/min; Globulin 3.4 g/dL (2.2-4.2); Glucose 107 mg/dL (74-106); Lipase 33 U/L (13-75); Protein, Total 6.9 g/dL (6.4-8.2); Sodium Level 139 mmol/L (136-145)
[2022-11-21 13:48] LABS: Color, Urine Yellow (Yellow); Glucose, Dipstick Normal (Normal); Ketone-Dipstick Negative (Negative); Leukocyte Esterase-Dipstick Negative /ul (Negative); Nitrite-Dipstick Negative (Negative); Occult Blood-Urine Negative /ul (Negative); Protein-Dipstick Negative (Negative); Urine Bilirubin Dipstick Negative (Negative); Urine Clarity Clear (Clear); Urine Urobilinogen Normal (Normal); Urine pH 6.5 (5.0 - 8.0)
[2022-11-21 14:03] LABS: Bacteria 1+ /hpf (None Seen); Squamous Epithelial Cells - UA 0-5 SEEN /hpf (5-10); White Blood Cells 0-5 SEEN /hpf (0-5)
[2022-11-21 14:46] VITALS: BP 117/78; PULSE 62; RESP 16; O2SAT 98
[2022-11-21 16:07] VITALS: BP 107/74; PULSE 54; RESP 16; O2SAT 97
--- NOTE | 2022-11-21 16:11 | CM.ED ---
Social Work SW introduced self and role. Discussed PCP options and resources given due to patient having no PCP listed. Pt appreciative as she reports she is looking for a PCP currently. 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
== END 2022-11-21 16:15 | disposition home or self-care (01) ==
PROVIDERS: Emergency Provider Emergency Medicine; Visit Provider Emergency Medicine
DX: R10.32 Left lower quadrant pain (principal); R19.7 Diarrhea, unspecified; Z87.891 Personal history of nicotine dependence; R11.2 Nausea with vomiting, unspecified; R10.31 Right lower quadrant pain
CPT/HCPCS: 74177; 80053; 81001; 83690; 84703; 85025; 99283; Q9967; J2405

== ENCOUNTER → 2023-01-19 | Outpatient (CLI) | payer OTHER, MEDICAID, SELFPAY ==
[2023-01-19 18:18] LABS: Absolute Lymphocyte Count 2.72 X10^3/uL (0.83-4.51); Absolute Neutrophil Count 2.2 X10^3/uL (2.0-7.7); Basophil% 1.6 % (0-1); Eosinophil# 0.59 X10^3/uL; Eosinophils% 9.5 % (0-5); Hematocrit 41.2 % (37-47); Hemoglobin 13.5 g/dL (12.0-15.0); Lymphocyte # 2.72 X10^3/ul (0.83-4.51); Mean Corp Hgb Conc 32.8 g/dL (32-36); Mean Corpuscular Hgb 30.2 pg (27.0-32.0); Mean Corpuscular Volume 92.2 fL (81-99); Monocyte# 0.56 X10^3/uL; Monocyte% 9.1 % (0-10); NRBC Flagged by Analyzer 0 % (0-5); Neutrophil # 2.19 X10^3/uL (2.7-7.7); Neutrophil % 35.5 % (47-70); Platelet Count 318 K/mm3 (150-450); RBC Distribution Width CV 11.9 % (11.6-14.6); RBC Distribution Width SD 40.1 fl (35.1-43.9); Red Blood Count 4.47 M/mm3 (4.2-5.4); White Blood Count 6.2 K/mm3 (4.4-11.0)
[2023-01-19 18:46] LABS: Vitamin B12 381 pg/mL (211-911); Vitamin D,25 Hydroxy 56.9 ng/mL
[2023-01-19 18:52] LABS: Hemoglobin A1c 6.1 % (3.8-5.6)
[2023-01-19 18:57] LABS: AST(SGOT) 12 U/L (15-37); Alanine Aminotransfer ALT/SGPT 24 U/L (13-56); Albumin, Serum 3.6 g/dL (3.2-5.0); Alkaline Phosphatase 77 U/L (45-117); Anion Gap 5 (5-15); BUN 7 mg/dL (7-18); BUN/Creat Ratio 8.5 RATIO (10-20); Calcium,Total 8.4 mg/dL (8.5-10.1); Chloride 105 mmol/L (98-107); Creatinine, Serum 0.82 mg/dL (0.55-1.02); EST Glomerular Filtration Rate 81 mL/min (>60); Est Glom Filt Rate - Afr Amer 98 mL/min (>60); Ferritin 53 ng/mL (8-252); Globulin 3.6 g/dL (2.2-4.2); Glucose 95 mg/dL (74-106); Magnesium 2.3 mg/dL (1.6-2.6); Potassium 3.6 mmol/L (3.5-5.1); Protein, Total 7.2 g/dL (6.4-8.2); Sodium Level 136 mmol/L (136-145); Thyroid Stim Hormone (TSH) 0.34 uIU/mL (0.358-3.74)
== END | disposition home or self-care (01) ==
PROVIDERS: PCP Family Medicine; Referring Provider Family Medicine; Visit Provider Family Medicine
DX: R53.83 Other fatigue (principal); R55 Syncope and collapse
CPT/HCPCS: 36415; 80053; 82306; 82607; 82728; 82746; 83036; 83735; 84443; 85025

== ENCOUNTER 2023-07-15 09:48 | Emergency (ER) | payer OTHER, SELFPAY ==
[2023-07-15 09:49] VITALS: BP 118/81; PULSE 114; RESP 16; TEMP 36.2; O2SAT 98
--- NOTE | 2023-07-15 10:45 | CT_ITS ---
STUDY: CT ABDOMEN AND PELVIS WITH CONTRAST REASON FOR EXAM: Female, 42 years old. Pain RADIATION DOSAGE (If Supplied By Facility): CTDIvol = ( 10.18 ) mGy, DLP = ( 254.61 ) mGycm TECHNIQUE: IV 75mL Isovue-300 was administered. Transaxial images were obtained from the dome of the diaphragm to the symphysis pubis. Multiplanar coronal and sagittal images were reformatted. Individualized Dose Optimization Techniques Were Used For This CT. COMPARISON: Prior study dated: 11/21/2022. FINDINGS: The visualized lung bases are unremarkable. The visualized portions of the heart are within normal limits. Liver is within normal limits. Normal gallbladder and extrahepatic biliary system. Normal spleen. Normal pancreas. Normal bilateral adrenal glands. Mild heterogeneous enhancement of the upper pole of the left kidney compared to the right side. 8 mm cyst in the left kidney. No evidence of hydronephrosis. Normal visualized stomach. Normal in caliber small bowel loops. [Retention. No evidence of acute diverticulitis. The appendix is visualized and appears normal. Normal abdominal aorta. No retroperitoneal adenopathy. Normal urinary bladder. Normal abdominal wall. No demonstrated acute osseous changes. CT/Abdomen/Pelvis W IV Cont ONLY IMPRESSION: 1. Heterogeneous enhancement of the upper pole of the left kidney. Pyelonephritis cannot be excluded. 2. Otherwise no focal acute inflammatory process. Electronically Signed: Vitaliy Higuera MD at 12:34 EST ,
--- NOTE | 2023-07-15 10:47 | EX.ED.DYSGE1 ---
HPI History of Present Illness Chief Complaint: Abd Pain Informant: patient Onset/Context/Timing Onset: Days Context: Gradual Onset Current Severity: Severe Maximum Severity: Severe Narrative Narrative: Patient present secondary to abdominal pain. She states she had urinary symptoms all last week and has now developed sharp pain just to the left of the umbilicus that goes through to her back. She states she has had pain like this before but this has been more severe and lasting longer. No fever or chills. PFSH PFSH Medical History Chronic neck pain Ectopic , tubal Female pelvic congestion syndrome Headache, chronic migraine without aura History of colitis Vasovagal syncope Home Medications ondansetron 4 mg disintegrating tablet 4 mg PO Q8H PRN PRN Nausea #10 tabs 07/15/23 [Rx Last Taken Unknown] oxycodone 5 mg tablet 5 mg PO Q8H PRN pain 3 days #10 tabs 07/15/23 [Rx Last Taken Unknown] sulfamethoxazole 800 mg-trimethoprim 160 mg tablet (Bactrim DS) 1 tab PO BID #20 tabs 07/15/23 [Rx Last Taken Unknown] Allergy/AdvReac Type Severity Reaction Status Date / Time lanolin Allergy Hives Verified 07/15/23 09:48 naproxen [From Naprosyn] Allergy Hives Verified 07/15/23 09:48 tramadol Allergy Other Verified 07/15/23 09:48 venom-honey bee Allergy Swelling Verified 07/15/23 09:48 Food Allergies: Uncoded AdvReac Nausea Verified 07/15/23 09:48 gabapentin AdvReac Other Verified 07/15/23 09:48 Surgical History Hx of tubal ligation Social History Smoking Status: Former smoker ROS ROS ED Constitutional Constitutional ED: Denies chills or fever(s) Eyes Eyes: Denies change in vision or discharge from eye(s) ENT ENT ED: Denies discharge from eye(s), rhinorrhea or sore throat Cardiovascular Cardiovascular: Denies chest pain or palpitations Respiratory/Chest Respiratory/Chest: Denies cough or dyspnea Gastrointestinal Gastrointestinal: Reports abdominal pain and nausea; Denies diarrhea or vomiting Genitourinary Genitourinary ED: Reports dysuria and urinary frequency Musculoskeletal Musculoskeletal: Reports back pain; Denies extremity pain Integumentary Denies Abrasions or rash Neurologic Neurologic: Denies headache(s) or weakness Psychiatric Psychiatric: Denies anxiety or depression Allergic/Immunologic Allergic/Immunologic ED: Denies lip swelling or urticaria EXAM Physical Exam Const Vital Signs: 07/15/23 09:49 07/15/23 11:00 07/15/23 13:05 Temperature 97.2 F L Temperature Source Temporal Pulse Rate 114 H 96 101 H Respiratory Rate 16 16 16 Blood Pressure 118/81 H 122/85 H 122/89 H Blood Pressure Mean 93 97 100 Pulse Ox 98 99 100 Oxygen Delivery Method Room Air Room Air Room Air Positive well nourished and well developed General Appearance ED: well developed HEENT Reports moist mucous membranes Eyes EOMs intact bilaterally Chest Wall inspection of chest normal and palpation of chest normal Resp normal respiratory effort and clear to auscultation bilaterally Cardio regular rhythm Rate: tachycardic GI GI Narrative: Abdomen soft with focal tenderness just to the left of the umbilicus. No palpable masses. Hypoactive bowel sounds. Extremity normal to inspection Neuro oriented x3 and no sensory deficits noted Motor Exam: strength 5/5 throughout Psych Mood & Affect: anxious and tearful Skin no rashes or lesions noted MDM MDM MDM Narrative Medical decision making narrative: IV line established. Patient given morphine and Zofran for pain and nausea. Labwork obtained to evaluate for leukocytosis, anemia, and electrolyte derangement. Urinalysis obtained to evaluate for infection/hematuria. CT scan of the abdomen pelvis with IV contrast obtained. History & Record Review Discussion w/independent historian: Patient and Significant other Additional record(s) reviewed:: Prior ED visit and Prior labs Lab Data Attestation: I reviewed the patient's lab results. Labs: Laboratory Results - last 24 hr 07/15/23 07/15/23 07/15/23 10:17 10:54 10:59 WBC 13.5 H RBC 4.88 Hgb 14.4 Hct 43.9 MCV 90.0 MCH 29.5 MCHC 32.8 RDW Std Deviation 38.9 RDW Coeff of Parag 11.9 Plt Count 301 MPV 9.7 Immature Gran % (Auto) 0.400 Neut % (Auto) 82.4 H Lymph % (Auto) 8.2 L [place] % (Auto) 8.2 Eos % (Auto) 0.4 Baso % (Auto) 0.4 Absolute Neuts (auto) 11.1 H Absolute Lymphs (auto) 1.11 Nucleated RBC % 0 Sodium 133 L Potassium 3.8 Chloride 100 Carbon Dioxide 28.0 Anion Gap 5 BUN 5 L Creatinine 0.74 Est GFR (MDRD) Af Amer 112 Est GFR (MDRD) Non-Af 92 BUN/Creatinine Ratio 6.8 L Glucose 121 H Lactic Acid 1.5 Calcium 9.2 Total Bilirubin 1.40 H Direct Bilirubin 0.48 H AST 97 H ALT 95 H Alkaline Phosphatase 233 H Total Protein 7.7 Albumin 3.2 Globulin 4.5 H Lipase 10 L Serum , Qual NEGATIVE Urine Color Yellow Urine Clarity Sl. Cloudy Urine pH 8.0 Ur Specific [place] 1.015 Urine Protein 30 H Urine Glucose (UA) Normal Urine Ketones 5 H Urine Occult Blood 25 H Urine Nitrite Negative Urine Bilirubin Negative Urine Urobilinogen 4 H Ur Leukocyte Esterase 100 H Urine RBC 0-5 SEEN Urine WBC 25-50 SEEN Ur Squamous Epith Cells 0-5 SEEN Urine Bacteria 1+ Urine Mucus 0 SEEN Radiography Diagnostic Testing: Clinical Impression(s) from Imaging Studies Abdomen/Pelvis CT 07/15/23 10:45 IMPRESSION: 1. Heterogeneous enhancement of the upper pole of the left kidney. Pyelonephritis cannot be excluded. 2. Otherwise no focal acute inflammatory process. Electronically Signed: Vitaliy Higuera MD at 12:34 EST , Treatment and Re-Evaluation :: CBC was white count of 13.5 with 82% neutrophils. Hemoglobin is normal at 14.4. Chemistry studies unremarkable. Lactic acid is 1.5. LFTs reveal a total bili of 1.4, direct bili 0.48. AST is 97, ALT is 95, alk phos is 233. This does appear to be a change when compared to her prior values. She does not have focal tenderness in the right upper quadrant. Lipase is normal at 10. test negative. Urinalysis does reveal infection with 1+ bacteria and 25-[address] scan of the abdomen and pelvis with IV contrast reveals heterogeneous enhancement of the upper pole of the left kidney. Pyelonephritis cannot be excluded. No other focal acute inflammatory process. Patient is given a dose of IV Rocephin here and urine culture sent. Test results discussed with patient and at bedside. She will be discharged on a course of Bactrim along with Percocet and Zofran for pain and nausea. I will ask her to follow-up with her primary care physician regarding repeat labs to ensure her liver function test are not worsening. Discharge Plan Triage Chief Complaint: Abd Pain ED Provider: Francy Tyson Dx/Rx/DC Orders Clinical Impression: Elevated LFTs, Pyelonephritis Instructions: ED Pyelonephritis, Female (Adult) Prescriptions: New oxycodone 5 mg tablet 5 mg PO Q8H PRN (Reason: pain) 3 Days Qty: 10 0RF sulfamethoxazole-trimethoprim [Bactrim DS] 800-160 mg tablet 1 tab PO BID Qty: 20 0RF ondansetron 4 mg tablet,disintegrating 4 mg PO Q8H PRN PRN (Reason: Nausea) Qty: 10 0RF Primary Care Provider: Celi Caicedo Referrals: Celi Caicedo, DO [Primary Care Provider] - 1-2 Weeks Disposition Disposition: Home, Self Care
[2023-07-15 10:58] LABS: Absolute Lymphocyte Count 1.11 X10^3/uL (0.83-4.51); Absolute Neutrophil Count 11.1 X10^3/uL (2.0-7.7); Basophil# 0.06 X10^3/uL; Basophil% 0.4 % (0-1); Eosinophil# 0.06 X10^3/uL; Eosinophils% 0.4 % (0-5); Hematocrit 43.9 % (37-47); Hemoglobin 14.4 g/dL (12.0-15.0); Lymphocyte # 1.11 X10^3/ul (0.83-4.51); Lymphocyte % 8.2 % (19-41); Mean Corp Hgb Conc 32.8 g/dL (32-36); Mean Corpuscular Hgb 29.5 pg (27.0-32.0); Mean Platelet Vol. 9.7 fl (6.2-12.0); Monocyte# 1.11 X10^3/uL; Monocyte% 8.2 % (0-10); NRBC Flagged by Analyzer 0 % (0-5); Neutrophil # 11.12 X10^3/uL (2.7-7.7); Neutrophil % 82.4 % (47-70); Platelet Count 301 K/mm3 (150-450); RBC Distribution Width CV 11.9 % (11.6-14.6); RBC Distribution Width SD 38.9 fl (35.1-43.9); Red Blood Count 4.88 M/mm3 (4.2-5.4); White Blood Count 13.5 K/mm3 (4.4-11.0)
[2023-07-15 11:00] VITALS: BP 122/85; PULSE 96; RESP 16; O2SAT 99
[2023-07-15 11:03] LABS: Internal QC Validated? YES +Cl - CLEAR BKGD; Pregnancy, Serum, hCG Quali. NEGATIVE Negative; Record Kit Lot#, Serum Preg. HCG0000667200
[2023-07-15] MEDS: 0.9% Normal Saline (1000mL) 1,000 ML 150 ML IV (11:05)
[2023-07-15] MEDS: Morphine 4 MG/ML Syringe IV (11:06)
[2023-07-15] MEDS: Ondansetron 4 MG/2 ML Vial IV (11:06)
[2023-07-15 11:12] LABS: Mucous, Urine 0 SEEN /hpf (<or=2+)
[2023-07-15 11:14] LABS: AST(SGOT) 97 U/L (15-37); Alanine Aminotransfer ALT/SGPT 95 U/L (13-56); Albumin, Serum 3.2 g/dL (3.2-5.0); Alkaline Phosphatase 233 U/L (45-117); Anion Gap 5 (5-15); BUN 5 mg/dL (7-18); BUN/Creat Ratio 6.8 RATIO (10-20); Bilirubin, Direct 0.48 mg/dL (0.00-0.30); Calcium,Total 9.2 mg/dL (8.5-10.1); Chloride 100 mmol/L (98-107); Creatinine, Serum 0.74 mg/dL (0.55-1.02); EST Glomerular Filtration Rate 92 mL/min (>60); Est Glom Filt Rate - Afr Amer 112 mL/min (>60); Globulin 4.5 g/dL (2.2-4.2); Glucose 121 mg/dL (74-106); Lipase 10 U/L (13-75); Potassium 3.8 mmol/L (3.5-5.1); Protein, Total 7.7 g/dL (6.4-8.2); Sodium Level 133 mmol/L (136-145)
[2023-07-15 11:17] LABS: Color, Urine Yellow (Yellow); Glucose, Dipstick Normal (Normal); Ketone-Dipstick 5 mg/dl (Negative); Leukocyte Esterase-Dipstick 100 /ul (Negative); Nitrite-Dipstick Negative (Negative); Occult Blood-Urine 25 /ul (Negative); Protein-Dipstick 30 mg/dl (Negative); Specific Gravity, Urine 1.015 (1.002-1.030); Urine Bilirubin Dipstick Negative (Negative); Urine Clarity Sl. Cloudy (Clear); Urine Urobilinogen 4 mg/dl (Normal)
[2023-07-15 11:26] LABS: Red Blood Cells-Urine 0-5 SEEN /hpf (0-5); Squamous Epithelial Cells - UA 0-5 SEEN /hpf (5-10); White Blood Cells 25-50 SEEN /hpf (0-5)
[2023-07-15 11:27] LABS: Bacteria 1+ /hpf (None Seen)
[2023-07-15 11:33] LABS: Lactic Acid 1.5 mmol/L (0.4-1.9)
[2023-07-15] MEDS: Ceftriaxone 1 GM/50 ML BAG IV (12:16)
[2023-07-15 13:05] VITALS: BP 122/89; PULSE 101; RESP 16; O2SAT 100
[2023-07-15 13:50] VITALS: BP 122/89; RESP 16
== END 2023-07-15 13:50 | disposition home or self-care (01) ==
PROVIDERS: Emergency Provider Emergency Medicine; PCP Family Medicine; Referring Provider Emergency Medicine; Visit Provider Emergency Medicine
DX: N12 Tubulo-interstitial nephritis, not specified as acute or chronic (principal); R79.89 Other specified abnormal findings of blood chemistry; Z87.891 Personal history of nicotine dependence
CPT/HCPCS: 74177; 80048; 80076; 81001; 83605; 83690; 84703; 85025; 87077; 87086; 87088; 87186; 96361; 96365; 96375; 99282; J7030; Q9967; A4216; J2405

== ENCOUNTER 2024-03-08 23:56 | Emergency (ER) | payer SELFPAY ==
[2024-03-08 23:57] VITALS: BP 134/91; PULSE 90; RESP 16; TEMP 36.1; O2SAT 100; BMI 20.6
--- NOTE | 2024-03-09 00:27 | CT_ITS ---
EXAM: CT ABDOMEN AND PELVIS WITH INTRAVENOUS CONTRAST CLINICAL INDICATION: abd pain TECHNIQUE: Helically acquired images were obtained of the abdomen and pelvis with intravenous contrast. This CT exam was performed using one or more of the following dose reduction techniques: automated exposure control, adjustment of the mA and/or kV according to patient size, and/or use of iterative reconstruction technique. CONTRAST: IV 100mL Isovue-370 RADIATION DOSE: CTDIvol = 10.35 mGy, DLP = 368.33 mGy-cm COMPARISON: CT abdomen and pelvis 07/15/2023 FINDINGS: LOWER THORAX: Unremarkable. Lung bases are clear. No cardiomegaly. No significant pericardial effusion. ABDOMEN: LIVER: Unremarkable. Homogeneous. No focal mass. GALLBLADDER AND BILE DUCTS: Unremarkable. No calcified gallstones. No gallbladder distention or wall edema. No intra- or extrahepatic biliary ductal dilation. PANCREAS: Unremarkable. No focal cystic or solid mass. SPLEEN: Unremarkable. Normal size without focal cystic or solid mass. ADRENALS: Unremarkable. No nodules. KIDNEYS AND URETERS: Unremarkable. Normal renal size and position. No hydronephrosis. STOMACH AND BOWEL: Some globular hyperdensity within the lumen of the stomach, mixed with fluid density. Moderate amount of stool in the colon. No stomach or bowel distention. No focal inflammatory change. PELVIS: APPENDIX: The appendix is normal. BLADDER: Unremarkable. REPRODUCTIVE: Unremarkable as visualized. No mass. ABDOMEN and PELVIS: INTRAPERITONEAL SPACE: Unremarkable. No ascites or other fluid collection. No free air. BONES/JOINTS: Unremarkable. No suspicious lytic or blastic abnormality. SOFT TISSUES: Unremarkable. No discrete abdominal or pelvic wall hernia. VASCULATURE: Unremarkable. Abdominal aorta is non-dilated. LYMPH NODES: Unremarkable. No enlarged lymph nodes. CT/Abdomen/Pelvis W IV Cont ONLY IMPRESSION: 1. Some globular hyperdensity within the lumen of the stomach, mixed with fluid density. This could represent a small amount of oral contrast or certain medications containing bismuth subsalicylate such as Pepto-Bismol. Alternatively, this could represent extravasating contrast from a bleeding gastric ulcer or other cause of gastric hemorrhage. Correlate with clinical history/presentation, further evaluation could be performed with upper endoscopy or a nuclear medicine tagged RBC scan if clinically indicated. 2. Moderate amount of stool in the colon. N.B. : The above information has been verbally conveyed by Beka Das MD to Roly Eid DO, on 03/09/2024 02:20:26 (ET). Electronically Signed: Beka Das MD at 2:14 EDT ,
[2024-03-09] MEDS: Morphine 4 MG/ML Syringe IV (01:01)
[2024-03-09] MEDS: Ondansetron 4 MG/2 ML Vial IV (01:01)
[2024-03-09] MEDS: 0.9% Normal Saline (1000mL) 1,000 ML 999 ML IV (01:01)
[2024-03-09 01:17] LABS: Mucous, Urine 0 SEEN /hpf (<or=2+)
[2024-03-09 01:18] LABS: Absolute Lymphocyte Count 2.41 X10^3/uL (0.83-4.51); Absolute Neutrophil Count 4.3 X10^3/uL (2.0-7.7); Basophil% 1.4 % (0-1); Eosinophil# 0.13 X10^3/uL; Eosinophils% 1.8 % (0-5); Hematocrit 39.2 % (37-47); Lymphocyte # 2.41 X10^3/ul (0.83-4.51); Lymphocyte % 32.6 % (19-41); Mean Corp Hgb Conc 33.2 g/dL (32-36); Mean Corpuscular Hgb 29.7 pg (27.0-32.0); Mean Corpuscular Volume 89.5 fL (81-99); Mean Platelet Vol. 9.7 fl (6.2-12.0); Monocyte# 0.48 X10^3/uL; Monocyte% 6.5 % (0-10); NRBC Flagged by Analyzer 0 % (0-5); Neutrophil # 4.26 X10^3/uL (2.7-7.7); Neutrophil % 57.4 % (47-70); Platelet Count 288 K/mm3 (150-450); RBC Distribution Width CV 11.9 % (11.6-14.6); RBC Distribution Width SD 38.4 fl (35.1-43.9); Red Blood Count 4.38 M/mm3 (4.2-5.4); White Blood Count 7.4 K/mm3 (4.4-11.0)
[2024-03-09 01:20] LABS: Color, Urine Yellow (Yellow); Glucose, Dipstick Normal (Normal); Ketone-Dipstick 5 mg/dl (Negative); Leukocyte Esterase-Dipstick 500 /ul (Negative); Nitrite-Dipstick Negative (Negative); Occult Blood-Urine 250 /ul (Negative); Protein-Dipstick 30 mg/dl (Negative); Specific Gravity, Urine 1.025 (1.002-1.030); Urine Bilirubin Dipstick Negative (Negative); Urine Clarity Sl. Cloudy (Clear); Urine Urobilinogen 1 mg/dl (Normal)
[2024-03-09 01:21] LABS: Internal QC Validated? YES +Cl - CLEAR BKGD
[2024-03-09 01:22] LABS: Pregnancy, Urine Negative Negative
[2024-03-09 01:26] LABS: Bacteria 1+ /hpf (None Seen); Red Blood Cells-Urine 50-100 SEEN /hpf (0-5); Squamous Epithelial Cells - UA 5-10 SEEN /hpf (5-10); White Blood Cells 50-100 SEEN /hpf (0-5)
[2024-03-09 01:35] LABS: AST(SGOT) 17 U/L (15-37); Alanine Aminotransfer ALT/SGPT 15 U/L (13-56); Albumin, Serum 3.6 g/dL (3.2-5.0); Alkaline Phosphatase 84 U/L (45-117); Anion Gap 1 (5-15); BUN 9 mg/dL (7-18); BUN/Creat Ratio 10.4 RATIO (10-20); Bilirubin, Direct 0.22 mg/dL (0.00-0.30); Calcium,Total 8.8 mg/dL (8.5-10.1); Chloride 104 mmol/L (98-107); Creatinine, Serum 0.86 mg/dL (0.55-1.02); EST Glomerular Filtration Rate 77 mL/min (>60); Est Glom Filt Rate - Afr Amer 93 mL/min (>60); Estimated Creatinine Clearance 73.59 ml/min; Globulin 3.6 g/dL (2.2-4.2); Glucose 74 mg/dL (74-106); Lipase 18 U/L (13-75); Potassium 3.4 mmol/L (3.5-5.1); Protein, Total 7.2 g/dL (6.4-8.2); Sodium Level 136 mmol/L (136-145)
[2024-03-09 01:56] VITALS: BP 120/89; PULSE 69; RESP 16; O2SAT 98
[2024-03-09 03:00] VITALS: BP 111/81; PULSE 70; RESP 18; O2SAT 100
--- NOTE | 2024-03-09 03:00 | EDS_ITS ---
HPI History of Present Illness Chief Complaint: Abd Pain Informant: patient Narrative Narrative: Patient is a 43-year-old female with past medical history of pelvic congestion syndrome and colitis. She states she has intermittent pain to her abdomen and this is ongoing for the last few months without any obvious diagnosis. However this evening the pain was more intense and felt different from her baseline abdominal pain. She states is located along the left lower abdomen. She reports that she has had colitis in the past and has concern for this once again. However she denies any constipation or diarrhea. She denies any bright red blood or dark discolored stool. Patient reports mild nausea associate with the pain but denies any vomiting or hematemesis. She also denies any known sick contact. However because the pain was more intense and different from her baseline she presents for evaluation. [facility] Medical History Ectopic , tubal Female pelvic congestion syndrome Headache, chronic migraine without aura Vasovagal syncope History of colitis Chronic neck pain Home Medications ?Medication ?Instructions ?Recorded ?Last Taken ?Type ondansetron 4 mg disintegrating 4 mg PO TID PRN nausea and 03/09/24 Unknown Rx tablet vomiting #21 tabs oxycodone-acetaminophen 5 mg-325 1 tab PO Q6H PRN pain 3 days #12 03/09/24 Unknown Rx mg tablet (Percocet) tabs Allergy/AdvReac Type Severity Reaction Status Date / Time lanolin Allergy Hives Verified 03/08/24 23:56 naproxen (From Naprosyn) Allergy Hives Verified 03/08/24 23:56 tramadol Allergy Other Verified 03/08/24 23:56 venom-honey bee Allergy Swelling Verified 03/08/24 23:56 Food Allergies: Uncoded AdvReac Nausea Verified 03/08/24 23:56 gabapentin AdvReac Other Verified 03/08/24 23:56 Surgical History Hx of tubal ligation Social History Smoking Status: Current every day smoker tobacco type: e-cigarettes ROS ROS ED Constitutional Constitutional ED: Denies chills or fever(s) Eyes Eyes: Denies blurry vision or change in vision ENT ENT ED: Denies rhinorrhea or sore throat Cardiovascular Cardiovascular: Denies chest pain Respiratory/Chest Respiratory/Chest: Denies cough or dyspnea Gastrointestinal Gastrointestinal: Reports abdominal pain and nausea; Denies constipation, diarrhea, melena or vomiting Genitourinary Genitourinary ED: Denies dysuria Musculoskeletal Musculoskeletal: Denies myalgias Integumentary Denies rash Neurologic Neurologic: Denies headache(s) Hematologic/Lymphatic Hematologic/Lymphatic: Denies easy bleeding or easy bruising EXAM Physical Exam Const Vital Signs: 03/08/24 23:57 03/09/24 01:56 03/09/24 03:00 Temperature 96.9 F L Temperature Source Temporal Pulse Rate 90 69 70 Respiratory Rate 16 16 18 Blood Pressure 134/91 H 120/89 H 111/81 H Blood Pressure Mean 105 99 91 Pulse Ox 100 98 100 Oxygen Delivery Method Room Air Room Air Room Air 03/09/24 03:06 Temperature 97.7 F L Temperature Source Pulse Rate 71 Respiratory Rate 16 Blood Pressure 111/81 H Blood Pressure Mean 91 Pulse Ox 100 Oxygen Delivery Method Positive well nourished and well developed General Appearance ED: well developed; Negative for pallor HEENT Reports dry mucous membranes HEENT Narrative: No tongue or lip swelling no oral lesions no airway edema or compromise No secondary findings in the posterior pharynx to suggest infection Mucous membranes are slightly dry and tacky Mouth ED: Yes dry mucous membranes Mouth: dry mucous membranes Eyes PERRL and EOMs intact bilaterally General Eye ED: Negative for scleral icterus Neck supple Neck Narrative: No nuchal rigidity or meningeal signs noted Resp normal respiratory effort and clear to auscultation bilaterally Cardio regular rate and regular rhythm Rate: other Other Details: Radial and carotid pulses are equal and symmetric GI non-distended and no masses GI Narrative: Abdomen is soft and nondistended with hypoactive bowel sounds. Patient has pain with palpation in the left lower quadrant without voluntary guarding or rigidity or pulsatile mass. Auscultation: hypoactive bowel sounds Palpation: soft Back/Spine no CVA tenderness Extremity normal to inspection Neuro oriented x3, CN's II-XII intact bilaterally and no sensory deficits noted Sensorium / Orientation: alert Motor Exam: strength 5/5 throughout Psych mental status grossly normal Skin no rashes or lesions noted Skin Narrative: Skin turgor is slightly increased General Skin Exam: Negative for jaundice or pallor MDM MDM MDM Narrative Medical decision making narrative: Patient arrived to the ER mildly hypertensive but otherwise with stable vitals. He reported a longstanding issue with recurrent abdominal discomfort without any obvious diagnosis. However this evening she reported the pain was different from its baseline. Concern is for kidney stone versus UTI versus pyelonephritis versus ovarian cyst versus diverticulitis. Basic blood work was obtained which revealed no acute findings such as acute kidney injury or electrolyte abnormality or acute blood loss anemia. White count is also normal going against infection. Urine sample showed blood but patient is on her menstrual cycle and otherwise no sign of infection as it is more contaminated with epithelial cells and the patient does not have urinary symptoms. Based on the patient's prolonged history of abdominal pain and the fact she reported it was different/worse this evening I did elect to perform a CT scan to check for colitis/diverticulitis versus perforation versus abscess versus kidney stone. CT scan showed an area within the abdomen which is nonspecific but could be related to ingestion of medications such as Pepto-Bismol or salicylates or could be related to potential GI bleed. The patient's BUN is normal going against a active GI bleed she also denies any hematochezia or melena. And she denies any vomiting or hematemesis going against an upper GI bleed. I did recommend a rectal exam with stool sample in order to ensure there is no internal bleeding. The patient reports she has low concern for this and does not want the rectal exam performed. She also denied any recent ingestion which could have caused the findings on the CT scan. At this time she is hemodynamically stable her abdomen is soft and nonsurgical she does not have overt signs of infection or acute blood loss anemia or internal bleeding. Therefore do not feel that there is need for admission to the hospital and patient can follow-up on an outpatient basis for further studies such as EGD and colonoscopy for pelvic ultrasound to further assess the cause of her pain History & Record Review Discussion w/independent historian: Patient Lab Data Attestation: I reviewed the patient's lab results. Labs: Laboratory Results - last 24 hr 03/09/24 00:54 WBC 7.4 RBC 4.38 Hgb 13.0 Hct 39.2 MCV 89.5 MCH 29.7 MCHC 33.2 RDW Std Deviation 38.4 RDW Coeff of Parag 11.9 Plt Count 288 MPV 9.7 Immature Gran % (Auto) 0.300 Neut % (Auto) 57.4 Lymph % (Auto) 32.6 [place] % (Auto) 6.5 Eos % (Auto) 1.8 Baso % (Auto) 1.4 H Absolute Neuts (auto) 4.3 Absolute Lymphs (auto) 2.41 Nucleated RBC % 0 Sodium 136 Potassium 3.4 L Chloride 104 Carbon Dioxide 31.0 Anion Gap 1 L BUN 9 Creatinine 0.86 Estim Creat Clear Calc 73.59 Est GFR (MDRD) Af Amer 93 Est GFR (MDRD) Non-Af 77 BUN/Creatinine Ratio 10.4 Glucose 74 Calcium 8.8 Total Bilirubin 0.80 Direct Bilirubin 0.22 AST 17 ALT 15 Alkaline Phosphatase 84 Total Protein 7.2 Albumin 3.6 Globulin 3.6 Lipase 18 Urine Color Yellow Urine Clarity Sl. Cloudy Urine pH 6.0 Ur Specific [place] 1.025 Urine Protein 30 H Urine Glucose (UA) Normal Urine Ketones 5 H Urine Occult Blood 250 H Urine Nitrite Negative Urine Bilirubin Negative Urine Urobilinogen 1 H Ur Leukocyte Esterase 500 H Urine RBC 50-100 SEEN Urine WBC 50-100 SEEN Ur Squamous Epith Cells 5-10 SEEN Urine Bacteria 1+ Urine Mucus 0 SEEN Urine Test Negative Radiography Diagnostic Testing: Clinical Impression(s) from Imaging Studies Abdomen/Pelvis CT 03/09/24 00:27 IMPRESSION: 1. Some globular hyperdensity within the lumen of the stomach, mixed with fluid density. This could represent a small amount of oral contrast or certain medications containing bismuth subsalicylate such as Pepto-Bismol. Alternatively, this could represent extravasating contrast from a bleeding gastric ulcer or other cause of gastric hemorrhage. Correlate with clinical history/presentation, further evaluation could be performed with upper endoscopy or a nuclear medicine tagged RBC scan if clinically indicated. 2. Moderate amount of stool in the colon. N.B. : The above information has been verbally conveyed by Beka Das MD to Roly Eid DO, on 03/09/2024 02:20:26 (ET). Electronically Signed: Beka Das MD at 2:14 EDT , Discharge Plan Triage Chief Complaint: Abd Pain ED Provider: Roly Eid Dx/Rx/DC Orders Clinical Impression: Nonspecific abdominal pain, Female pelvic congestion syndrome Instructions: Abdominal Pain, ED Abdominal Pain Unkn Cause Fem Prescriptions: New ondansetron 4 mg tablet,disintegrating 4 mg PO TID PRN (Reason: nausea and vomiting) Qty: 21 0RF oxycodone-acetaminophen [Percocet] 5-325 mg tablet 1 tab PO Q6H PRN (Reason: pain) 3 Days Qty: 12 0RF Stand Alone Forms: ED Work / School Excuse Primary Care Provider: Care Physician,No Primary Referrals: José Miguel Becerril MD [Med Staff - Active Staff] - Care Physician,No Primary [Primary Care Provider] - Activity Restrictions/Additional Instructions: Please follow-up with your family doctor to discuss GI referral and potential for EGD and/or colonoscopy to further assess the cause of your symptoms. Return to the ER should you have any further concerns Print Language: Kinyarwanda Disposition Disposition: Home, Self Care Discharge Date/Time: 03/09/24 03:09
[2024-03-09 03:06] VITALS: BP 111/81; PULSE 71; RESP 16; TEMP 36.5; O2SAT 100
== END 2024-03-09 03:09 | disposition home or self-care (01) ==
PROVIDERS: Emergency Provider Emergency Medicine; Visit Provider Emergency Medicine
DX: R10.9 Unspecified abdominal pain (principal); F17.210 Nicotine dependence, cigarettes, uncomplicated; G43.709 Chronic migraine without aura, not intractable, without status migrainosus; N94.89 Other specified conditions associated with female genital organs and menstrual cycle
CPT/HCPCS: 74177; 80048; 80076; 81001; 81025; 83690; 85025; 99283; J7030; Q9967; A4216; J2405

== ENCOUNTER 2024-07-20 19:07 | Emergency (ER) | payer MEDICAID, SELFPAY ==
[2024-07-20 19:08] VITALS: BP 118/73; PULSE 94; RESP 16; TEMP 35.9; O2SAT 100; BMI 21.3
--- NOTE | 2024-07-20 19:50 | EDS_ITS ---
HPI History of Present Illness Chief Complaint: Headache Narrative Narrative: 43-year-old female past medical history of previous migraines with visits to the ER presents with left-sided headache typical of her previous migraines. She states that she stopped getting them frequently, and has not had to have any rescue medications prescribed. She went to sleep last night around 1130 and awoke this afternoon around noon, 7 hours ago with left-sided throbbing headache. She was able to eat lunch but then vomited twice. She has photophobia but no phonophobia. No other symptoms. This is very typical of her previous migraines that she currently rates 6 or 7 out of 10. She cannot really recall what she was given for analgesia when she had to come to the ED. [facility] Medical History Ectopic , tubal Female pelvic congestion syndrome Headache, chronic migraine without aura Vasovagal syncope History of colitis Chronic neck pain Home Medications ?Medication ?Instructions ?Recorded ?Last Taken ?Type ondansetron 4 mg disintegrating 4 mg PO TID PRN nausea and 03/09/24 Unknown Rx tablet vomiting #21 tabs oxycodone-acetaminophen 5 mg-325 1 tab PO Q6H PRN pain 3 days #12 03/09/24 Unknown Rx mg tablet (Percocet) tabs Allergy/AdvReac Type Severity Reaction Status Date / Time lanolin Allergy Hives Verified 07/20/24 19:08 naproxen (From Naprosyn) Allergy Hives Verified 07/20/24 19:08 tramadol Allergy Other Verified 07/20/24 19:08 venom-honey bee Allergy Swelling Verified 07/20/24 19:08 Food Allergies: Uncoded AdvReac Nausea Verified 07/20/24 19:08 gabapentin AdvReac Other Verified 07/20/24 19:08 Surgical History Hx of tubal ligation Social History Smoking Status: Current every day smoker tobacco type: e-cigarettes ROS ROS ED ROS Narrative Review of systems positive for left-sided throbbing headache consistent with previous migraine. 2 episodes of nausea and vomiting. Positive photophobia but no phonophobia. No exacerbating or alleviating factors. No fevers or chills. Positive chronic neck pain. EXAM Physical Exam Narrative Exam Narrative: Afebrile. Vital signs noted. Nontoxic-appearing. Sitting in a darkened room but television is on. Cardiovascular examination reveals a regular rate and rhythm. Lungs are clear to auscultation bilaterally. Abdomen is soft nontender with normal active bowel sounds. Moves all extremities. DTRs equal and symmetric in patellar and biceps as tested. PERRL, EOMI. Neck soft and supple without meningismus. Const Vital Signs: 07/20/24 19:08 Temperature 96.6 F L Temperature Source Temporal Pulse Rate 94 Respiratory Rate 16 Blood Pressure 118/73 Blood Pressure Mean 88 Pulse Ox 100 Oxygen Delivery Method Room Air MDM MDM MDM Narrative Medical decision making narrative: Differential diagnosis includes but not limited to intracranial hemorrhage versus migraine without aura. Stress headache and dehydration is also in the differential diagnosis as well. I reviewed her prior records in 2018 where she received Compazine and Benadryl as well as IV fluids. As this is typical of her previous migraines that she gets infrequently I do not feel CT imaging is indicated nor do I feel laboratory work is indicated. She will be administered Compazine and Benadryl intravenously. She has an allergy to naproxen so I will refrain from Toradol. Repeat examination at around 2134 shows her resting comfortably. She is sleeping but easily awakened. She now rates her headache about a 4. At this point in time, I feel she can be discharged to follow-up with a primary care provider. She was told that she may need maintenance medications for her migraine headaches or rescue medications. I do not feel she requires observation. Disposition is discharged home in stable condition. History & Record Review Discussion w/independent historian: Patient Discharge Plan Triage Chief Complaint: Headache ED Provider: Carrillo Burleson Dx/Rx/DC Orders Clinical Impression: Migraine, Nausea and vomiting Instructions: ED, Migraine (Classical), ED Vomiting (Adult) Prescriptions: No Action ondansetron 4 mg tablet,disintegrating 4 mg PO TID PRN (Reason: nausea and vomiting) Qty: 21 0RF oxycodone-acetaminophen [Percocet] 5-325 mg tablet 1 tab PO Q6H PRN (Reason: pain) 3 Days Qty: 12 0RF Primary Care Provider: Care Physician,No Primary Referrals: José Miguel Becerril MD [Med Staff - Active Staff] - As soon as possible Care Physician,No Primary [Primary Care Provider] - Activity Restrictions/Additional Instructions: Follow-up with a primary care provider. You may need maintenance medications or rescue medications for migraine headaches. Return with fever, new or worsening symptoms. Print Language: Turkmen Disposition Disposition: Home, Self Care
[2024-07-20] MEDS: proCHLORPERazine 10 MG/2 ML Vial IV (20:04)
[2024-07-20] MEDS: 0.9% Normal Saline (500mL Bag) 500 ML 999 ML IV (20:04)
[2024-07-20] MEDS: DiphenhydrAMINE 50 MG/ML Syringe 25 MG IV (20:04)
[2024-07-20 21:52] VITALS: BP 94/57; PULSE 74; RESP 16; TEMP 35.9; O2SAT 98
== END 2024-07-20 21:53 | disposition home or self-care (01) ==
PROVIDERS: Emergency Provider Emergency Medicine; Referring Provider Emergency Medicine; Visit Provider Emergency Medicine
DX: G43.909 Migraine, unspecified, not intractable, without status migrainosus (principal); R11.2 Nausea with vomiting, unspecified; F17.210 Nicotine dependence, cigarettes, uncomplicated
CPT/HCPCS: 96361; 96374; 96375; 99282; A4216

== ENCOUNTER 2024-08-01 00:57 | Emergency (ER) | payer MEDICAID, SELFPAY ==
[2024-08-01 00:58] VITALS: BP 150/93; PULSE 106; RESP 16; TEMP 36.7; O2SAT 100; BMI 20.4
[2024-08-01] MEDS: Lidocaine 1% (20 ml mdv) 20 ML Vial 5 ML INFILT (01:50)
[2024-08-01 01:52] VITALS: BP 127/82; PULSE 104; RESP 18; TEMP 36.7; O2SAT 100
--- NOTE | 2024-08-01 01:54 | EDS_ITS ---
HPI History of Present Illness Chief Complaint: Laceration [facility] Medical History Ectopic , tubal Female pelvic congestion syndrome Headache, chronic migraine without aura Vasovagal syncope History of colitis Chronic neck pain Home Medications ?Medication ?Instructions ?Recorded ?Last Taken ?Type NK 08/01/24 Unknown History Allergy/AdvReac Type Severity Reaction Status Date / Time lanolin Allergy Hives Verified 08/01/24 00:58 naproxen (From Naprosyn) Allergy Hives Verified 08/01/24 00:58 tramadol Allergy Other Verified 08/01/24 00:58 venom-honey bee Allergy Swelling Verified 08/01/24 00:58 Food Allergies: Uncoded AdvReac Nausea Verified 08/01/24 00:58 gabapentin AdvReac Other Verified 08/01/24 00:58 Family History no significant family his Surgical History Hx of tubal ligation Social History Smoking Status: Former smoker EXAM Physical Exam Const Vital Signs: 08/01/24 00:58 08/01/24 01:52 Temperature 98.1 F 98.0 F Temperature Source Oral Pulse Rate 106 H 104 H Respiratory Rate 16 18 Blood Pressure 150/93 H 127/82 H Blood Pressure Mean 112 97 Pulse Ox 100 100 Oxygen Delivery Method Room Air [facility] Narrative Medical decision making narrative: HISTORY OF PRESENT ILLNESS: 43-year-old female presents with right hand laceration. [id number]. Notes recent tetanus immunization within the last year. Notes she was grabbing top of her vanity when the glass broke and cut her right hand. REVIEW OF SYSTEMS: Pertinent positives: Right hand laceration Pertinent negatives: Loss of sensation movement PHYSICAL EXAM: Nursing triage notes reviewed, Vital signs reviewed Constitutional: please see mdm Extremities: No edema, intact tenderness function thumb flexion extension Neuro: Intact 5/5 strength with ok sign (median), intact finger abduction (ulnar) intact wrist extension (radial n). Intact sensation in the radial, ulnar, and median nerve distributions. Skin: Small approximately 0.5 cm superficial linear laceration noted to the right proximal first digit, along the palmar surface MEDICAL DECISION MAKING: Chief Complaint: Right hand laceration MDM Narrative: The patient suffered lacerations to the right hand On exam there was no evidence of foreign bodies. There was no evidence of neurovascular injury. Patient had a normal distal vascular exam, and had intact ROM and sensation. There was also no evidence of tendon injury, with normal distal full range of motion, flexion, extension, abduction, abduction. There is no evidence of local joint space involvement at this time. Wound care applied (irrigation and/or local cleansing solution). Laceration repair was then performed please see procedure note. The patient was given signs and symptoms warnings for infection, such as increasing pain, redness, swelling, associated heat, pus or fever. Patient was given instructions for timely follow-up for removal. Patient agreed with the plan of care Procedure: Laceration repair. The procedure was performed by myself. Indication: Wound repair Risks and benefits: risks, benefits and alternatives were discussed Consent: Consent was obtained. Wound Details: Superficial linear laceration noted to the right hand at the proximal first digit, palmar surface, 1 mm in depth, approximately 0.5 cm in length, bleeding controlled, no obvious tendinous involvement or foreign bodies noted. Placed 5, 5-0 Chromic Gut sutures with close approximation. Anesthesia: Intradermal lidocaine (verbal consent obtained from patient). Wound prep: Patient was prepped and draped in the usual sterile fashion. Tetanus: Up-to-date Irrigation Solution: Saline Wound Preparation: Irrigated with copious saline, cleansed chlorhexidine The wound was explored to its base in a bloodless field. Procedure Description: Placed 5 signs were opted sutures Patient tolerated the procedure well with no immediate complications Impression: 1. Right hand laceration Dispo: Discharge home This note was generated with [employer] dictation software. It may contain incorrect words, spelling, and punctuation that were not noted in review of the chart prior to signing. Discharge Plan Triage Chief Complaint: Laceration ED Provider: Kapil Oliveira Dx/Rx/DC Orders Prescriptions: No Action NK Primary Care Provider: Care Physician,No Primary Referrals: Care Physician,No Primary [Primary Care Provider] - Print Language: Canadian
[2024-08-01] MEDS: Cephalexin 250 MG Capsule 500 MG PO (02:01)
== END 2024-08-01 02:05 | disposition home or self-care (01) ==
PROVIDERS: Emergency Provider Emergency Medicine; Visit Provider Emergency Medicine
DX: S61.411A Laceration without foreign body of right hand, initial encounter (principal); W25.XXXA Contact with sharp glass, initial encounter; Z87.891 Personal history of nicotine dependence; Z98.51 Tubal ligation status
CPT/HCPCS: 12001

== ENCOUNTER 2024-09-25 13:43 | Emergency (ER) | payer MEDICAID, SELFPAY ==
[2024-09-25 13:44] VITALS: BP 120/80; PULSE 87; RESP 15; TEMP 36.4; O2SAT 100; BMI 19.7
--- NOTE | 2024-09-25 14:00 | EDS_ITS ---
HPI <ROBERT Del Rosario - Last Filed: 09/25/24 16:01> History of Present Illness Chief Complaint: Flank Pain Narrative Narrative: 43-year-old female with past medical history of diverticulitis presents with left flank pain. She states 5 days ago it felt sore in the left lower back and she thought it was her hip and she tried to do stretching. The pain became worse and is moving up towards the left flank. It is worse with movement or getting in and out of the car. She has no abdominal pain. No dysuria, frequency, or hematuria. She has had normal bowel movements. No fever chills or nausea or vomiting. She states she has had pyelonephritis in the past but at that time had a lot of urinary symptoms. PFSH <ROBERT Del Rosario - Last Filed: 09/25/24 16:01> PFSH Medical History Ectopic , tubal Female pelvic congestion syndrome Headache, chronic migraine without aura Vasovagal syncope History of colitis Chronic neck pain Home Medications ?Medication ?Instructions ?Recorded ?Last Taken ?Type cephalexin 500 mg capsule 500 mg PO TID #9 caps Unknown Rx orphenadrine citrate 100 mg 100 mg PO BID 7 days #14 t abs 09/25/24 Unknown Rx tablet,extended release Allergy/AdvReac Type Severity Reaction Status Date / Time lanolin Allergy Hives Verified 09/25/24 13:45 naproxen (From Naprosyn) Allergy Hives Verified 09/25/24 13:45 tramadol Allergy Other Verified 09/25/24 13:45 venom-honey bee Allergy Swelling Verified 09/25/24 13:45 Food Allergies: Uncoded AdvReac Nausea Verified 09/25/24 13:45 gabapentin AdvReac Other Verified 09/25/24 13:45 Surgical History Hx of tubal ligation Social History Smoking Status: Former smoker ROS <ROBERT Del Rosario - Last Filed: 09/25/24 16:01> ROS ED ROS Narrative Constitutional: Negative for fever, chills, malaise. CVS: Negative for chest pain. Respiratory: Negative for shortness of breath, cough. GI: Negative for abdominal pain, nausea, vomiting, diarrhea, constipation, melena, hematochezia. : Negative for dysuria, hematuria or frequency. EXAM <ROBERT Del Rosario - Last Filed: 09/25/24 16:01> Physical Exam Narrative Exam Narrative: CONST: Patient sitting in no acute distress. EYES: Normal inspection. NECK: Normal inspection. RESP: No respiratory distress, CTAB. CVS: Regular rate and rhythm, no murmur, no gallop. ABD: Soft and nontender, no guarding or rebound, nondistended, no hepatosplenomegaly. Back: Normal inspection, left CVA tenderness and reproducible pain with movement. SKIN: Color normal, no rash, warm, dry, intact. EXTREMITIES: Normal appearance, no pedal edema. NEURO: Alert and answering questions appropriately. PSYCH: Normal affect. Const Vital Signs: 09/25/24 13:44 Temperature 97.6 F L Temperature Source Temporal Pulse Rate 87 Respiratory Rate 15 Blood Pressure 120/80 Blood Pressure Mean 93 Pulse Ox 100 Oxygen Delivery Method Room Air <Dr. Jose Aguilar DO - Last Filed: 09/25/24 14:46> Physical Exam Const Vital Signs: 09/25/24 13:44 Temperature 97.6 F L Temperature Source Temporal Pulse Rate 87 Respiratory Rate 15 Blood Pressure 120/80 Blood Pressure Mean 93 Pulse Ox 100 Oxygen Delivery Method Room Air MDM <ROBERT Del Rosario - Last Filed: 09/25/24 16:01> [facility] Narrative Medical decision making narrative: Differential includes but not limited to kidney stone, pyelonephritis, mu sculoskeletal pain, zoster 43-year-old female has several days of left flank pain. She has no other associated symptoms. No urinary symptoms. She appears well nontoxic. Vital stable. She is tender in the left CVA region and also has reproducible pain with movement. No sign of zoster. No abdominal tenderness. This could be musculoskeletal want to rule out underlying renal process labs and a CT were ordered. CBC and BMP are unremarkable. Creatinine 0.81. Urinalysis negative. CT shows no acute findings. There is a chronic enlarged left ovarian vein. Patient is aware she has pelvic congestion of the left ovary. She had some improvement with IV Toradol prior to testing. After results she was given Tylenol, Norflex, and lidocaine patch. At this time I would treat as musculosk eletal pain with [id number] pain relievers and I prescribed muscle relaxers as needed. Return precautions discussed. She was discharged in stable condition. Lab Data Labs: Laboratory Results - last 24 hr 09/25/24 09/25/24 14:10 14:33 WBC 5.2 RBC 4.19 L Hgb 12.6 Hct 37.2 MCV 88.8 MCH 30.1 MCHC 33.9 RDW Std Deviation 38.5 RDW Coeff of Parag 11.9 Plt Count 264 MPV 9.6 Immature Gran % (Auto) 0.000 Neut % (Auto) 53.9 Lymph % (Auto) 34.7 [place] % (Auto) 7.6 Eos % (Auto) 2.5 Baso % (Auto) 1.3 H Absolute Neuts (auto) 2.8 Absolute Lymphs (auto) 1.82 Nucleated RBC % 0 Sodium 138 Potassium 4.2 Chloride 103 Carbon Dioxide 27.1 Anion Gap 8 BUN 6 Creatinine 0.81 Estim Creat Clear Calc 74.51 Est GFR (MDRD) Non-Af 93 BUN/Creatinine Ratio 7.9 L Glucose 72 Calcium 8.8 Urine Color Straw Urine Clarity Clear Urine pH 7.0 Ur Specific Blanco 1.005 Urine Protein Negative Urine Glucose (UA) Normal Urine Ketones Negative Urine Occult Blood Negative Urine Nitrite Negative Urine Bilirubin Negative Urine Urobilinogen Normal Ur Leukocyte Esterase Negative Urine RBC 0 SEEN Urine WBC 0 SEEN Ur Squamous Epith Cells 0 SEEN Urine Bacteria 0 SEEN Urine Mucus 0 SEEN Radiography Diagnostic Testing: Clinical Impression(s) from Imaging Studies Abdomen/Pelvis CT 09/25/24 14:24 IMPRESSION: 1. No acute abdominopelvic finding. 2. Enlarged left ovarian vein, unchanged over numerous examinations. Correlation with patient's symptoms is recommended as this could represent pelvic congestion in the correct clinical context. One or more dose reduction techniques were used (e.g., Automated exposure control, adjustment of the mA and/or kV according to patient size, use of iterative reconstruction technique). Reading Location: [id number] <Dr. Jose Aguilar, DO - Last Filed: 09/25/24 14:46> [facility] History & Record Review Discussion w/independent historian: Patient Lab Data Attestation: I reviewed the patient's lab results. Labs: Laboratory Results - last 24 hr 09/25/24 09/25/24 14:10 14:33 WBC 5.2 RBC 4.19 L Hgb 12.6 Hct 37.2 MCV 88.8 MCH 30.1 MCHC 33.9 RDW Std Deviation 38.5 RDW Coeff of Parag 11.9 Plt Count 264 MPV 9.6 Immature Gran % (Auto) 0.000 Neut % (Auto) 53.9 Lymph % (Auto) 34.7 [place] % (Auto) 7.6 Eos % (Auto) 2.5 Baso % (Auto) 1.3 H Absolute Neuts (auto) 2.8 Absolute Lymphs (auto) 1.82 Nucleated RBC % 0 Sodium 138 Potassium 4.2 Chloride 103 Carbon Dioxide 27.1 Anion Gap 8 BUN 6 Creatinine 0.81 Estim Creat Clear Calc 74.51 Est GFR (MDRD) Non-Af 93 BUN/Creatinine Ratio 7.9 L Glucose 72 Calcium 8.8 Urine Color Straw Urine Clarity Clear Urine pH 7.0 Ur Specific Blanco 1.005 Urine Protein Negative Urine Glucose (UA) Normal Urine Ketones Negative Urine Occult Blood Negative Urine Nitrite Negative Urine Bilirubin Negative Urine Urobilinogen Normal Ur Leukocyte Esterase Negative Urine RBC 0 SEEN Urine WBC 0 SEEN Ur Squamous Epith Cells 0 SEEN Urine Bacteria 0 SEEN Urine Mucus 0 SEEN Radiography Diagnostic Testing: Clinical Impression(s) from Imaging Studies Abdomen/Pelvis CT 09/25/24 14:24 IMPRESSION: 1. No acute abdominopelvic finding. 2. Enlarged left ovarian vein, unchanged over numerous examinations. Correlation with patient's symptoms is recommended as this could represent pelvic congestion in the correct clinical context. One or more dose reduction techniques were used (e.g., Automated exposure control, adjustment of the mA and/or kV according to patient size, use of iterative reconstruction technique). Reading Location: [id number] Treatment and Re-Evaluation :: I have personally performed a face to face assessment of the patient and have reviewed the ANNIE Note. I performed a substantive portion of the visit including all aspects of the following. My ruth findings include: History is 43-year-old female with a several day history of left flank pain. Patient states she thought it was her hip but feels like it is more in her kidney area. She denies any urinary symptoms. No vomiting or fever. She has had prior kidney infection with urinary symptoms. Exam is patient reports tenderness to palpation in the left CVA region. There are no rashes. Medical Decison Making urinalysis shows no overt infection or hematuria. Given her symptomology we will obtain a flank CT. Discharge Plan Triage Chief Complaint: Flank Pain ED Midlevel Provider: Abby Cabral ED Provider: Jose Aguilar Dx/Rx/DC Orders Clinical Impression: Left flank pain Instructions: ED Flank Pain, Uncertain Cause Prescriptions: New orphenadrine citrate 100 mg tablet extended release 100 mg PO BID 7 Days Qty: 14 0RF No Action cephalexin 500 mg capsule 500 mg PO TID Qty: 9 0RF Primary Care Provider: Care Physician,No Primary Referrals: Care Physician,No Primary [Primary Care Provider] - Activity Restrictions/Additional Instructions: Your labs and CT scan are normal. I suspect this is musculoskeletal flank pain. You can take [id number] Tylenol and ibuprofen every 6 hours and use the prescribed muscle relaxers as needed. Follow-up with your primary care doctor. Print Language: Welsh Disposition Disposition: Home, Self Care
[2024-09-25] MEDS: Ketorolac 15 MG/ML Vial IM (14:06)
[2024-09-25 14:16] LABS: Bacteria 0 SEEN /hpf (None Seen); Mucous, Urine 0 SEEN /hpf (<or=2+); Squamous Epithelial Cells - UA 0 SEEN /hpf (5-10); White Blood Cells 0 SEEN /hpf (0-5)
[2024-09-25 14:17] LABS: Color, Urine Straw (Yellow); Glucose, Dipstick Normal (Normal); Ketone-Dipstick Negative (Negative); Leukocyte Esterase-Dipstick Negative /ul (Negative); Nitrite-Dipstick Negative (Negative); Occult Blood-Urine Negative /ul (Negative); Protein-Dipstick Negative (Negative); Specific Gravity, Urine 1.005 (1.002-1.030); Urine Bilirubin Dipstick Negative (Negative); Urine Clarity Clear (Clear); Urine Urobilinogen Normal (Normal)
[2024-09-25 14:22] LABS: Red Blood Cells-Urine 0 SEEN /hpf (0-5)
--- NOTE | 2024-09-25 14:24 | CT_ITS ---
PROCEDURE: ABDOMEN/PELVIS W IV CONT ONLY REASON FOR EXAM: 43-year-old female, left flank pain, history of colitis. TECHNIQUE: Abdomen and pelvis CT with intravenous contrast. No oral contrast. IV CONTRAST: Isovue-[id number] COMPARISON: CT abdomen pelvis 03/09/2024. FINDINGS: Lung bases: The heart is normal in size. Lung bases are clear. Liver: The liver is normal in size without focal hepatic mass. The major portal veins are patent. No biliary ductal dilation. Gallbladder: No radiopaque stones within the gallbladder. Spleen: Unremarkable. Pancreas: Unremarkable. Adrenals: Unremarkable. Kidneys: No hydronephrosis or nephrolithiasis. Bladder: Mildly distended and unremarkable. Reproductive Organs: Physiologic left corpus luteum. Bowel: The bowel loops are normal in caliber. No ascites or pneumoperitoneum. Normal appendix. Lymph nodes: No suspicious lymph node enlargement. Vasculature: Enlarged left ovarian vein, unchanged over numerous examinations. Minimal aortoiliac calcific plaque. Bones/soft tissues: No aggressive osseous lesions. Ornamental jewelry within the umbilicus. CT/Abdomen/Pelvis W IV Cont ONLY IMPRESSION: 1. No acute abdominopelvic finding. 2. Enlarged left ovarian vein, unchanged over numerous examinations. Correlati on with patient's symptoms is recommended as this could represent pelvic congestion in the correct clinical context. One or more dose reduction techniques were used (e.g., Automated exposure contr ol, adjustment of the mA and/or kV according to patient size, use of iterative reconstruction technique). Reading Location: [id number]
[2024-09-25 14:42] LABS: Absolute Lymphocyte Count 1.82 X10^3/uL (0.83-4.51); Absolute Neutrophil Count 2.8 X10^3/uL (2.0-7.7); Basophil# 0.07 X10^3/uL; Basophil% 1.3 % (0-1); Eosinophil# 0.13 X10^3/uL; Eosinophils% 2.5 % (0-5); Hematocrit 37.2 % (37-47); Hemoglobin 12.6 g/dL (12.0-15.0); Lymphocyte # 1.82 X10^3/ul (0.83-4.51); Lymphocyte % 34.7 % (19-41); Mean Corp Hgb Conc 33.9 g/dL (32-36); Mean Corpuscular Hgb 30.1 pg (27.0-32.0); Mean Corpuscular Volume 88.8 fL (81-99); Mean Platelet Vol. 9.6 fl (6.2-12.0); Monocyte% 7.6 % (0-10); NRBC Flagged by Analyzer 0 % (0-5); Neutrophil # 2.82 X10^3/uL (2.7-7.7); Neutrophil % 53.9 % (47-70); Platelet Count 264 K/mm3 (150-450); RBC Distribution Width CV 11.9 % (11.6-14.6); RBC Distribution Width SD 38.5 fl (35.1-43.9); Red Blood Count 4.19 M/mm3 (4.2-5.4); White Blood Count 5.2 K/mm3 (4.4-11.0)
[2024-09-25 15:05] LABS: Anion Gap 8 (5-15); BUN 6 mg/dL (4-19); BUN/Creat Ratio 7.9 RATIO (10-20); Calcium,Total 8.8 mg/dL (7.6-11.0); Carbon Dioxide 27.1 mmol/L (21.0-32.0); Chloride 103 mmol/L (98-108); Creatinine, Serum 0.81 mg/dL (0.70-1.20); EST Glomerular Filtration Rate 93 (>60); Estimated Creatinine Clearance 74.51 ml/min (50-250); Glucose 72 mg/dL (70-99); Potassium 4.2 mmol/L (3.3-5.1); Sodium Level 138 mmol/L (133-145)
[2024-09-25 15:43] VITALS: PULSE 81; RESP 16; O2SAT 97
[2024-09-25] MEDS: Acetaminophen 500 MG Tablet 1000 MG PO (16:08)
[2024-09-25] MEDS: Orphenadrine 100 MG Tablet PO (16:08)
[2024-09-25] MEDS: Lidocaine 5% Patch 1 PATCH TOPICAL (16:08)
[2024-09-25 16:13] VITALS: BP 120/80; PULSE 81; RESP 16; TEMP 36.4; O2SAT 97
== END 2024-09-25 16:13 | disposition home or self-care (01) ==
PROVIDERS: Physician Assistant; Emergency Provider Emergency Medicine; Visit Provider Emergency Medicine
DX: R10.9 Unspecified abdominal pain (principal); Z87.891 Personal history of nicotine dependence; N83.8 Other noninflammatory disorders of ovary, fallopian tube and broad ligament; Z87.19 Personal history of other diseases of the digestive system; Z98.51 Tubal ligation status
CPT/HCPCS: 74177; 80048; 81001; 85025; 96372; 99282; Q9967; A4216

== ENCOUNTER 2024-10-02 17:30 | Emergency (ER) | payer OTHER, MEDICAID, SELFPAY ==
[2024-10-02 17:30] VITALS: BP 129/87; PULSE 98; RESP 15; TEMP 36.4; O2SAT 100; BMI 19.7
--- NOTE | 2024-10-02 17:43 | ED.VIS.LOWEX ---
HPI History of Present Illness HPI Narrative: Patient presents with pain in her left posterior hip area that has been getting worse over the past 2 weeks. Patient states it is gradually getting worse. Patient states it has been constant for the past 2 weeks. Patient describes it as aching. Patient states everything makes it worse. Patient states that ice seems to help with it. Patient denies any paresthesias or weakness. Patient denies any trauma or injury. Chief Complaint: Lower Extremity Injury Informant: patient Onset/Context/Timing Onset: Weeks (2) Context: Gradual Onset Timing: Continuous Quality of Pain: Aching Location: Left posterior hip Worsened by: Everything Relieved by: Ice Associated Symptoms Associated Symptoms: Negative for Parasthesia, Weakness or Loss of Funtion PFSH [facility] Medical History Ectopic , tubal Female pelvic congestion syndrome Headache, chronic migraine without aura Vasovagal syncope History of colitis Chronic neck pain Home Medications ?Medication ?Instructions ?Recorded ?Last Taken ?Type cephalexin 500 mg capsule 500 mg PO TID #9 caps 08/01/24 Unknown Rx orphenadrine citrate 100 mg 100 mg PO BID 7 days #14 tabs 09/25/24 Unknown Rx tablet,extended release hydrocodone-acetaminophen 5-325mg 1 tab PO Q6H PRN PRN Pain 3 days 10/02/24 Unknown Rx 5mg-325mg #10 TABLETS Allergy/AdvReac Type Severity Reaction Status Date / Time lanolin Allergy Hives Verified 10/02/24 17:32 naproxen (From Naprosyn) Allergy Hives Verified 10/02/24 17:32 tramadol Allergy Other Verified 10/02/24 17:32 venom-honey bee Allergy Swelling Verified 10/02/24 17:32 Food Allergies: Uncoded AdvReac Nausea Verified 10/02/24 17:32 gabapentin AdvReac Other Verified 10/02/24 17:32 Surgical History Hx of tubal ligation Social History Smoking Status: Former smoker ROS ROS ED Constitutional Constitutional ED: Denies chills or fever(s) Eyes Eyes: Denies blurry vision or change in vision ENT ENT ED: Denies rhinorrhea or sore throat Cardiovascular Cardiovascular: Denies chest pain or palpitations Respiratory/Chest Respiratory/Chest: Denies cough or dyspnea Gastrointestinal Gastrointestinal: Denies nausea or vomiting Genitourinary Genitourinary ED: Denies dysuria or hematuria Musculoskeletal Musculoskeletal: Denies back pain or neck pain Integumentary Denies abscess or rash Neurologic Neurologic: Reports headache(s); Denies weakness Allergic/Immunologic Allergic/Immunologic ED: Denies mouth swelling or urticaria EXAM Physical Exam Const Vital Signs: 10/02/24 17:30 Temperature 97.6 F L Temperature Source Temporal Pulse Rate 98 Respiratory Rate 15 Blood Pressure 129/87 H Blood Pressure Mean 101 Pulse Ox 100 Oxygen Delivery Method Room Air Positive well nourished and well developed General Appearance ED: well developed and NAD HEENT Reports moist mucous membranes Neck full ROM and supple Extremity Extremity Narrative: There is tenderness to palpation over the left sacroiliac joint. There is no bony crepitance or step-off. Range of motion was limited in all motions of the left hip secondary to pain. Strength is 5/5 bilaterally in the lower extremities. There are no sensory deficits noted. Pedal pulses are equal bilaterally. Neuro oriented x3, CN's II-XII intact bilaterally, moves all extremities and no sensory deficits noted Sensorium / Orientation: alert Motor Exam: strength 5/5 throughout Psych mental status grossly normal MDM MDM MDM Narrative Medical decision making narrative: Differential diagnose include sacroiliitis, sacral strain, sciatica, and hip strain. X-rays of the pelvis will be obtained to assess for sacroiliitis and arthritis. Radiography Diagnostic Testing: X-rays of the pelvis were obtained. There is 1 view. On my independent interpretation, there is no acute fracture. There are some mild degenerative joint changes in the sacroiliac joints bilaterally. There is no acute abnormality noted. Radiologist also interpreted the x-ray and agrees. Treatment and Re-Evaluation Narrative: Nicotine cessation was discussed. Patient was given a dose of [place] here. Patient was advised of her findings. States she is unable to tolerate NSAIDs and has an allergy to Naprosyn. Patient states he also has an allergy to tramadol. Patient states she is also unable to tolerate steroids because she gets very angry on steroids. Patient was given a prescription for a short course of [place]. Patient was instructed to follow-up with her primary care physician in 5 to 7 days. Patient was instructed to use ice to the area. Patient understood and was agreeable with the plan. All questions were answered. Discharge Plan Triage Chief Complaint: Lower Extremity Injury ED Provider: Dilip Gonzales Dx/Rx/DC Orders Clinical Impression: Sacroiliitis, Nicotine vapor product user Instructions: ED Sacroiliitis Prescriptions: New hydrocodone-acetaminophen 5-325 mg tablet 1 tab PO Q6H PRN PRN (Reason: Pain) 3 Days Qty: 10 0RF No Action cephalexin 500 mg capsule 500 mg PO TID Qty: 9 0RF orphenadrine citrate 100 mg tablet extended release 100 mg PO BID 7 Days Qty: 14 0RF Primary Care Provider: Care Physician,No Primary Referrals: Lea Serna MD [Med Staff - Program Proposals Coordinator] - 5-7 Days Care Physician,No Primary [Primary Care Provider] - Print Language: Syriac Disposition Disposition: Home, Self Care
--- NOTE | 2024-10-02 17:58 | RAD_ITS ---
PROCEDURE: PELVIS 1 OR 2 VIEWS REASON FOR EXAM: INJURY/PAIN TECHNIQUE: 1 view(s) of the pelvis. COMPARISON: None FINDINGS: No fracture or dislocation. Joint spaces appear within limits. Symmetric appearing SI joints and pubic symphysis appear within limits. Small bony exuberance along the right superior pubic ramus may represent a small exostosis. Incidental appearing right pelvic phlebolith noted. RAD/Pelvis 1 or 2 Views IMPRESSION: No fracture or dislocation. Reading Location: [id number]
[2024-10-02] MEDS: HYDROcodone Bitartrate/Apap 5/325 Tablet PO (18:10)
== END 2024-10-02 18:44 | disposition home or self-care (01) ==
PROVIDERS: Emergency Provider Emergency Medicine; Visit Provider Emergency Medicine
DX: M46.1 Sacroiliitis, not elsewhere classified (principal); Z87.891 Personal history of nicotine dependence; R51.9 Headache, unspecified; Z98.51 Tubal ligation status
CPT/HCPCS: 72170; 99282

== ENCOUNTER 2025-04-06 07:42 | Emergency (ER) | payer OTHER, SELFPAY ==
[2025-04-06 07:42] VITALS: BP 150/94; PULSE 91; RESP 14; TEMP 36.7; O2SAT 98; BMI 20.2
--- NOTE | 2025-04-06 09:00 | RAD_ITS ---
PROCEDURE: CHEST PA AND LATERAL 04/06/2025 REASON FOR EXAM: COUGH TECHNIQUE: Procedure Code: RADCXR Modality: DX Procedure: CHEST PA AND LATERAL COMPARISON: Chest x-ray 09/02/2022 FINDINGS: Hardware: None Heart: The heart size is normal. Mediastinum: The mediastinal contour is stable. Lungs: Bilateral hyperinflated lung likely related to underlying COPD. Bones: The bones are unremarkable. RAD/Chest PA and Lateral IMPRESSION: No evidence of any acute cardiopulmonary abnormality. Reading Location: [id number]
--- NOTE | 2025-04-06 10:02 | EX.ED.DYSGE1 ---
HPI History of Present Illness Chief Complaint: Cold Sx Informant: patient Narrative Narrative: Patient is a 44-year-old female with history of irritable bowel disease, ulcerative colitis and pelvic congestion syndrome presenting with flulike symptoms. Patient states in the past 4 to 5 days she has just been very weak with no energy and bodyaches. Yesterday she developed sore throat, congestion and ear pain. States she has had an intermittent cough sometimes. She had 2 episodes of vomiting last night. She denies any diarrhea. No she does feel little nauseous now. Denies any sick contacts. Has been taking Mucinex D at home for her symptoms. Came in for further evaluation. Denies any fevers. Denies any abdominal pain or urinary symptoms. No other complaints or concerns at this time. [facility] Medical History Ectopic , tubal Female pelvic congestion syndrome Headache, chronic migraine without aura Vasovagal syncope History of colitis Chronic neck pain Home Medications ?Medication ?Instructions ?Recorded ?Last Taken ?Type hydrocodone-acetaminophen 5-325mg 1 tab PO Q6H PRN PRN Pain 3 days 10/02/24 Unknown Rx 5mg-325mg #10 TABLETS albuterol sulfate 90 mcg/actuation 1 - 2 puff inhalation Q4H PRN PRN 04/06/25 Unknown Rx aerosol inhaler (Ventolin HFA) Wheezing #1 inh ondansetron 4 mg disintegrating 4 mg PO Q8H PRN PRN Nausea #10 tabs 04/06/25 Unknown Rx tablet Allergy/AdvReac Type Severity Reaction Status Date / Time lanolin Allergy Hives Verified 04/06/25 07:44 naproxen (From Naprosyn) Allergy Hives Verified 04/06/25 07:44 tramadol Allergy Other Verified 04/06/25 07:44 venom-honey bee Allergy Swelling Verified 04/06/25 07:44 Food Allergies: Uncoded AdvReac Nausea Verified 04/06/25 07:44 gabapentin AdvReac Other Verified 04/06/25 07:44 Surgical History Hx of tubal ligation Social History Smoking Status: Former smoker ROS ROS ED Constitutional Constitutional ED: Reports other Details: Generalized malaise, decreased energy ; Denies chills or fever(s) ENT ENT ED: Reports ear pain, sore throat and other Details: Nasal congestion Cardiovascular Cardiovascular: Denies chest pain Respiratory/Chest Respiratory/Chest: Reports cough and dyspnea Gastrointestinal Gastrointestinal: Reports nausea and vomiting; Denies abdominal pain, diarrhea or melena Genitourinary Genitourinary ED: Denies dysuria or urinary frequency Musculoskeletal Musculoskeletal: Reports myalgias; Denies arthralgias Integumentary Denies rash Neurologic Neurologic: Reports headache(s) and weakness; Denies paresthesias Psychiatric Psychiatric: Denies anxiety or depression Hematologic/Lymphatic Hematologic/Lymphatic: Denies easy bleeding or easy bruising EXAM Physical Exam Const Vital Signs: 04/06/25 07:42 Temperature 98.1 F Temperature Source Temporal Pulse Rate 91 Respiratory Rate 14 Blood Pressure 150/94 H Blood Pressure Mean 112 Pulse Ox 98 Oxygen Delivery Method Room Air Positive well nourished and well developed Constitutional Narrative: Patient looks like she does not feel well but is nontoxic-appearing General Appearance ED: well developed and NAD HEENT Reports moist mucous membranes HEENT Narrative: Normal oropharynx. Mild nasal congestion present. Normal ear canals. Normal tympanic membranes bilaterally with normal cone of light. No effusions present. Eyes PERRL and EOMs intact bilaterally Neck no lymphadenopathy, supple and no JVD Neck Narrative: No meningeal signs, normal range of motion of the neck Chest Wall inspection of chest normal and palpation of chest normal Resp normal respiratory effort Resp Narrative: Mildly diminished and crackly breath sounds noted at the left lung base. No wheezing appreciated. Auscultation: Negative for wheezes Cardio regular rate, regular rhythm and no murmurs GI normal to inspection, nondistended, normoactive bowel sounds and non-tender Extremity normal to inspection General Extremety ED: Negative for edema General Extremity: Negative for edema Neuro oriented x3 Sensorium / Orientation: alert Motor Exam: general weakness Psych mental status grossly normal Skin no rashes or lesions noted and no wounds MDM MDM MDM Narrative Medical decision making narrative: Patient evaluated for worsening weakness and URI symptoms really intensified over the past 24 hours. She appears nontoxic. Vital signs are normal. She is afebrile in the emergency room. Differential includes viral syndrome, influenza, pneumonia. She is not wheezing lower suspicion for COPD/asthma exacerbation. She does report episode of vomiting but she does not have any abdominal pain on exam. Does not report change in her bowel movements and no diarrhea. Low suspicion for bowel obstruction. Abdomen is soft and nontender with normal bowel sounds. Patient given Tylenol in the emergency room. Did have some abnormal breath sounds on exam so chest x-ray is obtained to look for signs of pneumonia or pleural effusion. As she does have some mild hyperinflation but no acute abnormality. She does have a history of asthma. Patient reevaluated. She is now sleeping. She has no further vomiting in the emergency room and tolerates oral Tylenol. Chest x-ray and viral results reviewed which were largely negative. Patient will be treated empirically for viral syndrome at home with supportive treatment include alternating ibuprofen and Tylenol, pushing fluids and taking decongestants at home. Given return precautions. Patient and agreeable plan of care. Patient discharged home in stable condition peer Lab Data Attestation: I reviewed the patient's lab results. Radiography Diagnostic Testing: Clinical Impression(s) from Imaging Studies Chest X-Ray 04/06/25 09:00 IMPRESSION: No evidence of any acute cardiopulmonary abnormality. Reading Location: [facility] Discharge Plan Triage Chief Complaint: Cold Sx ED Provider: Becca Ambrosio Dx/Rx/DC Orders Clinical Impression: Acute viral syndrome Instructions: ED Viral Syndrome (Adult) Prescriptions: New albuterol sulfate [Ventolin HFA] 90 mcg/actuation HFA aerosol inhaler 1 - 2 puff inhalation Q4H PRN PRN (Reason: Wheezing) Qty: 1 0RF ondansetron 4 mg tablet,disintegrating 4 mg PO Q8H PRN PRN (Reason: Nausea) Qty: 10 0RF No Action hydrocodone-acetaminophen 5-325 mg tablet 1 tab PO Q6H PRN PRN (Reason: Pain) 3 Days Qty: 10 0RF Stand Alone Forms: ED Work / School Excuse Primary Care Provider: Care Physician,No Primary Referrals: Noemi Aguilera MD [Med Staff - Materials Planner/Production Planner, Family Practice] Care Physician,No Primary [Primary Care Provider, Medical] Activity Restrictions/Additional Instructions: I suspect this is a viral syndrome. Continue to take [id number] Mucinex/decongestants or Tylenol Cold and flu and alternate ibuprofen and Tylenol for pain relief. Make sure drink plenty of fluids. You were given a prescription for an inhaler to use as needed for coughing or chest tightness/wheezing as well as Zofran prescription for nausea. Return if you have progression or worsening symptoms. Please follow-up with your family doctor especially if you are not improving. If you do not have any negative information for family medicine. Print Language: Yakut Disposition Disposition: Home, Self Care
[2025-04-06 10:26] VITALS: BP 150/94; PULSE 78; RESP 16; TEMP 36.7; O2SAT 98
== END 2025-04-06 10:30 | disposition home or self-care (01) ==
PROVIDERS: Emergency Provider Emergency Medicine; Visit Provider Emergency Medicine
DX: B34.9 Viral infection, unspecified (principal); Z87.891 Personal history of nicotine dependence; R51.9 Headache, unspecified; R53.1 Weakness; M79.10 Myalgia, unspecified site; R11.2 Nausea with vomiting, unspecified; R05.9 Cough, unspecified; R06.09 Other forms of dyspnea; Z98.51 Tubal ligation status; J02.9 Acute pharyngitis, unspecified; Z87.19 Personal history of other diseases of the digestive system; R09.81 Nasal congestion
CPT/HCPCS: 71046; 87631; 99282